=== PATIENT | male | born 1945 | race Caucasian/White ===

== ENCOUNTER 2018-07-03 19:01 | Emergency (ER) | payer MEDICARE, SELFPAY ==
[2018-07-03 19:02] VITALS: BP 163/75; PULSE 87; RESP 17; TEMP 36.6; O2SAT 96; BMI 26.4
--- NOTE | 2018-07-03 19:36 | CT_ITS ---
STUDY: CT ABDOMEN AND PELVIS WITHOUT CONTRAST REASON FOR EXAM: Male, 72 years old. Left flank pain. Patient's says pain has decreased after performance of the CT. RADIATION DOSAGE (If Supplied By Facility): CTDIvol = ( 10.78 ) mGy, DLP = ( 587.11 ) mGycm TECHNIQUE: Transaxial images were obtained from the dome of the diaphragm to the symphysis pubis without oral contrast, and without intravenous contrast. Sagittal and coronal images were reconstructed. Individualized dose optimization techniques were used for this CT. COMPARISON: None. FINDINGS: There are minimal dependent changes posteriorly at the lung bases. Lungs are otherwise clear. The visualized portions of the heart are within normal limits. Normal liver. There is non-visualization of the gallbladder, which may be secondary to either contraction or a prior cholecystectomy. There is mild dilatation of extrahepatic ducts suggesting prior cholecystectomy. Normal spleen. Normal pancreas. Normal bilateral adrenal glands. The right kidney is of normal size and cortical thickness. There is mild stranding of the perinephric fat. There is a high density exophytic cyst mass off the mid to lower pole suggesting hemorrhagic cyst. There is no renal calculi. There is no hydronephrosis. Normal right ureter. Left kidney is normal in size and cortical echogenicity. There is a small hemorrhagic cyst in the mid kidney. There is a 4.1 x 3.5 x 4 cm exophytic cyst off the upper pole. There is stranding of the perinephric fat. There is 2 mm nonobstructing calculus lower pole calyx. There is very mild hydronephrosis is dilatation of the ureter to the urinary bladder. There is a 2 mm calcification in the urinary bladder suggesting calcification within a left ureterocele versus recently passed stone. Normal visualized stomach. Normal small intestine. Normal colon. The appendix is visualized and appears normal. There is diffuse atherosclerotic calcification of the abdominal aorta, without a demonstrated aneurysm. Normal inferior vena cava. Normal retroperitoneum. Normal urinary bladder. The prostate is mildly enlarged. There is no pelvic lymphadenopathy. There are phleboliths right pelvis. No free air or free fluid is seen within the peritoneal cavity. There is a large left inguinal hernia of omental fat. The abdominal wall is otherwise unremarkable. There are diffuse degenerative changes of the visualized lumbar spine. CT/Abdomen/Pelvis without Cont IMPRESSION: 1. Small calcification in the left pelvis near the UVJ. Recently passed stone versus calcification within the left ureterocele. There is mild left hydronephrosis and ureterectasis. 2. Nonobstructing left renal calculus. 3. Status post cholecystectomy. 4. Bilateral renal cysts. 5. Enlarged prostate. 6. Atherosclerotic changes of the aorta. 7. Left inguinal hernia. 8. Degenerative changes of the lumbar spine. Electronically Signed: Arben Aranda DO at 21:03 EDT Tel [phone], Service support ,
[2018-07-03] MEDS: Ketorolac 30 MG/ML Syringe 15 MG IV (20:05)
[2018-07-03] MEDS: 0.9% Normal Saline 1,000 ML 250 ML IV (20:05)
[2018-07-03] MEDS: Ondansetron 4 MG/2 ML Vial IV (20:06)
[2018-07-03] MEDS: Morphine 4 MG/ML Syringe IV (20:06)
[2018-07-03 20:18] LABS: Absolute Lymphocyte Count 0.88 X10^3/ul (0.83-4.51); Absolute Neutrophil Count 7.4 X10^3/uL (2.0-7.7); Basophil# 0.02 X10^3/uL; Basophil% 0.2 % (0-1); Eosinophil# 0.04 X10^3/uL; Eosinophils% 0.5 % (0-5); Hemoglobin 14.6 g/dl (13.0-16.5); Lymphocyte # 0.88 X10^3/ul (4.0); Lymphocyte % 9.9 % (19-41); Mean Corpuscular Hgb 31.4 pg (27.0-32.0); Mean Corpuscular Volume 92.5 fL (80-94); Mean Platelet Vol. 9.6 fl (6.2-12.0); Monocyte# 0.52 X10^3/uL; Monocyte% 5.9 % (0-10); Neutrophil # 7.38 X10^3/uL (2.7-7.7); Platelet Count 238 K/mm3 (150-450); RBC Distribution Width CV 13.7 % (11.6-14.6); RBC Distribution Width SD 46.2 fl (35.1-43.9); Red Blood Count 4.65 M/mm3 (4.6-6.2); White Blood Count 8.9 K/mm3 (4.4-11.0)
[2018-07-03 20:24] LABS: POSITIVE COUNT NO; POSITIVE DIFFERENTIAL NO; POSITIVE MORPHOLOGY NO
[2018-07-03 20:31] LABS: Anion Gap 6 (5-15); BUN 25 mg/dL (7-18); BUN/Creat Ratio 18.1 RATIO (10-20); Chloride 104 mmol/L (98-107); Creatinine, Serum 1.38 mg/dL (0.70-1.30); EST Glomerular Filtration Rate 54 mL/min (>60); Est Glom Filt Rate - Afr Amer 65 mL/min (>60); Estimated Creatinine Clearance 56.29 ml/min; Glucose 104 mg/dL (74-106); Potassium 3.7 mmol/L (3.5-5.1); Sodium Level 140 mmol/L (136-145)
[2018-07-03 21:38] LABS: Bacteria 0 SEEN /hpf (None Seen); Mucous, Urine 0 SEEN /hpf (<or=2+); Red Blood Cells-Urine 0 SEEN /hpf (0-5); Squamous Epithelial Cells - UA 0 SEEN /hpf (0-5)
[2018-07-03 22:15] LABS: Color, Urine Yellow (Yellow); Glucose, Dipstick Normal (Normal); Ketone-Dipstick Negative (Negative); Leukocyte Esterase-Dipstick Negative /ul (Negative); Nitrite-Dipstick Negative (Negative); Occult Blood-Urine 250 /ul (Negative); Protein-Dipstick 15 mg/dl (Negative); Urine Bilirubin Dipstick Negative (Negative); Urine Clarity Sl. Cloudy (Clear); Urine Urobilinogen Normal (Normal)
--- NOTE | 2018-07-03 22:27 | ED.DCSUM_ITS ---
- ER Visit Summary Date of Service: 07/03/18 Chief Complaint: Left flank pain History of Present Illness: The patient is a 72 M with left flank pain since 3 PM this afternoon. Patient states his legs feel like his prior kidney stones. He has noted dark discoloration to his urine. No dysuria. Patient has had prior kidney stones that he has been able to pass. He is never required surgery. Physical Examination: Vital signs significant for blood pressure 163/75, otherwise unremarkable. Patient sitting in bed no acute distress. Heart regular rate and rhythm. Lung sounds are clear. Abdomen is soft nontender. Back examination was no CVA tenderness. Test Results: CBC and chemistry studies reveal creatinine 1.38. Urinalysis shows 250 blood on microscopic exam. CT flank shows small calcification in the left pelvis near the UVJ. This is likely a recently passed stone versus calcification in a left ureterocele. There is evidence of a 2 mm stone in the left kidney. Mild left hydronephrosis is noted. Emergency Department Course and Treatment: Patient was given IV fluids, Toradol, Zofran, and morphine. On repeat evaluation patient is resting comfortably. I advised him that he is already passed the stone into the bladder. He was notified that there is another stone in the left kidney that may cause problems in the future. He is referred to urology for follow-up as needed. Treatment Plan: [] Disposition: Discharge Impression: Recently passed kidney stone This note was generated with [employer] dictation software. It may contain incorrect words, spelling, and punctuation that were not noted in review of the chart prior to signing ED Disposition - Plan for ED Patient: Disposition: Home or Assisted Living Instructions: ED Stone Renal Passed Referrals: Byron Vasquez MD [STAFF PHYSICIAN] - As Needed
[2018-07-03 22:38] LABS: Amorphous Sediment 1+; White Blood Cells 25-50 SEEN /hpf (0-5)
[2018-07-03 22:49] VITALS: BP 152/84; PULSE 95; RESP 16; O2SAT 98
== END 2018-07-03 22:50 | disposition home or self-care (01) ==
PROVIDERS: Emergency Provider Emergency Medicine; Family Provider Internal Medicine; PCP Internal Medicine
DX: N13.2 Hydronephrosis with renal and ureteral calculous obstruction (principal); Z87.442 Personal history of urinary calculi; I10 Essential (primary) hypertension; K21.9 Gastro-esophageal reflux disease without esophagitis
CPT/HCPCS: 74176; 80048; 81001; 85025; 96361; 96374; 96375; 99283; J7030; J2405

== ENCOUNTER 2020-04-07 15:55 | Outpatient (RCR) | payer MEDICARE, SELFPAY | END 2020-04-07 23:59 | LOC: IMMUN 15:55 | PROVIDERS: PCP Internal Medicine; Visit Provider Family Medicine | DX: Z23 Encounter for immunization (principal) | CPT/HCPCS: 0011A; 0012A ==

== ENCOUNTER → 2020-06-29 06:25 | Outpatient (CLI) | payer MEDICARE, SELFPAY ==
[2020-06-07 11:00] VITALS: BMI 25.7
--- NOTE | 2020-06-29 06:27 | ECHOD_ITS ---
Reason For Study: ARRHYTHMIA Procedure This was a 2D Doppler, Color Flow transthoracic echocardiogram. Exam performed in department. Left Ventricle Normal LV size. Left ventricular systolic function is normal. The estimated ejection fraction is 55 %. Stage 1 diastolic dysfunction. No regional wall motion abnormalities noted. Right Ventricle Normal RV size. Normal systolic function. Atria Normal left atrium. Normal right atrium. Mitral Valve Mild focal mitral valve calcification. Tricuspid Valve Normal tricuspid valve. Mild tricuspid valve insufficiency. Aortic Valve Normal aortic valve. Trisinus/trileaflet aortic valve. Pulmonic Valve Normal pulmonic valve. Great Vessels Normal aortic root. The pulmonary artery is normal size. Normal inferior vena cava. Pericardium/Pleural No pericardial effusion. MMode/2D Measurements & Calculations LVIDd: 4.4 cm IVSd: 1.1 cm Ao root diam: 3.3 cm LVIDs: 3.1 cm LVPWd: 1.1 cm RVDd: 3.3 cm FS: 30.1 % LAV(MOD-bp): 43.4 ml LA A4 area: 15.5 cm2 LA dimension(2D): 3.7 cm LAV(MOD-bp) Indexed: 20.6 ml/m2 LAV(MOD-sp2): 41.8 ml LAV(MOD-sp4): 41.5 ml RA A4 area: 14.6 cm2 Time Measurements MV dec time: 0.17 sec Doppler Measurements & Calculations MV E max hasmukh: 57.5 cm/sec Lat Peak E' Hasmukh: 7.8 cm/sec Med Peak E' Hasmukh: 6.4 cm/sec MV A max hasmukh: 93.3 cm/sec E/E' lat: 7.3 E/E' med: 9.0 MV E/A: 0.62 Ao V2 max: 113.9 cm/sec LV V1 max: 99.1 cm/sec PA V2 max: 88.5 cm/sec Ao max P.2 mmHg LV V1 max P.9 mmHg TR max hasmukh: 230.0 cm/sec TR max P.6 mmHg ECHO/Echo Complete Interpretation Summary Normal LV size. Left ventricular systolic function is normal. The estimated ejection fraction is 55 %. Stage 1 diastolic dysfunction. Structurally normal valves. Ordering Physician: Cam Allison Referring Physician: Damaris Almanzar Performed By: Sofi Danielle RDCS, RVT
--- NOTE | 2020-06-29 12:57 | STRESSREP ---
Stress Test Report Exercise myocardial perfusion stress test. 74-year-old male with a history of hypertension and hyperlipidemia. Stress protocol: Resting EKG demonstrates normal sinus rhythm with a rate of 68 bpm normal intervals are noted occasional premature ventricular complexes present. The patient exercised according to regular Torey protocol for a total duration of 6 minutes. The maximum heart rate attained was 166 bpm which was 112% of maximum predicted heart rate the maximum workload was 7 metabolic equivalents. At rest there were no ST or T wave changes noted to suggest ischemia and at peak exercise upsloping ST changes were noted with did not meet the criteria for ischemia. No clinical angina was noted the test was terminated due to the target heart rate being achieved. The peak blood pressure was 202/88 mmHg suggesting a hypertensive response to exercise. Myocardial perfusion protocol. 14.8 mCi of technetium 99m sestamibi was injected at rest. The patient exercised according to regular Torey protocol. At peak exercise 44.3 mCi of technetium 99m sestamibi was injected stress images were obtained stress and rest images were reconstructed and compared in the short axis vertical long and horizontal long axis. Gated images were also obtained Perfusion SPECT analysis: Review of the stress images demonstrate normal uptake of tracer noted in all areas of the myocardium. The resting images similarly demonstrated normal uptake of tracer noted in all areas of the myocardium no areas of reversibility were noted to suggest ischemia no previous infarct is noted. Gated SPECT analysis: The gated ejection fraction is noted to be 74%. Conclusion: Normal exercise myocardial perfusion stress test at a moderate workload. No evidence of ischemia noted.
== END ==
PROVIDERS: PCP Internal Medicine; Referring Provider Internal Medicine Cardiovascular Disease; Visit Provider Internal Medicine Cardiovascular Disease
DX: R94.31 Abnormal electrocardiogram [ECG] [EKG] (principal)
CPT/HCPCS: 78452; 93017; 93306; A9500; A4216

== ENCOUNTER 2021-09-02 19:08 | Emergency (ER) | payer MEDICARE, SELFPAY ==
[2021-09-02 19:09] VITALS: BP 144/76; PULSE 84; RESP 16; TEMP 36.6; O2SAT 100; BMI 26.4
--- NOTE | 2021-09-02 19:15 | CT_ITS ---
STUDY: CT ABDOMEN AND PELVIS WITHOUT CONTRAST REASON FOR EXAM: Male, 76 years old. Kidney Stone right-sided flank pain today RADIATION DOSAGE (If Supplied By Facility): CTDIvol = ( 13.40 ) mGy, DLP = ( 716.28 ) mGycm TECHNIQUE: Transaxial images were obtained from the dome of the diaphragm to the symphysis pubis without oral contrast, and without intravenous contrast. Sagittal and coronal images were reconstructed. Individualized dose optimization techniques were used for this CT. COMPARISON: None. FINDINGS: There are chronic interstitial fibrotic changes of the lung bases. The visualized portions of the heart are within normal limits. Normal liver. Gallbladder is absent. Normal spleen. Normal pancreas. Normal bilateral adrenal glands. Mild right hydronephrosis and hydroureter with 2 mm calculus in the region of the right UVJ on image 111 series 2. Simple cyst of the left kidney. No required imaging follow-up needed given high likelihood of benign nature. There is a small hiatal hernia. Normal small intestine. There are multiple colonic diverticula consistent with diverticulosis. The appendix is visualized and appears normal. There is diffuse atherosclerotic calcification of the abdominal aorta, without a demonstrated aneurysm. Normal inferior vena cava. Normal retroperitoneum. Normal urinary bladder. There is a left-sided inguinal hernia containing adipose tissue. There are diffuse degenerative changes of the visualized lumbar spine. Right hip replacement. CT/Abdomen/Pelvis without Cont IMPRESSION: 1. 2 mm right UVJ calculus with mild hydronephrosis. Electronically Signed: Martinez Tafoya MD ([place]) at 20:33 EDT Reading Location ID and State: [facility] / [place] , Service support ,
--- NOTE | 2021-09-02 19:17 | ED.VIS.GI ---
HPI HPI - GI History of Present Illness Chief Complaint: Abd Pain Narrative Narrative: 76-year-old male presenting with right flank pain and right lower quadrant pain. Patient states it started out of nowhere couple of hours ago. It is sharp. He expresses that he has nausea without vomiting. No dysuria or hematuria. He has history of kidney stones and this feels similar. He has not had diarrhea or constipation. [facility] Medical History (Updated 09/02/21 @ 21:[address] Patrice Aceves DO) Abnormal electrocardiogram Cholelithiasis Essential (primary) hypertension GERD (gastroesophageal reflux disease) History of melanoma Hyperlipidemia Hypertrophy of prostate without urinary obstruction Kidney stone Kidney stones Neuropathy Nocturia Osteoarthritis Home Medications multivitamin-iron 9 mg-folic acid 400 mcg-calcium and minerals tablet 1 tablet PO DAILY 08/29/14 [History Last Taken Unknown] aspirin 81 mg tablet,delayed release (Adult Low Dose Aspirin) 81 mg PO DAILY 06/06/20 [History Last Taken Unknown] quinapril 20 mg-hydrochlorothiazide 12.5 mg tablet 1 tablet PO DAILY 06/06/20 [History Last Taken Unknown] lansoprazole 30 mg capsule,delayed release 30 mg PO DAILY 06/07/20 [History Last Taken Unknown] ondansetron 4 mg disintegrating tablet 4 mg PO Q8H PRN nausea and vomiting #14 tabs 09/02/21 [Rx Last Taken Unknown] oxycodone 5 mg capsule 5 mg PO Q8H PRN pain 3 days #12 caps 09/02/21 [Rx Last Taken Unknown] Allergy/AdvReac Type Severity Reaction Status Date / Time acetaminophen [From Tylenol] Allergy Rash Verified 09/02/21 19:11 doxazosin mesylate AdvReac Other Verified 09/02/21 19:11 [From Cardura] pantoprazole sodium AdvReac Other Verified 09/02/21 19:11 [From Protonix] triamterene AdvReac Other Verified 09/02/21 19:11 Family History Mother Cancer Father Aneurysm Surgical History History of cholecystectomy History of colonoscopy History of herniorrhaphy History of total hip arthroplasty Social History Smoking Status: Never smoker alcohol intake: current alcohol intake frequency: a few times a week Alcohol type: beer details: 1 beer 4 times a week ROS ROS ED Constitutional Constitutional ED: Denies chills or fever(s) ENT ENT ED: Denies rhinorrhea or sore throat Cardiovascular Cardiovascular: Denies chest pain or palpitations Respiratory/Chest Respiratory/Chest: Denies cough or dyspnea Gastrointestinal Gastrointestinal: Reports abdominal pain Genitourinary Genitourinary ED: Denies dysuria or hematuria Musculoskeletal Musculoskeletal: Reports back pain Integumentary Denies abscess or Abrasions Neurologic Neurologic: Denies headache(s) Psychiatric Psychiatric: Denies anxiety or depression EXAM Physical Exam Const Vital Signs: 09/02/21 19:09 09/02/21 21:45 Temperature 97.8 F Temperature Source Oral Pulse Rate 84 100 Respiratory Rate 16 18 Blood Pressure 144/76 H 157/84 H Blood Pressure Mean 98 Pulse Ox 100 96 Oxygen Delivery Method Room Air Positive well nourished General Appearance ED: NAD; Negative for pallor HEENT Reports TM's clear and moist mucous membranes normocephalic Tympanic Membrane ED: Yes TM's clear Eyes PERRL and EOMs intact bilaterally Resp normal respiratory effort and clear to auscultation bilaterally Cardio regular rate and regular rhythm Back/Spine General Back: CVA tenderness right Neuro CN's II-XII intact bilaterally Sensorium / Orientation: alert Motor Exam: strength 5/5 throughout Psych mental status grossly normal Skin no wounds General Skin Exam: Negative for jaundice or pallor MDM MDM MDM Narrative Medical decision making narrative: Patient given morphine, Zofran, Toradol. Blood work is obtained and his CBC is normal. BMP shows his creatinine is worsened to 1.91. He was given a liter of IV fluids. The last comparison creatinine I have for him is from 2019. Then it was 1.38. Urinalysis shows no indication of infection there is some occult blood. CT of the abdomen pelvis without contrast is ordered and patient has a 2 mm right UVJ stone with mild hydronephrosis. Patient counseled on findings. He still comfortable after being treated. He is given oxycodone in the ER. And given a prescription for oxycodone for home. He also given Zofran. He is given follow-up with urology for the kidney stone. He was urged to follow-up with his primary care physician for his abnormal kidney function. I do not think he is to be admitted. He is counseled to stay away from NSAIDs. Return precautions discussed. Impression: 1. 2 mm right UVJ stone 2. Nausea/vomiting sign 3. Hematuria 4. Right-sided hydronephrosis 5. Acute on chronic kidney disease Lab Data Attestation: I reviewed the patient's lab results. Labs: Laboratory Results - last 24 hr 09/02/21 09/02/21 09/02/21 19:24 19:24 20:35 WBC 9.9 RBC 4.57 L Hgb 14.3 Hct 42.6 MCV 93.2 MCH 31.3 MCHC 33.6 RDW Std Deviation 45.5 H RDW Coeff of Lidia 13.3 Plt Count 316 MPV 10.1 Immature Gran % (Auto) 0.600 Neut % (Auto) 71.5 H Lymph % (Auto) 17.1 L [place] % (Auto) 8.9 Eos % (Auto) 1.2 Baso % (Auto) 0.7 Absolute Neuts (auto) 7.1 Absolute Lymphs (auto) 1.69 Nucleated RBC % 0 Sodium 140 Potassium 3.6 Chloride 106 Carbon Dioxide 27.0 Anion Gap 7 BUN 38 H Creatinine 1.91 H Estim Creat Clear Calc 38.35 Est GFR (MDRD) Af Amer 45 L Est GFR (MDRD) Non-Af 37 L BUN/Creatinine Ratio 19.9 Glucose 129 H Calcium 9.8 Urine Color Yellow Urine Clarity Sl. Cloudy Urine pH 6.0 Ur Specific [place] 1.015 Urine Protein 15 H Urine Glucose (UA) Normal Urine Ketones 15 H Urine Occult Blood 250 H Urine Nitrite Negative Urine Bilirubin Negative Urine Urobilinogen Normal Ur Leukocyte Esterase Negative Urine RBC 25-50 SEEN Urine WBC 0 SEEN Ur Squamous Epith Cells 0-5 SEEN Urine Bacteria 0 SEEN Urine Mucus 0 SEEN Radiography Diagnostic Testing: Clinical Impression(s) from Imaging Studies Abdomen/Pelvis CT 09/02/21 19:15 IMPRESSION: 1. 2 mm right UVJ calculus with mild hydronephrosis. Electronically Signed: Martinez Tafoya MD ([place]) at 20:33 EDT , Discharge Plan Triage Chief Complaint: Abd Pain ED Provider: Patrice Aceves Dx/Rx/DC Orders Instructions: ED Kidney Stone w/ Colic Prescriptions: New oxycodone 5 mg capsule 5 mg PO Q8H PRN (Reason: pain) 3 Days Qty: 12 0RF ondansetron 4 mg tablet,disintegrating 4 mg PO Q8H PRN (Reason: nausea and vomiting) Qty: 14 0RF No Action quinapril-hydrochlorothiazide 20-12.5 mg tablet 1 tablet PO DAILY aspirin [Adult Low Dose Aspirin] 81 mg tablet,delayed release (DR/EC) 81 mg PO DAILY [id number] 1 TABLET tablet 1 tablet PO DAILY lansoprazole 30 mg capsule,delayed release(DR/EC) 30 mg PO DAILY Primary Care Provider: Damaris Almanzar Referrals: Byron Vasquez MD [STAFF PHYSICIAN] - 3-5 Days Damaris Almanzar MD [Primary Care Provider] - Disposition Disposition: Home, Self Care
[2021-09-02 19:46] LABS: Anion Gap 7 (5-15); BUN 38 mg/dL (7-18); BUN/Creat Ratio 19.9 RATIO (10-20); Calcium,Total 9.8 mg/dL (8.5-10.1); Chloride 106 mmol/L (98-107); Creatinine, Serum 1.91 mg/dL (0.70-1.30); EST Glomerular Filtration Rate 37 mL/min (>60); Est Glom Filt Rate - Afr Amer 45 mL/min (>60); Estimated Creatinine Clearance 38.35 ml/min; Glucose 129 mg/dL (74-106); Potassium 3.6 mmol/L (3.5-5.1); Sodium Level 140 mmol/L (136-145)
[2021-09-02 20:10] LABS: Absolute Lymphocyte Count 1.69 X10^3/uL (0.83-4.51); Absolute Neutrophil Count 7.1 X10^3/uL (2.0-7.7); Basophil# 0.07 X10^3/uL; Basophil% 0.7 % (0-1); Eosinophil# 0.12 X10^3/uL; Eosinophils% 1.2 % (0-5); Hematocrit 42.6 % (40-54); Hemoglobin 14.3 g/dL (13.0-16.5); Lymphocyte # 1.69 X10^3/ul (0.83-4.51); Lymphocyte % 17.1 % (19-41); Mean Corp Hgb Conc 33.6 g/dL (32-36); Mean Corpuscular Hgb 31.3 pg (27.0-32.0); Mean Corpuscular Volume 93.2 fL (80-94); Mean Platelet Vol. 10.1 fl (6.2-12.0); Monocyte# 0.88 X10^3/uL; Monocyte% 8.9 % (0-10); NRBC Flagged by Analyzer 0 % (0-5); Neutrophil # 7.08 X10^3/uL (2.7-7.7); Neutrophil % 71.5 % (47-70); Platelet Count 316 K/mm3 (150-450); RBC Distribution Width CV 13.3 % (11.6-14.6); RBC Distribution Width SD 45.5 fl (35.1-43.9); Red Blood Count 4.57 M/mm3 (4.6-6.2); White Blood Count 9.9 K/mm3 (4.4-11.0)
[2021-09-02] MEDS: Morphine 4 MG/ML Syringe IV (20:18)
[2021-09-02] MEDS: Ondansetron 4 MG/2 ML Vial IV (20:18)
[2021-09-02] MEDS: 0.9% Normal Saline 1,000 ML 999 ML IV (20:18)
[2021-09-02] MEDS: Ketorolac 15 MG/ML Vial IV (20:19)
[2021-09-02 20:40] LABS: Bacteria 0 SEEN /hpf (None Seen); Mucous, Urine 0 SEEN /hpf (<or=2+); White Blood Cells 0 SEEN /hpf (0-5)
[2021-09-02 20:42] LABS: Color, Urine Yellow (Yellow); Glucose, Dipstick Normal (Normal); Ketone-Dipstick 15 mg/dl (Negative); Leukocyte Esterase-Dipstick Negative /ul (Negative); Nitrite-Dipstick Negative (Negative); Occult Blood-Urine 250 /ul (Negative); Protein-Dipstick 15 mg/dl (Negative); Specific Gravity, Urine 1.015 (1.002-1.030); Urine Bilirubin Dipstick Negative (Negative); Urine Clarity Sl. Cloudy (Clear); Urine Urobilinogen Normal (Normal)
[2021-09-02 20:49] LABS: Red Blood Cells-Urine 25-50 SEEN /hpf (0-5); Squamous Epithelial Cells - UA 0-5 SEEN /hpf (0-5)
[2021-09-02] MEDS: oxyCODONE 5 MG Tablet PO (21:42)
[2021-09-02 21:45] VITALS: BP 157/84; PULSE 100; RESP 18; O2SAT 96
== END 2021-09-02 23:10 ==
PROVIDERS: Emergency Provider Student in an Organized Health Care Education/Training Program; PCP Internal Medicine; Visit Provider Student in an Organized Health Care Education/Training Program
DX: N13.2 Hydronephrosis with renal and ureteral calculous obstruction (principal); N17.9 Acute kidney failure, unspecified; N18.9 Chronic kidney disease, unspecified; R31.9 Hematuria, unspecified
CPT/HCPCS: 74176; 80048; 81001; 85025; 96374; 96375; 99282; J7030; A4216; J2405

== ENCOUNTER 2022-10-25 02:20 | Emergency (ER) | payer MEDICARE, SELFPAY ==
[2022-10-25 02:21] VITALS: BP 187/126; PULSE 87; RESP 17; TEMP 35.9; O2SAT 97; BMI 26.5
--- NOTE | 2022-10-25 02:33 | CT_ITS ---
EXAM: CT ABDOMEN AND PELVIS WITHOUT INTRAVENOUS CONTRAST CLINICAL INDICATION: Kidney Stone L TECHNIQUE: Helically acquired images were obtained of the abdomen and pelvis without intravenous contrast. This CT exam was performed using one or more of the following dose reduction techniques: automated exposure control, adjustment of the mA and/or kV according to patient size, and/or use of iterative reconstruction technique. RADIATION DOSE: CTDIvol = 11.72 mGy, DLP = 640.09 mGy-cm COMPARISON: CT abdomen and pelvis 09/02/2021 FINDINGS: LOWER THORAX: Bibasilar dependent atelectasis. No cardiomegaly. No significant pericardial effusion. ABDOMEN: LIVER: Unremarkable. Homogeneous. GALLBLADDER AND BILE DUCTS: Cholecystectomy. No intra- or extrahepatic biliary ductal dilation. PANCREAS: Unremarkable. No focal cystic mass. SPLEEN: Unremarkable. Normal size without focal cystic or solid mass. ADRENALS: Unremarkable. No nodules. KIDNEYS AND URETERS: There is a 2 mm stone in the left UVJ, causing mild obstructive changes. Benign left renal cyst. No follow-up imaging is recommended per consensus recommendations based on imaging criteria. Normal renal size and position. STOMACH AND BOWEL: Diverticular disease of the sigmoid colon without diverticulitis. No stomach or bowel distention. PELVIS: APPENDIX: The appendix is normal. BLADDER: Unremarkable. REPRODUCTIVE: Unremarkable as visualized. No mass. ABDOMEN and PELVIS: INTRAPERITONEAL SPACE: Unremarkable. No ascites or other fluid collection. No free air. BONES/JOINTS: Degenerative changes of the spine. Right hip arthroplasty. No suspicious lytic or blastic abnormality. SOFT TISSUES: Fat-containing left inguinal hernia. VASCULATURE: Unremarkable. Abdominal aorta is non-dilated. LYMPH NODES: Unremarkable. No enlarged lymph nodes. CT/Abdomen/Pelvis without Cont IMPRESSION: There is a 2 mm stone in the left UVJ, causing mild obstructive changes. Electronically Signed: Star Steward MD at 3:23 EDT ,
--- NOTE | 2022-10-25 02:34 | ED.VIS.GI ---
HPI HPI - GI History of Present Illness Chief Complaint: Flank Pain Informant: patient Narrative Narrative: Patient feels like he has a kidney stone. Has had them in the past, similar pain, left flank started 1 hour prior to arrival. He states the pain is not so bad right now. Denies any nausea or vomiting. Pain does not go into his back, just his side, states he feels like he needs to urinate but he cannot and the pain radiates down into his left scrotum and penis. No hematuria. He has not required surgery to remove stones in the past. PFSH PFS Medical History Abnormal electrocardiogram Cholelithiasis Essential (primary) hypertension GERD (gastroesophageal reflux disease) History of melanoma Hyperlipidemia Hypertrophy of prostate without urinary obstruction Kidney stone Kidney stones Neuropathy Nocturia Osteoarthritis Home Medications multivitamin-iron 9 mg-folic acid 400 mcg-calcium and minerals tablet 1 tablet PO DAILY 08/29/14 [History Last Taken Unknown] lansoprazole 30 mg capsule,delayed release 30 mg PO DAILY 06/07/20 [History Last Taken Unknown] lisinopril 30 mg tablet 30 mg PO DAILY 10/25/22 [History Last Taken Unknown] oxycodone-acetaminophen 5 mg-325 mg tablet 1 tab PO Q6H PRN PRN Pain 3 days #12 TABLETS 10/25/22 [Rx Last Taken Unknown] Allergy/AdvReac Type Severity Reaction Status Date / Time acetaminophen [From Tylenol] Allergy Rash Verified 10/25/22 02:23 doxazosin mesylate AdvReac Other Verified 10/25/22 02:23 [From Cardura] pantoprazole sodium AdvReac Other Verified 10/25/22 02:23 [From Protonix] triamterene AdvReac Other Verified 10/25/22 02:23 Family History Mother Cancer Father Aneurysm Surgical History History of cholecystectomy History of colonoscopy History of herniorrhaphy History of total hip arthroplasty Social History Smoking Status: Never smoker alcohol intake: current alcohol intake frequency: a few times a week Alcohol type: beer details: 1 beer 4 times a week ROS ROS ED Constitutional Constitutional ED: Denies chills or fever(s) Eyes Eyes: Denies change in vision or diplopia ENT ENT ED: Denies rhinorrhea or sore throat Cardiovascular Cardiovascular: Denies chest pain or palpitations Respiratory/Chest Respiratory/Chest: Denies cough or dyspnea Gastrointestinal Gastrointestinal: Reports abdominal pain; Denies diarrhea, nausea or vomiting Genitourinary Genitourinary ED: Reports flank pain and other Details: Feels like I need to go but I cannot ; Denies dysuria or hematuria Musculoskeletal Musculoskeletal: Denies back pain or neck pain Integumentary Denies abscess or rash Neurologic Neurologic: Denies headache(s), paresthesias or weakness Psychiatric Psychiatric: Denies anxiety or suicidal thoughts EXAM Physical Exam Const Vital Signs: 10/25/22 02:21 Temperature 96.6 F L Temperature Source Temporal Pulse Rate 87 Respiratory Rate 17 Blood Pressure 187/126 H Blood Pressure Mean 146 Pulse Ox 97 Oxygen Delivery Method Room Air Positive well nourished and well developed General Appearance ED: well developed and NAD HEENT Reports moist mucous membranes normocephalic and atraumatic Eyes PERRL and EOMs intact bilaterally Neck full ROM and supple Resp normal respiratory effort and clear to auscultation bilaterally Cardio regular rate, regular rhythm and no murmurs GI non-distended GI Narrative: Tender left lower quadrant, no guarding or rebound tenderness no pulsatile mass palpable. No Montes Dsouza sign no [place] sign. Auscultation: normoactive bowel sounds Palpation: soft Back/Spine no CVA tenderness General Back: other FROM Extremity normal to inspection General Extremety ED: Negative for edema, pulses abnormal or tenderness General Extremity: Negative for edema or pulses abnormal Neuro oriented x3, CN's II-XII intact bilaterally and no sensory deficits noted Sensorium / Orientation: awake and alert Motor Exam: strength 5/5 throughout Skin no rashes or lesions noted and no wounds MDM MDM MDM Narrative Medical decision making narrative: Likely having a kidney stone, CT was obtained and verifies a 2 mm stone at the left UVJ which explains his symptoms. I reviewed the images and the report and I agree with it. Urinalysis does not show obvious acute infection although there is pyuria. If he develops symptoms for infection I recommend he return, however at this time he has a very small stone that will likely not take a long time to pass. Blood work not indicated at this time since he has only had the stone for couple hours. His vital signs are stable, he was hypertensive when he was here, he was given Percocet and that really helped his pain and some Zofran as well to prophylax against nausea. He will get a prescription for more pain medication and we discussed reasons to return he is comfortable with that plan. Lab Data Attestation: I reviewed the patient's lab results. Labs: Laboratory Results - last 24 hr 10/25/22 02:55 Urine Color Yellow Urine Clarity Sl. Cloudy Urine pH 6.0 Ur Specific [place] 1.025 Urine Protein 30 H Urine Glucose (UA) Normal Urine Ketones Negative Urine Occult Blood 250 H Urine Nitrite Negative Urine Bilirubin Negative Urine Urobilinogen 1 H Ur Leukocyte Esterase 25 H Urine RBC 0-5 SEEN Urine WBC 25-50 SEEN Ur Squamous Epith Cells 0 SEEN Urine Bacteria RARE Hyaline Casts 0-5 SEEN Urine Mucus 1+ Radiography Diagnostic Testing: Clinical Impression(s) from Imaging Studies Abdomen/Pelvis CT 10/25/22 02:33 IMPRESSION: There is a 2 mm stone in the left UVJ, causing mild obstructive changes. Electronically Signed: Star Steward MD at 3:23 EDT , Discharge Plan Triage Chief Complaint: Flank Pain ED Provider: Nicholas Iyer Dx/Rx/DC Orders Clinical Impression: Ureteral colic, Urolithiasis Instructions: ED Kidney Stone w/ Colic Prescriptions: New oxycodone-acetaminophen [oxycodone-acetaminophen] 5-325 mg tablet 1 tab PO Q6H PRN PRN (Reason: Pain) 3 Days Qty: 12 0RF No Action [id number]-calcium-mins 1 TABLET tablet 1 tablet PO DAILY lansoprazole 30 mg capsule,delayed release(DR/EC) 30 mg PO DAILY lisinopril 30 mg tablet 30 mg PO DAILY Primary Care Provider: Damaris Almanzar Referrals: Byron Vasquez MD [Med Staff - Active Staff] - 10-14 Days if not better Damaris Almanzar MD [Primary Care Provider] - Disposition Disposition: Home, Self Care
[2022-10-25] MEDS: HYDROcodone Bitartrate/Apap 5/325 Tablet PO (02:51)
[2022-10-25] MEDS: Ondansetron 4 MG/2 ML Vial IV (02:54)
[2022-10-25 03:05] LABS: Squamous Epithelial Cells - UA 0 SEEN /hpf (0-5)
[2022-10-25 03:06] LABS: Color, Urine Yellow (Yellow); Glucose, Dipstick Normal (Normal); Ketone-Dipstick Negative (Negative); Leukocyte Esterase-Dipstick 25 /ul (Negative); Nitrite-Dipstick Negative (Negative); Occult Blood-Urine 250 /ul (Negative); Protein-Dipstick 30 mg/dl (Negative); Specific Gravity, Urine 1.025 (1.002-1.030); Urine Bilirubin Dipstick Negative (Negative); Urine Clarity Sl. Cloudy (Clear); Urine Urobilinogen 1 mg/dl (Normal)
[2022-10-25 03:25] LABS: Bacteria RARE /hpf (None Seen); Red Blood Cells-Urine 0-5 SEEN /hpf (0-5); White Blood Cells 25-50 SEEN /hpf (0-5)
[2022-10-25 03:26] LABS: Hyaline Cast 0-5 SEEN /lpf (0-5); Mucous, Urine 1+ /hpf (<or=2+)
[2022-10-25 03:46] VITALS: BP 137/99; PULSE 87; RESP 18; O2SAT 100
== END 2022-10-25 03:53 | disposition home or self-care (01) ==
PROVIDERS: Emergency Provider Emergency Medicine; PCP Internal Medicine; Visit Provider Emergency Medicine
DX: N20.1 Calculus of ureter (principal); I10 Essential (primary) hypertension; Z79.899 Other long term (current) drug therapy
CPT/HCPCS: 74176; 81001; 96374; 99284; A4216; J2405

== ENCOUNTER 2023-08-19 05:42 | Emergency (ER) | payer MEDICARE, SELFPAY ==
--- NOTE | 2023-08-19 09:10 | EDS_ITS ---
HPI HPI - GI History of Present Illness Detail of Chief Complaint: Taken care of on 08/19/23 during computer downtime. Informant: patient and spouse/S.O. Abdominal Pain/Flank Pain Onset: Today Context: Gradual Onset Timing: Continuous Quality: Aching Location: - (Left groin pain.) Current Severity: Gone Maximum Severity: Mild Worsened by: Nothing Relieved by: Nothing Nausea/Vomiting/Emesis GI Symptom: Negative for Nausea or Vomiting Diarrhea/Melena/Hematochezia GI Symptom: Negative for Diarrhea, Melena or Hematochezia Associated Symptoms Associated Symptoms: Negative for Dysuria, Frequency, Hematuria or Urgency Narrative Narrative: 78-year-old male history of prior kidney stones otherwise healthy. Said around 2 AM he was awoke with left groin pain. Denies any abdominal or back pain. Denies any other symptoms. No nausea, vomiting, diarrhea. No fever or chills. No dysuria or hematuria. He said the pain is almost completely gone at this time. He never had any back pain associated with it. He said any prior kidney stones always started in the flank or upper abdomen. He has never needed in the kidney stone surgery for removal. Currently symptom-free. Prior similar symptoms: No Recent Illness/Hospitalization: No PFSH PFSH Medical History Kidney stone Abnormal electrocardiogram Cholelithiasis Neuropathy Hypertrophy of prostate without urinary obstruction Osteoarthritis History of melanoma Nocturia Kidney stones GERD (gastroesophageal reflux disease) Essential (primary) hypertension Hyperlipidemia Home Medications ?Medication ?Instructions ?Recorded ?Last Taken ?Type multivitamin-iron 9 mg-folic acid 1 tablet PO DAILY 08/29/14 Unknown History 400 mcg-calcium and minerals tablet lansoprazole 30 mg capsule,delayed 30 mg PO DAILY 06/07/20 Unknown History release lisinopril 30 mg tablet 30 mg PO DAILY 10/25/22 Unknown History oxycodone-acetaminophen 5 mg-325 1 tab PO Q6H PRN PRN Pain 3 days 10/25/22 Unknown Rx mg tablet #12 TABLETS Allergy/AdvReac Type Severity Reaction Status Date / Time acetaminophen (From Tylenol) Allergy Rash Verified 10/25/22 02:23 doxazosin mesylate (From AdvReac Other Verified 10/25/22 02:23 Cardura) pantoprazole sodium (From AdvReac Other Verified 10/25/22 02:23 Protonix) triamterene AdvReac Other Verified 10/25/22 02:23 Family History Mother Cancer Father Aneurysm Surgical History History of colonoscopy History of herniorrhaphy History of cholecystectomy History of total hip arthroplasty Social History Smoking Status: Never smoker alcohol intake: current alcohol intake frequency: a few times a week Alcohol type: beer details: 1 beer 4 times a week ROS ROS ED ROS Narrative Left groin pain only. No other symptoms. Review of Systems ROS Unobtainable: Denies due to encephalopathy Constitutional Constitutional ED: Denies chills or fever(s) ENT ENT ED: Denies ear pain Cardiovascular Cardiovascular: Denies chest pain Respiratory/Chest Respiratory/Chest: Denies cough Gastrointestinal Gastrointestinal: Reports other Details: Left groin pain only. No abdominal, back or flank pain. ; Denies abdominal pain Genitourinary Genitourinary ED: Denies dysuria or hematuria Musculoskeletal Musculoskeletal: Denies arthralgias or back pain Integumentary Denies abscess or Abrasions Neurologic Neurologic: Denies headache(s) Psychiatric Psychiatric: Denies anxiety or depression Endocrine Endocrinology: Denies polydipsia Hematologic/Lymphatic Hematologic/Lymphatic: Denies easy bleeding Allergic/Immunologic Allergic/Immunologic ED: Denies mouth swelling, tongue swelling or urticaria EXAM Physical Exam Narrative Exam Narrative: Well-appearing 78-year-old male. Vital signs stable afebrile. He does not look septic toxic he is in no distress. His pain is basically resolved. H EENT exam unremarkable. Lungs clear. Heart regular rhythm. Abdomen soft, nontender, nondistended, normal bowel sounds without peritoneal signs. He is absolutely no abdominal tenderness. He points to his left groin but said the pain is resolved. There is no reproducible left groin pain on palpation. His external genitalia exam is unremarkable. No tenderness or swelling. There is no obvious hernia. He has full range of motion of both hips. The hips appear normal on exam. Full range of motion both lower extremities. Neurovascular intact. Const Positive well nourished and well developed; Negative for cachectic, contractures or unkempt General Appearance ED: well developed and NAD; Negative for unkempt, cachectic, contractures or pallor Nutritional Appearance: Negative for cachectic HEENT Reports moist mucous membranes; Denies dry mucous membranes normocephalic and atraumatic; Negative for trauma or tenderness Mouth ED: No dry mucous membranes Mouth: No dry mucous membranes Eyes PERRL and EOMs intact bilaterally General Eye ED: Negative for pale conjunctiva, scleral icterus or other Neck no lymphadenopathy, supple and no JVD General: Negative for tenderness Carotids: Negative for other Lymph Lymphatic: Negative for other Resp normal respiratory effort and clear to auscultation bilaterally Effort and Inspection: Negative for respiratory distress Auscultation: Negative for rales, rhonchi, wheezes or diminished lung sounds Cardio regular rate, regular rhythm, S1 normal heart sound, S2 normal heart sound and no murmurs Rate: Negative for bradycardia or tachycardic Rhythm: Negative for abnormal rhythm GI non-tender, non-distended and no masses Inspection: Negative for abdominal distention Palpation: soft; Negative for tender, guarding, hernia, mass or rebound tenderness present Back/Spine no CVA tenderness General Back: Negative for CVA tenderness Cervical Spine: Negative for cervical spine tenderness Thoracic Spine / Upper Back: Negative for thoracic spinal tenderness Lumbar Spine / Lower Back: Negative for lumbar spinal tenderness Extremity full ROM General Extremety ED: Negative for edema, tenderness or other findings General Extremity: Negative for edema or other findings Neuro CN's II-XII intact bilaterally and moves all extremities Sensorium / Orientation: alert, oriented to person, oriented to place and oriented to time; Negative for orientation impaired, confused, lethargic or stuporous Motor Exam: strength 5/5 throughout; Negative for general weakness or strength abnormal Psych mental status grossly normal and thought process normal Appearance: Negative for unkempt Attitude: No agitated Mood & Affect: Negative for depressed or anxious Skin no wounds General Skin Exam: Negative for jaundice or pallor Lesions: no lesions Rashes: no rashes Trauma: Negative for abrasion Nails: Negative for discolored MDM MDM MDM Narrative Medical decision making narrative: 78-year-old male had left groin pain which is since resolved. Currently symptom-free and pain-free. Had a history of kidney stones. I suspect this was a small kidney stone that passed into his bladder. Patient did not want a test done. He did not need any medications because with any symptoms. I reevaluated about 30 minutes after his initial exam again he was symptom-free pain-free. Abdomen, groin and left hip were unremarkable. He will be discharged home. Clinically this was a small kidney stone that passed into his bladder. Will strain his urine to see if he passes a stone. Discharge Plan Triage ED Provider: Jose M Christianson Dx/Rx/DC Orders Clinical Impression: Left groin pain, History of renal stone Prescriptions: No Action [id number]-calcium-mins 1 TABLET tablet 1 tablet PO DAILY lansoprazole 30 mg capsule,delayed release(DR/EC) 30 mg PO DAILY lisinopril 30 mg tablet 30 mg PO DAILY oxycodone-acetaminophen [oxycodone-acetaminophen] 5-325 mg tablet 1 tab PO Q6H PRN PRN (Reason: Pain) 3 Days Qty: 12 0RF Primary Care Provider: Damaris Almanzar Referrals: Damaris Almanzar MD [Primary Care Provider] - Print Language: Lebanese
== END 2023-08-19 07:12 | disposition home or self-care (01) ==
LOC: ED 10:31
PROVIDERS: Emergency Provider Emergency Medicine; PCP Internal Medicine; Visit Provider Emergency Medicine
DX: R10.2 Pelvic and perineal pain (principal)
CPT/HCPCS: 99282

== ENCOUNTER 2024-10-07 07:12 | Emergency (ER) | payer MEDICARE, SELFPAY ==
[2024-10-07 07:12] VITALS: BP 163/81; PULSE 77; RESP 18; TEMP 36.6; O2SAT 99; BMI 25.0
--- NOTE | 2024-10-07 07:21 | CT_ITS ---
PROCEDURE: ABDOMEN/PELVIS WITHOUT CONT 10/07/2024 REASON FOR EXAM: KIDNEY STONE TECHNIQUE: ABDOMEN/PELVIS WITHOUT CONT Noncontrast technique limits evaluation of the abdominal and pelvic viscera. Coronal and Sagittal reconstruction series were provided. One or more dose reduction techniques were used (e.g., Automated exposure control, adjustment of the mA and/or kV according to patient size, use of iterative reconstruction technique). RADIATION DOSE SUMMARY: CTDlvol: 11.9 mGy DLP: 654 mGycm COMPARISON: October 25, 2022, September 02, 2021 FINDINGS: Lung bases: Clear Liver: Normal Gallbladder: Cholecystectomy Spleen: Normal Pancreas: Normal Adrenals: Normal Kidneys: Renal cysts are shown bilaterally. An exophytic cyst at the superior pole right kidney is 13 mm. Other smaller cysts are hyperdense of the lateral midpole and posterior right lower pole. Similarly, on the left side there are benign cysts. At the posterior left upper pole there is a 14 mm cyst. A dominant exophytic cyst at the left midpole is 4.3 x 4.5 cm. Hyperdense cyst posterior left midpole is 13 mm. Punctate calculus right upper pole. 9 x 11 mm calculus left mid to upper pole. 6 x 2 mm calculus left ureteropelvic junction. A 2nd, smaller 3 mm calculus is seen at the mid ureter at the level of L4. Bladder: Normal Reproductive Organs: Prostate is normal. Bowel: Small sliding hiatus hernia. Small bowel is normal. Colonic diverticulosis is present without diverticulitis. Appendix: Normal Lymph nodes: None appear enlarged. Vasculature: Moderate atherosclerotic plaque. No aneurysm. Peritoneum / Retroperitoneum: No free air, free fluid or mass. Bones: Right hip prosthesis. Abdominal wall: Intact. Fat containing left inguinal hernia. CT/Abdomen/Pelvis without Cont IMPRESSION: 1. Bilateral simple renal cysts and hemorrhagic cysts. Bosniak 1. Bosniak 2. No follow-up required. 2. Bilateral renal calculi. There are 2 calculi in the ureter on the left. 1 of the ureteropelvic junction and another at the level of L4. 3. Diverticulosis without diverticulitis. Sliding hiatus hernia. 4. Fat containing left inguinal hernia. Reading Location: [id number]
--- NOTE | 2024-10-07 07:23 | EX.ED.DYSGE1 ---
HPI History of Present Illness Chief Complaint: Flank Pain Detail of Chief Complaint: Acute left flank pain that awoke patient at 0400 Informant: patient and spouse/S.O. Onset/Context/Timing Onset: Today (Onset 0400. Resolved and then reoccurred at 0600) Context: Sudden Onset Timing: Continuous Quality: Continuous since 0600 Current Severity: Severe Maximum Severity: Severe Worsened by: Nothing Relieved by: Nothing Associated Symptoms Associated Symptoms: Cold sweat and nausea Narrative Narrative: Patient is a 79-year-old male. He has history of recurrent renal and ureteral stone stones. Patient states he was awakened from sleep at 0400 with severe left-sided pain. The pain resolved. He thought he had passed the stone. At 0600 he had onset of pain in the lower left lower quadrant/inguinal area. It has been persistent since 0600. He does endorse cold sweat and nausea. He had no vomiting. He denies fever or chills. He denies any urologic symptoms. He denies scrotal pain or swelling. He has not noted a rash. He states he is on lisinopril and amlodipine for hypertension. He denies history of diabetes, peptic ulcer disease or kidney disease. Patient was seen July of this year by Dr. Christianson. At that time was felt that patient passed the stone. He was diagnosed with a UVJ stone in October [address] Reyes. Prior similar symptoms: Yes Recent Illness/Hospitalization: No PFSH [facility] Medical History Kidney stone Abnormal electrocardiogram Cholelithiasis Neuropathy Hypertrophy of prostate without urinary obstruction Osteoarthritis History of melanoma Nocturia Kidney stones GERD (gastroesophageal reflux disease) Essential (primary) hypertension Hyperlipidemia Home Medications ?Medication ?Instructions ?Recorded ?Last Taken ?Type multivitamin-iron 9 mg-folic acid 1 tablet PO DAILY 08/29/14 Unknown History 400 mcg-calcium and minerals tablet lansoprazole 30 mg capsule,delayed 30 mg PO DAILY 06/07/20 Unknown History release lisinopril 30 mg tablet 30 mg PO DAILY 10/25/22 Unknown History oxycodone-acetaminophen 5 mg-325 1 tab PO Q6H PRN PRN Pain 3 days 10/25/22 Unknown Rx mg tablet #12 TABLETS oxycodone 5 mg capsule 5 mg PO Q6H PRN pain 5 days #20 10/07/24 Unknown Rx caps Allergy/AdvReac Type Severity Reaction Status Date / Time acetaminophen (From Tylenol) Allergy Rash Verified 10/07/24 07:12 doxazosin mesylate (From AdvReac Other Verified 10/07/24 07:12 Cardura) pantoprazole sodium (From AdvReac Other Verified 10/07/24 07:12 Protonix) triamterene AdvReac Other Verified 10/07/24 07:12 Family History Mother Cancer Father Aneurysm Surgical History History of colonoscopy History of herniorrhaphy History of cholecystectomy History of total hip arthroplasty Social History Smoking Status: Never smoker alcohol intake: current alcohol intake frequency: a few times a week Alcohol type: beer details: 1 beer 4 times a week ROS ROS ED Constitutional Constitutional ED: Denies chills, fever(s), subjective or sweats Cardiovascular Cardiovascular: Denies chest pain or palpitations Respiratory/Chest Respiratory/Chest: Denies cough, dyspnea or dyspnea on exertion Gastrointestinal Gastrointestinal: Reports abdominal pain and nausea; Denies constipation, diarrhea, melena or vomiting Genitourinary Genitourinary ED: Reports other Details: Left groin pain. ; Denies dysuria, hematuria or urinary frequency Musculoskeletal Musculoskeletal: Denies arthralgias or myalgias Integumentary Denies rash Neurologic Neurologic: Denies headache(s) or paresthesias Endocrine Endocrinology: Denies cold intolerance or heat intolerance Hematologic/Lymphatic Hematologic/Lymphatic: Reports systems reviewed and no addt'l complaints, except as documented EXAM Physical Exam Const Vital Signs: 10/07/24 07:12 10/07/24 08:12 10/07/24 09:00 Temperature 97.8 F 98.1 F 98.1 F Temperature Source Oral Oral Oral Pulse Rate 77 73 60 Respiratory Rate 18 20 H 18 Blood Pressure 163/81 H 166/88 H 134/73 H Blood Pressure Mean 108 114 93 Pulse Ox 99 98 95 Oxygen Delivery Method Room Air Room Air Room Air Positive well nourished and well developed Constitutional Narrative: Patient is grimacing. He appears uncomfortable. General Appearance ED: well developed; Negative for NAD or pallor HEENT Reports moist mucous membranes HEENT Narrative: Head is atraumatic normocephalic. Ears normal. Eyes PERRL and EOMs intact bilaterally General Eye ED: Negative for scleral icterus Neck no lymphadenopathy and no JVD Resp normal respiratory effort and clear to auscultation bilaterally Cardio regular rate, regular rhythm, S1 normal heart sound, S2 normal heart sound and no murmurs GI non-distended and no masses; Negative for non-tender or hepatosplenomegaly Auscultation: hyperactive bowel sounds Palpation: soft and tender LLQ; Negative for splenomegaly, mass or rebound tenderness present Narrative: There is no inguinal lymphadenopathy or mass. Back/Spine General Back: CVA tenderness left Extremity normal to inspection General Extremety ED: Negative for edema General Extremity: Negative for edema Neuro oriented x3 and CN's II-XII intact bilaterally Sensorium / Orientation: alert Psych mental status grossly normal Skin no rashes or lesions noted, no wounds and skin turgor normal General Skin Exam: Negative for jaundice or pallor MDM MDM MDM Narrative Medical decision making narrative: Patient blood pressure is elevated most likely due to pain. He appears uncomfortable. History is consistent with obstructing ureteral stone. Will obtain UA to rule out infection. Prior records were reviewed. Will obtain CT of the abdomen pelvis without contrast to determine location and size of presumed ureteral stone, and UA to rule out infection since this would necessitate antibiotics and admission if there is an obstruction. Patient was medicated with Zofran for his nausea, ketorolac and morphine for his pain. History & Record Review Additional record(s) reviewed:: Prior ED visit (Documented in the HPI narrative.) and Prior labs Lab Data Attestation: I reviewed the patient's lab results. Lab results narrative: Basic metabolic panel Veals an elevated BUN/creatinine of 21 and 1.23. Creatinine is improved compared to 2021. Glucose is elevated 149. UA reveals hematuria. There is no pyuria or bacteriuria. Labs: Laboratory Results - last 24 hr 10/07/24 10/07/24 07:17 07:30 Sodium 138 Potassium 4.3 Chloride 103 Carbon Dioxide 19.5 L Anion Gap 15 BUN 21 H Creatinine 1.23 H Estim Creat Clear Calc 59.55 Est GFR (MDRD) Non-Af 60 BUN/Creatinine Ratio 17.4 Glucose 149 H Calcium 9.7 Urine Color Yellow Urine Clarity Sl. Cloudy Urine pH 6.5 Ur Specific [place] 1.015 Urine Protein 30 H Urine Glucose (UA) Normal Urine Ketones Negative Urine Occult Blood 250 H Urine Nitrite Negative Urine Bilirubin Negative Urine Urobilinogen Normal Ur Leukocyte Esterase Negative Urine RBC > 100 SEEN Urine WBC 0 SEEN Ur Squamous Epith Cells 0 SEEN Urine Bacteria 0 SEEN Urine Mucus 0 SEEN Radiography Diagnostic Testing: Clinical Impression(s) from Imaging Studies Abdomen/Pelvis CT 10/07/24 07:21 IMPRESSION: 1. Bilateral simple renal cysts and hemorrhagic cysts. Bosniak 1. Bosniak 2. No follow-up required. 2. Bilateral renal calculi. There are 2 calculi in the ureter on the left. 1 of the ureteropelvic junction and another at the level of L4. 3. Diverticulosis without diverticulitis. Sliding hiatus hernia. 4. Fat containing left inguinal hernia. Reading Location: [id number] CT of the abdomen pelvis reveals a stone in the left renal pelvis. There is also a proximal ureteral stone that is causing mild hydro-. Awaiting formal read by radiologist, 0824. The radiology report was reviewed. Patient made aware of results and discharge to home Discharge Plan Triage Chief Complaint: Flank Pain ED Provider: Mñeo Barraza Dx/Rx/DC Orders Clinical Impression: Hydronephrosis with urinary obstruction due to ureteral calculus, Bilateral renal stones, Renal insufficiency, Hematuria, Elevated blood pressure reading with diagnosis of hypertension, Diverticulosis Instructions: ED Renal Insufficiency, ED Kidney Stone with Pain Prescriptions: New oxycodone 5 mg capsule 5 mg PO Q6H PRN (Reason: pain) 5 Days Qty: 20 0RF No Action [id number]-mins 1 TABLET tablet 1 tablet PO DAILY lansoprazole 30 mg capsule,delayed release(DR/EC) 30 mg PO DAILY lisinopril 30 mg tablet 30 mg PO DAILY oxycodone-acetaminophen [oxycodone-acetaminophen] 5-325 mg tablet 1 tab PO Q6H PRN PRN (Reason: Pain) 3 Days Qty: 12 0RF Primary Care Provider: Damaris Almanzar Referrals: Byron Vasquez MD [Med Staff - Active Staff] - 5-7 Days Damaris Almanzar MD [Primary Care Provider] - Activity Restrictions/Additional Instructions: 1. Return if you have a temperature greater than 100, unable to eat or drink anything or pain is not under control with medication prescribed. 2. Contact Dr. Vasquez's office for follow-up. Print Language: Gabonese Disposition Disposition: Home, Self Care
[2024-10-07 07:31] LABS: Mucous, Urine 0 SEEN /hpf (<or=2+); Squamous Epithelial Cells - UA 0 SEEN /hpf (0-5)
[2024-10-07] MEDS: 0.9% Normal Saline (1000mL) 1,000 ML 250 ML IV (07:38)
--- OUTSIDE RECORDS SUMMARY | 2024-10-07 07:45 | XMS RPT_ITS | CCD ---
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 Kelton Serrano Primary Care Provider Dr. Kelton Serrano Referring Provider Dr. Cam Allison Attending Provider Kelton Serrano MD Primary Care Provider Nicholas Dela Cruz MD Unavailable Nicholas Dela Cruz MD Unavailable Marizol PT, Maame Unavailable Kelton Serrano MD Primary Care Provider Nicholas Dela Cruz MD Unavailable Nicholas Dela Cruz MD Unavailable Marizol PT, Maame Unavailable Marizol PT, Maame Unavailable Marizol PT, Maame Unavailable Kelton Serrano Primary Care Unavailable Nicholas Iyer Attending Unavailable Jose M Christianson Attending Unavailable Kelton Serrano Primary Care Unavailable Kelton Serrano MD Primary Care Provider Daily IMAGING CENTER MANAGER.POWER SWITCHBOARD OPERATOR, Kaye Unavailable Raz IMAGING CENTER MANAGER.BOTTLING EQUIPMENT SALES REPRESENTATIVE, Yaritza Unavailable Raz IMAGING CENTER MANAGER.BOTTLING EQUIPMENT SALES REPRESENTATIVE, Yaritza Unavailable Raz IMAGING CENTER MANAGER.BOTTLING EQUIPMENT SALES REPRESENTATIVE, Yaritza Unavailable Daily IMAGING CENTER MANAGER.POWER SWITCHBOARD OPERATOR, Kaye Unavailable KELTON SERRANO Referring Unavailable KELTON SERRANO Primary Care Unavailable KELTON SERRANO Primary Care Unavailable KELTON SERRANO Attending Unavailable KELTON SERRANO Primary Care Unavailable YARITZA TINEO Attending Unavailable KELTON SERRANO Primary Care Unavailable YARITZA TINEO Attending Unavailable Allergies Allergy Classification Reported Allergen(s) Allergy Type Date of Onset Reaction(s) Facility (20 sources) Acetaminophen; Translations: [ACETAMINOPHEN] Drug Allergy 020 Rash [facility] Work Phone: [phone] (20 sources) Doxazosin; Translations: [doxazosin mesylate] Drug Allergy 005 Intolerance [facility] (20 sources) pantoprazole; Translations: [pantoprazole sodium] Drug Allergy 014 Other: See Comments [facility] (1 source) Triamterene Drug Allergy 022 Other [facility] Work Phone: [phone] (20 sources) hydroCHLOROthiazide / Triamterene; Translations: [TRIAMTERENE-HYDROCHLO ROTHIAZID] Drug Allergy 005 Intolerance [facility] (1 source) Acetaminophen Drug Allergy 023 [facility] (1 source) Triamterene Drug Allergy 023 [facility] (6 sources) beta-Blocking agent; Translations: [BETA-BLOCKERS (BETA-ADRENERGIC BLOCKING AGTS)] Drug Intolerance 025 Other: See Comments [facility] Medications Current Medications Medication Drug Class(es) Dates Sig (Normalized) Sig (Original) amLODIPine 5 mg oral tablet (6 sources) Dihydropyridine Calcium Channel Raphael Start: 07-05-2024 take 1 tablet by mouth once daily amLODIPine (NORVASC) 5 mg tablet Indications: Essential hypertension Take 1 tablet by mouth once daily. 90 tablet 3 07/05/2024 Active Start: 05-03-2024 End: 07-02-2024 take 1 tablet by mouth once daily amLODIPine (NORVASC) 5 mg tablet Indications: Essential hypertension Take 1 tablet by mouth once daily. 30 tablet 2 05/03/2024 07/02/2024 Discontinued Start: 06-07-2020 End: 06-07-2021 take 5 mg by mouth once daily Amlodipine Discontinued 5 MG PO DAILY 90 June 07, 2020 12:00am June 07, 2021 9:21am aspirin 81 mg delayed release oral tablet (13 sources) Platelet Aggregation Inhibitor, Nonsteroidal Anti-inflammatory Drug Start: 06-06-2020 Aspirin (Adult Lo w Dose Aspirin) 81 mg tablet,delayed release (DR/EC) Active 81 MG PO DAILY June 06, 2020 12:00am Start: 04-09-2019 End: 03-24-2023 take 1 tablet by mouth twice daily aspirin, enteric coated (ASPIRIN, ENTERIC COATED) 81 mg EC tablet TAKE 1 TABLET BY MOUTH TWICE DAILY. 60 tablet 0 04/09/2019 03/24/2023 Discontinued (Other) Comment on above: [facility] fluorouracil 50 mg/ml topical cream (6 sources) Nucleoside Metabolic Inhibitor Start: 3 Fluorouracil 5 % cream Apply 1 application to affected area as directed. 12/16/2022 Active Comment on above: Apply 1 application to affected area as directed. lansoprazole 30 mg delayed release oral capsule (20 sources) Proton Pump Inhibitor Start: 2 End: 5 take 1 capsule by mouth once daily lansoprazole (PREVACID) 30 mg capsule Take 1 capsule by mouth once daily. 90 capsule 3 03/29/2024 Active Start: 08-29-2014 End: 06-07-2020 take 30 mg by mouth once daily Lansoprazole Active 30 MG PO DAILY June 07, 2020 11:01am Comment on above: Take 1 capsule by mo [facility] once daily. lisinopril 30 mg oral tablet (15 sources) Angiotensin Converting Enzyme Inhibitor Start: 3 End: 6 take 1 tablet by mouth once daily lisinopril (ZESTRIL) 30 mg tablet Take 1 tablet by mouth once daily. 90 tablet 3 03/29/2024 03/29/2025 Active Comment on above: Take 1 tablet by edgard once daily. Rjazfett-Omdf-Cd-Devin cium-Mins (1 source) Start: 5 take 1 tablet by mouth once daily Favnydbf-Owmi-Yx-Ca lcium-Mins Active 1 TABLET PO DAILY August 29, 2014 12:00am Multivitamins-[place] ls-Lutein (CENTRUM SILVER) tab (20 sources) Start: 4 take 1 tablet by mouth once daily Multivitamins-[place] als-Lutein (CENTRUM SILVER) tab Take 1 tablet by mouth once daily. 0 03/23/2013 Active Comment on above: Take 1 tablet by [facility] once daily. bq-ygf-HE-vit G-rayoei-wfdtkol (PRESERVISION AREDS 2 PLUS MV) 200 mcg-15 mcg- 5 mg-1 mg cap (6 sources) Start: 4 take 1 capsule by mouth once daily vc-rwl-KD-vit B-pemaux-ngrersu (PRESERVISION AREDS 2 PLUS MV) 200 mcg-15 mcg- 5 mg-1 mg cap Take 1 capsule by mouth once daily. 03/24/2023 Active Start: 03-24-2023 [facility] xr-jkc-ZU-vit D-iwbujp-ybexfcr (PRESERVISION AREDS 2 PLUS MV) 200 mcg-15 mcg- 5 mg-1 mg cap Take 1 capsule by mouth once daily. 0 03/24/2023 Active Comment on above: [facility]. ondansetron 4 mg disintegrating oral tablet (1 source) Serotonin-3 Receptor Antagonist Start: 2 take 4 mg by mouth every eight hours Ondansetron Active 4 MG PO Q8H September 02, 2021 12:00am oxyCODONE hydrochloride 5 mg oral capsule (1 source) Opioid Agonist Start: 2 take 5 mg by mouth every eight hours Oxycodone Active 5 MG PO Q8H 12 3 September 02, 2021 Completed/Discontinued Medications Medication Drug Class(es) Dates Sig (Normalized) Sig (Original) acetaminophen 325 mg / oxyCODONE hydrochloride 5 mg oral tablet (1 source) Opioid Agonist Start: 08-31-2014 End: 06-06-2020 take 1 tablet by mouth every four hours as needed Oxycodone-Acetaminop hen Discontinued 1 - 2 TABLET PO EVERY 4 HOURS NEEDED August 31, 2014 12:00am June 06, 2020 9:59pm cholecalciferol 0.05 mg oral tablet (8 sources) Vitamin D Start: 08-29-2014 End: 06-07-2021 take 2000 [IU] by mouth once daily Cholecalciferol (Vitamin D3) Discontinued 2000 UNIT PO DAILY August 29, 2014 12:00am June 07, 2021 9:21am Start: 12-01-2008 End: 04-04-2022 CHOLECALCIFEROL (VITAMIN D3) 2,000 UNIT CAP Take one(1) tablet daily. 1 0 12/01/2008 04/04/2022 Discontinued Comment on above: Take one(1) tablet d aily. colchicine 0.6 mg oral tablet (12 sources) Start: End: 024 colchicine 0.6 mg tablet Indications: Toe pain, bilateral Take 2 tabs by mouth, followed by 1 tab one hour later for gout flare. Then take 2 times daily after for 2 days 7 tablet 0 05/02/2022 03/27/2023 Discontinued (Other) Comment on above: Take 2 tabs by mouth , followed by 1 tab one hour later for gout flare. Then take 2 times daily after for 2 days hydroCHLOROthiazide 12.5 mg / quinapril 20 mg oral tablet (4 sources) Thiazide Diuretic, Angiotensin Converting Enzyme Inhibitor Start: End: take 1 tablet by mouth once daily Quinapril-hydroCHLO ROthiazide (ACCURETIC) 20-12.5 mg per tablet Indications: Essential hypertension Take 1 tablet by mouth once daily. 90 tablet 3 12/14/2021 12/21/2021 Discontinued Start: 06-06-2020 take 1 tablet by edgard th once daily Quinapril-Hydrochlorothiazide Active 1 T ABLET PO DAILY June 06, 2020 12:00am Comment on above: Take 1 tablet by edgard th once daily. methylPREDNISolone (2 sources) Corticosteroid Start: 09-04-2022 End: 09-09-2022 methylPREDNISolone (MEDROL, JAZZY,) 4 mg Dose-Pack Take as directed 21 tablet 0 09/04/2022 09/09/2022 Start: 09-04-2022 End: 09-09-2022 methylPREDNISolone (MEDROL, JAZZY,) 4 mg Dose-Pack Take as directed 21 tablet 0 09/04/2022 09/09/2022 Active Comment on above: Take as directed quinapril 10 mg oral tablet (15 sources) Angiotensin Converting Enzyme Inhibitor Start: 3 End: 3 take 1 tablet by mouth once daily at bedtime quinapril (ACCUPRIL) 10 mg tablet Indications: Toe pain, bilateral , Essential hypertension Take 1 tablet by mouth daily at bedtime. Take in addition to 20 mg quinapril tablet for a total of 30 mg daily 30 tablet 11 05/02/2022 06/06/2022 Discontinued Start: 04-04-2022 End: 05-02-2022 take 1 tablet by mouth once daily at bedtime quinapril (ACCUPRIL) 5 mg tablet Indications: Toe pain, bilateral , Essential hypertension Take 1 tablet by mouth daily at bedtime. Take 1 daily as needed for systolic blood pressure greater than 150 (top number) in addition to 20 mg quinapril tablet 30 tablet 11 04/04/2022 05/02/2022 Discontinued Start: 12-21-2021 End: 06-06-2022 take 1 tablet by mouth once daily quinapril (ACCUPRIL) 20 mg tablet Indications: Essential hypertension Take 1 tablet by mouth once daily. 90 tablet 3 05/02/2022 06/06/2022 Discontinued Start: 08-29-2014 End: 06-06-2020 take 12.5 mg by mouth once daily Quinapril Discontinued 12.5 MG PO DAILY August 29, 2014 12:00am June 06, 2020 9:59pm Comment on above: TAKE 1 TABLET BY EDGARD TH ONCE DAILY Take 1 tablet by edgard th once daily. Take 1 tablet by edgard th daily at bedtime. Take 1 daily as needed for systolic blood pressure greater than 150 (top number) in addition to 20 mg quinapril tablet Take 1 tablet by edgard th daily at bedtime. Take in addition to 20 mg quinapril tablet for a total of 30 mg daily triamcinolone acetonide 1 mg/ml topical cream (1 source) Corticosteroid Start: 06-06-2020 End: 06-07-2020 Triamcinolone Acetonide Discontinued APPLIC TOPICAL TWICE A DAY June 06, 2020 12:00am June 07, 2020 11:01am Problems Active Problems Problem Classification Problem Date Documented Date Episodic/Chronic Abdominal pain (2 sources) Pelvic and perineal pain; Translations: [Unspecified abdominal pain] Onset: 10-31-2022 Episodic Acquired foot deformities (2 sources) Toe joint rigid; 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, right foot] 09-04-2022 Chronic Diabetes mellitus without complication (2 sources) Increased glucose level; Translations: [Other abnormal glucose] Episodic Disorders of lipid metabolism (20 sources) Hyperlipidemia; Translations: [Hyperlipidemia, unspecified] Onset: 12-24-2006 Resolved: 09-07-2015 09-07-2015 Chronic Esophageal disorders (20 sources) Gastroesophageal reflux disease; Translations: [Gastro-esophageal reflux disease without esophagitis] Onset: 03-24-2019 03-24-2019 Chronic Essential hypertension (20 sources) Essential hypertension; Translations: [Essential (primary) hypertension] Onset: 08-28-2005 Chronic Hyperplasia of prostate (20 sources) Benign prostatic hypertrophy without outflow obstruction; Translations: [Benign prostatic hyperplasia without lower urinary tract symptoms] Onset: 08-28-2005 08-28-2005 Chronic Immunizations and screening for infectious disease (1 source) Requires varicella vaccination; Translations: [Encounter for immunization] 03-24-2023 Episodic Osteoarthritis (20 sources) Osteoarthritis of right hip joint; Translations: [Unilateral primary osteoarthritis, right hip] Onset: 03-24-2019 03-24-2019 Chronic Other aftercare (6 sources) Patient encounter status; Translations: [Other half-way (current) drug therapy] Episodic Other aftercare (1 source) Long-term current use of drug therapy; Translations: [Other termite helper (current) drug therapy] 03-29-2024 Episodic Other connective tissue disease (20 sources) History of total replacement of right hip joint; Translations: [Presence of right artificial hip joint] Onset: 04-07-2019 04-09-2019 Chronic Other connective tissue disease (3 sources) Pain of toes of bilateral feet; Translations: [Pain in right toe(s)] Episodic Other connective tissue disease (1 source) Pain in left foot; Translations: [Pain in left foot] 09-03-2022 Episodic Other ear and sense organ disorders (1 source) Presbycusis; Translations: [Presbycusis, bilateral] 03-29-2024 Episodic Other infections; including parasitic (1 source) Personal history of other infectious and parasitic diseases; Translations: [Personal history of COVID-19] 03-24-2023 Episodic Other inflammatory condition of skin (20 sources) Psoriasis; Translations: [Psoriasis, unspecified] Onset: 12-27-2010 12-27-2010 Chronic Other screening for suspected conditions (not mental disorders or infectious disease) (3 sources) Electrocardiogram abnormal; Translations: [Abnormal electrocardiogram [ECG] [EKG]] Episodic Past or Other Problems Problem Classification Problem Date Documented Date Episodic/Chronic Biliary tract disease (20 sources) Gallstone; Translations: [Calculus of gallbladder without cholecystitis without obstruction] Onset: 07-13-2014 07-13-2014 Episodic Calculus of urinary tract (20 sources) Kidney stone; Translations: [Calculus of kidney] Onset: 07-13-2014 07-13-2014 Episodic Genitourinary symptoms and ill-defined conditions (20 sources) Nocturia; Translations: [Nocturia] Onset: 12-24-2006 12-24-2006 Episodic Melanomas of skin (20 sources) H/O Malignant melanoma; Translations: [Personal history of malignant melanoma of skin] Onset: 03-24-2019 03-24-2019 Episodic Other aftercare (1 source) Other termite helper (current) drug therapy; Translations: [Encounter for long-term current use of medication] Onset: 03-24-2024 Episodic Other and unspecified benign neoplasm (20 sources) Benign neoplasm of colon; Translations: [Benign neoplasm of colon, unspecified] Onset: 04-18-2005 04-18-2005 Episodic Other connective tissue disease (20 sources) Right rotator cuff syndrome; Translations: [Unspecified rotator cuff tear or rupture of right shoulder, not specified as traumatic] Onset: 04-28-2013 04-28-2013 Episodic Other nervous system disorders (20 sources) Numbness; Translations: [Anesthesia of skin] Onset: 12-10-2016 12-10-2016 Episodic Spondylosis; intervertebral disc disorders; other back problems (20 sources) Lumbago with sciatica; Translations: [Lumbago with sciatica, left side] Onset: 12-10-2016 12-10-2016 Episodic Sprains and strains (20 sources) Sprain of shoulder rotator cuff; Translations: [Sprain of unspecified rotator cuff capsule, initial encounter] Onset: 04-01-2013 04-01-2013 Episodic Results Test Name Value Interpretation Reference Range Facility [facility] 09-14-2024 [facility] Telephone (4CQ) -------- LISANDROGEOFF BULLOCK ([id number]) 1945 M Date Time Provider Department 09/14/24 KELTON SERRANO 4CQ During your visit today, we recorded the following information about you: Glenis Heaton 09/14/2024 12:21 PM Signed Spoke with patient in regards to R/S 12/03/24 appointment due to provider leaving, and patient declined any other provider but PCP. Anjana Boothe MA 09/14/2024 1:47 PM Signed Patient is scheduled 04/06 with pcp Anjana Boothe MA Allergies As of Date: 09/14/2024 Noted Allergy Reaction CARDURA (DOXAZOSIN MESYLATE) 02/08/2005 5 - Intolerance Comments: forgetfulness just did not feel well TRIAMTERENE-HYDROCHLOROT HIAZID 02/08/2005 5 - Intolerance BETA-BLOCKERS (BETA-ADRENERGIC BL*03/29/2024 14 - Other: See Comments Comments: Severe fatigue; could not move anything when was laying in bed PROTONIX (PANTOPRAZOLE SODIUM) 07/13/2013 14 - Other: See Comments Comments: non effective - elevated liver enzymes TYLENOL (ACETAMINOPHEN) 04/15/2019 2 - Rash Date Reviewed: 06/02/2024 Reviewed by: Yaritza Tineo APRN.BOTTLING EQUIPMENT SALES REPRESENTATIVE - Fully Assessed Reason for Visit: Appointment [[id number]] Prescriptions as of 09/14/2024 - amLODIPine (NORVASC) 5 mg tablet Take 1 tablet by mouth once daily. - lansoprazole (PREVACID) 30 mg capsule Take 1 capsule by mouth once daily. - lisinopril (ZESTRIL) 30 mg tablet Take 1 tablet by mouth once daily. - yu-spn-LC-vit U-fhhtxy-gfsqhai (PRESERVISION AREDS 2 PLUS MV) 200 mcg-15 mcg- 5 mg-1 mg cap Take 1 capsule by mouth once daily. - Fluorouracil 5 % cream Apply 1 application to affected area as directed. - Njclqhpsprjfv-Fmvbfkfe-F utein (CENTRUM SILVER) tab Take 1 tablet by mouth once daily. Problem List As Of Date 09/14/2024 Noted Resolved BENIGN NEOPLASM LG BOWEL [D12.6] 04/18/2005 Essential hypertension [I10] 08/28/2005 HYPERTROPHY PROSTATE W/O OBST [N40.0] 08/28/2005 Other and unspecified hyperlipidemia [E78.5] 12/24/2006 09/07/2015 NOCTURIA [R35.1] 12/24/2006 Psoriasis [L40.9] 12/27/2010 Rotator cuff (capsule) sprain [S43.429A] 04/01/2013 Rotator cuff syndrome of right shoulder [M75.10*04/28/2013 BPH (benign prostatic hyperplasia) [N40.0] 07/13/2014 Gallstones [K80.20] 07/13/2014 Kidney stones [N20.0] 07/13/2014 Mixed hyperlipidemia [E78.2] 09/07/2015 Numbness [R20.0] 12/10/2016 Bilateral low back pain with bilateral sciatica*12/10/2016 History of kidney stones [Z87.442] 03/24/2019 GERD (gastroesophageal reflux disease) [K21.9] 03/24/2019 History of melanoma [Z85.820] 03/24/2019 Primary osteoarthritis of right hip [M16.11] 03/24/2019 History of total right hip arthroplasty [Z96.64*04/07/2019 Encounter Status:Closed by ANJANA BOOTHE on 09/14/24 [facility] CNOVon 06-02-2024 CNOV Office Visit (INTMWS ) -------- GEOFF SMITH ([id number]) 1945 M Date Time Provider Department 06/02/24 7:20 AM YARITZA TINEO INTMWS During your visit today, we recorded the following information about you: Pulse Blood pressure Weight 73/minute 138/82 90.1 kg Yaritza Tineo APRN.BOTTLING EQUIPMENT SALES REPRESENTATIVE 06/02/2024 7:29 AM Signed SUBJECTIVE Geoff Smith is a 78 year old male here today for a check up on his medical problems. Chief Complaint Patient presents with: Blood Pressure: follow up HPI Geoff is a 78 year old male who presents for follow-up for hypertension. They are here today for a recheck of blood pressure. He was seen 05/03/2024 and blood pressure was elevated. We initiated amlodipine. Blood pressure appears to be improved. Denies any symptoms referable to elevated blood pressure. No report of headache, chest pain, palpitations, dyspnea and peripheral edema. Tolerating medications well. does check BP's away from this office. he watches his diet for sodium, low fat and low cholesterol. most of the time. No side effects with the medicine. His medications were reviewed today and his list is now up to date. Medications Current Outpatient Medications Medication Sig amLODIPine (NORVASC) 5 mg tablet Take 1 tablet by mouth once daily. lansoprazole (PREVACID) 30 mg capsule Take 1 capsule by mouth once daily. lisinopril (ZESTRIL) 30 mg tablet Take 1 tablet by mouth once daily. nx-qxx-NS-vit I-ephshm-tyjoewm (PRESERVISION AREDS 2 PLUS MV) 200 mcg-15 mcg- 5 mg-1 mg cap Take 1 capsule by mouth once daily. Fluorouracil 5 % cream Apply 1 application to affected area as directed. Whmhoaaqajqjk-Cexpmmuv-H utein (CENTRUM SILVER) tab Take 1 tablet by mouth once daily. No current facility-administered medications for this visit. ALLERGIES Allergen Reactions Cardura [Doxazosin * Intolerance forgetfulness just did not feel well Triamterene-Hydroch* Intolerance Beta-Blockers (Beta* Other: See Comments Severe fatigue; could not move anything when was laying in bed Protonix [Pantopraz* Other: See Comments non effective - elevated liver enzymes Tylenol [Acetaminop* Rash ACTIVE PROBLEM LIST History of Total Right Hip Arthroplasty - 04/07/2019 History of Kidney Stones - 03/24/2019 Gerd (Gastroesophageal Reflux Disease) - 03/24/2019 History of Melanoma - 03/24/2019 Primary Osteoarthritis of Right Hip - 03/24/2019 Numbness - 12/10/2016 Bilateral Low Back Pain With Bilateral Sciatica - 12/10/2016 Mixed Hyperlipidemia - 09/07/2015 Bph (Benign Prostatic Hyperplasia) - 07/13/2014 Gallstones - 07/13/2014 Kidney Stones - 07/13/2014 Rotator Cuff Syndrome of Right Shoulder - 04/28/2013 Rotator Cuff (Capsule) Sprain - 04/01/2013 Psoriasis - 12/27/2010 Nocturia - 12/24/2006 Essential Hypertension - 08/28/2005 Comment: 05/03/2024: Home BP Cuff Validated. Home BP: 174/96 77 Office BP: 184/96 78 Hypertrophy of Prostate Without Urinary Obstruction and Other Lower Urinary Tract Symptoms (Luts) - 08/28/2005 Benign Neoplasm of Colon - 04/18/2005 Social History Tobacco Use Smoking status: Never Smokeless tobacco: Never Vaping Use Vaping status: Never Used Substance Use Topics Alcohol use: Yes Alcohol/week: 1.0 standard drink of alcohol Types: 1 Cans of Beer (12oz) per week Comment: 1 beer 4 times per week Drug use: No Review of Systems Constitutional: Negative. Respiratory: Negative. Cardiovascular: Negative. OBJECTIVE BP 138/82 Pulse 73 Wt 198 lb 10.2 oz (90.1kg) SpO2 96% Physical Exam Vitals and nursing note reviewed. Constitutional: General: He is awake. He is not in acute distress. Appearance: Normal appearance. He is well-developed and well-groomed. He is not ill-appearing, toxic-appearing or diaphoretic. HENT: Head: Normocephalic. Right Ear: External ear normal. Left Ear: External ear normal. Nose: Nose normal. Eyes: General: Vision grossly intact. Conjunctiva/sclera: Conjunctivae normal. Pupils: Pupils are equal, round, and reactive to light. Neck: Vascular: No JVD. Trachea: Trachea normal. Cardiovascular: Rate and Rhythm: Normal rate and regular rhythm. Pulses: Normal pulses. Heart sounds: Normal heart sounds. No murmur heard. Pulmonary: Effort: Pulmonary effort is normal. No accessory muscle usage, prolonged expiration or respiratory distress. Breath sounds: Normal breath sounds. Musculoskeletal: Cervical back: Neck supple. Skin: General: Skin is warm and dry. Capillary Refill: Capillary refill takes less than 2 seconds. Neurological: General: No focal deficit present. Mental Status: He is alert and oriented to person, place, and time. Mental status is at baseline. Psychiatric: Attention and Perception: Attention and perception normal. Mood and Affect: Mood and affect normal. Speech: Speech normal. Behavior: Behavior normal. B (more content not included)... Normal [facility] CNOVon 05-03-2024 CNOV Office Visit (INTMWS ) -------- GEOFF SMITH ([id number]) 1945 M Date Time Provider Department 05/03/24 7:40 AM YARITZA TINEO INTMWS During your visit today, we recorded the following information about you: Pulse Blood pressure Weight 77/minute 174/96 92.3 kg Yaritza Tineo APRN.BOTTLING EQUIPMENT SALES REPRESENTATIVE 05/03/2024 8:11 AM Signed SUBJECTIVE Geoff Smith is a 78 year old male here today for a check up on his medical problems. Chief Complaint Patient presents with: Blood Pressure HPI Geoff is a 78 year old male who presents for follow-up for hypertension. They are here today for a recheck of blood pressure, seen with Kelton Serrano MD on 03/29 and had high readings. Blood pressure appears to be still high. Denies any symptoms referable to elevated blood pressure. Specifically denies headache, chest pain, palpitations, dyspnea and peripheral edema. does check BP's away from this office with home cuff. Prior issues with beta blockers. His medications were reviewed today and his list is now up to date. Medications Current Outpatient Medications Medication Sig lansoprazole (PREVACID) 30 mg capsule Take 1 capsule by mouth once daily. lisinopril (ZESTRIL) 30 mg tablet Take 1 tablet by mouth once daily. ol-erp-WC-vit M-lpsczj-tzmbede (PRESERVISION AREDS 2 PLUS MV) 200 mcg-15 mcg- 5 mg-1 mg cap Take 1 capsule by mouth once daily. Fluorouracil 5 % cream Apply 1 application to affected area as directed. Owscksjysbgpb-Fensosgf-Y utein (CENTRUM SILVER) tab Take 1 tablet by mouth once daily. amLODIPine (NORVASC) 5 mg tablet Take 1 tablet by mouth once daily. No current facility-administered medications for this visit. ALLERGIES Allergen Reactions Cardura [Doxazosin * Intolerance forgetfulness just did not feel well Triamterene-Hydroch* Intolerance Beta-Blockers (Beta* Other: See Comments Severe fatigue; could not move anything when was laying in bed Protonix [Pantopraz* Other: See Comments non effective - elevated liver enzymes Tylenol [Acetaminop* Rash ACTIVE PROBLEM LIST History of Total Right Hip Arthroplasty - 04/07/2019 History of Kidney Stones - 03/24/2019 Gerd (Gastroesophageal Reflux Disease) - 03/24/2019 History of Melanoma - 03/24/2019 Primary Osteoarthritis of Right Hip - 03/24/2019 Numbness - 12/10/2016 Bilateral Low Back Pain With Bilateral Sciatica - 12/10/2016 Mixed Hyperlipidemia - 09/07/2015 Bph (Benign Prostatic Hyperplasia) - 07/13/2014 Gallstones - 07/13/2014 Kidney Stones - 07/13/2014 Rotator Cuff Syndrome of Right Shoulder - 04/28/2013 Rotator Cuff (Capsule) Sprain - 04/01/2013 Psoriasis - 12/27/2010 Nocturia - 12/24/2006 Essential Hypertension - 08/28/2005 Comment: 05/03/2024: Home BP Cuff Validated. 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 Cardiovascular: Negative. OBJECTIVE BP 174/96[Home monitor reading[ Pulse 77 Wt 203 lb 7.8 oz (92.3kg) SpO2 94% Physical Exam Vitals and nursing note reviewed. Constitutional: General: He is awake. He is not in acute distress. Appearance: Normal appearance. He is well-developed and well-groomed. He is not ill-appearing, toxic-appearing or diaphoretic. HENT: Head: Normocephalic. Right Ear: External ear normal. Left Ear: External ear normal. Nose: Nose normal. Eyes: General: Vision grossly intact. Conjunctiva/sclera: Conjunctivae normal. Pupils: Pupils are equal, round, and reactive to light. Neck: Vascular: No JVD. Trachea: Trachea normal. Cardiovascular: Rate and Rhythm: Normal rate and regular rhythm. Pulses: Normal pulses. Heart sounds: Normal heart sounds. No murmur heard. Pulmonary: Effort: Pulmonary effort is normal. No accessory muscle usage, prolonged expiration or respiratory distress. Breath sounds: Normal breath sounds. Musculoskeletal: Cervical back: Neck supple. Skin: General: Skin is warm and dry. Capillary Refill: Capillary refill takes less than 2 seconds. Neurological: General: No focal deficit present. Mental Status: He is alert and oriented to person, place, and time. Mental status is at baseline. Psychiatric: Attention and Perception: Attention and perception normal. Mood and Affect: Mood and affect normal. Speech: Speech normal. Behavior: Behavior normal. Behavior is cooperative. Thought Content: Thought content normal. Cognition and Memory: Cognition and memory normal. J (more content not included)... Normal [facility] CNOVon 03-29-2024 CNOV Office Visit (INTMWS ) -------- GEOFF SMITH ([id number]) 1945 M Date Time Provider Department 03/29/24 8:00 AM KELTON SERRANO INTMWS During your visit today, we recorded the following information about you: Temperature Pulse Respiration Blood pressure 98.2 degrees 72/minute 16/minute 160/88 Weight Height 93.3 kg 1.842 m Kelton Serrano MD 03/29/2024 11:57 PM Addendum This note was created using [employer]oner[employer]. Subjective HISTORY Geoff Smith is a 78 year old gentleman here for Medicare Annual Wellness Visit, yearly exam and follow up appointment. Geoff Smith is a 78-year-old male with a history of HTN, hypercholesterolemia, and GERD, presenting for a Medicare Annual Wellness Visit. Geoff reports his health as very good and has been engaging in regular exercise for the past month, consisting of 1 hour per day, 5 days a week, including 30 minutes on the treadmill and mid-body, arm, and leg exercises. He has lost 5 lbs over the past month and notes increased energy levels. He denies any issues with balance, sexual function, feelings of anxiety, stress, anger, irritability, loneliness, or isolation, and denies thoughts of self-harm. He also denies any issues with bowel movements, constipation, or diarrhea. Geoff consumes 1-2 beers a few times a week and denies drinking 6 or more beers at a time. He does not consume soda and denies smoking, vaping, or chewing tobacco. He reports eating healthy foods, including fruits, vegetables, whole grains, and fiber, every day. He consumes chicken, beef, and light fish for protein and eats a lot of nuts. He tries to avoid sugar and processed foods. He drinks coffee, including a cup at night, and denies drinking water regularly. He denies any issues with vision, even after cataract surgery, and only occasionally needs reading glasses for very small print. He denies any issues with hearing but is considering getting hearing aids due to difficulty hearing in crowded environments. He denies any issues with teeth, false teeth, or dentures and has had multiple dental implants. Geoff reports that his left hip occasionally aches and feels like it is falling apart if he does not exercise for a few days. However, the pain resolves with exercise. He had a right hip replacement and notes that the left hip is starting to feel similar to the right hip before the replacement. He denies any instability or giving out of the left hip. He denies any allergies, but notes that eating eggs causes rhinorrhea and eating tomatoes causes his skin to turn purple. Geoff has a will but does not have a healthcare power of civil litigation attorney. He identifies his spouse as his surrogate decision maker. He has not traveled outside of the country recently but is considering a trip to [place]. He has 3 half-sisters who are , one of whom went blind from an unknown condition, and another who may have had cancer. He denies being close to them and does not have detailed information about their medical histories. PAST MEDICAL HISTORY Diagnosis Date Benign neoplasm of colon 04/18/05 Cholelithiasis Melanoma (HCC) 2016 Other psoriasis Snoring Unspecified essential hypertension Current Outpatient Medications Medication Sig gv-wvy-ZZ-vit F-fhxmfs-mxdmcjv (PRESERVISION AREDS 2 PLUS MV) 200 mcg-15 mcg- 5 mg-1 mg cap Take 1 capsule by mouth once daily. Spbnsvplluhir-Qhxotxfd-O utein (CENTRUM SILVER) tab Take 1 tablet by mouth once daily. Fluorouracil 5 % cream Apply 1 application to affected area as directed. lisinopril (ZESTRIL) 30 mg tablet Take 1 tablet by mouth once daily. lansoprazole (PREVACID) 30 mg capsule Take 1 capsule by mouth once daily. No current facility-administered medications for this visit. ALLERGIES Allergen Reactions Cardura [Doxazosin * Intolerance forgetfulness just did not feel well Triamterene-Hydroch* Intolerance Protonix [Pantopraz* Other: See Comments non effective - elevated liver enzymes Tylenol [Acetaminop* Rash FAMILY HISTORY Problem Relation Age of Onset other (Lung cancer) Mother Aneurysm Father other (no siblings) Other Social History Tobacco Use Smoking status: Never Smokeless tobacco: Never Vaping Use Vaping status: Never Used Substance Use Topics Alcohol use: Yes Alcohol/week: 1.0 standard drink of alcohol Types: 1 Cans of Beer (12oz) per week Comment: 1 beer 4 times per week Drug use: No Review of Systems Objective BP 152/96 Pulse 72 Temp 36.8 ?C (98.2 ?F) (Left Tympanic) Resp 16 Ht 184.2 cm (6' 0.5) Wt 93.3 kg (205 lb 11 oz) SpO2 98% BMI 27.51 kg/m? Last 5 Encounter Wt Readings: Date: Wt: 03/29/2024 93.3 kg (205 lb 11 oz) 03/24/2023 91.6 kg (202 lb) 05/02/2022 93.4 kg (206 lb) 04/04/2022 93.4 kg (206 lb) 04/01/2022 97.1 kg (214 lb) No waist measurement recorded Estimated b (more content not included)... Normal [facility] CBC panel Auto (Bld)on 03-24 Erythrocyte distribution width (RBC) [Ratio] 13.3 % Normal 11.5-15.[address] [facility] Comment on above: Order Comment: Speci men Type: BLOOD SPECIMEN Ordering Facility: [facility] Address: [address] [place] [address] Performed By: #### 5 8410-2 #### [facility] CLIA [id number] [address] [place] [address] [place] Hematocrit (Bld) [Volume fraction] 46.0 % Normal 39.0-51.[address] [facility] Comment on above: Order Comment: Speci men Type: BLOOD SPECIMEN Ordering Facility: [facility] Address: [address] [place] [address] Performed By: #### 5 8410-2 #### [facility] CLIA [id number] [address] [place] [address] [place] Hemoglobin (Bld) [Mass/Vol] 14.7 g/dL Normal 13.0-17.[address] [facility] Comment on above: Order Comment: Speci men Type: BLOOD SPECIMEN Ordering Facility: [facility] Address: [address] [place] [address] Performed By: #### 5 8410-2 #### [facility] CLIA [id number] [address] [place] [address] [place] MCH (RBC) [Entitic mass] 30.7 pg Normal 26.0-34.[address] [facility] Comment on above: Order Comment: Speci men Type: BLOOD SPECIMEN Ordering Facility: [facility] Address: [address] [place] [address] Performed By: #### 5 8410-2 #### [facility] CLIA [id number] [address] [place] [address] [place] MCHC (RBC) [Mass/Vol] 32.0 g/dL Normal 30.5-36.[address] [facility] Comment on above: Order Comment: Speci men Type: BLOOD SPECIMEN Ordering Facility: [facility] Address: [address] [place] [address] Performed By: #### 5 8410-2 #### [facility] CLIA [id number] [address] [place] [address] [place] MCV (RBC) [Entitic vol] 96.0 fL Normal 80.0-100.[address] [facility] Comment on above: Order Comment: Speci men Type: BLOOD SPECIMEN Ordering Facility: [facility] Address: [address] [place] [address] Performed By: #### 5 8410-2 #### [facility] CLIA [id number] [address] [place] [address] [place] Nucleated RBC (Bld) [#/Vol] 10*3/uL Normal <0.[address] [facility] Comment on above: Order Comment: Speci men Type: BLOOD SPECIMEN Ordering Facility: [facility] Address: [address] [place] [address] Performed By: #### 5 8410-2 #### [facility] CLIA [id number] [address] [place] [address] [place] Platelet mean volume (Bld) [Entitic vol] 10.2 fL Normal 9.0-12.[address] [facility] Comment on above: Order Comment: Speci men Type: BLOOD SPECIMEN Ordering Facility: [facility] Address: [address] [place] [address] Performed By: #### 5 8410-2 #### [facility] CLIA [id number] [address] [place] [address] [place] Platelets (Bld) [#/Vol] 280 10*3/uL Normal 150-[address] [facility] Comment on above: Order Comment: Speci men Type: BLOOD SPECIMEN Ordering Facility: [facility] Address: [address] [place] [address] Performed By: #### 5 8410-2 #### [facility] CLIA [id number] [address] [place] [address] [place] RBC (Bld) [#/Vol] 4.79 10*6/uL Normal 4.20-6.00 [facility] Comment on above: Order Comment: Speci men Type: BLOOD SPECIMEN Ordering Facility: [facility] Address: [address] [place] [address] Performed By: #### 5 8410-2 #### [facility] CLIA [id number] [address] [place] [address] [place] WBC (Bld) [#/Vol] 5.60 10*3/uL Normal 3.70-11.00 [facility] Comment on above: Order Comment: Speci men Type: BLOOD SPECIMEN Ordering Facility: [facility] Address: [address] [place] [address] Performed By: #### 5 8410-2 #### [facility] CLIA [id number] [address] [place] [address] [place] Comprehensive metabolic 2000 panelon 03-24-2024 Albumin [Mass/Vol] 4.1 g/dL Normal 3.9-4.9 [facility] Comment on above: Order Comment: Speci men Type: BLOOD SPECIMEN Ordering Facility: [facility] Address: [address] [place] [address] Performed By: #### 1 9123-9, 11404-3, 64725-6 #### [facility] CLIA [id number] [address] [place] [address] [place] ALP [Catalytic activity/Vol] 61 U/L Normal 38-[address] [facility] Comment on above: Order Comment: Speci men Type: BLOOD SPECIMEN Ordering Facility: [facility] Address: [address] [place] [address] Performed By: #### 1 9123-9, 10181-8, 15936-0 #### [facility] CLIA [id number] [address] [place] [address] [place] ALT [Catalytic activity/Vol] 20 U/L Normal 10-[address] [facility] Comment on above: Order Comment: Speci men Type: BLOOD SPECIMEN Ordering Facility: [facility] Address: [address] [place] [address] Performed By: #### 1 9123-9, 95781-7, 92688-1 #### [facility] CLIA [id number] [address] [place] [address] [place] Anion gap [Moles/Vol] 12 mmol/L Normal 8-[address] [facility] Comment on above: Order Comment: Speci men Type: BLOOD SPECIMEN Ordering Facility: [facility] Address: [address] [place] [address] Performed By: #### 1 9123-9, 33980-9, 88890-2 #### [facility] CLIA [id number] [address] [place] [address] [place] AST [Catalytic activity/Vol] 22 U/L Normal 14-[address] [facility] Comment on above: Order Comment: Speci men Type: BLOOD SPECIMEN Ordering Facility: [facility] Address: [address] [place] [address] Performed By: #### 1 9123-9, 97933-7, 06211-6 #### [facility] CLIA [id number] [address] [place] [address] [place] Bilirubin [Mass/Vol] 0.7 mg/dL Normal 0.2-1.3 [facility] Comment on above: Order Comment: Speci men Type: BLOOD SPECIMEN Ordering Facility: [facility] Address: [address] [place] [address] Performed By: #### 1 9123-9, 59750-7, 53517-7 #### [facility] CLIA [id number] [address] [place] [address] [place] Calcium [Mass/Vol] 9.4 mg/dL Normal 8.5-10.2 [facility] Comment on above: Order Comment: Speci men Type: BLOOD SPECIMEN Ordering Facility: [facility] Address: [address] [place] [address] Performed By: #### 1 9123-9, 49806-2, 16501-5 #### [facility] CLIA [id number] [address] [place] [address] [place] Chloride [Moles/Vol] 104 mmol/L Normal 98-107 [facility] Comment on above: Order Comment: Speci men Type: BLOOD SPECIMEN Ordering Facility: [facility] Address: [address] [place] [address] Performed By: #### 1 9123-9, 18324-3, 18034-3 #### [facility] CLIA [id number] [address] [place] [address] [place] CO2 [Moles/Vol] 25 mmol/L Normal 22-[address] [facility] Comment on above: Order Comment: Speci men Type: BLOOD SPECIMEN Ordering Facility: [facility] Address: [address] [place] [address] Performed By: #### 1 9123-9, 45953-7, 15585-6 #### [facility] CLIA [id number] [address] [place] [address] [place] Creatinine [Mass/Vol] 1.24 mg/dL High 0.73-1.[address] [facility] Comment on above: Order Comment: Speci men Type: BLOOD SPECIMEN Ordering Facility: [facility] Address: [address] [place] [address] Performed By: #### 1 9123-9, 11050-1, 85185-7 #### [facility] CLIA [id number] [address] [place] [address] [place] Creatinine and Glomerular filtration rate.predicted panel (S/P/Bld) 60 mL/min/1.73m??? Normal >=[address] [facility] Comment on above: Order Comment: Speci men Type: BLOOD SPECIMEN Ordering Facility: [facility] Address: [address] [place] [address] Result Comment: Solange mated Glomerular Filtration Rate (eGFR) is calculated using the 2020 CKD-EPI creatinine equation. This equation utilizes serum creatinine, sex, and age as parameters. The creatinine assay has traceable calibration to isotope dilution-mass spectrometry. Refer to KDIGO guidelines for clinical interpretation. In patients with unstable renal function, e.g. those with acute kidney injury, the eGFR may not accurately reflect actual GFR. Performed By: #### 1 9123-9, 43684-0, 14658-8 #### [facility] CLIA [id number] [address] [place] [address] [place] Glucose [Mass/Vol] 95 mg/dL Normal 74-99 [facility] Comment on above: Order Comment: Beck johnson Type: BLOOD SPECIMEN Ordering Facility: [facility] Address: [address] [place] [address] Result Comment: The [place] Diabetes Association (ADA) provides guidance for cutoff values for fasting glucose and random glucose. The ADA defines fasting as no caloric intake for at least 8 hours. Fasting plasma glucose results between 100 to 125 mg/dL indicate increased risk for diabetes (prediabetes). Fasting plasma glucose results greater than or equal to 126 mg/dL meet the criteria for diagnosis of diabetes. In the absence of unequivocal hyperglycemia, results should be confirmed by repeat testing. In a patient with classic symptoms of hyperglycemia or hyperglycemic crisis, random plasma glucose results greater than or equal to 200 mg/dL meet the criteria for diagnosis of diabetes. Reference: Standards of Medical Care in Diabetes 2016, [place] [employer] Association. Diabetes Care. 2016.39(Suppl 1). Performed By: #### 1 9123-9, 44839-0, 35008-0 #### [facility] CLIA [id number] [address] [place] [address] [place] Potassium [Moles/Vol] 4.6 mmol/L Normal 3.7-5.[address] [facility] Comment on above: Order Comment: Beck johnson Type: BLOOD SPECIMEN Ordering Facility: [facility] Address: [address] [place] [address] Performed By: #### 1 9123-9, 40103-1, 27101-0 #### [facility] CLIA [id number] [address] [place] [address] [place] Protein [Mass/Vol] 6.7 g/dL Normal 6.3-8.0 [facility] Comment on above: Order Comment: Speci men Type: BLOOD SPECIMEN Ordering Facility: [facility] Address: [address] [place] [address] Performed By: #### 1 9123-9, 64797-5, 85482-4 #### [facility] CLIA [id number] [address] [place] [address] [place] Sodium [Moles/Vol] 141 mmol/L Normal 136-144 [facility] Comment on above: Order Comment: Speci men Type: BLOOD SPECIMEN Ordering Facility: [facility] Address: [address] [place] [address] Performed By: #### 1 9123-9, 86766-6, 34509-7 #### [facility] CLIA [id number] [address] [place] [address] [place] Urea nitrogen [Mass/Vol] 17 mg/dL Normal 9-[address] [facility] Comment on above: Order Comment: Speci men Type: BLOOD SPECIMEN Ordering Facility: [facility] Address: [address] [place] [address] Performed By: #### 1 9123-9, 45611-9, 12117-8 #### [facility] CLIA [id number] [address] [place] [address] [place] Lipid 1996 panelon 5 Cholesterol [Mass/Vol] 175 mg/dL Normal <[address] [facility] Comment on above: Order Comment: Speci men Type: BLOOD SPECIMEN Ordering Facility: [facility] Address: [address] [place] [address] Result Comment: <200 mg/dL, Desirable 200-239 mg/dL, Borderline high >239 mg/dL, High Performed By: #### 1 9123-9, 19763-8, 78621-7 #### [facility] CLIA [id number] [address] [place] [address] [place] Cholesterol in HDL [Mass/Vol] 41 mg/dL Normal >[address] [facility] Comment on above: Order Comment: Beck men Type: BLOOD SPECIMEN Ordering Facility: [facility] Address: [address] [place] [address] Result Comment: 40-5 9 mg/dL, Acceptable >59 mg/dL, High: Negative risk factor for coronary heart disease <40 mg/dL, Low: Positive risk factor for coronary heart disease Performed By: #### 1 9123-9, 15610-0, 02886-2 #### [facility] CLIA [id number] [address] [place] [address] [place] Cholesterol in LDL [Mass/Vol] 118 mg/dL High <[address] [facility] Comment on above: Order Comment: Beck johnson Type: BLOOD SPECIMEN Ordering Facility: [facility] Address: [address] [place] [address] Result Comment: <100 mg/dL, Optimal 100-129 mg/dL, Near optimal/above optimal 130-159 mg/dL, Borderline high 160-189 mg/dL, High >189 mg/dL, Very high Secondary prevention optimal LDL Cholesterol levels are recommended to be < 70 mg/dL Performed By: #### 1 9123-9, 52566-3, 16764-0 #### [facility] CLIA [id number] [address] [place] [address] [place] Cholesterol in LDL/Cholesterol in HDL [Mass ratio] 2.88 {ratio} High <2.[address] [facility] Comment on above: Order Comment: Beck johnson Type: BLOOD SPECIMEN Ordering Facility: [facility] Address: [address] [place] [address] Result Comment: Refe rence: 1. National Cholesterol Education Program ATP III Guideline At-A-Glance Quick Desk Reference: National Heart, Lung, and Blood [place]. National Institutes of Health. 2001: NIH Publication No. 01-3305. 2. An International Atherosclerosis Society position paper: global recommendations for the management of dyslipidemia: executive summary, Atherosclerosis. 2014: 232(2):410-413. Performed By: #### 1 9123-9, 28441-4, 85982-1 #### [facility] CLIA [id number] [address] [place] [address] [place] Cholesterol in VLDL [Mass/Vol] 16 mg/dL Normal <[address] [facility] Comment on above: Order Comment: Speci men Type: BLOOD SPECIMEN Ordering Facility: [facility] Address: [address] [place] [address] Performed By: #### 1 9123-9, 22485-0, 16758-6 #### [facility] CLIA [id number] [address] [place] [address] [place] Cholesterol non HDL [Mass/Vol] 134 mg/dL High <[address] [facility] Comment on above: Order Comment: Speci men Type: BLOOD SPECIMEN Ordering Facility: [facility] Address: [address] [place] [address] Result Comment: <130 mg/dL, Optimal 130-159 mg/dL, Near optimal/above optimal 160-189 mg/dL, Borderline high 190-219 mg/dL, High >219 mg/dL, Very high Secondary prevention optimal non HDL Cholesterol levels are recommended to be <100 mg/dL Performed By: #### 1 9123-9, 78645-5, 17773-3 #### [facility] CLIA [id number] [address] [place] [address] [place] Cholesterol.total/Ch olesterol in HDL [Mass ratio] 4.27 {ratio} Normal <5.[address] [facility] Comment on above: Order Comment: Adáni men Type: BLOOD SPECIMEN Ordering Facility: [facility] Address: [address] [place] [address] Performed By: #### 1 9123-9, 16716-6, 29606-2 #### [facility] CLIA [id number] [address] [place], [place] [address] [place] FASTING TIME 12 hrs Normal [facility] Comment on above: Order Comment: Speci men Type: BLOOD SPECIMEN Ordering Facility: [facility] Address: [address] [place] [address] Performed By: #### 1 9123-9, 50486-1, 24285-1 #### [facility] CLIA [id number] [address] [place] [address] [place] Triglyceride [Mass/Vol] 81 mg/dL Normal <[address] [facility] Comment on above: Order Comment: Speci men Type: BLOOD SPECIMEN Ordering Facility: [facility] Address: [address] [place] [address] Result Comment: <150 mg/dL, Normal 150-199 mg/dL, Borderline high 200-499 mg/dL, High >499 mg/dL, Very high Performed By: #### 1 9123-9, 91377-6, 75441-5 #### [facility] CLIA [id number] [address] [place] [address] [place] Magnesium SerPl-mCncon 03-24 Magnesium [Mass/Vol] 2.0 mg/dL Normal 1.7-2.3 [facility] Comment on above: Order Comment: Speci men Type: BLOOD SPECIMEN Ordering Facility: [facility] Address: [address] [place] [address] Performed By: #### 1 9123-9, 14004-3, 12434-3 #### [facility] CLIA [id number] [address] [place] [address] [place] Emergency Department Summary on 08-19-2023 Emergency Department Summary [facility] Medical Records Department [address] [place] [address] Emergency Department Summary 08/19/23 MR#: [id number] Acct: [id number] Name: GEOFF SMITH Rep #: [id number] : 1945 78 From: Jose M Christianson MD PCP: Dr. Kelton Serrano MD Status:REG ER Location: ED HPI HPI - GI History of Present Illness Detail of Chief Complaint: Taken care of on 08/19/23 during computer downtime. Informant: patient and spouse/S.O. Abdominal Pain/Flank Pain Onset: Today Context: Gradual Onset Timing: Continuous Quality: Aching Location: - (Left groin pain.) Current Severity: Gone Maximum Severity: Mild Worsened by: Nothing Relieved by: Nothing Nausea/Vomiting/Emesis GI Symptom: Negative for Nausea or Vomiting Diarrhea/Melena/Hematoch ezia GI Symptom: Negative for Diarrhea, Melena or Hematochezia Associated Symptoms Associated Symptoms: Negative for Dysuria, Frequency, Hematuria or Urgency Narrative Narrative: 78-year-old male history of prior kidney stones otherwise healthy. Said around 2 AM he was awoke with left groin pain. Denies any abdominal or back pain. Denies any other symptoms. No nausea, vomiting, diarrhea. No fever or chills. No dysuria or hematuria. He said the pain is almost completely gone at this time. He never had any back pain associated with it. He said any prior kidney stones always started in the flank or upper abdomen. He has never needed in the kidney stone surgery for removal. Currently symptom-free. Prior similar symptoms: No Recent Illness/Hospitalization: No PFSH PFSH Medical History Kidney stone Abnormal electrocardiogram Cholelithiasis Neuropathy Hypertrophy of prostate without urinary obstruction Osteoarthritis History of melanoma Nocturia Kidney stones GERD (gastroesophageal reflux disease) Essential (primary) hypertension Hyperlipidemia Home Medications ???Medication ???Instructions ???Recorded ???Last Taken ???Type multivitamin-iron 9 mg-folic acid 1 tablet PO DAILY 08/29/14 Unknown History 400 mcg-calcium and minerals tablet lansoprazole 30 mg capsule,delayed 30 mg PO DAILY 06/07/20 Unknown History release lisinopril 30 mg tablet 30 mg PO DAILY 10/25/22 Unknown History oxycodone-acetaminophen 5 mg-325 1 tab PO Q6H PRN PRN Pain 3 days 10/25/22 Unknown Rx mg tablet #12 TABLETS Allergy/AdvReac Type Severity Reaction Status Date / Time acetaminophen (From Tylenol) Allergy Rash Verified 10/25/22 02:23 doxazosin mesylate (From AdvReac Other Verified 10/25/22 02:23 Cardura) pantoprazole sodium (From AdvReac Other Verified 10/25/22 02:23 Protonix) triamterene AdvReac Other Verified 10/25/22 02:23 Family History Mother Cancer Father Aneurysm Surgical History History of colonoscopy History of herniorrhaphy History of cholecystectomy History of total hip arthroplasty Social History Smoking Status: Never smoker alcohol intake: current alcohol intake frequency: a few times a week Alcohol type: beer details: 1 beer 4 times a week ROS ROS ED ROS Narrative Left groin pain only. No other symptoms. Review of Systems ROS Unobtainable: Denies due to encephalopathy Constitutional Constitutional ED: Denies chills or fever(s) ENT ENT ED: Denies ear pain Cardiovascular Cardiovascular: Denies chest pain Respiratory/Chest Respiratory/Chest: Denies cough Gastrointestinal Gastrointestinal: Reports other Details: Left groin pain only. No abdominal, back or flank pain. ; Denies abdominal pain Genitourinary Genitourinary ED: Denies dysuria or hematuria Musculoskeletal Musculoskeletal: Denies arthralgias or back pain Integumentary Denies abscess or Abrasions Neurologic Neurologic: Denies headache(s) Psychiatric Psychiatric: Denies anxiety or depression Endocrine Endocrinology: Denies polydipsia Hematologic/Lymphatic Hematologic/Lymphatic: Denies easy bleeding Allergic/Immunologic Allergic/Immunologic ED: Denies mouth swelling, tongue swelling or urticaria EXAM Physical Exam Narrative Exam Narrative: Well-appearing 78-year-old male. Vital signs stable afebrile. He does not look septic toxic he is in no distress. His pain is basically resolved. H EENT exam unremarkable. Lungs clear. Heart regular rhythm. Abdomen soft, nontender, nondistended, normal bowel sounds without peritoneal signs. He is absolutely no abdominal tenderness. He points to his left groin but said the pain is resolved. There is no reproducible left groin pain on palpation. His external genitalia exam is unremarkable. No tenderness or swelling. There is no obvious hernia. He has f (more content not included)... Normal [facility] Abdomen/Pelvis without Conto n 10-25-2022 Abdomen/Pelvis without Cont [facility] Imaging Services [address] [place] [address] Abdomen/Pelvis without Cont MR#: [id number] Acct: [id number] Name: GEOFF SMITH Rep #: [id number] : 1945 M 77 From: Star Steward MD PCP: Dr. Kelton Serrano MD Status: REG ER Study: Abdomen/Pelvis without Cont Date of Exam: 03/18 Exam# [id number] Ordering Dr: Nicholas Iyer MD EXAM: CT ABDOMEN AND PELVIS WITHOUT INTRAVENOUS CONTRAST CLINICAL INDICATION: Kidney Stone L TECHNIQUE: Helically acquired images were obtained of the abdomen and pelvis without intravenous contrast. This CT exam was performed using one or more of the following dose reduction techniques: automated exposure control, adjustment of the mA and/or kV according to patient size, and/or use of iterative reconstruction technique. RADIATION DOSE: CTDIvol = 11.72 mGy, DLP = 640.09 mGy-cm COMPARISON: CT abdomen and pelvis 09/02/2021 FINDINGS: LOWER THORAX: Bibasilar dependent atelectasis. No cardiomegaly. No significant pericardial effusion. ABDOMEN: LIVER: Unremarkable. Homogeneous. GALLBLADDER AND BILE DUCTS: Cholecystectomy. No intra- or extrahepatic biliary ductal dilation. PANCREAS: Unremarkable. No focal cystic mass. SPLEEN: Unremarkable. Normal size without focal cystic or solid mass. ADRENALS: Unremarkable. No nodules. KIDNEYS AND URETERS: There is a 2 mm stone in the left UVJ, causing mild obstructive changes. Benign left renal cyst. No follow-up imaging is recommended per consensus recommendations based on imaging criteria. Normal renal size and position. STOMACH AND BOWEL: Diverticular disease of the sigmoid colon without diverticulitis. No stomach or bowel distention. PELVIS: APPENDIX: The appendix is normal. BLADDER: Unremarkable. REPRODUCTIVE: Unremarkable as visualized. No mass. ABDOMEN and PELVIS: INTRAPERITONEAL SPACE: Unremarkable. No ascites or other fluid collection. No free air. BONES/JOINTS: Degenerative changes of the spine. Right hip arthroplasty. No suspicious lytic or blastic abnormality. SOFT TISSUES: Fat-containing left inguinal hernia. VASCULATURE: Unremarkable. Abdominal aorta is non-dilated. LYMPH NODES: Unremarkable. No enlarged lymph nodes. CT/Abdomen/Pelvis without Cont IMPRESSION: There is a 2 mm stone in the left UVJ, causing mild obstructive changes. Electronically Signed: Star Steward MD at 3:23 EDT Reading Location ID and State: [facility] / [place] Tel , Service support , CC: Dr. Nicholas Iyer MD; Dr. Kelton Serrano MD Crap Shooter: Signed Normal [facility] Emergency Department Summary on 10-25-2022 Emergency Department Summary [facility] Medical Records Department [address] [place] [address] Emergency Department Summary 10/25/22 MR#: [id number] Acct: [id number] Name: GEOFF SMITH Rep #: [id number] : 1945 77 From: Nicholas Iyer MD PCP: Dr. Kelton Serrano MD Status:REG ER Location: ED HPI HPI - GI History of Present Illness Chief Complaint: Flank Pain Informant: patient Narrative Narrative: Patient feels like he has a kidney stone. Has had them in the past, similar pain, left flank started 1 hour prior to arrival. He states the pain is not so bad right now. Denies any nausea or vomiting. Pain does not go into his back, just his side, states he feels like he needs to urinate but he cannot and the pain radiates down into his left scrotum and penis. No hematuria. He has not required surgery to remove stones in the past. [facility] Medical History Abnormal electrocardiogram Cholelithiasis Essential (primary) hypertension GERD (gastroesophageal reflux disease) History of melanoma Hyperlipidemia Hypertrophy of prostate without urinary obstruction Kidney stone Kidney stones Neuropathy Nocturia Osteoarthritis Home Medications multivitamin-iron 9 mg-folic acid 400 mcg-calcium and minerals tablet 1 tablet PO DAILY 08/29/14 [History Last Taken Unknown] lansoprazole 30 mg capsule,delayed release 30 mg PO DAILY 06/07/20 [History Last Taken Unknown] lisinopril 30 mg tablet 30 mg PO DAILY 10/25/22 [History Last Taken Unknown] oxycodone-acetaminophen 5 mg-325 mg tablet 1 tab PO Q6H PRN PRN Pain 3 days #12 TABLETS 10/25/22 [Rx Last Taken Unknown] Allergy/AdvReac Type Severity Reaction Status Date / Time acetaminophen [From Tylenol] Allergy Rash Verified 10/25/22 02:23 doxazosin mesylate AdvReac Other Verified 10/25/22 02:23 [From Cardura] pantoprazole sodium AdvReac Other Verified 10/25/22 02:23 [From Protonix] triamterene AdvReac Other Verified 10/25/22 02:23 Family History Mother Cancer Father Aneurysm Surgical History History of cholecystectomy History of colonoscopy History of herniorrhaphy History of total hip arthroplasty Social History Smoking Status: Never smoker alcohol intake: current alcohol intake frequency: a few times a week Alcohol type: beer details: 1 beer 4 times a week ROS ROS ED Constitutional Constitutional ED: Denies chills or fever(s) Eyes Eyes: Denies change in vision or diplopia ENT ENT ED: Denies rhinorrhea or sore throat Cardiovascular Cardiovascular: Denies chest pain or palpitations Respiratory/Chest Respiratory/Chest: Denies cough or dyspnea Gastrointestinal Gastrointestinal: Reports abdominal pain; Denies diarrhea, nausea or vomiting Genitourinary Genitourinary ED: Reports flank pain and other Details: Feels like I need to go but I cannot ; Denies dysuria or hematuria Musculoskeletal Musculoskeletal: Denies back pain or neck pain Integumentary Denies abscess or rash Neurologic Neurologic: Denies headache(s), paresthesias or weakness Psychiatric Psychiatric: Denies anxiety or suicidal thoughts EXAM Physical Exam Const Vital Signs: 10/25/22 02:21 Temperature 96.6 F L Temperature Source Temporal Pulse Rate 87 Respiratory Rate 17 Blood Pressure 187/126 H Blood Pressure Mean 146 Pulse Ox 97 Oxygen Delivery Method Room Air Positive well nourished and well developed General Appearance ED: well developed and NAD HEENT Reports moist mucous membranes normocephalic and atraumatic Eyes PERRL and EOMs intact bilaterally Neck full ROM and supple Resp normal respiratory effort and clear to auscultation bilaterally Cardio regular rate, regular rhythm and no murmurs GI non-distended GI Narrative: Tender left lower quadrant, no guarding or rebound tenderness no pulsatile mass palpable. No Montes Dsouza sign no [place] sign. Auscultation: normoactive bowel sounds Palpation: soft Back/Spine no CVA tenderness General Back: other FROM Extremity normal to inspection General Extremety ED: Negative for edema, pulses abnormal or tenderness General Extremity: Negative for edema or pulses abnormal Neuro oriented x3, CN's II-XII intact bilaterally and no sensory deficits noted Sensorium / Orientation: awake and alert Motor Exam: strength 5/5 throughout Skin no rashes or lesions noted and no wounds MDM MDM MDM Narrative Medical decision making narrative: Likely having a kidney stone, CT was obtained and verifies a 2 mm stone at the left UVJ which explains his symptoms. I reviewed the images and the report and I agree wit (more content not included)... Normal [facility] Urinalysis, Completeon 10-25 CAST,HYALINE 0-5 SEEN Normal 0-5 [facility] Comment on above: Order Comment: CLEAN CATCH Performed By: #### L [id number] #### [facility] Laboratory [address] [place], [place], [id number] Mucus Ql (Urine sed) 1+ /hpf Normal [facility] Comment on above: Order Comment: CLEAN CATCH Performed By: #### L [id number] #### [facility] [address] [place], [address] BACTERIA RARE Normal None Seen [facility] Comment on above: Order Comment: CLEAN CATCH Performed By: #### L [id number] #### [facility] [address] [place], [address] RBC 0-5 SEEN Normal 0-5 [facility] Comment on above: Order Comment: CLEAN CATCH Performed By: #### L [id number] #### [facility] [address] [place], [address] WBC 25-50 SEEN Normal 0-5 [facility] Comment on above: Order Comment: CLEAN CATCH Performed By: #### L [id number] #### [facility] [address] [place], [address] EPI,SQUAMOUS 0 SEEN Normal 0-5 [facility] Comment on above: Order Comment: CLEAN CATCH Performed By: #### L [id number] #### [facility] [address] [place], [address] XR FOOT GENERAL 3V AP/LAT/OB L BILATERALon 09-04-2022 [facility] CBC panel Auto (Bld)on 03-18 Erythrocyte distribution width (RBC) [Ratio] 13.1 % 11.5 - 15.0 % [facility] Hematocrit (Bld) [Volume fraction] 44.6 % 39.0 - 51.0 % [facility] Hemoglobin (Bld) [Mass/Vol] 14.7 g/dL 13.0 - 17.0 g/dL [facility] MCH (RBC) [Entitic mass] 31.1 pg 26.0 - 34.0 pg [facility] MCHC (RBC) [Mass/Vol] 33.0 g/dL 30.5 - 36.0 g/dL [facility] MCV (RBC) [Entitic vol] 94.5 fL 80.0 - 100.0 fL [facility] Nucleated RBC (Bld) [#/Vol] <0.01 k/uL [facility] Platelet mean volume (Bld) [Entitic vol] 10.0 fL 9.0 - 12.7 fL [facility] Platelets (Bld) [#/Vol] 271 10*3/uL 150 - 400 k/uL [facility] RBC (Bld) [#/Vol] 4.72 10*6/uL 4.20 - 6.0 0 m/uL [facility] WBC (Bld) [#/Vol] 6.92 10*3/uL 3.70 - 11. 00 k/uL [facility] Comprehensive metabolic 2000 panelon 03-18-2022 Albumin [Mass/Vol] 4.1 g/dL 3.9 - 4.9 g/dL [facility] ALP [Catalytic activity/Vol] 62 U/L 38 - 113 U/L [facility] ALT [Catalytic activity/Vol] 23 U/L 10 - 54 U/L [facility] Anion gap [Moles/Vol] 10 mmol/L 9 - 18 mmol/L [facility] AST [Catalytic activity/Vol] 21 U/L 14 - 40 U/L [facility] Bilirubin [Mass/Vol] 0.5 mg/dL 0.2 - 1 .3 mg/dL [facility] Calcium [Mass/Vol] 9.6 mg/dL 8.5 - 10. 2 mg/dL [facility] Chloride [Moles/Vol] 105 mmol/L 97 - 10 5 mmol/L [facility] CO2 [Moles/Vol] 26 mmol/L 22 - 30 mmol/L [facility] Creatinine [Mass/Vol] 1.27 mg/dL High 0.73 - 1.22 mg/dL [facility] Estimated Glomerular Filtration Rate 59 mL/min/1.73m Low >=60 mL/min/1.73m [facility] Glucose [Mass/Vol] 89 mg/dL 74 - 99 mg/dL [facility] Potassium [Moles/Vol] 5.0 mmol/L 3.7 - 5.1 mmol/L [facility] Protein [Mass/Vol] 7.3 g/dL 6.3 - 8.0 g/dL [facility] Sodium [Moles/Vol] 141 mmol/L 136 - 144 mmol/L [facility] Urea nitrogen [Mass/Vol] 19 mg/dL 9 - 24 mg/dL [facility] HbA1c (Bld)on 03-18-2022 Average glucose Estimated from glycated hemoglobin (Bld) [Mass/Vol] 126 mg/dL [facility] HbA1c (Bld) [Mass fraction] 6.0 % High 4.3 - 5.6 % [facility] Lipid 1996 panelon Cholesterol [Mass/Vol] 173 mg/dL <200 mg/dL [facility] Cholesterol in HDL [Mass/Vol] 41 mg/dL >39 mg/dL [facility] Cholesterol in LDL [Mass/Vol] 121 mg/dL High <100 mg/dL [facility] Cholesterol in LDL/Cholesterol in HDL [Mass ratio] 2.95 {ratio} High <2.54 [facility] Cholesterol in VLDL [Mass/Vol] 11 mg/dL <30 mg/dL [facility] Cholesterol non HDL [Mass/Vol] 132 mg/dL High <130 mg/dL [facility] Cholesterol.total/Ch olesterol in HDL [Mass ratio] 4.22 {ratio} <5.10 [facility] Fasting Time 11 hrs [facility] Triglyceride [Mass/Vol] 57 mg/dL <150 mg/dL [facility] MAGNESIUM BLDon 03-18-2022 Magnesium [Mass/Vol] 2.2 mg/dL 1.7 - 2 .3 mg/dL [facility] PSA/PROSTSPECAG SCRNon 03-18 Prostate specific Ag [Mass/Vol] 1.51 ng/mL <2.60 ng/mL [facility] Absolute lymphocyte counton 09-02-2021 Lymphocytes Auto (Unsp spec) [#/Vol] 1.69 10*3/uL 0.83-4.51 [facility] Work Phone: Basophil percentageon 2021 Basophil percentage 0 SEEN /hpf 0-5 [facility] Work Phone: Basophils/100 WBC (Bld) 0.7 % 0-1 [facility] Work Phone: Chloride [Moles/Vol] 106 mmol/L 98-107 [facility] Work Phone: Eosinophils/100 WBC (Bld) 1.2 % 0-5 [facility] Work Phone: Glucose [Mass/Vol] 129 mg/dL 74-106 [facility] Work Phone: Comment on above: Fasting Glucose resu lt greater than or equal to 126 mg/dL suggests DIABETES MELLITUS per A.D.A. criteria. Neutrophils (Bld) [#/Vol] 7.1 10*3/uL 2.0-7.7 [facility] Work Phone: Neutrophils/100 WBC (Bld) 71.5 % 47-70 [facility] Work Phone: [phone] Potassium [Moles/Vol] 3.6 mmol/L 3.5-5.1 [facility] Work Phone: [phone] Sodium [Moles/Vol] 140 mmol/L 136-145 [facility] Work Phone: WBC (Bld) [#/Vol] 9.9 10*3/uL 4.4-11.0 [facility] Work Phone: Bilirubin Test strip Ql (U)o n 09-02-2021 Bilirubin Ql (U) Negative Negative [facility] Work Phone: Blood erythrocytes count (nu mber/volume)on 09-02-2021 RBC (Bld) [#/Vol] 4.57 10*6/uL 4.6-6.2 [facility] Work Phone: Blood hemoglobin measurement (mass/volume)on 09-02-2021 Hemoglobin (Bld) [Mass/Vol] 14.3 g/dL 13.0-16.5 [facility] Work Phone: Blood lymphocytes/100 leukoc yteson 09-02-2021 Lymphocytes/100 WBC (Bld) 17.1 % 19-41 [facility] Work Phone: Blood monocytes/100 leukocyt eson 09-02-2021 Monocytes/100 WBC (Bld) 8.9 % 0-10 [facility] Work Phone: Blood platelet mean volumeon 09-02-2021 Platelet mean volume (Bld) [Entitic vol] 10.1 fL 6.2-12.0 [facility] Work Phone: Determination of erythrocyte mean corpuscular volume (MCV)on 09-02-2021 MCV (RBC) [Entitic vol] 93.2 fL 80-94 [facility] Work Phone: Hematocrit Auto (Bld) [Volum e fraction]on 09-02-2021 Hematocrit (Bld) [Volume fraction] 42.6 % 40-54 [facility] Work Phone: Ketones Test strip Ql (U)on 09-02-2021 Ketones Ql (U) 15 mg/dl Negative [facility] Work Phone: Laboratory - Chemistry and C hemistry - challengeon 09-02-2021 CO2 [Moles/Vol] 27.0 mmol/L 21.0-32.0 [facility] Work Phone: Urea nitrogen/Creatinine [Mass ratio] 19.9 mg/mg 10-20 [facility] Work Phone: Laboratory - Hematology and Cell countson 09-02-2021 Erythrocyte distribution width (RBC) [Entitic vol] 45.5 fL 35.1-43.9 [facility] Work Phone: Erythrocyte distribution width (RBC) [Ratio] 13.3 % 11.6-14.6 [facility] Work Phone: Immature granulocytes/100 WBC (Bld) 0.600 % 0.0-0.9 [facility] Work Phone: Comment on above: IG% - Immature Granu locytes (promyelocytes, myelocytes and metamyelocytes) > 1% indicates that a LEFT SHIFT is Present. MCH (RBC) [Entitic mass] 31.3 pg 27.0-32.0 [facility] Work Phone: Nucleated RBC/100 WBC (Bld) [Ratio] 0 % 0-5 [facility] Work Phone: MCHC Auto (RBC) [Mass/Vol]on 09-02-2021 MCHC (RBC) [Mass/Vol] 33.6 g/dL 32-36 [facility] Work Phone: Mucus LM Ql (Urine sed)on Mucus Ql (Urine sed) 0 SEEN /hpf [facility] Work Phone: Nitrite Test strip Ql (U)on 09-02-2021 Nitrite Ql (U) Negative Negative [facility] Work Phone: No Panel Informationon 09-02 Estimated Creatinine Clearance Calc 38.35 ml/min [facility] Work Phone: Estimated GFR (MDRD) Amer 45 mL/min >60 [facility] Work Phone: Comment on above: GFR Calc Estimated GFR (MDRD) Non-Af Amer 37 mL/min >60 [facility] Work Phone: Comment on above: Non- GFR Calc Platelets bldon 09-02-2021 Platelets (Bld) [#/Vol] 316 10*3/uL 150-450 [facility] Work Phone: Protein Test strip Ql (U)on 09-02-2021 Protein Ql (U) 15 mg/dl Negative [facility] Work Phone: Serum or plasma calcium taylor urement (mass/volume)on 09-02-2021 Calcium [Mass/Vol] 9.8 mg/dL 8.5-10.1 [facility] Work Phone: Serum or plasma creatinine m easurement (mass/volume)on 09-02-2021 Creatinine [Mass/Vol] 1.91 mg/dL 0.70-1.30 [facility] Work Phone: Comment on above: The validity of the calculated GFR & GFRAA in patients over 70 years has not been determined. Clinical correlation is essential. Serum or plasma urea nitroge n measurement (mass/volume)on 09-02-2021 Urea nitrogen [Mass/Vol] 38 mg/dL 7-18 [facility] Work Phone: Squamous epithelial cells de tection in urine sediment by light microscopyon 09-02-2021 Epithelial cells.squamous LM Ql (Urine sed) 0-5 SEEN /hpf 0-5 [facility] Work Phone: Thin prep Papanicolaou smear with manual screeningon 09-02-2021 Thin prep Papanicolaou smear with manual screening 7 5-15 [facility] Work Phone: Urine blood detectionon 08-24 RBC Ql (U) 250 /ul Negative [facility] Work Phone: RBC Ql (U) 25-50 SEEN /hpf 0-5 [facility] Work Phone: Urine clarityon 09-02-2021 Clarity (U) Sl. Cloudy Clear [facility] Work Phone: Urine color determinationon 09-02-2021 Color (U) Yellow Yellow [facility] Work Phone: Urine glucose detectionon Glucose Ql (U) Normal mg/dl Normal [facility] Work Phone: Urine leukocyte esterase det ection by dipstickon 09-02-2021 Leukocyte esterase Test strip Ql (U) Negative Negative [facility] Work Phone: Urine pHon 09-02-2021 pH (U) 6.0 [pH] 5.0 - 8.0 [facility] Work Phone: Urine sediment bacteria coun t by microscopy (number/high power field)on 09-02-2021 Bacteria LM.HPF (Urine sed) [#/Area] 0 /[HPF] None Seen [facility] Work Phone: Urine specific gravity measu rementon 09-02-2021 Specific gravity (U) [Rel density] 1.015 1.002-1.030 [facility] Work Phone: Urobilinogen Auto test strip Ql (U)on 09-02-2021 Urobilinogen Ql (U) Normal mg/dl Normal [facility] Work Phone: CASE MANAGEMon 04-09-2019 CASE MANAGEM HNO ID: [id number] Author: Natalia (Rn) JAVIER Wang Service: Case Management Author Type: Registered Nurse Type: Care Mgt Progress Note Filed: 04/09/2019 11:42 AM Note Text: CARE MANAGEMENT DISCHARGE NOTE SERVICE DATE: 04/09/2019 SERVICE TIME: 11:40 AM LOS: 0 days Admission Date: 04/07/2019 DISCHARGE ARRANGEMENT (list agency and phone number) Discharge Arrangement: Home Jail Care: PT Provider Name: [facility] CAREGIVER ASSESSMENT: HANDOFF COMMUNICATION: Handoff to: Primary Care Physician;Other Caregiver Primary Care Physician Name/Phone: Dr. Kelton Serrano- [phone] Other Caregiver Name/Phone: [facility]- [phone] TRANSPORTATION ARRANGEMENTS: Transportation Arrangements: Car ADDITIONAL CONTACT RESOURCES: NA Discharge Information Row Name Admission (Current) from 04/07/[address] [facility] Start of Care ? within 24-48 hours Needs Prior to Discharge: Ready for Discharge Discharge order written for today. Met with the patient and confirmed with him that [facility] will be seeing him for home P.T with a start of care date within 24-48 hours. [facility]'s name and number is listed on the patients discharge instructions. Notified [facility] of the patients discharge home today. SIGNATURE: Natalia Wang PATIENT NAME: Geoff Smith DATE: April 09, 2019 TIME: 11:40 AM PAGER/CONTACT #: [phone] Normal [facility] CNCOon 04-09-2019 CNCO Letter Text Normal [facility] Hemoglobinon 04-09-2019 Hemoglobin (Bld) [Mass/Vol] 11.5 g/dL Low 13.0-17.0 [facility] Comment on above: Performed By: #### H GB ####[facility] [address] [place] [phone] PLAN OF CAREon 04-09-2019 PLAN OF CARE HNO ID: [id number] Author: Yasmin Tavares (Tissue Inserter) Service: Pharmacy Author Type: ? Type: Plan of Care Filed: 04/09/2019 12:43 PM Note Text: STAGE MANAGER BEDSIDE DELIVERY SURVEY 1. Patient to use [facility] Bedside Delivery - YES Insurance Information as follows: 2. Insurance card on file - YES 3. Credit card for payment - YES PHARMACY BEDSIDE DELIVERY SERVICE Patient Name: Geoff Smith The marked outpatient medications were Filled at: [facility] and delivered to the patient's bedside to 289 Medication List START taking these medications acetaminophen 500 mg tablet Commonly known as: TYLENOL Take 2 tablets by mouth every 8 hours as needed. aspirin, enteric coated 81 mg EC tablet Commonly known as: ASPIRIN, ENTERIC COATED Take 1 tablet by mouth twice daily. X docusate sodium 100 mg capsule Commonly known as: COLACE Take 1 capsule by mouth twice daily. X oxyCODONE IR 5 mg immediate release tablet Commonly known as: ROXICODONE Take 1 tablet by mouth every 4 hours as needed for Pain for up to 7 days. X polyethylene glycol 3350 17 gram packet Commonly known as: MIRALAX, GLYCOLAX Take 1 Packet by mouth once daily. X CONTINUE taking these medications Cholecalciferol (Vitamin D3) 50 mcg (2,000 unit) Cap Take one(1) tablet daily. lansoprazole 30 mg capsule Commonly known as: PREVACID Take 1 capsule by mouth once daily. Fflaziynnxclg-Ffolowog-I utein Tab Commonly known as: CENTRUM SILVER Take 1 tablet by mouth once daily. Quinapril-Hydrochlorothi azide 20-12.5 mg per tablet Take 1 tablet by mouth once daily. triamcinolone acetonide 0.1 % cream Commonly known as: KENALOG Apply 1 application to affected area as needed. You might also be taking other medications not listed above. If you have questions about any of your other medications, talk to the person who prescribed them or your Primary Care Provider. Yasmin Tavares (Tissue Inserter) PAGER: [phone] April 09, 2019 12:43 PM [facility] PROGRESSon 04-09-2019 PROGRESS HNO ID: [id number] Author: Antonio Mack Service: General Internal Medicine Author Type: Physician Type: Progress Notes Filed: 04/09/2019 9:15 AM Note Text: INPATIENT CONSULT PROGRESS NOTES Patient Name: Geoff Smith DATE of SERVICE: 04/09/2019 TIME of SERVICE: 8:02 CONSULTING SERVICE: Medicine,post op # 2 INTERVAL HPI: uneventful night, pain is fairly control Patient seen and examined:Blood pressure 138/72, pulse 108, temperature 36.7 ?C (98.1 ?F), temperature source Oral, resp. rate 16, height 185.4 cm (6' 1), weight 90.7 kg (200 lb), SpO2 94 %. Vitals/Meds/Labs/U/O reviewed Alert AND Oriented NO n/v NO light headedness, NO sob CVS ? RRR Lungs ? CTAB Abdomen ? soft, NT, + BS LE ? Ankle No edema MEDICATIONS: Current Facility-Administered Medications Medication Dose Route Frequency - aspirin, enteric coated 81 mg tab(s) 81 mg ORAL BID - morphine 2-6 mg injection 2-6 mg INTRAVENOUS q 2 H PRN - acetaminophen 1,000 mg tab(s) (TYLENOL) 1,000 mg ORAL q 8 H - ondansetron orally disintegrating 4 mg tab(s) (ZOFRAN ODT) 4 mg ORAL q 6 H PRN Or - ondansetron (PF) 4 mg injection (ZOFRAN) 4 mg INTRAVENOUS q 6 H PRN - magnesium hydroxide 400 mg/5 mL 30 mL (MOM) 30 mL ORAL DAILY PRN - aluminum-magnesium hydroxide-simethicone 200-200-20 mg/5 mL 30 mL (MAALOX,MYLANTA,MAG-AL PLUS) 30 mL ORAL q 6 H PRN - ascorbic acid (vitamin C) 500 mg tab(s) (VITAMIN C) 500 mg ORAL BID w MEALS - docusate sodium 100 mg cap(s) (COLACE) 100 mg ORAL BID - polyethylene glycol 3350 17 g packet (MIRALAX, GLYCOLAX) 17 g ORAL DAILY - NaCl 0.9% iv infusion 75 mL/hr INTRAVENOUS CONTINUOUS - hydroCHLOROthiazide 12.5 mg tab(s) (HYDRODIURIL, ESIDRIX) 12.5 mg ORAL DAILY And - lisinopril 10 mg tab(s) (ZESTRIL, PRINIVIL) 10 mg ORAL DAILY - pantoprazole DR 40 mg tab(s) (PROTONIX) 40 mg ORAL DAILY (6 AM) - oxyCODONE IR 5 mg tab(s) (ROXICODONE) 5 mg ORAL q 3 H PRN Body mass index is 26.39 kg/m?. DATA: CBC: Recent Labs 04/09/19 0608 HB 11.5* ASSESSMENT AND PLAN: A. OA S/P - Total Hip Unilateral: right, DVT prophylaxis with ASA Continue PT/OT HTN stable GERD continue PPI Possible discharge today SIGNATURE: Antonio Mack MD [facility] THERAPY NTon 04-09-2019 THERAPY NT HNO ID: [id number] Author: Evy (PtRamon Berger Service: Physical Therapy Author Type: Physical Therapist Type: Therapy (PT/OT/Speech/Resp) Filed: 04/09/2019 10:35 AM Note Text: Physical Therapy Treatment SERVICE DATE: 04/09/2019 SERVICE TIME: 0840 to 0959 ROOM: [place] [address] Recommended Discharge Disposition: Home PT Recommended Discharge Disposition Comments: Pt with imporved functional mobility, continues to have deficits that are able to be addressed by home PT Justification For Post Acute Needs: Anticipated community discharge;Cognition intact;Good family support;Good premorbid functional status;Good sitting tolerance;Living the community premorbidly;Motivated;Wi lling to participate Anticipated Discharge Needs: Physical Assist at Home Physical Assist at Home for: Cleaning;Laundry;Meals;T ransportation;Wheelchair Mobility Supervision at Home due to: (initially for safety) Recommended Discharge Equipment: Crutch(es) PT Recommendations to Nursing: Ambulate with device;To bathroom;In halls;Transfer to/from chair;OOB for Meals;With assist of 1 person Device: Wheeled Walker PT 6 Clicks Score: 19 Precautions/Activity Restrictions: Weight Bearing Restrictions;Total Hip Replacement;Fall Risk;Lines/Tubes/Drains Extremity With Weight Bearing Restricted: Right Lower Extremity Right Lower Extremity Weight Bearing Status: PWB(40-50#) Total Hip Replacement Precautions: Lateral ASSESSMENT : Pt is safe for discharge home Patient progressing toward therapy goals as is able to increase ambulation distance and progress to stair negotiation, improved bed mobility with decreased assist required, tolerates therex and noted improvement in processing of cues. Pt requires intermittent cues for safe pace with activity and follows appropriately. Pt is pleasant and cooperative throughout and participates without adverse effects. Pt demonstrates ability to return home safely with spouse assist and continued home PT. Patient Disposition at Start of Session: Supine in Bed Patient Disposition at End of Session: OOB in Chair Tolerated Full Session Physiologic Response Physical Therapy Problem List: Pain;Safety Deficits;Decreased Activity Tolerance;Decreased Range Of Motion;Decreased Strength;Functional Mobility Impairment;Balance Impaired Patient /Caregiver Goals: Go Home Goals for Plan of Care: Able to perform HEP with: Verbal Cues Only Transfer supine to/from sit with: Stand By Assistance(with leg information security associate if needed) Transfer sit to/from stand with: Stand By Assistance Ambulate with: Supervision Distance: 150-200 Device: Wheeled Walker Ambulate up and down steps with: Contact Guard Assistance Number of steps: 4 x 3 reps Device: Crutch(es);Rail Car transfer with: Supervision Transfer: from all surfaces maintaining <90 degrees on right side with S Goal: report pain in right hip <4/10 Goal: verbalize all precautions Progress Toward Goals: Progressing as expected Due To: BP, alertness, fatigue Rehab Potential: Excellent PLAN: Treatment Frequency (times per week): 7;BID Current admission Treatment Interventions: Education;Self Care / Home Management;Energy Conservation Training;Joint Mobility;Strengthening;F unctional Mobility Training;Balance Training;Neuromuscular Re-education;Modalities; Pain Management Modalities: Ice Plan of Care developed with: Patient;Caregiver TREATMENT INTERVENTIONS: Therapy Diagnosis: Reduced mobility-other;Decreased activities of daily living (ADL);Muscle Weakness (generalized) Interventions Provided: Therapeutic Exercise (79973);Therapeutic Activity (86541);Gait Training (44014) Therapeutic Exercise (02966) Treatment Minutes: 18 1 unit Skilled Intervention(s): Pt completes the following supine therex bilaterally unless otherwise specified x 10-15 reps: Ankle pumps, quad sets with 3-5 sec hold, glute sets, RLE SAQ, RLE hip ABD with Ayesha, RLE heel slides with Ayesha Verbal, visual and tactile cues provided as needed for technique and control. Pt educated on rationale and parameters of performance of anti-embolics Supine HEP reviewed and issued with written instructions and parameters of performance provided Therapeutic Activity (79911) Treatment Minutes: 23 2 units Skilled Intervention(s): Verbal cues and assist with LE management for unilateral bridging of LLE to scoot self sideways in supine Assist provided to upper back and verbal cues provided for effective technique with UEs to progress EOB scooting Instructed patient in supine to sit pushing with upper extremities to sit up with assist for trunk and LE management, cues for effective use of UEs for assist Education: Pt re-educated month precautions with demonstrations provided, importance of continued OOB activity with nursing to reduce risk of functional decline, rationale for discharge recommendation of home PT, use of call light 100% of the time for assist, parameters for safe home going, rationale for equipment recommendation of crutches for safe stair negotiation and how to obtain (hospital issue, [facility], obtain on own), importance of limiting sitting x 1 hour to reduce edema, appropriate sleeping positions, risks of use of recliner due to increased chance of violating hip precautions Car transfer simulation performed with assist for LE management and verbal cues for safe trunk management Discharge sheet issued with the following topics discussed: Indications and contraindications to activity, signs/symptoms of DVT and infections, parameters of cryotherapy,proper technique for elevation, importance of balance between activity and rest. Vitals monitored due to tachycardia last session Gait Training (35607) Treatment Minutes: 32 2 units Skilled Intervention(s): Instruction in sit to stand technique with proper hand placement and body positioning at edge of bed/chair, optimal RLE placement, initial demonstration provided Instruction in stand to sit technique with LE's touching chair/bed and reaching back for surface, cues for safe approach to surface, controlled descent to sit, optimal RLE placement Cues for improved posture, increased use of UEs for assist to maintain standing balance Instruction in sequencing, gait pattern with step to Instruction in correction of gait deviations, safe walker placement, safe pace, safety with directional changes, stabilizing walker before advancing LEs. Instruction in use of equipment, cues for sequence and pattern Instruction in stair negotiation with cues for safe approach to steps, proper AD placement and sequencing, initial demonstration and verbal explanation provided Scale utilized as visual and proprioceptive tool to assess weight bearing Crutches issued and adjusted to pt Spouse educated on positioning for guiding on stairs Crutch training guide provided for stair negotiation Total Timed Code Treatment Minutes: 73 Total Treatment Time (minutes): 79 SUBJECTIVE: Current Hospital Course: Chart reviewed and no significant medical updates relevant to therapy were noted Reason for Physical Therapy Consult : s/p right THR Relevant Past Medical History: HTN, melenoma, Cholelithiasis Patient Report: Pt agreeable to PT, ok per nursing to treat. Pt states, My pain is so much better today. Home Environment Patient Lives With: Spouse(in 2 story home) Assistance Available: 24 Hour Entry To Home: Stairs;Without Rail Number Of Stairs Into Home: 2 Number Of Stairs To Bed/Bath: 13 Stairs to Bed/Bath with: Bilateral Rail(for most of steps) Tub/Shower Type: step in shower with 2 inch lip Laundry: in the basement, does Equipment Owned: Cane;Commode-3 in 1;Grab Bars-Shower;Grab Bars-Toilet;Shower Chair;Wheeled Walker;Long Handled Shoe Horn Prior Functional Level: Within Functional Limits Prior Functional Level Comments: was indep prior to admission OBJECTIVE: CURRENT FUNCTIONAL STATUS: Current Functional Mobility Assist Level Additional Information Rolling Supine to Sit Contact Guard Assistance Increased time to complete, primary assist with RLE management Sit to Supine Scooting Stand By Assistance Sit to Stand Contact Guard Assistance with progression to SBA X 4 trials Stand to Sit Contact Guard Assistance with progression to SBA Cues for controlled descent to sit Bed to Chair Toilet/Commode Gait Stand By Assistance Gait Device: Wheeled Walker Gait Distance (feet): 2 x 100' Step to pattern, occasional cues for safe pace and stabilization of walker prior to advancing LEs Stairs Contact Guard Assistance Stairs Device: Crutch(es);Rail(and B crutches) Number of Stairs: 8 Initial unsteadiness with B crutches with improved balance with continued progression Curb Step Car Transfer Gait Deviations Right Lower Extremity: Weight bearing decreased;Stance time decreased;Heel strike during initial stance decreased;Push-off during terminal stance decreased;Step length decreased Balance: Static Sitting;Dynamic Sitting;Static Standing;Dynamic Standing Static Sitting Balance: Normal Able to maintain balance against maximal resistance Dynamic Sitting Balance: Good-/Fair+ Able to sit unsupported AND weight shift across midline minimally Static Standing Balance: Fair- Requires Min A or UE support in order to stand without LOB Dynamic Standing Balance: Poor+ Able to stand with Min A and reach ipsilaterally, unable to weight shift -M: 7: Walk 25 feet or more Please see discipline specific clinical documentation flowsheet for complete details for this therapy evaluation/treatment. SIGNATURE: Evy Berger PT PATIENT NAME: Geoff Smith DATE: April 09, 2019 TIME: 10:10 AM Normal [facility] Basic Metabolic Panlon 04-08 Anion gap [Moles/Vol] 10 mmol/L Normal 9-18 [facility] Comment on above: Performed By: #### H AUGUSTINE, BMP ####[facility] [address] [place] [phone] Calcium [Mass/Vol] 8.8 mg/dL Normal 8.5-10.2 [facility] Comment on above: Performed By: #### H AUGUSTINE, BMP ####[facility] [phone] Chloride [Moles/Vol] 103 mmol/L Normal 97-105 [facility] Comment on above: Performed By: #### H AUGUSTINE, BMP ####[facility] [phone] CO2 [Moles/Vol] 26 mmol/L Normal 22-30 [facility] Comment on above: Performed By: #### H AUGUSTINE, BMP ####[facility] [address] [place] [phone] Creatinine [Mass/Vol] 1.11 mg/dL Normal 0.73-1.22 [facility] Comment on above: Performed By: #### H AUGUSTINE, RANJITH ####[facility] [phone] eGFR- Amer. >60 Normal [facility] Comment on above: Performed By: #### H AUGUSTINE, BMP ####[facility] [phone] GFR/1.73 sq M predicted among non-blacks MDRD (S/P/Bld) [Vol rate/Area] mL/min/{1.73_m2} Normal [facility] Comment on above: Result Comment: eGFR (Estimated GFR) Units of measure: mL/min/1.73 meters squared eGFR is derived from the reexpressed MDRD Study equation using the following parameters: serum creatinine, age, gender and race. The creatinine assay has been calibrated to be traceable to IDMS. An eGFR <60 mL/min/1.73m2 for >3 months is consistent with chronic kidney disease. Refer to KDOQI guidelines for clinical interpretation. In patients with unstable renal function, e.g. those with acute kidney injury, the eGFR may not accurately reflect actual GFR. Performed By: #### H AUGUSTINE, RANJITH ####[facility] [phone] Glucose [Mass/Vol] 118 mg/dL High 74-99 [facility] Comment on above: Result Comment: The [place] Diabetes Association (ADA) provides guidance for cutoff values for fasting glucose and random glucose. The ADA defines fasting as no caloric intake for at least 8 hours. Fasting plasma glucose results between 100 to 125 mg/dL indicate increased risk for diabetes (prediabetes). Fasting plasma glucose results greater than or equal to 126 mg/dL meet the criteria for diagnosis of diabetes. In the absence of unequivocal hyperglycemia, results should be confirmed by repeat testing. In a patient with classic symptoms of hyperglycemia or hyperglycemic crisis, random plasma glucose results greater than or equal to 200 mg/dL meet the criteria for diagnosis of diabetes. Reference: Standards of Medical Care in Diabetes 2016, [place] [employer] Association. Diabetes Care. 2016.39(Suppl 1). Performed By: #### H AUGUSTINE BMP ####[facility] [address] Potassium [Moles/Vol] 4.1 mmol/L Normal 3.7-5.1 [facility] Comment on above: Performed By: #### H GB, BMP ####[facility] [address] [place] [phone] Sodium [Moles/Vol] 139 mmol/L Normal 136-144 [facility] Comment on above: Performed By: #### H AUGUSTINE, BMP ####[facility] [address] Urea nitrogen [Mass/Vol] 20 mg/dL Normal 9-24 [facility] Comment on above: Performed By: #### H AUGUSTINE, BMP ####[facility] [address] [place], [place] [id number] Hemoglobinon 04-08-2019 Hemoglobin (Bld) [Mass/Vol] 12.0 g/dL Low 13.0-17.0 [facility] Comment on above: Performed By: #### H AUGUSTINE, BMP ####[facility] [address] PROGRESSon 04-08-2019 PROGRESS HNO ID: [id number] Author: Antonio Mack Service: General Internal Medicine Author Type: Physician Type: Progress Notes Filed: 04/08/2019 9:28 AM Note Text: INPATIENT CONSULT PROGRESS NOTES Patient Name: Geoff Smith DATE of SERVICE: 04/08/19 TIME of SERVICE: 7:25 CONSULTING SERVICE: Medicine,post op # 1 Plan of care discussed with: Provider, RN, Patient. INTERVAL HPI: uneventful night, pain is fairly control Patient seen and examined: Vitals/Meds/Labs/U/O reviewed Alert AND Oriented NO nausea, vomiting NO light headedness, NO shortness of breathe Dry oral mucosa CVS ? RRR Lungs ? Clear to auscultation Abdomen ? soft, NT, + BS LLE ? Ankle No edema RLE ? Ankle No edema MEDICATIONS: Current Facility-Administered Medications Medication Dose Route Frequency - aspirin, enteric coated 81 mg tab(s) 81 mg ORAL BID - morphine 2-6 mg injection 2-6 mg INTRAVENOUS q 2 H PRN - oxyCODONE IR 5-10 mg tab(s) (ROXICODONE) 5-10 mg ORAL q 3 H PRN - acetaminophen 1,000 mg tab(s) (TYLENOL) 1,000 mg ORAL q 8 H - ondansetron orally disintegrating 4 mg tab(s) (ZOFRAN ODT) 4 mg ORAL q 6 H PRN Or - ondansetron (PF) 4 mg injection (ZOFRAN) 4 mg INTRAVENOUS q 6 H PRN - magnesium hydroxide 400 mg/5 mL 30 mL (MOM) 30 mL ORAL DAILY PRN - aluminum-magnesium hydroxide-simethicone 200-200-20 mg/5 mL 30 mL (MAALOX,MYLANTA,MAG-AL PLUS) 30 mL ORAL q 6 H PRN - ascorbic acid (vitamin C) 500 mg tab(s) (VITAMIN C) 500 mg ORAL BID w MEALS - docusate sodium 100 mg cap(s) (COLACE) 100 mg ORAL BID - [START ON 04/09/2019] polyethylene glycol 3350 17 g packet (MIRALAX, GLYCOLAX) 17 g ORAL DAILY - NaCl 0.9% iv infusion 75 mL/hr INTRAVENOUS CONTINUOUS - hydroCHLOROthiazide 12.5 mg tab(s) (HYDRODIURIL, ESIDRIX) 12.5 mg ORAL DAILY And - lisinopril 10 mg tab(s) (ZESTRIL, PRINIVIL) 10 mg ORAL DAILY - pantoprazole DR 40 mg tab(s) (PROTONIX) 40 mg ORAL DAILY (6 AM) PHYSICAL EXAM: Patient Vitals for the past 24 hrs: BP Temp Temp src Pulse Resp SpO2 04/08/19 0847 126/63 36.9 ?C (98.4 ?F) Oral 109 18 93 % 04/08/19 0818 131/68 36.7 ?C (98.1 ?F) Oral 100 14 89 % 04/08/19 0254 125/66 36.9 ?C (98.4 ?F) Oral 94 18 97 % 04/07/19 2351 115/58 36.9 ?C (98.4 ?F) Oral 97 16 98 % 04/07/19 1947 131/74 36.9 ?C (98.4 ?F) Oral 93 16 96 % 04/07/19 1716 130/59 ? ? 100 ? ? 04/07/19 1600 123/79 ? 04/07/19 1539 (!) 71/49 ? 04/07/19 1511 120/62 36.3 ?C (97.3 ?F) Oral 81 18 100 % 04/07/19 1303 146/69 36.4 ?C (97.5 ?F) Oral 76 18 97 % 04/07/19 1230 129/71 ? Oral 72 18 99 % 04/07/19 1200 128/70 ? ? 71 18 97 % 04/07/19 1130 113/72 ? 04/07/19 1115 111/71 ? ? 74 21 97 % 04/07/19 1100 101/62 ? ? 77 15 98 % 04/07/19 1045 100/56 ? ? 81 20 98 % 04/07/19 1030 123/74 ? ? 92 13 96 % 04/07/19 1024 115/72 36.4 ?C (97.5 ?F) Temporal Art 102 18 ? 04/07/19 1015 115/72 ? ? 115 ? 96 % Body mass index is 26.39 kg/m?. DATA: CBC: Recent Labs 04/08/19 0550 HB 12.0* Coags: No results for input(s): INR, APTT in the last 24 hours. Invalid input(s): PT CMP: Recent Labs 04/08/19 0550 NA 139 K 4.1 CHLOR 103 CO2 26 BUN 20 CREAT 1.11 GLUC 118* CA 8.8 ANION 10 ASSESSMENT AND PLAN: A. OA S/P - Total Hip Unilateral: right, DVT prophylaxis with ASA Continue PT/OT HTN stable GERD continue PPI Possible discharge today Med reviewed. SIGNATURE: Antonio Mack MD [facility] PROGRESS HNO ID: [id number] Author: Denis Metzger) Leatha Service: Orthopaedic Surgery Author Type: Nurse Practitioner Type: Progress Notes Filed: 04/08/2019 8:33 AM Note Text: -------- Attestation signed by Nicholas Dela Cruz at 04/09/2019 7:22 AM Nicholas Dela Cruz MD -------- POSTOP NOTE ORTHOPEDIC SERVICE DATE: 04/08/2019 SERVICE TIME: 8:32 AM IMPRESSION/PLAN: S/P Procedure(s) (LRB): ARTHROPLASTY REPLACE JOINT TOTAL HIP (Right) on 04/07/2019 Physical Therapy, recommending Home PT PWB 40-50 lbs RLE, posterior hip precautions DVT prophylaxis: with aspirin, additional anticoagulant is contraindicated due to bleeding risk and Intermittent pneumatic compression device (IPCD) Pain control Case Management for discharge planning, await final therapy evals Plan of care discussed with: Provider, RN, Patient. 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 Mild incisional pain. OBJECTIVE: VITAL SIGNS: BP 131/68 Pulse 100 Temp 36.7 ?C (98.1 ?F) (Oral) Resp 14 Ht 185.4 cm (6' 1) Wt 90.7 kg (200 lb) SpO2 89% BMI 26.39 kg/m? INTAKE AND OUTPUT: Intake/Output Summary (Last 24 hours) at 04/08/2019 0832 Last data filed at 04/08/2019 0821 Gross per 24 hour Intake 5004 ml Output 1100 ml Net 3904 ml LABS: Hemoglobin Date Value Ref Range Status 04/08/2019 12.0 (L) 13.0 - 17.0 g/dL Final 03/24/2019 15.4 13.0 - 17.0 g/dL Final Hematocrit Date Value Ref Range Status 03/24/2019 46.3 39.0 - 51.0 % Final 08/30/2015 44.1 39.0 - 51.0 % Final Platelet Count Date Value Ref Range Status 03/24/2019 290 150 - 400 k/uL Final 08/30/2015 256 150 - 400 k/uL Final WBC Date Value Ref Range Status 03/24/2019 5.29 3.70 - 11.00 k/uL Final 08/30/2015 5.83 3.70 - 11.00 k/uL Final Creatinine Date Value Ref Range Status 04/08/2019 1.11 0.73 - 1.22 mg/dL Final 03/24/2019 1.17 0.73 - 1.22 mg/dL Final Potassium Date Value Ref Range Status 04/08/2019 4.1 3.7 - 5.1 mmol/L Final 03/24/2019 4.2 3.7 - 5.1 mmol/L Final VTE Prophylaxis: Active VTE Risk Category Order: 04/07/19 1200 VTE RISK CATEGORY: ORTHOPEDIC HIGH RISK ([place]) Active VTE Medication Orders: Anticoagulant AND Antiplatelet Medications (From admission, onward) Start Dose Route Frequency Ordered Stop 04/07/19 1200 aspirin, enteric coated 81 mg tab(s) (Surgical Risk Categories ) 81 mg ORAL 2 TIMES DAILY 04/07/19 1157 -- Active VTE Prophylaxis Orders: 04/07/19 1200 PNEUMATIC COMPRESSION STOCKINGS ([place]) 04/07/19 1200 ACTIVITY - MOBILIZE PATIENT ([place]) 04/07/19 1200 ACTIVITY - MOBILIZE PAT[place] ([place]) 04/07/19 1200 ACTIVITY - MOBILIZE PATIENT ([place]) PHYSICAL EXAMINATION: Right Lower Extremity: Dorsalis pedis pulses palpable. Posterior tibial pulses palpable. Dorsi flexion 5/5. Plantar flexion 5/5. Extensor hallucis extension: 5/5. Sensory intact to light touch L1-S1. Dressing clean, dry and intact. Surgical site no drainage and Silverlon intact. Thigh is not swollen, calf is not tender, no signs of DVT or infection Problem Review and Assessment: Skin and Abdominal Wall: Patient monitored, no new events overnight Cardiovascular and Vascular: Patient monitored, no new events overnight Respiratory: Patient monitored, no new events overnight Endocrine and Metabolic: Patient monitored, no new events overnight Gastrointestinal: Patient monitored, no new events overnight Genitourinary and Nephrology: Patient monitored, no new events overnight Behavioral, Cerebrovascular and Nervous: Patient monitored, no new events overnight Infectious: Patient monitored, no new events overnight DATA: Diagnostic tests reviewed for today's visit: Most recent labs and imaging results. SIGNATURE: Denis Zhang APRN.CNP PATIENT NAME: Geoff Smith DATE: April 08, 2019 TIME: 8:32 AM PAGER/CONTACT #: [phone] The patient has undergone major orthopedic surgery and participating in therapy. Pain cannot be managed within an average of 30 MED per day. Patient requiring average of higher than 30 MED per day in order to control pain and allow patient to actively and safely participate in therapy and this is the lowest dose consistent with patient's medical condition. Non-narcotic medication options have been discussed. In addition, the patient has been advised of the benefits and risks of the opioid (including the potential for addiction). Patient demonstrated understanding of risks of benefits. [facility] THERAPY NT 04-08-2019 THERAPY NT HNO ID: [id number] Author: Evy AlbrightPtRamon Berger Service: Physical Therapy Author Type: Physical Therapist Type: Therapy (PT/OT/Speech/Resp) Filed: 04/08/2019 5:35 PM Note Text: Physical Therapy Treatment SERVICE DATE: 04/08/2019 SERVICE TIME: 1621 to 1700 ROOM: [id number] Recommended Discharge Disposition: Subacute/SNF Recommended Discharge Disposition Comments: Pt requiring significant assist with all funcitonal activity indicating a need for continued therapy post acute stay. Justification For Post Acute Needs: Anticipated community discharge;Cognition intact;Good family support;Good premorbid functional status;Good sitting tolerance;Living the community premorbidly;Willing to participate;May not tolerate higher intensity programing;Anticipate that patient will require daily (5x/wk) skilled therapy in a post-acute facility setting at the time of acute hospital discharge Anticipated Discharge Needs: (N/A, SNF rec) Physical Assist at Home for: Cleaning;Laundry;Meals;S tairs;Safety;Self Care;Shopping;Transporta tion Supervision at Home due to: (initially for safety) Recommended Discharge Equipment: No equipment needs anticipated PT Recommendations to Nursing: Ambulate with device;To bathroom;In halls;Transfer to/from chair;OOB for Meals;With assist of 1 person Device: Wheeled Walker PT 6 Clicks Score: 14 Precautions/Activity Restrictions: Weight Bearing Restrictions;Total Hip Replacement;Fall Risk;Lines/Tubes/Drains Extremity With Weight Bearing Restricted: Right Lower Extremity Right Lower Extremity Weight Bearing Status: PWB(40-50#) Total Hip Replacement Precautions: Lateral ASSESSMENT : Patient requiring moderate assist with bed mobility and min to modA with transfers, Ayesha with ambulation. Pt unsteady with activity, requires extended time to complete with noted extended time required to process cues. Pt also requiring frequent reminders o avoid twisting during bed mobility, transfer and directional changes during ambulation. Pt with elevated HR throughout session ranging 113-130 bpm. At this point in time pt would benefit from daily skilled therapy via short stay at SNF for safe progression of activity. Patient Disposition at Start of Session: Supine in Bed;Family Present Patient Disposition at End of Session: OOB in Chair;[place] in Reach;Family Present Tolerated Full Session Physiologic Response Physical Therapy Problem List: Pain;Safety Deficits;Decreased Activity Tolerance;Decreased Range Of Motion;Decreased Strength;Functional Mobility Impairment;Balance Impaired Patient /Caregiver Goals: Go Home Goals for Plan of Care: Able to perform HEP with: Verbal Cues Only Transfer supine to/from sit with: Stand By Assistance(with leg information security associate if needed) Transfer sit to/from stand with: Stand By Assistance Ambulate with: Supervision Distance: 150-200 Device: Wheeled Walker Ambulate up and down steps with: Contact Guard Assistance Number of steps: 4 x 3 reps Device: Crutch(es);Rail Car transfer with: Supervision Transfer: from all surfaces maintaining <90 degrees on right side with S Goal: report pain in right hip <4/10 Goal: verbalize all precautions Progress Toward Goals: Progressing slower than expected Due To: BP, alertness, fatigue Rehab Potential: Excellent PLAN: Treatment Frequency (times per week): 7;BID Current admission Treatment Interventions: Education;Self Care / Home Management;Energy Conservation Training;Joint Mobility;Strengthening;F unctional Mobility Training;Balance Training;Neuromuscular Re-education;Modalities; Pain Management Modalities: Ice Plan of Care developed with: Patient;Caregiver TREATMENT INTERVENTIONS: Therapy Diagnosis: Reduced mobility-other;Decreased activities of daily living (ADL);Muscle Weakness (generalized) Interventions Provided: Therapeutic Activity (75832);Gait Training (83962) Therapeutic Activity (93031) Treatment Minutes: 13 1 unit Skilled Intervention(s): Instructed patient in supine to sit pushing with upper extremities to sit up, assist with trunk and LE management, cues to maintain TALAT precautions throughout PT intervention for room set up and monitoring of vitals throughout session to ensure no medically relevant hemodynamic changes and ensure patient safety. Pt and spouse educated on rationale for change in discharge recommendation to SNF for safety and progression of functional mobility Gait Training (05651) Treatment Minutes: 25 2 units Skilled Intervention(s): Instruction in sit to stand technique with proper hand placement and body positioning at edge of bed/chair, optimal RLE placement with assist into positioning Instruction in stand to sit technique with LE's touching chair/bed and reaching back for surface, cues for safe approach to surface, controlled descent to sit, optimal RLE positioning placement Instruction in sequencing, gait pattern with step to pattern with intermittent walker placement by PT Instruction in correction of gait deviations, safe walker placement, safe pace, safety with directional changes, remaining within parameters of walker, increased use of UEs for assist to maintain PWB Instruction in use of equipment, cues for sequence and pattern Initial demonstration and verbal explanation provided for proper sit to stand technique Total Timed Code Treatment Minutes: 38 Total Treatment Time (minutes): 39 SUBJECTIVE: Current Hospital Course: Chart reviewed and no significant medical updates relevant to therapy were noted Reason for Physical Therapy Consult : s/p right THR Relevant Past Medical History: HTN, melenoma, Cholelithiasis Patient Report: Pt agreeable to PT, ok per nursing to treat. Pt reports feeling better this afternoon Home Environment Patient Lives With: Spouse(in 2 story home) Assistance Available: 24 Hour Entry To Home: Stairs;Without Rail Number Of Stairs Into Home: 2 Number Of Stairs To Bed/Bath: 13 Stairs to Bed/Bath with: Bilateral Rail(for most of steps) Tub/Shower Type: step in shower with 2 inch lip Laundry: in the basement, does Equipment Owned: Cane;Commode-3 in 1;Grab Bars-Shower;Grab Bars-Toilet;Shower Chair;Wheeled Walker;Long Handled Shoe Horn Prior Functional Level: Within Functional Limits Prior Functional Level Comments: was indep prior to admission OBJECTIVE: CURRENT FUNCTIONAL STATUS: Current Functional Mobility Assist Level Additional Information Rolling Supine to Sit Moderate Assistance HOB flat, no use of bed rails, extended time to complete, instances of posterior LOB Sit to Supine Minimal Assistance(right LE) Not performed this session Scooting Contact Guard Assistance Sit to Stand Moderate Assistance fluctuating to minimal assist X 4 trials total. moderate assist from bed surface,Ayesha from chair surface. Heavy cues for increased anterior weight shifting. RLE placed into position for preparation to stand. Stand to Sit Minimal Assistance Assist with hand placement to surface, cues for proper alignment to chair surface,poorly controlled descent to sit 2/4 trials Bed to Chair Minimal Assistance Bed To Chair Transfer Type: Stand Pivot Bed To Chair Transfer Equipment: Wheeled Walker Assist with walker navigation with directional change in tight space, cues to avoid excessive twisting Toilet/Commode Gait Minimal Assistance Gait Device: Wheeled Walker Gait Distance (feet): 40 Step to pattern throughout, intermittent assist with walker placement, frequent cues for sequencing and safe distance to walker with LE advancement and stabilizing walker before advancing LEs Stairs Curb Step Car Transfer Gait Deviations Right Lower Extremity: Weight bearing decreased;Stance time decreased;Heel strike during initial stance decreased;Push-off during terminal stance decreased;Step length decreased Balance: Static Sitting;Dynamic Sitting;Static Standing;Dynamic Standing Static Sitting Balance: Normal Able to maintain balance against maximal resistance Dynamic Sitting Balance: Good-/Fair+ Able to sit unsupported AND weight shift across midline minimally Static Standing Balance: Fair- Requires Min A or UE support in order to stand without LOB Dynamic Standing Balance: Poor+ Able to stand with Min A and reach ipsilaterally, unable to weight shift JH-HLM: 7: Walk 25 feet or more Please see discipline specific clinical documentation flowsheet for complete details for this therapy evaluation/treatment. SIGNATURE: Evy Berger PT PATIENT NAME: Geoff Smith DATE: April 08, 2019 TIME: 5:21 PM [facility] THERAPY NT HNO ID: [id number] Author: Juan (Ot) Naye Service: Occupational Therapy Author Type: Occupational Therapist Type: Therapy (PT/OT/Speech/Resp) Filed: 04/11/2019 4:49 PM Note Text: Occupational Therapy Evaluation SERVICE DATE: 04/08/2019 SERVICE TIME: 1130 to 1220 ROOM: [place] [address] Recommended Discharge Disposition: Subacute/SNF(if discharged today) Recommended Discharge Disposition Comments: Patient would benefit from continued therapy to increase ease independence and safety with ADLS and functional mobility tasks. Feel patient will progress to being able to return home with [facility] over the next 24 hours. Justification For Post Acute Needs: Anticipated community discharge;Cognition intact;Good family support;Living the community premorbidly;Motivated;Wi lling to participate;Anticipate that patient will require daily (5x/wk) skilled therapy in a post-acute facility setting at the time of acute hospital discharge Anticipated Discharge Needs: Physical Assist at Home;Supervision at Home Physical Assist at Home for: Cleaning;Laundry;Meals;S tairs;Safety;Self Care;Shopping;Transporta tion Supervision at Home due to: (initially for safety) Recommended Discharge Equipment: ADL Kit;Shower Chair OT Recommendations to Nursing: To Bathroom for ADL?s /and or Toileting;OOB for meals;Transfer to Chair;With assist of 1 person Equipment: Commode-Raised;Wheeled Walker OT 6 Clicks Score: 17 Precautions/Activity Restrictions: Weight Bearing Restrictions;Total Hip Replacement;Fall Risk;Lines/Tubes/Drains Extremity With Weight Bearing Restricted: Right Lower Extremity Right Lower Extremity Weight Bearing Status: PWB(40-50#) Total Hip Replacement Precautions: Lateral ASSESSMENT: Patient presents with decreased ease idnepdence and safety as would be expected s/p R TALAT. Patient presents with decreased activity tolerance, functional mobility and pain impacting ability to complete ADLS and functional mobility tasks without assist from caregivers. Patient and with many questions regarding post op precautions, daily tasks and functional mobility with patient painful which limits perfromance. Patient demonstrates overall minimal assist with functional mobility with walker moving slowly and cautiously except required heavier assist with supine to sit with moderate assist required. Educated patient on adaptive equipment and DME however did not practice with equipment due to pain and not wanting to increase pain. Patient would benefit from continued skilled Occupational Therapy services during acute and post acute stay to address above deficits for increased ease, independence and safety with ADLS and functional mobility tasks. Patient Disposition at Start of Session: Supine in Bed;[place] in Reach;Family Present Patient Disposition at End of Session: OOB in Chair;[place] in Reach;Family Present Tolerance Limited By Pain Occupational Therapy Problem List: Education Deficit;Pain;Safety Deficits;Impaired Self Care;Functional Mobility Impairment Patient /Caregiver Goals: Go Home Goals for Plan of Care: Grooming with: Stand By Assistance(walker level) Lower Body Dressing with: Contact Guard Assistance(with adaptive equipment as indicated) Toilet Transfer with: Contact Guard Assistance Progress Toward Goals: Progressing as expected Rehab Potential: Excellent PLAN: Treatment Frequency (times per week): 5 Current admission Treatment Interventions: Education;Self Care / Home Management;Functional Mobility Training Plan of Care developed with: Patient;Other: See Comment( present) TREATMENT INTERVENTIONS: Therapy Diagnosis: Reduced mobility-other;Decreased activities of daily living (ADL) Interventions Provided: Evaluation;Self Jail Management (34375) $ Evaluation-Low (09110) Billed Units: 1 unit Self Jail Management (07211) Treatment Minutes: 35 2 units Skilled Intervention(s): Instructed in post-op instructions during ADLs with patient and educated on adaptive equipment and DME with patient already purchasing elevated toilet seat with bars Educated pt on OT role, POC, and progression of therapy services. Educated and demonstrated total hip precautions and weight bearing status throughout ADLS and functional mobility tasks during ADLS. Educated pt on techniques to utilize during dressing including getting dressed seated, using historical records administrator and sock aide to help with lower body dressing, benefits of elastic pants, dress operated leg first and undress good leg first. Educated pt on techniques to utilize during bathing such as use of shower chair/bench, use of long handled sponge and proper shower transfer while maintain precautions. Educated pt to never carry items with your walker, and use of bag or tray if necessary. Educated pt on car transfer, reclining seat to maintain precaution and use of plastic bag. Educated pt not to pull up from walker, use of grab bars and elevated toilet seat. Educated pt to always keep walker square in the front and to stabilize hands on counter top. Educated pt on ease of getting out of bed on surgical side however patient plans to get out of bed on non surgical side to be closer to the bathroom with much difficulty completing supine to sit on left side during this session. Educated an instructed patient on hip precautions during functional mobility during ADL tasks with patient instructed on supine to sit, sit to and from stand and functional mobility up at walker during ADL tasks with patient requiring moderate assist with bed mobility and minimal assist once up at walker with patient moving slowly and cautiously with complaints of pain. Provided pt with handout, pt demonstrated understanding. Total Timed Code Treatment Minutes: 35 Total Treatment Time (minutes): 50 SUBJECTIVE: Current Hospital Course: Chart reviewed; R TALAT Reason for Occupational Therapy Consult: assist with ADLS s/p hip surgery Relevant Past Medical History: HTN, melenoma, Cholelithiasis Patient Report: Patient cleared by nursing supine in bed with present agreeable to OT. Patient and with many questions throughout session with appearing a little anxious with all of the information educated on. Home Environment Patient Lives With: Spouse(in 2 story home) Assistance Available: 24 Hour Entry To Home: Stairs;Without Rail Number Of Stairs Into Home: 2 Number Of Stairs To Bed/Bath: 13 Stairs to Bed/Bath with: Bilateral Rail(for most of steps) Tub/Shower Type: step in shower with 2 inch lip Laundry: in the basement, does Equipment Owned: Cane;Commode-3 in 1;Grab Bars-Shower;Grab Bars-Toilet;Shower Chair;Wheeled Walker;Long Handled Shoe Horn Prior Functional Level: Within Functional Limits Prior Functional Level Comments: was indep prior to admission OBJECTIVE: Cognition/Communication Deficits Responsiveness: Alert;Awake Follows Commands: Cueing Needed(patient and with many questions) Cueing to Follow Commands: Minimum CURRENT FUNCTIONAL STATUS: Current Activities of Daily Living Assist Level Feeding Independent Grooming Minimal Assistance(standing at sink per clinical judgment) Bathing Upper Body Contact Guard Assistance(per clinical judgment) Bathing Lower Body Maximal Assistance(per clinical judgment due to hip precautions) Dressing Upper Body Stand By Assistance Dressing Lower Body Maximal Assistance(due to hip precautions, educated on adaptive equipment) Toileting Moderate Assistance(per clinical judgement) Instrumental Activities of Daily Living Assist Level Meal/Beverage Prep Light Cleaning Laundry Medication Management with Strategies Functional Mobility Assist Level Rolling Supine to Sit Moderate Assistance Sit to Supine Scooting Moderate Assistance(to EOB with draw pad assist) Sit to Stand Minimal Assistance(cues for technique and hip precautions) Stand to Sit Minimal Assistance Bed to Chair Minimal Assistance Stand Pivot Wheeled Walker;Gait Belt Toilet/Commode Functional Mobility Minimal Assistance Wheeled Walker Functional Mobility Comments: Patient moves slowly and cautiously with questions regarding weight bearing and hip precautions from and . Patient progressed to CG with functional mobility up at walker with no feelings of dizziness reported. Please see discipline specific clinical documentation flowsheet for complete details for this therapy evaluation/treatment. SIGNATURE: Juan Yancey OTR/L PATIENT NAME: Geoff Smith DATE: April 08, 2019 TIME: 3:12 PM [facility] THERAPY NT HNO ID: [id number] Author: Shivani Salgado Service: Physical Therapy Author Type: Stave Log Cut Off Saw Operator Type: Therapy (PT/OT/Speech/Resp) Filed: 04/08/2019 1:28 PM Note Text: -------- Attestation signed by Evy AlbrightPtRamon Berger at 04/08/2019 5:10 PM I reviewed and agree with the documentation corresponding to this therapy visit. SIGNATURE: Evy Berger, PT DATE: April 08, 2019 TIME: 5:09 PM -------- Physical Therapy Treatment SERVICE DATE: 04/08/2019 SERVICE TIME: 1225 to 1255 ROOM: [place] [address] Recommended Discharge Disposition: Home PT Recommended Discharge Disposition Comments: s/p right hip replacement Anticipated Discharge Needs: Physical Assist at Home Physical Assist at Home for: Ambulation;Cleaning;Laun dry;Meals;Medication Management;Stairs;Safety ;Self Care;Shopping;Transporta tion Recommended Discharge Equipment: No equipment needs anticipated PT Recommendations to Nursing: Ambulate with device;To bathroom;In halls;Transfer to/from chair;OOB for Meals;With assist of 1 person Device: Wheeled Walker PT 6 Clicks Score: 11 Precautions/Activity Restrictions: Weight Bearing Restrictions;Total Hip Replacement;Fall Risk;Lines/Tubes/Drains Extremity With Weight Bearing Restricted: Right Lower Extremity Right Lower Extremity Weight Bearing Status: PWB(40-50#) Total Hip Replacement Precautions: Lateral ASSESSMENT : Patient reports fatigue, intermittent sweating, sitting in chair. BP initial sitting 119/64 mmHG. performed seated exercises, noted decreased right LE mobility. Patient feeling tired sitting, cuing to open eyes. Extra time required to stand from chair, BP 158/143 mmHg standing, patient positioned supine in bed with right LE assistance, nursing called. Patient was alert, no sweating, BP normal supine. Patient unsafe to ambulate. Educated patient and in hip precautions. Requires skilled PT to increase ambulation distance, perform steps. Patient Disposition at Start of Session: OOB in Chair;Family Present Patient Disposition at End of Session: Supine in Bed;Family Present Tolerance Limited By Physiologic Response Physical Therapy Problem List: Pain;Safety Deficits;Decreased Activity Tolerance;Decreased Range Of Motion;Decreased Strength;Functional Mobility Impairment;Balance Impaired Patient /Caregiver Goals: Go Home Goals for Plan of Care: Able to perform HEP with: Verbal Cues Only Transfer supine to/from sit with: Stand By Assistance(with leg information security associate if needed) Transfer sit to/from stand with: Stand By Assistance Ambulate with: Supervision Distance: 100+ Device: Wheeled Walker Ambulate up and down steps with: Contact Guard Assistance Number of steps: 4 x 3 reps Device: Rail;Cane;Hand Held Assist Car transfer with: Supervision Transfer: from all surfaces maintaining <90 degrees on right side with S Goal: report pain in right hip <4/10 Goal: verbalize all precautions Progress Toward Goals: Progressing slower than expected Due To: BP, alertness, fatigue Rehab Potential: Excellent PLAN: Treatment Frequency (times per week): 7;BID Current admission Treatment Interventions: Education;Self Care / Home Management;Energy Conservation Training;Joint Mobility;Strengthening;F unctional Mobility Training;Balance Training;Neuromuscular Re-education;Modalities; Pain Management Modalities: Ice Plan of Care developed with: Patient;Caregiver TREATMENT INTERVENTIONS: Therapy Diagnosis: Reduced mobility-other;Decreased activities of daily living (ADL);Muscle Weakness (generalized) Interventions Provided: Evaluation;Therapeutic Exercise (50589);Gait Training (77430);Self Jail Management (46463) Therapeutic Exercise (02665) Treatment Minutes: 23 2 units Skilled Intervention(s): Patient was educated in proper exercise technique and purpose for exercises.Correct performance of therapeutic exercises was facilitated with verbal, visual and tactile cuing. Gait Training (05312) Treatment Minutes: 3 0 units Skilled Intervention(s): Instruction in sit to stand technique with proper hand placement and body positioning at edge of bed/chair, Instruction in stand to sit technique with LE's touching chair/bed and reaching back for surface, Instruction in correction of gait deviations, Instruction in WB precautions and Instruction in use of equipment, cues for sequence and pattern Total Timed Code Treatment Minutes: 26 Total Treatment Time (minutes): 30 SUBJECTIVE: Current Hospital Course: Chart reviewed and no significant medical updates relevant to therapy were noted Reason for Physical Therapy Consult : s/p right THR Relevant Past Medical History: HTN, melenoma, Cholelithiasis Patient Report: Patient reports intermittent sweating sitting in chair. Patient worked with OT prior to visit. Right hip pain feels better sitting vs laying in bed. okay per nursing to treat Home Environment Patient Lives With: Spouse(in 2 story home) Assistance Available: 24 Hour Entry To Home: Stairs;Without Rail Number Of Stairs Into Home: 2 Number Of Stairs To Bed/Bath: 13 Stairs to Bed/Bath with: Bilateral Rail(for most of steps) Tub/Shower Type: step in shower with 2 inch lip Laundry: in the basement, does Equipment Owned: Cane;Commode-3 in 1;Grab Bars-Shower;Grab Bars-Toilet;Shower Chair;Wheeled Walker;Long Handled Shoe Horn Prior Functional Level: Within Functional Limits Prior Functional Level Comments: was indep prior to admission OBJECTIVE: CURRENT FUNCTIONAL STATUS: Current Functional Mobility Assist Level Additional Information Rolling Supine to Sit (not performed this date) Sit to Supine Minimal Assistance(right LE) Scooting Stand By Assistance Sit to Stand Minimal Assistance Stand to Sit Minimal Assistance Bed to Chair Minimal Assistance Bed To Chair Transfer Type: Stand Pivot Bed To Chair Transfer Equipment: Wheeled Walker;Gait Belt Toilet/Commode Gait Contact Guard Assistance Gait Device: Wheeled Walker Gait Distance (feet): (3 right lateral steps) Stairs Curb Step Car Transfer Gait Deviations Right Lower Extremity: Weight bearing decreased;Stance time decreased;Heel strike during initial stance decreased;Push-off during terminal stance decreased;Step length decreased Balance: Static Sitting;Dynamic Sitting;Static Standing;Dynamic Standing Static Sitting Balance: Normal Able to maintain balance against maximal resistance Dynamic Sitting Balance: Good-/Fair+ Able to sit unsupported AND weight shift across midline minimally Static Standing Balance: Fair- Requires Min A or UE support in order to stand without LOB Dynamic Standing Balance: Poor+ Able to stand with Min A and reach ipsilaterally, unable to weight shift Activity Tolerance: Sitting Activity;Standing Activity Sitting Activity: exercise Sitting Activity Tolerance (in minutes): 23 Standing Activity: chair to bed Standing Activity Tolerance (in minutes): 3(limited by elevated BP) JH-HLM: 4: Move to chair / commode Please see discipline specific clinical documentation flowsheet for complete details for this therapy evaluation/treatment. SIGNATURE: Shivani Salgado PTA PATIENT NAME: Geoff Smith DATE: April 08, 2019 TIME: 1:15 PM [facility] ALLIED HEALTHon 04-07-2019 ALLIED HEALTH HNO ID: [id number] Author: Fátima Nascimento (Rt) Service: Radiology Author Type: Silver Designer Type: Allied Health Filed: 04/07/2019 10:52 AM Note Text: Radiology Service Progress Note PATIENT NAME: Geoff Smith DATE OF SERVICE: April 07, 2019 TIME: 10:52 AM PATIENT IDENTITY VERIFICATION COMPLETED USING TWO (2) IDENTIFIERS: Name and Date of confirmed by patient verbally. PATIENT GENDER DATA: Male PATIENT RELEVANT IMPLANT DATA REVIEWED: Not Applicable RADIOLOGY DEPARTMENT: General X-ray: Exam(s) Completed: Pelvis X-Ray: Pelvis General AP PERIPHERAL IV DATA: Not applicable SIGNED BY: RT Pily April 07, 2019 10:52 AM [facility] ANES Noemi 04-07-2019 ANES POST HNO ID: [id number] Author: Lupe Pope Service: Anesthesiology Author Type: Anesthesiologist Type: Anesthesia PostOp Filed: 04/07/2019 1:38 PM Note Text: POST ANESTHESIA EVALUATION NOTE SERVICE DATE: 04/07/2019 SERVICE TIME: 1:37 PM : 1945 Vitals: 04/07/19 0656 04/07/19 1024 04/07/19 1303 Temp: 36.2 ?C (97.2 ?F) 36.4 ?C (97.5 ?F) 36.4 ?C (97.5 ?F) 04/07/19 1130 04/07/19 1200 04/07/19 1230 04/07/19 1303 BP: 113/72 128/70 129/71 146/69 04/07/19 1115 04/07/19 1200 04/07/19 1230 04/07/19 1303 Pulse: 74 71 72 76 04/07/19 1115 04/07/19 1200 04/07/19 1230 04/07/19 1303 Resp: 21 18 18 18 04/07/19 1115 04/07/19 1200 04/07/19 1230 04/07/19 1303 SpO2: 97% 97% 99% 97% Validated Vital Signs: Yes POST ANES STATUS: No apparent anesthetic complications. The patient is appropriately hydrated with stable respiratory and cardiovascular status. Patient has safe and adequate airway control. The patient has appropriate pain relief and no significant post operative nausea or vomiting. The patient has achieved baseline mental status. Intra-Operative Events: No Significant Anesthesia Events Further assessment by Anesthesia Service: None Other Remarks: SIGNATURE: Lupe Pope MD PATIENT NAME: Geoff Smith DATE: April 07, 2019 TIME: 1:37 PM PAGER/CONTACT #: [phone] [facility] ANES PREOPon 04-07-2019 ANES PREOP HNO ID: [id number] Author: Jameson Appiah Service: Anesthesiology Author Type: Anesthesiologist Type: Anesthesia PreOp Filed: 04/07/2019 7:12 AM Note Text: ANESTHESIOLOGY DAY OF SURGERY NOTE SERVICE DATE: 04/07/2019 SERVICE TIME: 7:12 AM : 1945 Procedure(s) (LRB): ARTHROPLASTY REPLACE JOINT TOTAL HIP (Right) Surgeon(s): Nicholas Dela Cruz Estimated body mass index is 26.39 kg/m? as calculated from the following: Height as of this encounter: 185.4 cm (6' 1). Weight as of this encounter: 90.7 kg (200 lb). Most recent hematocrit and potassium results: Hematocrit 46.3 03/24/2019 Potassium 4.2 03/24/2019 ANES DOS/PREOP NOTE: Vitals: 04/07/19 0656 BP: 159/89 Pulse: 80 Resp: 18 Temp: 36.2 ?C (97.2 ?F) TempSrc: Temporal Artery SpO2: 95% Weight: 90.7 kg (200 lb) Height: 185.4 cm (6' 1) ACTIVE PROBLEM LIST Benign Neoplasm of Colon Essential Hypertension Hypertrophy of Prostate Without Urinary Obstruction and Other Lower Urinary Tract Symptoms (Luts) Nocturia Psoriasis Rotator Cuff (Capsule) Sprain Rotator Cuff Syndrome of Right Shoulder Bph (Benign Prostatic Hyperplasia) Gallstones Kidney Stones Mixed Hyperlipidemia Numbness Bilateral Low Back Pain With Bilateral Sciatica History of Kidney Stones Gerd (Gastroesophageal Reflux Disease) History of Melanoma Primary Osteoarthritis of Right Hip PAST MEDICAL HISTORY Diagnosis Date - Benign neoplasm of colon 04/18/05 - Cholelithiasis - Melanoma (HCC) 2015 - Other psoriasis - Snoring - Unspecified essential hypertension PAST SURGICAL HISTORY Procedure Laterality Date - COLONOSCOP W/ OR W/O BRSH SPEC 02/06/2001 sigmoidoscopy - COLONOSCOP W/ OR W/O BRSH SPEC 06/19/2006 Colonoscopy - COLONOSCOP W/ OR W/O BRSH SPEC 07/12/2011 Colonoscopy - COLONOSCOP W/ OR W/O BRSH SPEC 04/08/2017 repeat in [address] 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, CHARLIE surgery - REPAIR ING HERNIA,5+Y/O,REDUCIBL 2002 Hernia repair, inguinal FAMILY HISTORY Problem Relation Age of Onset - other (Lung cancer) Mother - Aneurysm Father - other (no siblings) Other Social History: Social History Tobacco Use - Smoking status: Never Smoker - Smokeless tobacco: Never Used Substance Use Topics - Alcohol use: Yes Alcohol/week: 2.5 standard drinks Types: 1 Cans of Beer (12oz) per week Frequency: 2-3 times a week Drinks per session: 1 or 2 Binge frequency: Never Comment: 1 beer 4 times per week - Drug use: No No current facility-administered medications on file prior to encounter. Current Outpatient Medications on File Prior to Encounter Medication Sig - Quinapril-Hydrochlorothi azide 20-12.5 mg per tablet Take 1 tablet by mouth once daily. - lansoprazole (PREVACID) 30 mg capsule Take 1 capsule by mouth once daily. - Jgfbeivokdgof-Yygujqru-K utein (CENTRUM SILVER) tab Take 1 tablet by mouth once daily. - CHOLECALCIFEROL (VITAMIN D3) 2,000 UNIT CAP Take one(1) tablet daily. - triamcinolone acetonide (KENALOG) 0.1 % cream Apply 1 application to affected area as needed. Current Facility-Administered Medications Medication Dose Route Frequency Provider Last Rate Last Dose - lidocaine 10 mg/mL (1 %) 1-2 mg injection (XYLOCAINE) 0.1-0.2 mL INTRADERMAL PRN Brynn (Pa) Vetovitz - lactated ringers infusion 5-30 mL/hr INTRAVENOUS CONTINUOUS Brynn (Pa) Vetovitz 30 mL/hr at 04/07/19 07 30 mL/hr at 04/07/19 07 - ceFAZolin iv piggyback 2 g in D5W (iso-osmotic) 100 mL (ANCEF) 2 g INTRAVENOUS Pre-Op Once Brynn (Pa) Vetovitz - scopolamine 1 mg over 3 days 1 Patch (TRANSDERM-SCOP) 1 Patch TRANSDERMAL Pre-Op Once Jameson Bijal 1 Patch at 04/07/19705 And - scopolamine - REMOVE PATCH OTHER ONCE Jameson Appiah And - scopolamine - VERIFY patch OTHER q 8 H Jameson Appiah Allergies: ALLERGIES Allergen Reactions - Cardura [Doxazosin * Intolerance forgetfulness just did not feel well - Triamterene-Hydroch* Intolerance - Asa [Aspirin] GI Upset flare of gerd w swallow diificulty - Protonix [Pantopraz* Other: See Comments non effective - elevated liver enzymes DOS EXAM: Adequate NPO status: Yes Anesthetic risks, benefits, alternatives, personnel and consent discussed: Yes Patient agrees to proceed: Yes Previous Anesthesia: No history of adverse event. Airway Assessment: MP 2; Neck ROM: Full ROM without neurologic symptoms; Airway Evaluation: No significant abnormalities Symptoms of Sleep Apnea: None Dentition: Teeth intact Additional Physical Exam: Lungs: Patient health status unchanged since recent history and physical. See history and physical for exam findings. Cardiac: Patient health status unchanged since recent history and physical. See history and physical for exam findings. Additional Pertinent Findings: N/A Blood Products: Not anticipated for this procedure. Anesthetic Plan: Spinal and MAC with Sedation Pain Management Plan: Parenteral or Oral ASA Class: 2 Other Medical Problems: None I have interviewed and examined the patient. I have reviewed the medical record and/or the pre-anesthesia evaluation, pertinent labs, and test results. Significant changes in the patient's condition since the History and Physical, not otherwise documented in primary service progress notes: No This contains updated information obtained within 48 hours of Surgery/Procedure. SIGNATURE: Jameson Appiah MD PATIENT NAME: Geoff Smith DATE: April 07, 2019 TIME: 7:12 AM CSN: [id number] [facility] CASE MANAGEMon 04-07-2019 CASE MANAGEM HNO ID: [id number] Author: Natalia AlbrightRnRamon Wang RN Service: Case Management Author Type: Registered Nurse Type: Care Mgt Progress Note Filed: 04/07/2019 4:17 PM Note Text: CARE MANAGEMENT PROGRESS NOTE SERVICE DATE: April 07, 2019 SERVICE TIME: 4:16 PM LOS: 0 days Needs Prior to Discharge: OT/PT Evaluation [facility] able to accept. department will continue to follow for DC needs. SIGNATURE: Natalia Wang PATIENT NAME: Geoff Smith DATE: April 07, 2019 TIME: 4:16 PM PAGER/CONTACT #: [phone] [facility] CASE MGT INIT ASSESon 2019 CASE MGT INIT [facility] HNO ID: [id number] Author: Natalia Wang RN Service: Case Management Author Type: Registered Nurse Type: Care Mgt Initial Assessment Filed: 04/07/2019 4:15 PM Note Text: CARE MANAGEMENT: ASSESSMENT AND DISCHARGE PLAN SERVICE DATE: April 07, 2019 SERVICE TIME: 4:13 PM PRIMARY CARE PHYSICIAN: Kelton Serrano MD - Confirmed with the patient ADMISSION STATUS: Extended Recovery Needs Prior to Discharge: OT/PT Evaluation 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 Last discharge within 30 days: No Advance Directive: Current Advance Directive: None Supervisor Tank Cleaning Attempted to Assist with AD Completion: Yes Action: Education Provided Health LiteracyHow often do you need to have someone help you when you read instructions, pamphlets, or other written material from your doctor or pharmacy? : 1 - Never How confident are you filling out medical forms by yourself?: 1 - Extremely Prior to Admission: Baseline Mental Status: Alert AND Oriented Prior to this illness, has anyone described the patient having any of the following behaviors? Not Applicable Relationship of the information to the patient:: Self Functional Status: Independent Does Patient Currently Receive Any Community Services or Home Care?: None Equipment Prior to Admission: Cane;Walker;Elevated toilet seat SOCIAL: Living Arrangements: Home Financial Resources: EmployedPrimary Contact: Extended Emergency Contact Information Primary Emergency Contact: Yin Smith Address: [address] [place] [address] Mobile Relation: Spouse Supportive Patient Contact:: Yes Contact Resources: Family Social Needs Food insecurity Worry: Never true Inability: Never true Resources Needed: No Social Needs Financial resource strain: Not hard at all NA Social Needs Transportation needs Medical: No Non-medical: No Caregiver AssessmentCaregiver is ready, willing and able to meet the patient's needs as recommended by the inter-professional team:: Yes Does the patient have an acute stroke diagnosis, or has the patient had a stroke during this admission?: No Family Name/Phone: Yin Patient's perception of need for this admission: Elective surgery Medication Adherance I am convinced of the importance of my prescription medication: 0 - Agree Completely I worry that my prescription medication will do more harm than good to me : 0 - Diagree Completely I feel financially burdened by my [id number] expenses for my prescription medication:: 0 - Diagree Completely Risk Score: 0 Patient is categorized as: Low risk < 2 Are you interested in bedside delivery of your medications? Yes Is Patient Psychosocially Complex?: No ASSESSMENT AND PLAN: Medical Needs: Medical Needs: Fall risk or frequent falls Psychosocial Needs: Psychosocial Needs: None FREEDOM OF CHOICE EXPLAINED: Alna of Choice Given: Yes Level of Care Discussed: Home Care POTENTIAL TRANSITION PLANS Home OT/PT Review of the chart and met with the patient. The patient lives with his in a 2 story home with his bedroom and bathroom on the 2nd floor. Discussed discharge planning, the patient is agreeable to home P.T if recommended. Discussed freedom of choice, referral to [facility]. department will continue to follow for DC needs. SIGNATURE: Natalia Wang PATIENT NAME: Geoff Smith DATE: April 07, 2019 TIME: 4:13 PM PAGER/CONTACT #: [phone] [facility] CONSULTon 04-07-2019 CONSULT HNO ID: [id number] Author: Antonio Mack Service: General Internal Medicine Author Type: Physician Type: Consults Filed: 04/20/2019 9:34 PM Note Text: [facility]- Consultation GEOFF SMITH : 1945 AGE: 73 SEX: M ACCTNUM: [id number] [facility]: [facility] LOCATION: [facility] ATTENDING PHYSICIAN: Nicholas Dela Cruz M.D. DATE OF SERVICE: 04/07/2019 TIME OF SERVICE: 05:00 PM REASON FOR CONSULTATION: Postop medical management. HISTORY: This is a 73-year-old white gentleman whose significant medical history includes osteoarthritis, hypertension, hyperlipidemia, BPH, gastroesophageal reflux disease, back pain with bilateral radiculopathy. Patient underwent elective right total hip arthroplasty. Patient had an uneventful intraoperative course. Estimated blood loss 150 cc. During first round of physical therapy, patient experienced hypotension, lightheadedness, dizziness, and nausea and subsequently he required IV fluid bolus and his blood pressure improved. PAST MEDICAL HISTORY: As mentioned above. PAST SURGICAL HISTORY: Endoscopy, melanoma removed from the face, and hernia repair. FAMILY HISTORY: Mother had lung cancer and father had aneurysm. SOCIAL HISTORY: He does not smoke. He drinks 2-3 standard drinks per week. MEDICATIONS: His current home medication list reviewed. ALLERGIES: He is allergic to Cardura, intolerance; aspirin, GI upset; Protonix, caused elevated liver enzymes. REVIEW OF SYSTEMS: HEENT/Neck: Patient has no history of glaucoma, TIA, or CVA. No history of seizure disorders. No history of dysphagia or odynophagia. No history of chronic cough, wheezing, or dyspnea with exertion. No history of asthma, COPD. No history of coronary artery disease, congestive heart failure, or cardiac arrhythmia. History of hypertension, hyperlipidemia. History of GERD. No history of hepatitis, colitis. Claims good appetite. Regular bowel movement and history of renal calculi. No history of chronic dysuria, hematuria. History of BPH with once a night micturition. No history of diabetes, hypothyroidism. No history of DVTs. History of radiculopathy due to back pain. History of melanoma, excised from left cheek. PHYSICAL EXAM: General: Elderly white gentleman. The patient is alert and oriented. HEENT: Sclerae anicteric. Neck: Good carotid pulse felt. No carotid bruit. No thyromegaly appreciated. Lungs: Clear to auscultation bilaterally. Cardiovascular: S1, S2. Regular rhythm. No murmur, gallop, or rub appreciated. Abdomen: Soft, nontender, nondistended. No mass felt. Lower Extremities: No ankle edema noted. IMPRESSION: 1. Osteoarthritis, status post right total hip arthroplasty. Deep venous thrombosis prophylaxis as ordered by Dr. Dela Cruz. 2. Hypertension. Continue quinapril, hydrochlorothiazide in the morning if the blood pressures remained more than 120. 3. Gastroesophageal reflux disease. Continue Prevacid. 4. Hold other medications for now. Thank you very much for kind referral. Continue to follow him while he is in the hospital. Antonio Mack M.D. Internal Medicine SKJ:[id number] [facility] NURSING PROGon 04-07-2019 NURSING PROG HNO ID: [id number] Author: Heather (Rn) JAVIER Miner Service: ? Author Type: Registered Nurse Type: Nursing Progress Note Filed: 04/07/2019 4:07 PM Note Text: Nursing Progress Note Patient Name: Geoff Smith Patient [id number] Daily Note: 1115 Admitted to room 289 via bed from pacu. Alert and oriented x3. Educated on use of call light and bed controls. Safety plan reviewed. Call light in reach 1545 Patient dangled on side of bed. Became diaphoretic and lightheaded. bp 71/49. Returned to supine position with head flat. 500cc ns bolus started. 1600 bp 123/79 at this time. Patient alert and oriented. This note was completed by: Heather Miner RN [facility] NURSING PROG HNO ID: [id number] Author: Angelica AlbrightRn) JAVIER Macdonald Service: Nursing Author Type: Registered Nurse Type: Nursing Progress Note Filed: 04/07/2019 10:48 AM Note Text: Nursing Progress Note Patient Name: Geoff Smith Patient [facility]: [facility]5 Pt received in PACU on bed from OR. CR monitor applied and strip obtained. Ice applied to right hip. SCDs applied BLE. 1045 Xray right hip completed. This note was completed by: Angelica Macdonald RN [facility] OPERATIVE NOon 04-07-2019 OPERATIVE NO HNO ID: [id number] Author: Nicholas Dela Cruz Service: Orthopaedic Surgery Author Type: Physician Type: Operative Report Filed: 04/07/2019 10:13 AM Note Text: OPERATIVE/PROCEDURE REPORT LOG ID: [id number] SURGERY/PROCEDURE DATE: 04/07/2019 INCISION/PROCEDURE START TIME: 8:13 AM INCISION CLOSE/PROCEDURE END TIME: SURGEON(S)/PROCEDURALIST (S) AND FACTORY EXPERT(S): Surgeon(s) and Role: * Nicholas Dela Cruz - Primary Physician Diversional Therapist'S Assistant: Brynn Dolan (Pa) (accountant assistant) Registered Nurse: Yin (Rn) JAVIER Patricio SURGERY/PROCEDURE(S): Right total hip arthroplasty. ? ANESTHESIA: Spinal with general. ? SURGERY/PROCEDURE DETAILS: INDICATIONS: ?This is a pleasant 73-year-old male who had significant ?worsening of right hip pain, causing functional problems. ?He exhausted ?conservative management including oral anti-inflammatories, pain medications, and ?physical therapy. ? The risks, benefits, alternatives, and potential complications ?involving total hip arthroplasty were again discussed with pt. and he understood the risks, including but not limited to, infection, perioperative complications, ?instability or dislocation, leg length differences, DVT or PE. ? ? FINDINGS: ?Severe arthritic changes on the femoral head and acetabular side. ? PROCEDURE: ?On 04/07/2019, the patient was clearly identified in the preoperative ?area and marked accordingly on the right hip by myself. ?Pt was taken to the ?operative suite and was given a spinal anesthetic. ?He received 2 grams of Ancef ?and 1 g of tranexamic acid prior to incision. ?The patient was then placed in a ?lateral decubitus position with a beanbag positioner and an axillary roll. ?All ?bony landmarks and neurovascular structures were appropriately padded in standard ?fashion, and the head and neck was taken care of by Anesthesia for the remainder ?of the case. ?The affected lower extremity was then sterilely prepped and draped in ?standard fashion. ?An appropriate time-out was conducted and all were in ?agreement, signed consent form was on the chart, images were available for ?viewing, and implants were in the room with representation. ?Incision was made ?over the tip of the greater trochanter on the posterior edge in a curvilinear ?fashion. ?I came ?right down to the fascia on the lateral portion of the hip. ?The fascia was?incised along the same curvature of the of the skin incision. ?Distally and proximally the fibers of the gluteus mya were bluntly dissected with my with ?my finger. ?Some bursa was excised off the lateral and posterior portion of the ?proximal femur. ?A Charnley retractor was placed for soft tissue retraction after ?the sciatic nerve was palpated, identified and protected during placement of the ?Charnley and throughout the case. ?I used a Bovie to come through the short ?external rotators of the hip at the level of the piriformis and made a T ?capsulotomy at that point, up to the acetabular rim. ?The femoral head was easily ?and atraumatically dislocated at that point. It had no remaining cartilage, had significant osteophytes around the base of the head/neck with inflammatory synovitis. I measured from the ?lesser trochanter to the center of the head and from the center of the head to the ?greater the tip of the trochanter for measurements later on my trialing. He was quite long in the neck. ?I selected an Accolade II 127-degree ?neck angle cutting guide, and scored this angle and longer than 1 fingerbreadth from ?the lesser trochanter due to his valgus. ?Next, ?with an oscillating saw and soft tissues protected with 2 Cobra retractors, the ?femoral neck cut was made. ?A bone hook was used to move the proximal femur away from ?the acetabulum, and I placed a blunt Hohmann safely over the anterior rim of the ?acetabulum and a posterior acetabular retractor inferiorly. ?I also placed a ?pointed wide Hohmann under the abductors for retraction superiorly. ?I then ? the capsule from the labrum and removed the labrum and soft tissues ?around the bony rim of the acetabulum as well as in the condylar fossa. ?He had completely ossified labrum and had impressive, circumferential osteophytes around the acetabulum, and bulky soft tissue in the joint causing displacement. Once the ?fossa was cleared out, I began our reaming. ?I sequentially reamed up to a 54?attempting to medialize and bring in with approximately 20 degrees of ?anteversion and 45 degrees of abduction. ?Once I found my appropriate positioning. ?I reamed with the final 54 for appropriate cup positioning. ?I then selected a ?Tania Trident II, 54 mm acetabular clustered cup and malleted this in with a nice ?scratch fit. ?I did place ?one 25 mm cancellous screw in the posterior superior ?portion nicely securing of the cup. ?A X3 liner, neutral liner was then malleted in place. A sponge was placed for protection. ?We then focused our attention on ?the femur. ?The remnant soft tissues off the proximal femur were taken off with ?the with the Bovie and I used the Technimarkie cutter to enter the superior-lateral portion of ?the proximal femur. ?Then I used a hand entry reamer and then sequentially ?broached to a #7 for an excellent fit and fill. ?I then trialed with 127-degree with a +5 head. It did have excellent stability with this head/neck trial consturct, with ?appropriate and reproducible leg lengths, and my pre-neck cuts measurements were spot on. ?I did take an intraoperative x-ray to confirm both the ?size of the stem and positioning of the previously placed cup, and this was to my ?liking. ?The trial on the femur side was removed, and the final #7 prosthesis was ?selected and malleted in for an excellent fit and fill. ?At this point, the final Biolox 36mm, +5 head was malleted on a cleaned and dried Nino taper. ?The hip was ?atraumatically reduced and it was taken through full range of motion again, and ?the soft tissue tensioning and stability was to my liking. ?The wound and joint ?was pulse lavaged copiously and we began our closure. ?Two drill holes were done ?with a 2 mm drill bit over the greater trochanter and #2 Nurolons were used to ?repair back the piriformis and posterior capsule for a very nice and tension-free ?repair. ?We then irrigated again and closed the fascia with interrupted figure-of- ?eight #2 Nurolon for a watertight closure. ?The soft tissues were closely ?approximated with 2-0 buried interrupted Vicryl and a running PDS subcuticular ?weave with Sure+Close and Steri-Strips on the tails was used. ?A silver- ?impregnated dressing was applied, and the patient was safely awoken in stable ?condition and transferred to the Postanesthetic Care Unit without complication. ?There were no complications during the procedure. ?The patient was safely awoken ?and transferred to the Postanesthetic Care Unit in stable condition. ? ? PRE-OP/PRE-PROCEDURE DIAGNOSIS: Primary osteoarthritis of Right hip ? POST-OP/POST-PROCEDURE DIAGNOSIS: Primary osteoarthritis of Right hip ? ESTIMATED BLOOD LOSS: 150 mls ? SPECIMENS: femoral head ? IMPLANTABLE DEVICES: Synthes Accolade II #7, pressfit stem 127degree; 54mm Trident II cluster cup with 25mm screw. Biolox 35mm +5 head. ? DRAINS: None ? COMPLICATIONS: None ? PARTICIPATION IN SURGERY/PROCEDURE: I/primary surgeon/proceduralist performed the procedure with assistance. No qualified resident/fellow was available. ? accountant assistant was necessary for appropriate patient positioning on the beanbag and axillary roll. Sterile prepping and draping. Soft tissue retraction and leg holding, manipulation and positioning during the procedure. The assistance was necessary for visualization during the procedure, final skin closure with immediate supervision if necessary. Final bandages and safe return to the [facility] and to the post recovery unit. SIGNATURE: Nicholas Dela Cruz MD PATIENT NAME: Geoff Smith DATE: April 07, 2019 TIME: 10:03 AM PAGER/CONTACT #: [facility] 04-07-2019 PT ED HNO ID: [id number] Author: Wade (Rn) JAVIER Govea Service: ? Author Type: Registered Nurse Type: Patient Education Filed: 04/07/2019 6:50 AM Note Text: PRE OP LEARNING ASSESSMENT PROCEDURE/SURGERY: right total hip replacement READINESS TO LEARN COGNITIVE ABILITY: Alert and oriented MOTIVATION TO LEARN: Interested FAMILY SUPPORT: High - Very involved in pt care PATIENT LEARNS BEST BY: Individual Instruction FACTORS AFFECTING LEARNING: None PHYSICAL LIMITATIONS AFFECTING LEARNING: None Electronically Signed By: Wade Govea RN In Department: [facility] SURGERY [facility] SURGICAL PATHOLOGYon 020 SURGICAL PATHOLOGY Specimen originated from [facility] Specimen #: [id number] Submitting Physician: NICHOLAS DELA CRUZ MD __ FINAL DIAGNOSIS Right femoral head, arthroplasty - Degenerative joint disease. /emil 04/12/2019 Carlito Swenson M.D. (Electronic Signature) SPECIMEN SUBMITTED A: RIGHT FEMORAL HEAD CLINICAL DATA PRIMARY OSTEOARTHRITIS OF RIGHT HIP GROSS DESCRIPTION A. Received in formalin, labeled right femoral head is a 6.0 x 5.0 x 5.0 cm femoral head. The articular surface shows areas of cartilage roughening, eburnation and osteophyte formation. The specimen is cut with a band saw to reveal musa, hard trabecular bone beneath the areas of eburnation. There is a scant amount of soft tissue attached to the femoral head and multiple fragments of bone and soft tissue is within the container measuring 3.0 x 4.0 x 0.3 cm in aggregate. Senior Sous Chef sections are submitted as follows: A1 soft tissue, A2 bone (pending decalcification). GERRI/vivien 04/07/2019 Gross examination performed at [facility], [facility] [place] [id number] Date of Report: 04/12/2019 Date of Procedure: 04/07/2019 Date of Receipt: 04/07/2019 Submitted by: NICHOLAS DELA CRUZ MD Location: 2E Diagnostic interpretation performed at [facility], [facility] [place] [address]. CLIA Number: [id number] [facility] THERAPY NTon 04-07-2019 THERAPY NT HNO ID: [id number] Author: Noelle Grace Service: Physical Therapy Author Type: Physical Therapist Type: Therapy (PT/OT/Speech/Resp) Filed: 04/07/2019 4:24 PM Note Text: Physical Therapy Evaluation SERVICE DATE: 04/07/2019 SERVICE TIME: 1518 to 1556 ROOM: [id number] Recommended Discharge Disposition: Home PT Recommended Discharge Disposition Comments: s/p right hip replacement Anticipated Discharge Needs: Physical Assist at Home Physical Assist at Home for: Ambulation;Cleaning;Laun dry;Meals;Medication Management;Stairs;Safety ;Self Care;Shopping;Transporta tion Recommended Discharge Equipment: No equipment needs anticipated PT Recommendations to Nursing: Ambulate with device;To bathroom;In halls;Transfer to/from chair;OOB for Meals;With assist of 1 person Device: Wheeled Walker PT 6 Clicks Score: 11 Precautions/Activity Restrictions: Weight Bearing Restrictions;Total Hip Replacement;Fall Risk;Lines/Tubes/Drains Extremity With Weight Bearing Restricted: Right Lower Extremity Right Lower Extremity Weight Bearing Status: PWB(40-50#) Total Hip Replacement Precautions: Lateral ASSESSMENT : Patient Day # 0 s/p right THR. Pt did not tolerate mobility well today. Pt is unable to demonstrate SLR on right LE secondary to decreased strength, but was able to demo anti-embolics well. Pt verbalizes all of precautions well. Pt needed to use a leg information security associate for bed mobility and requires mod assist to transfer from supine to sitting. While sitting on EOB, BP dropped to 71/49 mmHg and pt became dizzy, pt was quickly returned to supine position for safety and immediately felt better. Pt will most likely be more independent prior to d/c tomorrow with more fluids through IV and he will be able to tolerate OOB mobility. Will continue to assess throughout admission stay. Patient Disposition at Start of Session: Supine in Bed;Family Present Patient Disposition at End of Session: Supine in Bed;Family Present Tolerance Limited By Physiologic Response Physical Therapy Problem List: Pain;Safety Deficits;Decreased Activity Tolerance;Decreased Range Of Motion;Decreased Strength;Functional Mobility Impairment;Balance Impaired Patient /Caregiver Goals: Go Home Goals for Plan of Care: Able to perform HEP with: Verbal Cues Only Transfer supine to/from sit with: Stand By Assistance(with leg information security associate if needed) Transfer sit to/from stand with: Stand By Assistance Ambulate with: Supervision Distance: 100+ Device: Wheeled Walker Ambulate up and down steps with: Contact Guard Assistance Number of steps: 4 x 3 reps Device: Rail;Cane;Hand Held Assist Car transfer with: Supervision Transfer: from all surfaces maintaining <90 degrees on right side with S Goal: report pain in right hip <4/10 Goal: verbalize all precautions Rehab Potential: Excellent PLAN: Treatment Frequency (times per week): 7;BID Current admission Treatment Interventions: Education;Self Care / Home Management;Energy Conservation Training;Joint Mobility;Strengthening;F unctional Mobility Training;Balance Training;Neuromuscular Re-education;Modalities; Pain Management Modalities: Ice Plan of Care developed with: Patient;Caregiver TREATMENT INTERVENTIONS: Therapy Diagnosis: Reduced mobility-other;Decreased activities of daily living (ADL);Muscle Weakness (generalized) Interventions Provided: Evaluation;Therapeutic Exercise (98136);Gait Training (57827);Self Jail Management (93623) $ Evaluation-Low (49929) Billed Units: 1 unit Therapeutic Exercise (68735) Treatment Minutes: 10 1 unit Skilled Intervention(s): Instruction in therapeutic exercise antiembolics x 10 Verbal and tactile cuing provided for performance and tolerance Gait Training (99691) Treatment Minutes: 5 0 units Skilled Intervention(s): Therapist demonstrated and instructed pt in how to transfer to standing from EOB and sitting once in front of the chair while pt was sitting on EOB. Pt also educated pt on how to set up the walker for pt's height, and reviewed stair training since pt had a question about this task. No gait was performed secondary to drop in BP. Self Jail Management (70026) Treatment Minutes: 14 1 unit Skilled Intervention(s): Education in height of chair at home for adherence to precaustions, education about using a leg information security associate for OOB mobility with pt demonstrate of SLR with assistance prior to attempt to EOB sitting, education about precautions and ways to decrease pain. Sitting on EOB to acclimiate to gravity, increased time sitting on EOB secondary to dizziness complaints and asessment of vitals. Total Timed Code Treatment Minutes: 29 Total Treatment Time (minutes): 38 SUBJECTIVE: Current Hospital Course: Chart reviewed; Day # 0 right THR Reason for Physical Therapy Consult : s/p right THR Relevant Past Medical History: HTN, melenoma, Cholelithiasis Patient Report: Pt was supine in bed and agrees to PT. at bedside. Pt reports 6/10 in right hip pain. Home Environment Patient Lives With: Spouse(in 2 story home) Assistance Available: 24 Hour Entry To Home: Stairs;Without Rail Number Of Stairs Into Home: 2 Number Of Stairs To Bed/Bath: 13 Stairs to Bed/Bath with: Bilateral Rail(for most of steps) Tub/Shower Type: step in shower with 2 inch lip Laundry: in the basement, does Equipment Owned: Cane;Commode-3 in 1;Grab Bars-Shower;Grab Bars-Toilet;Shower Chair;Wheeled Walker;Long Handled Shoe Horn Prior Functional Level: Within Functional Limits Prior Functional Level Comments: was indep prior to admission OBJECTIVE: Range of Motion: WFL Except;ROM Limitation Comments ROM Limitation Comments: limited righ thip flexion secondary to precautions, all other joints WFL Strength: WFL Except;Strength Limitation Comments Strength Limitation Comments: left LE WFL, right LE not formally MMT secondary to recent surgery and pain. Pt unable to perform SLR while supine, but able to perform AP, QS, and GS while supine(will continue to assess) Vital Signs Intra Assessment 2: BP Intra 2 Intra BP 2: 71/49 Intra BP Position 2: Sitting Post Assessment: (RN at bedside at end of session) CURRENT FUNCTIONAL STATUS: Current Functional Mobility Assist Level Additional Information Rolling Supine to Sit Moderate Assistance Sit to Supine Maximal Assistance X 2 for safety Scooting Moderate Assistance Sit to Stand not performed today secondary to dizziness complaints and drop in BP Stand to Sit Bed to Chair Toilet/Commode Gait Stairs Curb Step Car Transfer Balance: Static Sitting;Dynamic Sitting Static Sitting Balance: Normal Able to maintain balance against maximal resistance Dynamic Sitting Balance: Good-/Fair+ Able to sit unsupported AND weight shift across midline minimally Activity Tolerance: Sitting Activity Sitting Activity: on EOB Sitting Activity Tolerance (in minutes): 8 JH-HLM: 3: Sit at edge of bed Pt was left supine in bed with RN at bedside with all needs in reach. Ice to right hip. Encouraged pt that this is apart of surgery sometimes and this should not limit his abilities to return home. Rn at bedside and pt was encouraged to try to sit again later tonight on the EOB for dinner. Please see discipline specific clinical documentation flowsheet for complete details for this therapy evaluation/treatment. SIGNATURE: Noelle Grace PT PATIENT NAME: Geoff Smith DATE: April 07, 2019 TIME: 4:09 PM [facility] XR HIP 1V RTon 04-07-2019 XR HIP 1V RT * * *Final Report* * * DATE OF EXAM: Apr 07 2019 9:59AM MDR [id number] - XR HIP 1V RT / PROCEDURE REASON: ARTHROPLASTY RIGHT TOTAL HIP JOINT FOR OSTEOARTHRITIS * * * * Physician Interpretation * * * * EXAMINATION: XR HIP 1V RT CLINICAL HISTORY: RIGHT HIP Technique: XR HIP 1V RT -- RIGHT hip with 1 views on 1 images Comparison: 03/15/2019 RESULT: Single view of the right hip demonstrates a right total hip arthroplasty in progress. The acetabular prosthesis is in place. No acute fracture. Associated soft tissue changes are compatible with intraoperative nature of the radiograph. IMPRESSION: Right total hip arthroplasty in progress. Crap Shooter: PSCB Transcribe Date/Time: Apr 07 2019 10:01A Dictated by : ANJANA JONES MD This examination was interpreted and the report reviewed and electronically signed by: ANJANA JONES MD on Apr 07 2019 10:02AM EST [id number] [facility] XR PELVIS 1V APon 04-07-2019 XR PELVIS 1V AP * * *Final Report* * * DATE OF EXAM: Apr 07 2019 10:40AM MDX [id number] - XR PELVIS 1V AP / PROCEDURE REASON: Post-operative / post-procedure assessment, asymptomatic * * * * Physician Interpretation * * * * EXAMINATION: XR PELVIS 1V AP CLINICAL HISTORY: POST OP RIGHT HIP Technique: XR PELVIS 1V AP -- pelvis with 1 views on 1 images Comparison: 04/07/2019 RESULT: Patient is status post right total hip arthroplasty. The orthopedic hardware is intact. No acute fracture. Associated soft tissue changes are compatible with recent surgical procedure. IMPRESSION: Status post right total hip arthroplasty. Crap Shooter: KELLEY Transcribe Date/Time: Apr 07 2019 11:01A Dictated by : ANJANA JONES MD This examination was interpreted and the report reviewed and electronically signed by: ANJANA JONES MD on Apr 07 2019 11:02AM EST [id number] Normal [facility] Confirm Blood Typeon 020 ABO/RH(D) Positive [facility] Comment on above: Performed By: #### C ONABO #### [facility] Laboratory [address] [phone] NURSING PROGon 03-24-2019 NURSING PROG HNO ID: [id number] Author: Chapo AlbrightRn) JAVIER Thompson Service: ? Author Type: Registered Nurse Type: Nursing Progress Note Filed: 04/06/2019 7:09 AM Note Text: PACC Nurse Progress Note History AND Physical: PACC Visit Date: 03/24/2019 Original HANDP Date: 03/24/2019 ED visit Date: N/A Outside HANDP Scanned Date: N/A Labs Within Last 6 Months: CBC: Date 03/24/2019 WNL BMP/CMP: Date 03/24/2019 within acceptable limit HBA1C: Date 03/24/2019= 5.9 STAAMP: Date 03/24/2019 Negative for Staph aureus and MRSA TYPE AND SCREEN: Date 03/24/2019 see Epic [place]: Date 03/24/2019 Confirmed TIBC 03/24/2019 WNL Ferritin 03/24/2019 WNL Imaging Within Last 12 Months: X-ray Hip Bilat 03/15/2019 Cardiac Testing: EKG in last 12 Months: Yes: Date: 03/24/2019, Comment: Preliminary NORMAL SINUS RHYTHM LEFT AXIS DEVIATION INFERIOR MYOCARDIAL INFARCTION , AGE UNDETERMINED BMI Percentile (PEDS): N/A Risk Assessment: N/A Anesthesia Review: N/A Narrative: N/A Pre-op Considerations: chronic LBP with radiating pain numbness/tingling BPH GERD Chart Check: IN PROGRESS-EKG preliminary Chapo Thompson RN March 25, 2019 1:54 PM Addendum 04/06/2019 07:07 EKG 03/24/2019 finalized NORMAL SINUS RHYTHM LEFT AXIS DEVIATION INFERIOR MYOCARDIAL INFARCTION , AGE UNDETERMINED CHART COMPLETE Chapo Thompson RN April 06, 2019 7:09 AM Normal [facility] Type and SCR (30D)on 020 ABO/RH(D) Positive Normal [facility] Comment on above: Performed By: #### T SCR30 #### [facility] [address] [phone] HOSPon 03-23-2019 HOSP Patient:Baldemar Smith MRN: Height:6' 1(1.854 m) Weight:200 lb 9.6 oz (90.992 kg) Outpatient Medications as of 04/07/19: Quinapril-Hydrochlorothi azide 20-12.5 mg per tablet lansoprazole (PREVACID) 30 mg capsule triamcinolone acetonide (KENALOG) 0.1 % cream Yahbayhwenyxx-Xxbgtwgj-X utein (CENTRUM SILVER) tab CHOLECALCIFEROL (VITAMIN D3) 2,000 UNIT CAP Admission/Clinic Administered Medications as of 04/07/19: lidocaine 10 mg/mL (1 %) 1-2 mg injection (XYLOCAINE) lactated ringers infusion ceFAZolin iv piggyback 2 g in D5W (iso-osmotic) 100 mL (ANCEF) scopolamine 1 mg over 3 days 1 Patch (TRANSDERM-SCOP) scopolamine - REMOVE PATCH scopolamine - VERIFY patch Problem List: Benign neoplasm of colon [D12.6] Essential hypertension [I10] Hypertrophy of prostate without urinary obstruction and other lower urinary tract symptoms (LUTS) [N40.0] Nocturia [R35.1] Psoriasis [L40.9] Rotator cuff (capsule) sprain [S43.429A] Rotator cuff syndrome of right shoulder [M75.101] BPH (benign prostatic hyperplasia) [N40.0] Gallstones [K80.20] Kidney stones [N20.0] Mixed hyperlipidemia [E78.2] Numbness [R20.0] Bilateral low back pain with bilateral sciatica [M54.42, M54.41] History of kidney stones [Z87.442] GERD (gastroesophageal reflux disease) [K21.9] History of melanoma [Z85.820] Primary osteoarthritis of right hip [M16.11] Allergies: Cardura [Doxazosin Mesylate] Triamterene-Hydrochlorot hiazid Asa [Aspirin] Protonix [Pantoprazole Sodium] Date Verified: 04/07/19 Lab Values Lab Value Units Date High Low POTA* 4.2 mmol/L 03/24/2019 5.1 3.7 JAYLA* 46.3 % 03/24/2019 51.0 39.0 Progress Notes ([facility]): Nena Castañeda RN 04/06/2019 2:53 PM Signed Patient's calls in regards to Apofore message. Gave messages from both Brynn and Lizbeth. verbalized understanding and states denies any cardiac symptoms such as SOB, chest pain, heart palpitations, etc. 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 Pt has walker, cane, raised toilet seat. Discussed with patient importance of attending joint education class and provided date and times of class: YES 03/16/2019 Patient received Joint Education Binder: Yes Plans discharge home with [facility] with [facility]. Neighbor is SCALE ADJUSTER with [facility]. SIGNATURE: LINDA Shahid PATIENT NAME: Geoff Smith DATE: March 31, 2019 TIME: 10:18 AM PAGER/CONTACT #: [phone] [facility] CNCNPATEDon 03-17-2019 CNCNPATED Education (ME2E) -------- GEOFF SMITH ([id number]) 1945 M Date Time Provider Department 03/17/19 CRISTINO LINDA (LINDA) ME2E Reason for Visit: Pre-Op Teaching [134] Cmt: total joint class Progress Notes: LINDA Shahid 03/17/2019 8:31 AM Signed TOTAL JOINT COMPLETE CARE PROGRAM ORTHOPAEDIC TOTAL JOINT CLASS Service Date: 03/17/2019 Service Time: 8:31 AM Geoff Smith is scheduled for hip replacement on TBD. He did attend the pre-op joint replacement class. Issues Reviewed: belwo Education Topic/Teaching Points: Day of surgery arrival instructions (including phone number to call for arrival time) Pre-op skin wipes Hospital course: -TCI area, operating room, recovery room -Anesthesia: Spinal vs general -Pain control: Nerve block, epidural, oral medications, AND IV medications -DVT prophylaxis ASA, Lovenox, Coumadin Post-op dressings Showering instructions Aquacell dressing to be removed 7 days post op Incision care: Margaret vs dissolvable sutures with glue Signs AND symptoms of infection Signs AND symptoms of DVT Home physical therapy Home pain medications: Refill protocol and side effects Pain management: Ice, elevation of extremity and pain meds Care Management Discharge plan Discuss with family/friends about assistance after discharge from the hospital SNF (Residential Facility) Rehab nurse will contact prior to admission to discuss post-op needs and home therapy vs SNF manager social responsibility/professor of social work in hospital final arrangements for discharge Physical and occupational therapy while in the hospital Getting your home ready What to bring to the hospital Preparing yourself for surgery: Dentist, stop smoking Diet Exercises: Circulation exercises Adaptive equipment Hip and knee precautions SIGNATURE: LINDA Shahid PATIENT NAME: Geoff Smith DATE: March 17, 2019 TIME: 8:31 AM PAGER/CONTACT #: [phone] During your visit today, we recorded the following information about you: Allergies As of Date: 03/17/2019 Noted Allergy Reaction CARDURA (DOXAZOSIN MESYLATE) 02/08/2005 5 - Intolerance Comments: forgetfulness just did not feel well TRIAMTERENE-HYDROCHLOROT HIAZID 02/08/2005 5 - Intolerance ASA (ASPIRIN) 06/25/2012 8 - GI Upset Comments: flare of gerd w swallow diificulty PROTONIX (PANTOPRAZOLE SODIUM) 07/13/2013 14 - Other: See Comments Comments: non effective - elevated liver enzymes Date Reviewed: 03/15/2019 Reviewed by: Brynn Dolan (Pa) - Fully Assessed Prescriptions as of 03/17/2019 Sig: QUINAPRIL 20 MG-HYDROCHLOROTH* Take 1 tablet by mouth once d* LANSOPRAZOLE 30 MG CAPSULE,DE* Take 1 capsule by mouth once * TRIAMCINOLONE ACETONIDE 0.1 %* Apply 1 application to affect* NQKILTGRRBWP-QFPYILKC-RE TEIN * Take 1 tablet by mouth once d* * CHOLECALCIFEROL (VITAMIN D3) * Take one(1) tablet daily. Encounter Status:Closed by LINDA GREGG on 03/17/19 [facility] PROGRESSon 03-17-2019 PROGRESS HNO ID: [id number] Author: Linda Gregg (Psa) Service: ? 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 He did attend the pre-op joint replacement class. Issues Reviewed: [facility] Education Topic/Teaching Points: Day of surgery arrival instructions (including phone number to call for arrival time) Pre-op skin wipes Hospital course: -TCI area, operating room, recovery room -Anesthesia: Spinal vs general -Pain control: Nerve block, epidural, oral medications, AND IV medications -DVT prophylaxis ASA, Lovenox, Coumadin Post-op dressings Showering instructions Aquacell dressing to be removed 7 days post op Incision care: Margaret vs dissolvable sutures with glue Signs AND symptoms of infection Signs AND symptoms of DVT Home physical therapy Home pain medications: Refill protocol and side effects Pain management: Ice, elevation of extremity and pain meds Care Management Discharge plan Discuss with family/friends about assistance after discharge from the hospital SNF (Residential Facility) Rehab nurse will contact prior to admission to discuss post-op needs and home therapy vs SNF manager social responsibility/professor of social work in hospital final arrangements for discharge Physical and occupational therapy while in the hospital Getting your home ready What to bring to the hospital Preparing yourself for surgery: Dentist, stop smoking Diet Exercises: Circulation exercises Adaptive equipment Hip and knee precautions SIGNATURE: LINDA Shahid PATIENT NAME: Geoff Smith DATE: March 17, 2019 TIME: 8:31 AM PAGER/CONTACT #: [phone] [facility] Vital Signs Date Time Vital Sign Value Performing Clinician Facility 06-02-2024 07:15-0400 Diastolic blood pressure 82 mm[Hg] Yaritza Raz IMAGING CENTER MANAGER.BOTTLING EQUIPMENT SALES REPRESENTATIVE Work Phone: [facility] 06-02-2024 07:15-0400 Systolic blood pressure 138 mm[Hg] Yaritza Raz IMAGING CENTER MANAGER.BOTTLING EQUIPMENT SALES REPRESENTATIVE Work Phone: [facility] 06-02-2024 07:12-0400 Body mass index (BMI) [Ratio] 26.57 kg/m2 Yaritza Raz IMAGING CENTER MANAGER.BOTTLING EQUIPMENT SALES REPRESENTATIVE Work Phone: [facility] 06-02-2024 07:12-0400 Body weight 90.1 kg Yaritza Raz IMAGING CENTER MANAGER.BOTTLING EQUIPMENT SALES REPRESENTATIVE Work Phone: [facility] 06-02-2024 07:12-0400 Heart rate 73 /min Yaritza Raz IMAGING CENTER MANAGER.BOTTLING EQUIPMENT SALES REPRESENTATIVE Work Phone: [facility] 06-02-2024 07:12-0400 SaO2% (BldA) [Mass fraction] 96 % Yaritza Raz IMAGING CENTER MANAGER.BOTTLING EQUIPMENT SALES REPRESENTATIVE Work Phone: [facility] 05-03-2024 07:40-0400 Diastolic blood pressure 96 mm[Hg] Yaritza Raz IMAGING CENTER MANAGER.BOTTLING EQUIPMENT SALES REPRESENTATIVE Work Phone: [facility] Comment on above: Home monitor reading 05-03-2024 07:40-0400 Heart rate 77 /min Yaritza Raz IMAGING CENTER MANAGER.BOTTLING EQUIPMENT SALES REPRESENTATIVE Work Phone: [facility] 05-03-2024 07:40-0400 Systolic blood pressure 174 mm[Hg] Yaritza Raz IMAGING CENTER MANAGER.BOTTLING EQUIPMENT SALES REPRESENTATIVE Work Phone: [facility] Comment on above: Home monitor reading 05-03-2024 07:38-0400 Body mass index (BMI) [Ratio] 27.22 kg/m2 Yaritza Orozcor IMAGING CENTER MANAGER.BOTTLING EQUIPMENT SALES REPRESENTATIVE Work Phone: [facility] 05-03-2024 07:38-0400 Body weight 92.3 kg Yaritza Raz IMAGING CENTER MANAGER.BOTTLING EQUIPMENT SALES REPRESENTATIVE Work Phone: [facility] 05-03-2024 07:38-0400 SaO2% (BldA) [Mass fraction] 94 % Yaritza Raz IMAGING CENTER MANAGER.BOTTLING EQUIPMENT SALES REPRESENTATIVE Work Phone: [facility] 03-29-2024 08:52-0500 Diastolic blood pressure 88 mm[Hg] Kelton Serrano MD Work Phone: [facility] 03-29-2024 08:52-0500 Systolic blood pressure 160 mm[Hg] Kelton Serrano MD Work Phone: [facility] 03-29-2024 08:07-0500 Body height 184.2 cm Kelton Serrano MD Work Phone: [facility] 03-29-2024 08:07-0500 Body mass index (BMI) [Ratio] 27.51 kg/m2 Kelton Serrano MD Work Phone: [facility] 03-29-2024 08:07-0500 Body temperature 98.2 [degF] Kelton Serrano MD Work Phone: [facility] 03-29-2024 08:07-0500 Body weight 93.3 kg Kelton Serrano MD Work Phone: [facility] 03-29-2024 08:07-0500 Heart rate 72 /min Kelton Serrano MD Work Phone: [facility] 03-29-2024 08:07-0500 Respiratory rate 16 /min Kelton Serrano MD Work Phone: [facility] 03-29-2024 08:07-0500 SaO2% (BldA) [Mass fraction] 98 % Kelton Serrano MD Work Phone: [facility] 03-24-2023 08:32-0500 Body height 185.4 cm Kelton Serrano MD Work Phone: [facility] 03-24-2023 08:32-0500 Body weight 91.63 kg Kelton Serrano MD Work Phone: [facility] 03-24-2023 08:32-0500 Diastolic blood pressure 84 mm[Hg] Kelton Serrano MD Work Phone: [facility] 03-24-2023 08:32-0500 Heart rate 80 /min Kelton Serrano MD Work Phone: [facility] 03-24-2023 08:32-0500 Respiratory rate 16 /min Kelton Serrano MD Work Phone: [facility] 03-24-2023 08:32-0500 Systolic blood pressure 130 mm[Hg] Kelton Serrano MD Work Phone: [facility] 05-02-2022 09:24-0500 Diastolic blood pressure 89 mm[Hg] Kaye Daily IMAGING CENTER MANAGER.POWER SWITCHBOARD OPERATOR Work Phone: [facility] 05-02-2022 09:24-0500 Heart rate 77 /min Kaye Daily IMAGING CENTER MANAGER.POWER SWITCHBOARD OPERATOR Work Phone: [facility] 05-02-2022 09:24-0500 Systolic blood pressure 166 mm[Hg] Kaye Daily IMAGING CENTER MANAGER.POWER SWITCHBOARD OPERATOR Work Phone: [facility] 05-02-2022 09:20-0500 Body weight 93.44 kg Kaye Daily IMAGING CENTER MANAGER.POWER SWITCHBOARD OPERATOR Work Phone: [facility] 04-04-2022 09:02-0500 Diastolic blood pressure 89 mm[Hg] Kaye Daily IMAGING CENTER MANAGER.POWER SWITCHBOARD OPERATOR Work Phone: [facility] 04-04-2022 09:02-0500 Heart rate 71 /min Kaye Daily IMAGING CENTER MANAGER.POWER SWITCHBOARD OPERATOR Work Phone: [facility] 04-04-2022 09:02-0500 Systolic blood pressure 162 mm[Hg] Kaye Daily IMAGING CENTER MANAGER.POWER SWITCHBOARD OPERATOR Work Phone: [facility] 04-04-2022 09:01-0500 Body weight 93.44 kg Kayealen Patels IMAGING CENTER MANAGER.POWER SWITCHBOARD OPERATOR Work Phone: [facility] 04-04-2022 09:01-0500 Respiratory rate 16 /min Kaye Patels IMAGING CENTER MANAGER.POWER SWITCHBOARD OPERATOR Work Phone: [facility] 04-01-2022 14:50-0500 Body temperature 97.5 [degF] Jake Jani IMAGING CENTER MANAGER.BOTTLING EQUIPMENT SALES REPRESENTATIVE Work Phone: [facility] 04-01-2022 14:50-0500 Body weight 97.07 kg Jake Jani IMAGING CENTER MANAGER.BOTTLING EQUIPMENT SALES REPRESENTATIVE Work Phone: [facility] 04-01-2022 14:50-0500 Diastolic blood pressure 102 mm[Hg] Jake Jani IMAGING CENTER MANAGER.BOTTLING EQUIPMENT SALES REPRESENTATIVE Work Phone: [facility] 04-01-2022 14:50-0500 Heart rate 104 /min Jake Jani IMAGING CENTER MANAGER.BOTTLING EQUIPMENT SALES REPRESENTATIVE Work Phone: [facility] 04-01-2022 14:50-0500 Respiratory rate 16 /min Jake Jani IMAGING CENTER MANAGER.BOTTLING EQUIPMENT SALES REPRESENTATIVE Work Phone: [facility] 04-01-2022 14:50-0500 SaO2% (BldA) [Mass fraction] 96 % Jake Jani IMAGING CENTER MANAGER.BOTTLING EQUIPMENT SALES REPRESENTATIVE Work Phone: [facility] 04-01-2022 14:50-0500 Systolic blood pressure 178 mm[Hg] Jake Jani IMAGING CENTER MANAGER.BOTTLING EQUIPMENT SALES REPRESENTATIVE Work Phone: [facility] 03-18-2022 08:05-0500 Body height 183.5 cm Kelton Serrano MD Work Phone: [facility] 03-18-2022 08:05-0500 Body temperature 97.7 [degF] Kelton Serrano MD Work Phone: [facility] 03-18-2022 08:05-0500 Body weight 93.4 kg Kelton Serrano MD Work Phone: [facility] 03-18-2022 08:05-0500 Diastolic blood pressure 86 mm[Hg] Kelton Serrano MD Work Phone: [facility] 03-18-2022 08:05-0500 Heart rate 83 /min Kelton Serrano MD Work Phone: [facility] 03-18-2022 08:05-0500 Respiratory rate 18 /min Kelton Serrano MD Work Phone: [facility] 03-18-2022 08:05-0500 SaO2% (BldA) [Mass fraction] 97 % Kelton Serrano MD Work Phone: [facility] 03-18-2022 08:05-0500 Systolic blood pressure 138 mm[Hg] Kelton Serrano MD Work Phone: [facility] 09-02-2021 21:45-0400 Diastolic blood pressure 84 mm[Hg] Dr. Kelton Serrano Work Phone: [facility] Work Phone: 09-02-2021 21:45-0400 Heart rate 100 /min Dr. Kelton Serrano Work Phone: [facility] Work Phone: 09-02-2021 21:45-0400 Respiratory rate 18 /min Dr. Kelton Serrano Work Phone: [facility] Work Phone: 09-02-2021 21:45-0400 SaO2% (BldA) [Mass fraction] 96 % Dr. Kelton Serrano Work Phone: [facility] Work Phone: 09-02-2021 21:45-0400 Systolic blood pressure 157 mm[Hg] Dr. Kelton Serrano Work Phone: [facility] Work Phone: 09-02-2021 19:09-0400 Body height 185.[address] Kelton Serrano Work Phone: [facility] Work Phone: 09-02-2021 19:09-0400 Body mass index (BMI) [Ratio] 26.4 kg/m2 Dr. Kelton Serrano Work Phone: [facility] Work Phone: 09-02-2021 19:09-0400 Body temperature 97.8 [degF] Dr. Kelton Serrano Work Phone: [facility] Work Phone: 09-02-2021 19:09-0400 Body weight 90.[address] Kelton Serrano Work Phone: [facility] Work Phone: 06-07-2021 08:59-0400 Body weight 92.[address] Kelton Serrano Work Phone: [facility] Work Phone: 06-07-2021 08:59-0400 Diastolic blood pressure 89 mm[Hg] Dr. Kelton Serrano Work Phone: [facility] Work Phone: 06-07-2021 08:59-0400 Heart rate 78 /min Dr. Kelton Serrano Work Phone: [facility] Work Phone: 06-07-2021 08:59-0400 Respiratory rate 16 /min Dr. Kelton Serrano Work Phone: [facility] Work Phone: 06-07-2021 08:59-0400 SaO2% (BldA) [Mass fraction] 98 % Dr. Kelton Serrano Work Phone: [facility] Work Phone: 06-07-2021 08:59-0400 Systolic blood pressure 161 mm[Hg] Dr. Kelton Serrano Work Phone: [facility] Work Phone: 06-07-2020 11:00-0400 Body mass index (BMI) [Ratio] 25.7 kg/m2 Dr. Kelton Serrano Work Phone: [facility] Work Phone: Encounters Encounter Date Encounter Type Care Provider Facility Start: 09-14-2024 End: 09-14-2024 Telephone encounter Kelton Serrano MD Work Phone: [address] [place] [address] Comment on above: Appointment Start: 07-02-2024 End: 07-05-2024 Refill Kelton Serrano MD Work Phone: [facility] [place] Comment on above: Refill Request Start: 06-02-2024 End: 06-02-2024 [facility] KELTON SERRANO Facility:[facility] Start: 06-02-2024 End: 06-02-2024 Patient encounter procedure Yaritza Tineo APRN.BOTTLING EQUIPMENT SALES REPRESENTATIVE Work Phone: [facility] [place] Comment on above: Essential hypertensi on (Primary Dx) Start: 05-03-2024 End: 05-03-2024 [facility] Start: 05-03-2024 End: 05-03-2024 Patient encounter procedure Yaritza Tineo APRN.BOTTLING EQUIPMENT SALES REPRESENTATIVE Work Phone: [facility] [place] Comment on above: Essential hypertensi on (Primary Dx) Start: 03-29-2024 End: 03-29-2024 [facility] KELTON SERRANO Facility:[facility] Start: 03-29-2024 End: 03-29-2024 Patient encounter procedure Kelton Serrano MD Work Phone: [facility] [place] Comment on above: Medicare annual well ness visit, subsequent (Primary Dx); Essential hypertension; Gastroesophageal reflux disease, unspecified whether esophagitis present; Elevated LDL cholesterol level; Primary osteoarthritis of left hip; Screening for depression; Encounter for screening examination for other mental health and behavioral disorders; Encounter for immunization; Encounter for long-term current use of medication; Presbycusis of both ears Start: 03-24-2024 End: 03-24-2024 ambulatory KELTON SERRANO Facility:[facility] Start: 08-19-2023 End: 08-19-2023 Emergency department patient visit Jose M Christianson Facility:[facility] Start: 03-24-2023 End: 03-24-2023 Office outpatient visit 25 minutes Kelton Serrano MD Work Phone: [facility] [place] Comment on above: Essential hypertensi on (Primary Dx); Mixed hyperlipidemia; Gastroesophageal reflux disease, unspecified whether esophagitis present; Encounter for immunization; Need for shingles vaccine; Personal history of COVID-19; Encounter for long-term current use of medication Start: 10-25-2022 End: 10-25-2022 Emergency department patient visit Kelton Serrano Facility:[facility] Start: 09-19-2022 ambulatory Kelton morris MD Work Phone: [facility] [place] Comment on above: Lansoprazole and Lis inoopril Refill Request Start: 09-04-2022 End: 09-04-2022 Subsequent hospital visit by physician [facility] Work Phone: Radiology Comment on above: Hallux rigidus of apple th feet [M20.21, M20.22] Start: 09-04-2022 End: 09-04-2022 Patient encounter procedure Brennen Johnson Work Phone: Podiatry Comment on above: Hallux rigidus of apple th feet (Primary Dx) Start: 09-03-2022 Orders Only Brennen roberts Work Phone: Podiatry Comment on above: Pain in left foot (P rimary Dx) Start: 06-06-2022 ambulatory Kaye Daily APRN.POWER SWITCHBOARD OPERATOR Work Phone: [facility] [place] Comment on above: discontinuation of Q uinapril Start: 05-02-2022 End: 05-02-2022 Office outpatient visit 25 minutes Kaye Daily APRN.POWER SWITCHBOARD OPERATOR Work Phone: [facility] [place] Comment on above: Essential hypertensi on (Primary Dx); Toe pain, bilateral Start: 04-04-2022 End: 04-04-2022 Office outpatient visit 25 minutes Kaye Daily APRN.POWER SWITCHBOARD OPERATOR Work Phone: [facility] [place] Comment on above: Toe pain, bilateral (Primary Dx); Essential hypertension Start: 04-02-2022 Telephone encounter Jake hua APRN.BOTTLING EQUIPMENT SALES REPRESENTATIVE Work Phone: [facility] Comment on above: Results Start: 04-01-2022 End: 04-01-2022 Patient encounter procedure Jake Gunter APRN.BOTTLING EQUIPMENT SALES REPRESENTATIVE Work Phone: [facility] Comment on above: Toe pain, bilateral (Primary Dx) Start: 03-18-2022 End: 03-18-2022 Office outpatient visit 25 minutes Kelton Serrano MD Work Phone: [facility] [place] Comment on above: Essential hypertensi on (Primary Dx); Mixed hyperlipidemia; Elevated glucose; Elevated hemoglobin A1c; Gastroesophageal reflux disease, unspecified whether esophagitis present; Encounter for long-term current use of medication; Prostate cancer screening; Urinary frequency; Recurrent kidney stones Start: 03-10-2022 Refill Kaye Daily APRN.POWER SWITCHBOARD OPERATOR Work Phone: Internal [facility] Comment on above: Refill Request Start: 12-20-2021 Refill Kaye Daily APRN.POWER SWITCHBOARD OPERATOR Work Phone: [facility] Comment on above: Med Change Request Start: 12-13-2021 ambulatory Kelton morris MD Work Phone: [facility] Comment on above: [employer] requ est Start: 09-02-2021 End: 09-02-2021 Emergency department patient visit Dr. Kelton Serrano Work Phone: [facility] Department Start: 06-07-2021 End: 06-07-[address] Kelton Serrano Work Phone: [facility] Procedures Date Procedure Procedure Detail Performing Clinician Start: 03-29-2024 Adult depression scr eening assessment Kelton Serrano MD Work Phone: Start: 03-21-2023 Lipid 1996 panel - S karmen or Plasma Kelton Serrano MD Work Phone: Start: 09-04-2022 Radex foot complete minimum 3 views Brennen Johnson Work Phone: Start: 03-18-2022 Lipid 1996 panel - S karmen or Plasma [employer] [employer] Work Phone: Start: 09-02-2021 CT of abdomen and pe lvis without contrast Dr. Kelton Serrano Work Phone: Start: 07-04-2020 Colonoscopy Kelton burgos MD Work Phone: Start: 03-24-2019 Antibody screen Comment on above: Performed By: #### T [id number] #### [facility] [address] [place] [address] Plan of Treatment Date Care Activity Detail Author Start: 03-21-2028 Lipid panel Lipid Screening [facility] Start: 03-24-2027 Diabetes Screening Diabetes Screenin [facility] Start: 03-18-2027 Lipid 1996 panel - Serum or Plasma Lipid Screening [facility] Start: 03-18-2027 LIPID SCREEN LIPID SCREEN [facility] Start: 02-05-2027 Urine microalbumin profile [facility] Start: 03-21-2026 Diabetes Screening Diabetes Screenin [facility] Start: 03-10-2026 LIPID SCREEN LIPID SCREEN [facility] Start: 07-04-2025 Colonoscopy COLONOSCOPY [facility] Start: 07-04-2025 COLORECTAL CANCER SCREENING COLORECTAL CANCER SCREENING [facility] Start: 07-04-2025 Screening for malign ant neoplasm of colon [facility] Start: 06-02-2025 Annual PCP [place] [facility] Disease Visit Annual PCP Team Chronic Disease Visit [facility] Start: 05-03-2025 Annual PCP [place] rebek[place] Disease Visit Annual PCP Team Chronic Disease Visit [facility] Start: 04-06-2025 End: 04-06-2025 Patient encounter procedure 04/06/2025 8:00 AM EST Office Visit [facility] [place] [address] [place] [place] [id number] Kelton Serrano MD [address] [place] [id number] Medicare Wellness [facility] [place] Comment on above: Medicare Wellness Start: 03-29-2025 Annual PCP [place] rebek[place] Disease Visit Annual PCP Team Chronic Disease Visit [facility] Start: 03-29-2025 Anxiety Screening Anxiety Screening [facility] Start: 03-29-2025 Depression Screening Depression Scre ening [facility] Start: 03-18-2025 DIABETES SCREEN [facility] Start: 03-18-2025 Diabetes Screening Diabetes Screenin g [facility] Start: 02-26-2025 End: 05-28-2025 CBC panel - Blood by Automated count COMPLETE BLOOD COUNT Lab Routine Encounter for long-term current use of medication Expected: 02/26/2025 (Approximate), Expires: 05/28/2025 [facility] Comment on above: Expected: 02/26/2025 (Approximate), Expires: 05/28/2025 Start: 02-26-2025 End: 05-28-2025 Comprehensive metabolic 2000 panel - Serum or Plasma COMPREHENSIVE METABOLIC PANEL Lab Routine Encounter for long-term current use of medication Expected: 02/26/2025 (Approximate), Expires: 05/28/2025 [facility] Work Phone: Comment on above: Expected: 02/26/2025 (Approximate), Expires: 05/28/2025 Start: 02-26-2025 End: 05-28-2025 Lipid 1996 panel - Serum or Plasma LIPID PANEL BASIC Lab Routine Encounter for long-term current use of medication Elevated LDL cholesterol level Expected: 02/26/2025 (Approximate), Expires: 05/28/2025 [facility] Comment on above: Expected: 02/26/2025 (Approximate), Expires: 05/28/2025 Start: 02-26-2025 End: 05-28-2025 Magnesium [Mass/volume] in Serum or Plasma MAGNESIUM Lab Routine Encounter for long-term current use of medication Expected: 02/26/2025 (Approximate), Expires: 05/28/2025 [facility] Comment on above: Expected: 02/26/2025 (Approximate), Expires: 05/28/2025 Start: 12-03-2024 End: 12-03-2024 Patient encounter procedure 12/03/2024 7:20 AM EDT Office Visit [facility] [place] [address] [place] [address] Yaritza Tineo APRN.BOTTLING EQUIPMENT SALES REPRESENTATIVE [address] [place], [place] [id number] 6 month follow up [facility] [place] Comment on above: 6 month follow up Start: 10-25-2024 Influenza vaccination Influenza Vacc ine (#1) [facility] Start: 2024 Covid-19 Vaccine () Covid-19 Vaccine () [facility] Start: 06-02-2024 End: 06-02-2024 Patient encounter procedure 06/02/2024 7:20 AM EDT Office Visit [facility] [place] [address] [place], [place] [id number] Yaritza Tineo APRN.BOTTLING EQUIPMENT SALES REPRESENTATIVE [address] [place], [place] [address] 4 week blood pressure check of new medication [facility] [place] Comment on above: 4 week blood pressur e check of new medication Start: 04-28-2024 End: 04-28-2024 Patient encounter procedure 04/28/2024 8:00 AM EST Office Visit [facility] [place] [address] [place], [place] [phone] Yaritza Tineo APRN.BOTTLING EQUIPMENT SALES REPRESENTATIVE [address] [place], [place] [id number] 1 Month F/U-BP (validate at home cuff) [facility] [place] Comment on above: 1 Month F/U-BP (dorota date at home cuff) Start: 03-24-2024 Annual PCP [place] re[place] Disease Visit Annual PCP Team Chronic Disease Visit [facility] Start: 03-24-2024 End: 06-23-2024 CBC panel - Blood by Automated count CBC Lab Routine Essential hypertension Encounter for long-term current use of medication Expected: 03/24/2024 (Approximate), Expires: 06/23/2024 [facility] Work Phone: Comment on above: Expected: 03/24/2024 (Approximate), Expires: 06/23/2024 Start: 03-24-2024 End: 06-23-2024 Comprehensive metabolic 2000 panel - Serum or Plasma COMP METABOLIC PANEL Lab Routine Essential hypertension Encounter for long-term current use of medication Expected: 03/24/2024 (Approximate), Expires: 06/23/2024 [facility] Work Phone: Comment on above: Expected: 03/24/2024 (Approximate), Expires: 06/23/2024 Start: 03-24-2024 End: 06-23-2024 Lipid 1996 panel - Serum or Plasma LIPID PANEL BASIC Lab Routine Essential hypertension Mixed hyperlipidemia Encounter for long-term current use of medication Expected: 03/24/2024 (Approximate), Expires: 06/23/2024 [facility] Work Phone: Comment on above: Expected: 03/24/2024 (Approximate), Expires: 06/23/2024 Start: 03-24-2024 End: 06-23-2024 Magnesium [Mass/volume] in Serum or Plasma MAGNESIUM BLD Lab Routine Encounter for long-term current use of medication Expected: 03/24/2024 (Approximate), Expires: 06/23/2024 [facility] Work Phone: Comment on above: Expected: 03/24/2024 (Approximate), Expires: 06/23/2024 Start: 03-10-2024 DIABETES SCREEN DIABETES SCREEN [facility] Start: 03-18-2023 ANNUAL PCP TEAM SOCIAL SECURITY SPECIALIST REBEKAH DISEASE VISIT ANNUAL PCP TEAM CHRONIC DISEASE VISIT [facility] Start: 03-18-2023 BP CONTROLLED (<130/80) BP CONTROLLE D (<130/80) [facility] Start: 03-18-2023 End: 05-18-2023 CBC panel - Blood by Automated count CBC Lab Routine Essential hypertension Encounter for long-term current use of medication Expected: 03/18/2023 (Approximate), Expires: 05/18/2023 [facility] Work Phone: Comment on above: Expected: 03/18/2023 (Approximate), Expires: 05/18/2023 Start: 03-18-2023 End: 05-18-2023 Comprehensive metabolic 2000 panel - Serum or Plasma COMP METABOLIC PANEL Lab Routine Essential hypertension Elevated glucose Elevated hemoglobin A1c Encounter for long-term current use of medication Expected: 03/18/2023 (Approximate), Expires: 05/18/2023 [facility] Work Phone: Comment on above: Expected: 03/18/2023 (Approximate), Expires: 05/18/2023 Start: 03-18-2023 End: 05-18-2023 Hemoglobin A1c in Blood HGB A1C Lab Routine Elevated glucose Elevated hemoglobin A1c Encounter for long-term current use of medication Expected: 03/18/2023 (Approximate), Expires: 05/18/2023 [facility] Work Phone: Comment on above: Expected: 03/18/2023 (Approximate), Expires: 05/18/2023 Start: 03-18-2023 End: 05-18-2023 Lipid 1996 panel - Serum or Plasma LIPID PANEL BASIC Lab Routine Mixed hyperlipidemia Encounter for long-term current use of medication Expected: 03/18/2023 (Approximate), Expires: 05/18/2023 [facility] Work Phone: Comment on above: Expected: 03/18/2023 (Approximate), Expires: 05/18/2023 Start: 03-18-2023 End: 05-18-2023 Magnesium [Mass/volume] in Serum or Plasma MAGNESIUM BLD Lab Routine Encounter for long-term current use of medication Expected: 03/18/2023 (Approximate), Expires: 05/18/2023 [facility] Work Phone: Comment on above: Expected: 03/18/2023 (Approximate), Expires: 05/18/2023 Start: 03-18-2023 End: 05-18-2023 PSA/PROSTSPECAG SCRN PSA/PROSTSPECAG SCRN Lab Routine Encounter for long-term current use of medication Prostate cancer screening Expected: 03/18/2023 (Approximate), Expires: 05/18/2023 [facility] Work Phone: Comment on above: Expected: 03/18/2023 (Approximate), Expires: 05/18/2023 Start: 03-18-2023 SHINGRIX VACCINE (1 of 2) SHINGRIX VACCINE (1 of 2) [facility] Comment on above: Postponed from 07/08 (Declined at this time) Start: 10-25-2022 Influenza vaccination INFLUENZA (#1) [facility] Start: 07-08-2022 RSV Vaccine (1 - 1-d ose 75+ series) RSV Vaccine (1 - 1-dose 75+ series) [facility] Start: 07-02-2022 End: 09-01-2022 Urate [Mass/volume] in Serum or Plasma URIC ACID BLOOD Lab Routine Toe pain, bilateral Expected: 07/02/2022 (Approximate), Expires: 09/01/2022 [facility] Work Phone: Comment on above: Expected: 07/02/2022 (Approximate), Expires: 09/01/2022 Start: 04-04-2022 End: 06-04-2022 C reactive protein [Mass/volume] in Serum or Plasma C-REACTIVE PROTEIN (CRP) Lab Routine Toe pain, bilateral Expected: 04/04/2022, Expires: 06/04/2022 [facility] Work Phone: Comment on above: Expected: 04/04/2022 , Expires: 06/04/2022 Start: 04-04-2022 End: 06-04-2022 Erythrocyte sedimentation rate SED RATE WESTERGREN Lab Routine Toe pain, bilateral Expected: 04/04/2022, Expires: 06/04/2022 [facility] Work Phone: Comment on above: Expected: 04/04/2022 , Expires: 06/04/2022 Start: 04-01-2022 End: 06-01-2022 Urate [Mass/volume] in Serum or Plasma [facility] Work Phone: Comment on above: Expected: 04/01/2022 , Expires: 06/01/2022 Start: 03-13-2022 ANNUAL PCP TEAM SOCIAL SECURITY SPECIALIST REBEKAH DISEASE VISIT ANNUAL PCP TEAM CHRONIC DISEASE VISIT [facility] Start: 03-04-2022 COVID-19 VACCINE (6 - Moderna series) COVID-19 VACCINE (6 - Moderna series) [facility] Start: 02-24-2022 ADVANCE DIRECTIVE DISCUSSION ADVANCE DIRECTIVE DISCUSSION [facility] Start: 02-24-2022 DEPRESSION ASSESSMENT DEPRESSION ASS ESSMENT [facility] Start: 10-25-2021 Influenza vaccination INFLUENZA (#1) [facility] Start: 02-24-2021 ADVANCE DIRECTIVE DISCUSSION ADVANCE DIRECTIVE DISCUSSION [facility] Start: 02-24-2021 DEPRESSION [facility]ESSMENT [facility] Start: 02-15-2021 COVID-19 VACCINE (4 - Booster for Moderna series) COVID-19 VACCINE (4 - Booster for Moderna series) [facility] Start: 08-30-2015 FECAL OCCULT BLOOD FECAL OCCULT BLOO D [facility] Start: 08-30-2015 Screening for malign ant neoplasm of colon Fecal Occult Blood [facility] Start: 2007 RSV Vaccine (1 - 1-d ose 60+ series) RSV Vaccine (1 - 1-dose 60+ series) [facility] Start: 07-08-1997 SHINGRIX VACCINE (1 of 2) SHINGRIX VACCINE (1 of 2) [facility] Start: 07-08-1992 COLOGUARD (FIT-DNA) COLOGUARD (FIT-D NA) [facility] Start: 07-08-[address] [facility]OGRAP[address] [facility] Start: 07-08-1992 Screening for malign ant neoplasm of colon [facility] Start: 07-08-1992 SIGMOIDOSCOPY SIGMOIDOSCOPY [facility] Start: 07-08-1965 BP CONTROLLED (<130/80) BP CONTROLLE D (<130/80) [facility] Patient Education ED Kidney Stone w/ Coli c [facility] Work Phone: Patient referral [facility] Work Phone: End: 10-04-2023 XR FOOT GENERAL 3V AP/LAT/OBL BILATERAL XR FOOT GENERAL 3V AP/LAT/OBL BILATERAL Radiology Routine Hallux rigidus of both feet 1 Occurrences starting 09/04/2022 until 10/04/2023 [facility] Work Phone: Comment on above: 1 Occurrences starti ng 09/04/2022 until 10/04/2023 XR FOOT GENERAL 3V AP/LAT/OBL BILATERAL XR FOOT GENERAL 3V AP/LAT/OBL BILATERAL Radiology Routine Hallux rigidus of both feet 09/04/2022 3:07 PM EDT [facility] Work Phone: End: 10-03-2023 XR FOOT GENERAL 3V AP/LAT/OBL LEFT XR FOOT GENERAL 3V AP/LAT/OBL LEFT Radiology Routine Pain in left foot 1 Occurrences starting 09/03/2022 until 10/03/2023 [facility] Work Phone: Comment on above: 1 Occurrences starti ng 09/03/2022 until 10/03/2023 [facility] Immunizations Immunization Date Immunization Notes Care Provider Fa [facility] 01-10-2024 influenza, high dose seasonal, preservative-free Kelton Serrano MD Work Phone: [facility] 01-10-2024 influenza virus vacc ine, unspecified formulation Kelton Serrano MD Work Phone: [facility] 12-05-2022 COVID-19 vaccine, ag e 12+ yr, season (MODERNA) Kelton Serrano MD Work Phone: [facility] 12-05-2022 influenza (aIIV4) vaccine, age 65+ yr, quadrivalent, PF (FLUAD QUAD) Kelton Serrano MD Work Phone: [facility] 12-05-2022 influenza, injectabl e, quadrivalent, contains preservative Kelton Serrano MD Work Phone: [facility] 12-09-2021 influenza (aIIV4) vaccine, age 65+ yr, quadrivalent, PF (FLUAD QUADRIVALENT) Kelton Serrano MD Work Phone: [facility] 11-30-2020 influenza (aIIV4) vaccine, age 65+ yr, quadrivalent, PF (FLUAD QUADRIVALENT) Kelton Serrano MD Work Phone: [facility] 05-05-2020 Covid (Moderna) Dr. Kelton rosas Work Phone: [facility] Work Phone: 04-07-2020 Covid (Moderna) Dr. Kelton rosas Work Phone: [facility] Work Phone: 12-06-2019 influenza, seasonal, injectable Kelton Serrano MD Work Phone: [facility] 01-06-2019 influenza, high dose seasonal, preservative-free Kelton Serrano MD Work Phone: [facility] 02-13-2018 influenza, high dose seasonal, preservative-free Kelton Serrano MD Work Phone: [facility] 02-05-2017 tetanus and diphther ia toxoids, adsorbed, preservative free, for adult use (5 Lf of tetanus toxoid and 2 Lf of diphtheria toxoid) Kelton Serrano MD Work Phone: [facility] 11-21-2016 influenza, high dose seasonal, preservative-free Kelton Serrano MD Work Phone: [facility] Work Phone: 02-27-2015 pneumococcal conjuga te vaccine, 13 valent Kelton Serrano MD Work Phone: [facility] Work Phone: 01-30-2015 influenza, high dose seasonal, preservative-free Kelton Serrano MD Work Phone: [facility] 01-13-2014 influenza, seasonal, injectable Kelton Serrano MD Work Phone: [facility] 03-23-2013 influenza virus vacc ine, unspecified formulation Kelton Serrano MD Work Phone: [facility] 03-23-2013 pneumococcal polysaccharide vaccine, 23 valent Kelton Serrano MD Work Phone: [facility] 12-24-2006 tetanus toxoid, redu isaias diphtheria toxoid, and acellular pertussis vaccine, adsorbed Kelton Serrano MD Work Phone: [facility] Work Phone: Payers Date Payer Category Payer Self-pay [id number] 2021 Medicare AETNA MEDICARE A ETNA MEDICARE PPO [id number] 2021-Present [phone] [address] [place] [address] PPO [id number] 2021 Medicare (Managed Care) [id number] 2021 Private Health Insurance 101 [id number] Medicare SELF PAY INSURANCE [id number] Unknown [id number] Unknown [id number] Social History Date Type Detail Facility Start: 09-02-2021 Tobacco smoking status HIIS Unknown if ever smoked [facility] Work Phone: Start: 1945 Sex Assigned At Male [facility] Start: 02-05-2017 End: 04-01-2022 Tobacco smoking status NHIS Never smoked tobacco [facility] Start: 02-05-2017 End: 04-01-2022 Tobacco use and exposure Smokeless tobacco non-user [facility] Start: 03-13-2021 End: 06-02-2024 Alcohol intake Current drinker of alcohol (finding) [facility] Start: 03-13-2021 End: 09-04-2022 Alcohol intake [facility] Start: 03-18-2019 End: 03-13-2022 History SDOH Alcohol Frequency 4 [facility] Start: 03-18-2019 End: 03-13-2022 History SDOH Alcohol Std Drinks 1 [facility] Start: 02-10-2019 End: 03-13-2022 History SDOH Social Connections Phone 5 [facility] Start: 02-10-2019 End: 03-13-2022 History SDOH Social Connections Living 3 [facility] Start: 02-10-2019 History SDOH Physical Activity DPW 0 [facility] Start: 04-07-2019 End: 03-13-2022 History SDOH Transport Med 2 [facility] Start: 02-10-2019 Education 17 [facility] Start: 04-08-2017 Alcohol Comment 1 beer 4 times per week [facility] Start: 03-13-2022 History SDOH Physical Activity MPS 6 [facility] Start: 03-13-2022 End: 09-04-2022 Social connection and isolation panel [facility] Do you belong to any clubs or organizations such as [employer] groups, [employer], [employer] or [employer] groups, or school groups? No [facility] Are you now , , , , never or living with a partner? [facility] How often to you hav e a drink containing alcohol? 2-3 time sa week [facility] How many standard dr inks containing alcohol do you have on a typical day? 1 or 2 [facility] How often do you hav e 6 or more drinks on 1 occasion? Never [facility] How hard is it for y ou to pay for the very basics like food, housing, medical care, and heating Not hard at all [facility] Do you feel stress - tense, restless, nervous, or anxious, or unable to sleep at night because your mind is troubled all the time - these days [OSQ] Not at all [facility] (I/We) worried wheth er (my/our) food would run out before (I/we) got money to buy more. Never true [facility] Start: 02-11-2019 Gender identity Identifies as male gender (finding) [facility] Start: 02-11-2019 Sexual orientation Heterosexual (finding) [facility] Do you belong to any clubs or organizations such as [employer] groups, [employer], [employer] or [employer] groups, or school groups? Yes [facility] Medical Equipment Procedure Code Equipment Code Equipment Origin al Text Equipment Identifier Dates Liner 36mm 0d E X3 5.9mm Acetabular Hip - [id number] Start: 04-07-2019 Shell Trident Ii 54mm E Tritanium Acetabular 5 Screw Hole Cluster Sterile - [id number] Start: 04-07-2019 Screw Trident Ii 6.5mm 25mm Bone Low Profile Hexagonal Sterile - [id number] Start: 04-07-2019 Head V40 36mm +5 mm Offset Taper Biolox Delta Femoral Hip - [id number] Start: 04-07-2019 Stem Accolade Ii 7 127d Femoral - [id number] Start: 04-07-2019 Functional Status Date Assessment Result Facility 04-09-2019 Are you deaf, or do you have serious difficulty hearing No 04/09/2019 11:26 AM Adolfo Turner RN No [facility] 04-09-2019 Are you blind, or do you have serious difficulty seeing, even when wearing glasses No 04/09/2019 11:26 AM Adolfo Turner RN No [facility] 04-09-2019 Do you have serious difficulty walking or climbing stairs No 04/09/2019 11:26 AM Adolfo Turner RN No [facility] 04-09-2019 Do you have difficul ty dressing or bathing No 04/09/2019 11:26 AM Adolfo Turner RN [facility] 04-09-2019 Because of a physica l, mental, or emotional condition, do you have difficulty doing errands alone such as visiting a physician's office or shopping No 04/09/2019 11:26 AM Adolfo Turner RN [facility] Mental Status Date Assessment Result Facility 04-09-2019 Because of a physica l, mental, or emotional condition, do you have serious difficulty concentrating, remembering, or making decisions No 04/09/2019 11:26 AM Adolfo Turner RN No [facility] Clinical Notes 12-24-2006 to 09-29-2024 Telephone Encounter - Anjana Boothe MA - 09/14/2024 1:46 PM EDTTelephone Encounter - Anjana Boothe MA - 09/14/2024 1:46 PM Yaritza Hebert APRN.CNP - 06/02/2024 7:15 AM EDT Note Date & Type Note Facility 09-29-2024 Note HNO ID: [id number] Author: ?, ?, ? Service: ? Author Type: ? Type: Progress Notes Filed: 09/29/2024 08:36 Note Text: POPULATION HEALTH NAVIGATION OUTREACH Action/FYI Pt due 6-mo f/u from 06/02/24 OV. No other care gaps due. LVM AND MC Reason for Outreach Care Gap/HCC or Scheduling Wellness Visits Care Gaps due: Follow-up Appointment Patient Contacted: Unable or unnecessary to reach patient: Left message Apofore message sent Navigation Signature: Jacquelin Cantor September 29, 2024 8:[address] [facility] 09-29-2024 Note Patient Outreach (NE TNAV) GEOFF SMITH ([id number]) 1945 M Date Time Provider Department 09/29/24 KELTON SERRANO During your visit today, we recorded the following information about you: Jacquelin Cantor 09/29/2024 8:36 AM Signed POPULATION HEALTH NAVIGATION OUTREACH Action/FYI Pt due 6-mo f/u from 06/02/24 OV. No other care gaps due. LVM AND MC Reason for Outreach Care Gap/HCC or Scheduling Wellness Visits Care Gaps due: Follow-up Appointment Patient Contacted: Unable or unnecessary to reach patient: Left message Apofore message sent Navigation Signature: Jacquelin Cantor September 29, 2024 8:34 AM Allergies As of Date: 09/29/2024 Noted Allergy Reaction CARDURA (DOXAZOSIN MESYLATE) 02/08/2005 5 - Intolerance Comments: forgetfulness just did not feel well TRIAMTERENE-HYDROCHLOROTHIAZID 02/08/2005 5 - Intolerance BETA-BLOCKERS (BETA-ADRENERGIC BL*03/29/2024 14 - Other: See Comments Comments: Severe fatigue; could not move anything when was laying in bed PROTONIX (PANTOPRAZOLE SODIUM) 07/13/2013 14 - Other: See Comments Comments: non effective - elevated liver enzymes TYLENOL (ACETAMINOPHEN) 04/15/2019 2 - Rash Date Reviewed: 06/02/2024 Reviewed by: Raz, Yaritza, IMAGING CENTER MANAGER.BOTTLING EQUIPMENT SALES REPRESENTATIVE - Fully Assessed Reason for Visit: Population Health Navigation Outreach [3910] Cmt: 0 HCC [employer] List Prescriptions as of 09/29/2024 - amLODIPine (NORVASC) 5 mg tablet Take 1 tablet by mouth once daily. - lansoprazole (PREVACID) 30 mg capsule Take 1 capsule by mouth once daily. - lisinopril (ZESTRIL) 30 mg tablet Take 1 tablet by mouth once daily. - da-ioh-KM-vit Y-awzmtv-uctjbai (PRESERVISION AREDS 2 PLUS MV) 200 mcg-15 mcg- 5 mg-1 mg cap Take 1 capsule by mouth once daily. - Fluorouracil 5 % cream Apply 1 application to affected area as directed. - Nyxofekyxkohi-Yyvvcxfy-Tasycv (CENTRUM SILVER) tab Take 1 tablet by mouth once daily. Problem List As Of Date 09/29/2024 Noted Resolved BENIGN NEOPLASM LG BOWEL [D12.6] 04/18/2005 Essential hypertension [I10] 08/28/2005 HYPERTROPHY PROSTATE W/O OBST [N40.0] 08/28/2005 Other and unspecified hyperlipidemia [E78.5] 12/24/2006 09/07/2015 NOCTURIA [R35.1] 12/24/2006 Psoriasis [L40.9] 12/27/2010 Rotator cuff (capsule) sprain [S43.429A] 04/01/2013 Rotator cuff syndrome of right shoulder [M75.10*04/28/2013 BPH (benign prostatic hyperplasia) [N40.0] 07/13/2014 Gallstones [K80.20] 07/13/2014 Kidney stones [N20.0] 07/13/2014 Mixed hyperlipidemia [E78.2] 09/07/2015 Numbness [R20.0] 12/10/2016 Bilateral low back pain with bilateral sciatica*12/10/2016 History of kidney stones [Z87.442] 03/24/2019 GERD (gastroesophageal reflux disease) [K21.9] 03/24/2019 History of melanoma [Z85.820] 03/24/2019 Primary osteoarthritis of right hip [M16.11] 03/24/2019 History of total right hip arthroplasty [Z96.64*04/07/2019 Encounter Status:Closed by JACQUELIN CANTOR on 09/29/[address] [facility] 09-14-2024 Telephone encounter Note Patient is scheduled 04/06 with pcp Anjana Boothe MA [facility] 09-14-2024 Miscellaneous Notes Patient is scheduled 04/06 with pcp Anjana Boothe MA Spoke with patient in regards to R/S 12/03/24 appointment due to provider leaving, and patient declined any other provider but PCP. documented in this encounter [facility] 09-14-2024 Telephone encounter Note Spoke with patient in regards to R/S 12/03/24 appointment due to provider leaving, and patient declined any other provider but PCP. [facility] 07-02-2024 Telephone encounter Note Prescription Refill Information The patient has been identified by name and date of : Yes Caregiver verified no other encounters exist for this prescription request: Yes Caregiver confirmed with patient/requestor that no other refills are due, in the near future, with this provider at this time: Yes The last office visit in the department: 06/02/24 Does the patient have a future office visit with this provider/department: Yes 12/03/24 Requested Prescriptions Pending Prescriptions Disp Refills amLODIPine (NORVASC) 5 mg tablet 90 tablet 3 Sig: Take 1 tablet by mouth once daily. Andria Aguilera LPN July 02, 2024 3:58 PM [facility] 07-02-2024 Miscellaneous Notes Prescription Refill Information The patient has been identified by name and date of : Yes Caregiver verified no other encounters exist for this prescription request: Yes Caregiver confirmed with patient/requestor that no other refills are due, in the near future, with this provider at this time: Yes The last office visit in the department: 06/02/24 Does the patient have a future office visit with this provider/department: Yes 12/03/24 Requested Prescriptions Pending Prescriptions Disp Refills amLODIPine (NORVASC) 5 mg tablet 90 tablet 3 Sig: Take 1 tablet by mouth once daily. Andria Aguilera LPN July 02, 2024 3:58 PM documented in this encounter [facility] 06-02-2024 History of Presen t illness Narrative SUBJECTIVE Geoff Smith is a 78 year old male here today for a check up on his medical problems. Chief Complaint Patient presents with: Blood Pressure: follow up JUANJO Tellez is a 78 year old male who presents for follow-up for hypertension. They are here today for a recheck of blood pressure. He was seen 05/03/2024 and blood pressure was elevated. We initiated amlodipine. Blood pressure appears to be improved. Denies any symptoms referable to elevated blood pressure. No report of headache, chest pain, palpitations, dyspnea and peripheral edema. Tolerating medications well. does check BP's away from this office. he watches his diet for sodium, low fat and low cholesterol. most of the time. No side effects with the medicine. His medications were reviewed today and his list is now up to date. Medications Current Outpatient Medications Medication Sig amLODIPine (NORVASC) 5 mg tablet Take 1 tablet by mouth once daily. lansoprazole (PREVACID) 30 mg capsule Take 1 capsule by mouth once daily. lisinopril (ZESTRIL) 30 mg tablet Take 1 tablet by mouth once daily. ci-srr-HP-vit C-tlozsw-pfkblrf (PRESERVISION AREDS 2 PLUS MV) 200 mcg-15 mcg- 5 mg-1 mg cap Take 1 capsule by mouth once daily. Fluorouracil 5 % cream Apply 1 application to affected area as directed. Rruvztnogjkmz-Ehlbfjwj-Htsklv (CENTRUM SILVER) tab Take 1 tablet by mouth once daily. No current facility-administered medications for this visit. ALLERGIES Allergen Reactions Cardura [Doxazosin * Intolerance forgetfulness just did not feel well Triamterene-Hydroch* Intolerance Beta-Blockers (Beta* Other: See Comments Severe fatigue; could not move anything when was laying in bed Protonix [Pantopraz* Other: See Comments non effective - elevated liver enzymes Tylenol [Acetaminop* Rash ACTIVE PROBLEM LIST History of Total Right Hip Arthroplasty - 04/07/2019 History of Kidney Stones - 03/24/2019 Gerd (Gastroesophageal Reflux Disease) - 03/24/2019 History of Melanoma - 03/24/2019 Primary Osteoarthritis of Right Hip - 03/24/2019 Numbness - 12/10/2016 Bilateral Low Back Pain With Bilateral Sciatica - 12/10/2016 Mixed Hyperlipidemia - 09/07/2015 Bph (Benign Prostatic Hyperplasia) - 07/13/2014 Gallstones - 07/13/2014 Kidney Stones - 07/13/2014 Rotator Cuff Syndrome of Right Shoulder - 04/28/2013 Rotator Cuff (Capsule) Sprain - 04/01/2013 Psoriasis - 12/27/2010 Nocturia - 12/24/2006 Essential Hypertension - 08/28/2005 Comment: 05/03/2024: Home BP Cuff Validated. Home BP: 174/96 77 Office BP: 184/96 76 Hypertrophy of Prostate Without Urinary Obstruction and Other Lower Urinary Tract Symptoms (Luts) - 08/28/2005 Benign Neoplasm of Colon - 04/18/2005 Social History Tobacco Use Smoking status: Never Smokeless tobacco: Never Vaping Use Vaping status: Never Used Substance Use Topics Alcohol use: Yes Alcohol/week: 1.0 standard drink of alcohol Types: 1 Cans of Beer (12oz) per week Comment: 1 beer 4 times per week Drug use: No Review of Systems Constitutional: Negative. Respiratory: Negative. Cardiovascular: Negative. OBJECTIVE BP 138/82 Pulse 73 Wt 198 lb 10.2 oz (90.1kg) SpO2 96% Physical Exam Vitals and nursing note reviewed. Constitutional: General: He is awake. He is not in acute distress. Appearance: Normal appearance. He is well-developed and well-groomed. He is not ill-appearing, toxic-appearing or diaphoretic. HENT: Head: Normocephalic. Right Ear: External ear normal. Left Ear: External ear normal. Nose: Nose normal. Eyes: General: Vision grossly intact. Conjunctiva/sclera: Conjunctivae normal. Pupils: Pupils are equal, round, and reactive to light. Neck: Vascular: No JVD. Trachea: Trachea normal. Cardiovascular: Rate and Rhythm: Normal rate and regular rhythm. Pulses: Normal pulses. Heart sounds: Normal heart sounds. No murmur heard. Pulmonary: Effort: Pulmonary effort is normal. No accessory muscle usage, prolonged expiration or respiratory distress. Breath sounds: Normal breath sounds. Musculoskeletal: Cervical back: Neck supple. Skin: General: Skin is warm and dry. Capillary Refill: Capillary refill takes less than 2 seconds. Neurological: General: No focal deficit present. Mental Status: He is alert and oriented to person, place, and time. Mental status is at baseline. Psychiatric: Attention and Perception: Attention and perception normal. Mood and Affect: Mood and affect normal. Speech: Speech normal. Behavior: Behavior normal. Behavior is cooperative. Thought Content: Thought content normal. Cognition and Memory: Cognition and memory normal. Judgment: Judgment normal. ASSESSMENT/PLAN: 1. Essential hypertension - ICD9: 401.9, ICD10: I10 - Improving control - Continue current medications - Recommend home blood pressure monitoring, to bring results to next visit - Encouraged sodium restriction, DASH or Mediterranean diet - Recommend regular aerobic exercise Portions of this note have been entered by ancillary staff. I have reviewed and when necessary edited, so that they are an adequate record of my encounter with this patient Please note that parts of this document were created using voice recognition software and therefore may contain grammatical errors. Patient verbalizes understanding of instructions from today's visit and in agreement with treatment plan. Questions answered. Agrees to call the office if questions, concerns of issues with acute symptoms not improving or if they worsen. See diagnoses and orders for additional plan(s). Allergies and medications were reviewed, list was updated, and refills given if needed. Past medical, surgical, social, and family history reviewed and updated as appropriate. Encouraged proper diet & exercise as well as compliance with taking medications. Age-appropriate health preventative measures were discussed. Return in about 6 months (around 12/02/2024) for Follow up on chronic conditions and medications.. Yaritza Tineo APRN-TEODORO documented in this encounter [facility] 06-02-2024 Note HNO ID: [id number] Author: YARITZA TINEO APRN.[employer] SALES REPRESENTATIVE Service: ? Author Type: Nurse Practitioner Type: Progress Notes Filed: 06/02/2024 07:29 Note Text: SUBJECTIVE Geoff Smith is a 78 year old male here today for a check up on his medical problems. Chief Complaint Patient presents with: Blood Pressure: follow up HPI Geoff is a 78 year old male who presents for follow-up for hypertension. They are here today for a recheck of blood pressure. He was seen 05/03/2024 and blood pressure was elevated. We initiated amlodipine. Blood pressure appears to be improved. Denies any symptoms referable to elevated blood pressure. No report of headache, chest pain, palpitations, dyspnea and peripheral edema. Tolerating medications well. does check BP's away from this office. he watches his diet for sodium, low fat and low cholesterol. most of the time. No side effects with the medicine. His medications were reviewed today and his list is now up to date. Medications Current Outpatient Medications Medication Sig amLODIPine (NORVASC) 5 mg tablet Take 1 tablet by mouth once daily. lansoprazole (PREVACID) 30 mg capsule Take 1 capsule by mouth once daily. lisinopril (ZESTRIL) 30 mg tablet Take 1 tablet by mouth once daily. wq-ojc-SZ-vit P-aexdjl-gnwyvke (PRESERVISION AREDS 2 PLUS MV) 200 mcg-15 mcg- 5 mg-1 mg cap Take 1 capsule by mouth once daily. Fluorouracil 5 % cream Apply 1 application to affected area as directed. Reecduwhpvhja-Funtqoes-Mzlfsj (CENTRUM SILVER) tab Take 1 tablet by mouth once daily. No current facility-administered medications for this visit. ALLERGIES Allergen Reactions Cardura [Doxazosin * Intolerance forgetfulness just did not feel well Triamterene-Hydroch* Intolerance Beta-Blockers (Beta* Other: See Comments Severe fatigue; could not move anything when was laying in bed Protonix [Pantopraz* Other: See Comments non effective - elevated liver enzymes Tylenol [Acetaminop* Rash ACTIVE PROBLEM LIST History of Total Right Hip Arthroplasty - 04/07/2019 History of Kidney Stones - 03/24/2019 Gerd (Gastroesophageal Reflux Disease) - 03/24/2019 History of Melanoma - 03/24/2019 Primary Osteoarthritis of Right Hip - 03/24/2019 Numbness - 12/10/2016 Bilateral Low Back Pain With Bilateral Sciatica - 12/10/2016 Mixed Hyperlipidemia - 09/07/2015 Bph (Benign Prostatic Hyperplasia) - 07/13/2014 Gallstones - 07/13/2014 Kidney Stones - 07/13/2014 Rotator Cuff Syndrome of Right Shoulder - 04/28/2013 Rotator Cuff (Capsule) Sprain - 04/01/2013 Psoriasis - 12/27/2010 Nocturia - 12/24/2006 Essential Hypertension - 08/28/2005 Comment: 05/03/2024: Home BP Cuff Validated. Home BP: 174/96 77 Office BP: 184/96 78 Hypertrophy of Prostate Without Urinary Obstruction and Other Lower Urinary Tract Symptoms (Luts) - 08/28/2005 Benign Neoplasm of Colon - 04/18/2005 Social History Tobacco Use Smoking status: Never Smokeless tobacco: Never Vaping Use Vaping status: Never Used Substance Use Topics Alcohol use: Yes Alcohol/week: 1.0 standard drink of alcohol Types: 1 Cans of Beer (12oz) per week Comment: 1 beer 4 times per week Drug use: No Review of Systems Constitutional: Negative. Respiratory: Negative. Cardiovascular: Negative. OBJECTIVE BP 138/82 Pulse 73 Wt 198 lb 10.2 oz (90.1kg) SpO2 96% Physical Exam Vitals and nursing note reviewed. Constitutional: General: He is awake. He is not in acute distress. Appearance: Normal appearance. He is well-developed and well-groomed. He is not ill-appearing, toxic-appearing or diaphoretic. HENT: Head: Normocephalic. Right Ear: External ear normal. Left Ear: External ear normal. Nose: Nose normal. Eyes: General: Vision grossly intact. Conjunctiva/sclera: Conjunctivae normal. Pupils: Pupils are equal, round, and reactive to light. Neck: Vascular: No JVD. Trachea: Trachea normal. Cardiovascular: Rate and Rhythm: Normal rate and regular rhythm. Pulses: Normal pulses. Heart sounds: Normal heart sounds. No murmur heard. Pulmonary: Effort: Pulmonary effort is normal. No accessory muscle usage, prolonged expiration or respiratory distress. Breath sounds: Normal breath sounds. Musculoskeletal: Cervical back: Neck supple. Skin: General: Skin is warm and dry. Capillary Refill: Capillary refill takes less than 2 seconds. Neurological: General: No focal deficit present. Mental Status: He is alert and oriented to person, place, and time. Mental status is at baseline. Psychiatric: Attention and Perception: Attention and perception normal. Mood and Affect: Mood and affect normal. Speech: Speech normal. Behavior: Behavior normal. Behavior is cooperative. Thought Content: Thought content normal. Cognition and Memory: Cognition and memory normal. Judgment: Judgment normal. ASSESSMENT/PLAN: 1. Essential hypertension - ICD9: 401.9, ICD10: I10 - Improving c (more content not included)... [facility] 05-03-2024 Note HNO ID: [id number] Author: YARITZA TINEO APRN.[employer] SAL[employer] REPRESENTATIVE Service: ? Author Type: Nurse Practitioner Type: Progress Notes Filed: 05/03/2024 08:11 Note Text: SUBJECTIVE Geoff Smith is a 78 year old male here today for a check up on his medical problems. Chief Complaint Patient presents with: Blood Pressure JUANJO Tellez is a 78 year old male who presents for follow-up for hypertension. They are here today for a recheck of blood pressure, seen with Kelton Serrano MD on 03/29 and had high readings. Blood pressure appears to be still high. Denies any symptoms referable to elevated blood pressure. Specifically denies headache, chest pain, palpitations, dyspnea and peripheral edema. does check BP's away from this office with home cuff. Prior issues with beta blockers. His medications were reviewed today and his list is now up to date. Medications Current Outpatient Medications Medication Sig lansoprazole (PREVACID) 30 mg capsule Take 1 capsule by mouth once daily. lisinopril (ZESTRIL) 30 mg tablet Take 1 tablet by mouth once daily. hj-pop-WL-vit W-yiyzqb-bgjstiv (PRESERVISION AREDS 2 PLUS MV) 200 mcg-15 mcg- 5 mg-1 mg cap Take 1 capsule by mouth once daily. Fluorouracil 5 % cream Apply 1 application to affected area as directed. Exnqrxgngqlxx-Mclsomdw-Faeqri (CENTRUM SILVER) tab Take 1 tablet by mouth once daily. amLODIPine (NORVASC) 5 mg tablet Take 1 tablet by mouth once daily. No current facility-administered medications for this visit. ALLERGIES Allergen Reactions Cardura [Doxazosin * Intolerance forgetfulness just did not feel well Triamterene-Hydroch* Intolerance Beta-Blockers (Beta* Other: See Comments Severe fatigue; could not move anything when was laying in bed Protonix [Pantopraz* Other: See Comments non effective - elevated liver enzymes Tylenol [Acetaminop* Rash ACTIVE PROBLEM LIST History of Total Right Hip Arthroplasty - 04/07/2019 History of Kidney Stones - 03/24/2019 Gerd (Gastroesophageal Reflux Disease) - 03/24/2019 History of Melanoma - 03/24/2019 Primary Osteoarthritis of Right Hip - 03/24/2019 Numbness - 12/10/2016 Bilateral Low Back Pain With Bilateral Sciatica - 12/10/2016 Mixed Hyperlipidemia - 09/07/2015 Bph (Benign Prostatic Hyperplasia) - 07/13/2014 Gallstones - 07/13/2014 Kidney Stones - 07/13/2014 Rotator Cuff Syndrome of Right Shoulder - 04/28/2013 Rotator Cuff (Capsule) Sprain - 04/01/2013 Psoriasis - 12/27/2010 Nocturia - 12/24/2006 Essential Hypertension - 08/28/2005 Comment: 05/03/2024: Home BP Cuff Validated. 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 Cardiovascular: Negative. OBJECTIVE BP 174/96[Home monitor reading[ Pulse 77 Wt 203 lb 7.8 oz (92.3kg) SpO2 94% Physical Exam Vitals and nursing note reviewed. Constitutional: General: He is awake. He is not in acute distress. Appearance: Normal appearance. He is well-developed and well-groomed. He is not ill-appearing, toxic-appearing or diaphoretic. HENT: Head: Normocephalic. Right Ear: External ear normal. Left Ear: External ear normal. Nose: Nose normal. Eyes: General: Vision grossly intact. Conjunctiva/sclera: Conjunctivae normal. Pupils: Pupils are equal, round, and reactive to light. Neck: Vascular: No JVD. Trachea: Trachea normal. Cardiovascular: Rate and Rhythm: Normal rate and regular rhythm. Pulses: Normal pulses. Heart sounds: Normal heart sounds. No murmur heard. Pulmonary: Effort: Pulmonary effort is normal. No accessory muscle usage, prolonged expiration or respiratory distress. Breath sounds: Normal breath sounds. Musculoskeletal: Cervical back: Neck supple. Skin: General: Skin is warm and dry. Capillary Refill: Capillary refill takes less than 2 seconds. Neurological: General: No focal deficit present. Mental Status: He is alert and oriented to person, place, and time. Mental status is at baseline. Psychiatric: Attention and Perception: Attention and perception normal. Mood and Affect: Mood and affect normal. Speech: Speech normal. Behavior: Behavior normal. Behavior is cooperative. Thought Content: Thought content normal. Cognition and Memory: Cognition and memory normal. Judgment: Judgment normal. ASSESSMENT/PLAN: 1. Essential hypertension - ICD9: 401.9, ICD10: I10 - Uncontrolled - Continue current medications - Start amlodipine - Recommend home blood pressure monitoring, to bring results to nex (more content not included)... [facility] 05-03-2024 History of Presen t illness Narrative SUBJECTIVE Geoff Smith is a 78 year old male here today for a check up on his medical problems. Chief Complaint Patient presents with: Blood Pressure JUANJO Tellez is a 78 year old male who presents for follow-up for hypertension. They are here today for a recheck of blood pressure, seen with Kelton Serrano MD on 03/29 and had high readings. Blood pressure appears to be still high. Denies any symptoms referable to elevated blood pressure. Specifically denies headache, chest pain, palpitations, dyspnea and peripheral edema. does check BP's away from this office with home cuff. Prior issues with beta blockers. His medications were reviewed today and his list is now up to date. Medications Current Outpatient Medications Medication Sig lansoprazole (PREVACID) 30 mg capsule Take 1 capsule by mouth once daily. lisinopril (ZESTRIL) 30 mg tablet Take 1 tablet by mouth once daily. je-kwm-JC-vit F-hmbjmt-ktbfxir (PRESERVISION AREDS 2 PLUS MV) 200 mcg-15 mcg- 5 mg-1 mg cap Take 1 capsule by mouth once daily. Fluorouracil 5 % cream Apply 1 application to affected area as directed. Wfrnqxnipdvat-Klwitnuu-Uyblcz (CENTRUM SILVER) tab Take 1 tablet by mouth once daily. amLODIPine (NORVASC) 5 mg tablet Take 1 tablet by mouth once daily. No current facility-administered medications for this visit. ALLERGIES Allergen Reactions Cardura [Doxazosin * Intolerance forgetfulness just did not feel well Triamterene-Hydroch* Intolerance Beta-Blockers (Beta* Other: See Comments Severe fatigue; could not move anything when was laying in bed Protonix [Pantopraz* Other: See Comments non effective - elevated liver enzymes Tylenol [Acetaminop* Rash ACTIVE PROBLEM LIST History of Total Right Hip Arthroplasty - 04/07/2019 History of Kidney Stones - 03/24/2019 Gerd (Gastroesophageal Reflux Disease) - 03/24/2019 History of Melanoma - 03/24/2019 Primary Osteoarthritis of Right Hip - 03/24/2019 Numbness - 12/10/2016 Bilateral Low Back Pain With Bilateral Sciatica - 12/10/2016 Mixed Hyperlipidemia - 09/07/2015 Bph (Benign Prostatic Hyperplasia) - 07/13/2014 Gallstones - 07/13/2014 Kidney Stones - 07/13/2014 Rotator Cuff Syndrome of Right Shoulder - 04/28/2013 Rotator Cuff (Capsule) Sprain - 04/01/2013 Psoriasis - 12/27/2010 Nocturia - 12/24/2006 Essential Hypertension - 08/28/2005 Comment: 05/03/2024: Home BP Cuff Validated. 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 Cardiovascular: Negative. OBJECTIVE BP 174/96[Home monitor reading[ Pulse 77 Wt 203 lb 7.8 oz (92.3kg) SpO2 94% Physical Exam Vitals and nursing note reviewed. Constitutional: General: He is awake. He is not in acute distress. Appearance: Normal appearance. He is well-developed and well-groomed. He is not ill-appearing, toxic-appearing or diaphoretic. HENT: Head: Normocephalic. Right Ear: External ear normal. Left Ear: External ear normal. Nose: Nose normal. Eyes: General: Vision grossly intact. Conjunctiva/sclera: Conjunctivae normal. Pupils: Pupils are equal, round, and reactive to light. Neck: Vascular: No JVD. Trachea: Trachea normal. Cardiovascular: Rate and Rhythm: Normal rate and regular rhythm. Pulses: Normal pulses. Heart sounds: Normal heart sounds. No murmur heard. Pulmonary: Effort: Pulmonary effort is normal. No accessory muscle usage, prolonged expiration or respiratory distress. Breath sounds: Normal breath sounds. Musculoskeletal: Cervical back: Neck supple. Skin: General: Skin is warm and dry. Capillary Refill: Capillary refill takes less than 2 seconds. Neurological: General: No focal deficit present. Mental Status: He is alert and oriented to person, place, and time. Mental status is at baseline. Psychiatric: Attention and Perception: Attention and perception normal. Mood and Affect: Mood and affect normal. Speech: Speech normal. Behavior: Behavior normal. Behavior is cooperative. Thought Content: Thought content normal. Cognition and Memory: Cognition and memory normal. Judgment: Judgment normal. ASSESSMENT/PLAN: 1. Essential hypertension - ICD9: 401.9, ICD10: I10 - Uncontrolled - Continue current medications - Start amlodipine - Recommend home blood pressure monitoring, to bring results to next visit - Encouraged sodium restriction, DASH or Mediterranean diet - Recommend regular aerobic exercise - Follow up in 4 weeks for hypertension visit - AMLODIPINE 5 MG TABLET Discussed new medication including but not limited to reason for use, possible side effects, administration, signs and symptoms to monitor for and when to seek medical attention. Portions of this note have been entered by ancillary staff. I have reviewed and when necessary edited, so that they are an adequate record of my encounter with this patient Please note that parts of this document were created using voice recognition software and therefore may contain grammatical errors. Patient verbalizes understanding of instructions from today's visit and in agreement with treatment plan. Questions answered. Agrees to call the office if questions, concerns of issues with acute symptoms not improving or if they worsen. See diagnoses and orders for additional plan(s). Allergies and medications were reviewed, list was updated, and refills given if needed. Past medical, surgical, social, and family history reviewed and updated as appropriate. Encouraged proper diet & exercise as well as compliance with taking medications. Age-appropriate health preventative measures were discussed. Return in about 4 weeks (around 05/31/2024) for recheck on new medication.. KARINA Ramirez documented in this encounter [facility] 03-29-2024 History of Presen t illness Narrative Images from the original note were not included. This note was created using [employer]. Subjective Geoff Smith is a 78 year old male. HISTORY Geoff Smith is a 78 year old gentleman here for Medicare Annual Wellness Visit, yearly exam and follow up appointment. Geoff Smith is a 78-year-old male with a history of HTN, hypercholesterolemia, and GERD, presenting for a Medicare Annual Wellness Visit. Geoff reports his health as very good and has been engaging in regular exercise for the past month, consisting of 1 hour per day, 5 days a week, including 30 minutes on the treadmill and mid-body, arm, and leg exercises. He has lost 5 lbs over the past month and notes increased energy levels. He denies any issues with balance, sexual function, feelings of anxiety, stress, anger, irritability, loneliness, or isolation, and denies thoughts of self-harm. He also denies any issues with bowel movements, constipation, or diarrhea. Geoff consumes 1-2 beers a few times a week and denies drinking 6 or more beers at a time. He does not consume soda and denies smoking, vaping, or chewing tobacco. He reports eating healthy foods, including fruits, vegetables, whole grains, and fiber, every day. He consumes chicken, beef, and light fish for protein and eats a lot of nuts. He tries to avoid sugar and processed foods. He drinks coffee, including a cup at night, and denies drinking water regularly. He denies any issues with vision, even after cataract surgery, and only occasionally needs reading glasses for very small print. He denies any issues with hearing but is considering getting hearing aids due to difficulty hearing in crowded environments. He denies any issues with teeth, false teeth, or dentures and has had multiple dental implants. Geoff reports that his left hip occasionally aches and feels like it is falling apart if he does not exercise for a few days. However, the pain resolves with exercise. He had a right hip replacement and notes that the left hip is starting to feel similar to the right hip before the replacement. He denies any instability or giving out of the left hip. He denies any allergies, but notes that eating eggs causes rhinorrhea and eating tomatoes causes his skin to turn purple. Geoff has a will but does not have a healthcare power of civil litigation attorney. He identifies his spouse as his surrogate decision maker. He has not traveled outside of the country recently but is considering a trip to [place]. He has 3 half-sisters who are , one of whom went blind from an unknown condition, and another who may have had cancer. He denies being close to them and does not have detailed information about their medical histories. PAST MEDICAL HISTORY Diagnosis Date Benign neoplasm of colon 04/18/05 Cholelithiasis Melanoma (HCC) 2016 Other psoriasis Snoring Unspecified essential hypertension Current Outpatient Medications Medication Sig ai-ewc-GF-vit I-yezoin-zgsmnpl (PRESERVISION AREDS 2 PLUS MV) 200 mcg-15 mcg- 5 mg-1 mg cap Take 1 capsule by mouth once daily. Pbrdizeokeccy-Hmkktacx-Ihfrod (CENTRUM SILVER) tab Take 1 tablet by mouth once daily. Fluorouracil 5 % cream Apply 1 application to affected area as directed. lisinopril (ZESTRIL) 30 mg tablet Take 1 tablet by mouth once daily. lansoprazole (PREVACID) 30 mg capsule Take 1 capsule by mouth once daily. No current facility-administered medications for this visit. ALLERGIES Allergen Reactions Cardura [Doxazosin * Intolerance forgetfulness just did not feel well Triamterene-Hydroch* Intolerance Protonix [Pantopraz* Other: See Comments non effective - elevated liver enzymes Tylenol [Acetaminop* Rash FAMILY HISTORY Problem Relation Age of Onset other (Lung cancer) Mother Aneurysm Father other (no siblings) Other Social History Tobacco Use Smoking status: Never Smokeless tobacco: Never Vaping Use Vaping status: Never Used Substance Use Topics Alcohol use: Yes Alcohol/week: 1.0 standard drink of alcohol Types: 1 Cans of Beer (12oz) per week Comment: 1 beer 4 times per week Drug use: No Review of Systems Objective BP 152/96 Pulse 72 Temp 36.8 C (98.2 F) (Left Tympanic) Resp 16 Ht 184.2 cm (6' 0.5) Wt 93.3 kg (205 lb 11 oz) SpO2 98% BMI 27.51 kg/m Last 5 Encounter Wt Readings: Date: Wt: 03/29/2024 93.3 kg (205 lb 11 oz) 03/24/2023 91.6 kg (202 lb) 05/02/2022 93.4 kg (206 lb) 04/04/2022 93.4 kg (206 lb) 04/01/2022 97.1 kg (214 lb) No waist measurement recorded Estimated body mass index is 27.51 kg/m as calculated from the following: Height as of this encounter: 184.2 cm (6' 0.5). Weight as of this encounter: 93.3 kg (205 lb 11 oz). Last 5 Encounter BP Readings: Date: BP: 03/29/2024 160/88 03/24/2023 130/84[Rechecked 142/78[ 05/02/2022 166/89[bp average[ 04/04/2022 162/89[bp average[ 04/01/2022 178/102 Physical Exam Vitals reviewed. Constitutional: Appearance: Normal appearance. HENT: Head: Normocephalic. Right Ear: Tympanic membrane, ear canal and external ear normal. Left Ear: Tympanic membrane, ear canal and external ear normal. Mouth/Throat: Mouth: Mucous membranes are moist. Pharynx: Oropharynx is clear. Eyes: Extraocular Movements: Extraocular movements intact. Conjunctiva/sclera: Conjunctivae normal. Neck: Thyroid: No thyromegaly. Vascular: No carotid bruit. Cardiovascular: Rate and Rhythm: Normal rate and regular rhythm. Pulses: Normal pulses. Heart sounds: Normal heart sounds. Pulmonary: Effort: Pulmonary effort is normal. Breath sounds: Normal breath sounds. Abdominal: General: Abdomen is flat. There is no distension. Palpations: Abdomen is soft. There is no mass. Musculoskeletal: Cervical back: Normal range of motion. Right lower leg: No edema. Left lower leg: No edema. Skin: General: Skin is warm and dry. Neurological: General: No focal deficit present. Mental Status: He is alert and oriented to person, place, and time. Psychiatric: Attention and Perception: Attention and perception normal. Mood and Affect: Mood and affect normal. Speech: Speech normal. Behavior: Behavior normal. Thought Content: Thought content normal. Cognition and Memory: Cognition and memory normal. Judgment: Judgment normal. Latest Ref Rng 03/18/2022 04/01/2022 03/21/2023 03/24/2024 Protein, Total 6.3 - 8.0 g/dL 7.3 6.7 6.7 Albumin 3.9 - 4.9 g/dL 4.1 4.0 4.1 Calcium 8.5 - 10.2 mg/dL 9.6 9.8 9.4 Bilirubin, Total 0.2 - 1.3 mg/dL 0.5 0.5 0.7 Alkaline Phosphatase 38 - 113 U/L 62 71 61 AST 14 - 40 U/L 21 18 22 ALT 10 - 54 U/L 23 24 20 Glucose 74 - 99 mg/dL 89 97 95 BUN 9 - 24 mg/dL 19 25 (H) 17 Creatinine 0.73 - 1.22 mg/dL 1.27 (H) 1.25 (H) 1.24 (H) Sodium 136 - 144 mmol/L 141 146 (H) 141 Potassium 3.7 - 5.1 mmol/L 5.0 5.3 (H) 4.6 Chloride 98 - 107 mmol/L 105 108 (H) 104 CO2 22 - 30 mmol/L 26 29 25 Anion Gap 8 - 15 mmol/L 10 9 12 eGFR >=60 mL/min/1.73m 59 (L) 60 60 WBC 3.70 - 11.00 k/uL 6.92 7.27 5.60 RBC 4.20 - 6.00 m/uL 4.72 4.69 4.79 Hemoglobin 13.0 - 17.0 g/dL 14.7 14.6 14.7 Hematocrit 39.0 - 51.0 % 44.6 44.7 46.0 MCV 80.0 - 100.0 fL 94.5 95.3 96.0 MCH 26.0 - 34.0 pg 31.1 31.1 30.7 MCHC 30.5 - 36.0 g/dL 33.0 32.7 32.0 RDW-CV 11.5 - 15.0 % 13.1 12.9 13.3 Platelet Count 150 - 400 k/uL 271 323 280 MPV 9.0 - 12.7 fL 10.0 9.8 10.2 Absolute nRBC <0.01 k/uL <0.01 <0.01 <0.01 Cholesterol, Total <200 mg/dL 173 161 175 Triglyceride <150 mg/dL 57 57 81 HDL Cholesterol >39 mg/dL 41 38 (L) 41 Non HDL Cholesterol <130 mg/dL 132 (H) 123 134 (H) Fasting Time hrs 11 11.5 12 VLDL Cholesterol <30 mg/dL 11 11 16 TC:HDL Ratio <5.10 4.22 4.24 4.27 LDL Cholesterol <100 mg/dL 121 (H) 112 (H) 118 (H) LDL:HDL Ratio <2.54 2.95 (H) 2.95 (H) 2.88 (H) Hemoglobin A1C 4.3 - 5.6 % 6.0 (H) 5.8 (H) Estimated Average Glucose mg/dL 126 120 Magnesium 1.7 - 2.3 mg/dL 2.2 2.2 2.0 PSA Screening <2.60 ng/mL 1.51 2.37 Uric Acid 4.0 - 8.1 mg/dL 4.8 Legend: (H) High (L) Low The 10-year ASCVD risk score (Luis RODARTE, et al., 2019) is: 42.1% Values used to calculate the score: Age: 78 years Sex: Male Is Non- : No Diabetic: No Tobacco smoker: No Systolic Blood Pressure: 160 mmHg Is BP treated: Yes HDL Cholesterol: 41 mg/dL Total Cholesterol: 175 mg/dL Assessment and Plan--see below Geoff Smith is a 78 year old male here for a Medicare wellness visit. Medicare Health Risk Assessment General Health Very good Exercise: Minutes/Day 60 min Exercise: Days/Week 5 days Alcohol: Daily Use 2-3 times a week Alcohol: Drinks/Day 1 or 2 Alcohol: 6 or more drinks Never Feel off balance No Concerns: Teeth/Dentures No Concerns: Sexual function No Troubled by feelings None of the above Frequency: Eating healthy diet Nearly every day (Every day) ADLs requiring help None of the above Safety precautions in home/vehicle Yes Smoke, vape, chews tobacco No Difficulty hearing Yes (Considering hearing aids) Difficulty seeing No Current Providers Specialists: I have reviewed specialist-related care of the patient in the medical record. Outside specialists seen: Dr. Armenta ([facility]), Dentist --Dr. Romero Medical/Family history review Reviewed and updated problem list, medical/surgical/family/social history, medications, and allergies. Opioid use review Opioid Medications (last 90 days) No data to display Anxiety/Depression screening (Lower risk for depression) Recommendation: no further intervention at this time Cognitive screening Mini Cog Score: 5 Cognitive screening reviewed and No further action needed (score 3-5). Functional Observation Was the patient's Timed Up & Go test unsteady or >= 12 seconds? No Advance Care Planning Surrogate decision maker and/or advance care plan documented Does not have HCDPOA. Spouse is his surrogate decision maker Measurements BP 152/96 Pulse 72 Temp 36.8 C (98.2 F) (Left Tympanic) Resp 16 Ht 184.2 cm (6' 0.5) Wt 93.3 kg (205 lb 11 oz) SpO2 98% BMI 27.51 kg/m Vision Screening: Hearing/vision screening results: No results found. Assessment/Plan Medicare annual wellness visit, subsequent (Z00.) - Counseled on healthy diet and regular exercise - Fall avoidance information provided - Personalized prevention plan provided # Medicare annual wellness visit, subsequent (Z00.00) - Completed health risk assessment. - Patient reports excellent health, exercises 5 days a week for an hour, and follows a healthy diet. - Discussed the importance of maintaining regular exercise and a balanced diet to support overall health. - Recommended RSV vaccine; patient is a candidate due to age. - Discussed optional shingles vaccine; patient has a history of shingles. - Patient has received influenza and pneumonia vaccines. - Follow-up in one year for next annual wellness visit. # Essential hypertension (I10) - Blood pressure readings today were 160/88 mmHg. - Current medication: Lisinopril 30 mg daily. - Discussed potential addition of a calcium channel raphael like amlodipine if blood pressure remains elevated. - Advised patient to monitor blood pressure at home and bring cuff to next appointment for calibration. - Follow-up in one month for blood pressure check. # Gastroesophageal reflux disease, unspecified whether esophagitis present (K21.9) - Controlled with daily Prevacid; no breakthrough symptoms reported. - Continue current medication regimen. # Elevated LDL cholesterol level (E78.00) - LDL cholesterol at 118 mg/dL. - HDL cholesterol improved to over 40 mg/dL. - Triglycerides and total cholesterol levels are within normal limits. - Encouraged continued exercise and dietary intake of omega-3 fatty acids to further improve lipid profile. # Primary osteoarthritis of left hip (M16.12) - Mild ache reported in the left hip, improves with exercise. - Continue regular exercise to maintain muscle tone and joint stability. - Monitor for any worsening symptoms or instability. # Screening for depression (Z13.31) - No symptoms of depression, anxiety, or stress reported. # Encounter for screening examination for other mental health and behavioral disorders (Z13.39) - No issues with mental health or behavioral disorders identified. # Encounter for immunization (Z23) - Discussed RSV and shingles vaccines; patient is a candidate for RSV vaccine. # Encounter for long-term current use of medication (Z79.899) - Current medications include Lisinopril 30 mg daily and Prevacid. - Refill prescriptions sent to [facility] for a 90-day supply. 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 - Considering hearing aids; discussed options and insurance coverage. Kelton Serrano MD documented in this encounter [facility] 03-29-2024 Instructions Kelton Serrano MD - 03/29/2024 8:15 AM EST - Continue taking Lisinopril 30 mg daily for blood pressure management. - Monitor your blood pressure at home once a week. Bring your home blood pressure cuff to your next appointment to ensure readings match those taken in the clinic. - Drink 6-8 cups of water daily to stay hydrated, especially before lab tests. - Maintain your current exercise routine of 5 days a week, including treadmill and strength training exercises. - Continue eating a healthy diet with fruits, vegetables, whole grains, and fiber. Incorporate omega-3 rich foods like salmon and walnuts to help increase your good cholesterol (HDL). - Take Prevacid daily to manage reflux symptoms. Avoid foods that trigger reflux, such as tomato sauce. - Consider getting a shingles vaccine, RSV vaccine, and the newest pneumonia vaccine (Prevnar 20) at your pharmacy, covered by Medicare Part D. - Next appointment in one month for a blood pressure check. Get olive oil in diet to get LDL down. Screening schedule The following prevention plan is recommended: Shingrix Vaccine(1 of 2) Never done RSV Vaccine(1 - 1-dose 75+ series) Never done BP Controlled (<130/80) due on 03/18/2023 Advance Directive Discussion due on 02/25/2024 WHAT YOU CAN DO TO PREVENT FALLS Many falls can be prevented. By making some changes, you can lower your chances of falling. Four things YOU can do to prevent falls for you* and your caregiver 1. Begin a regular exercise program Exercise is one of the most important ways to lower your chances of falling. It makes you stronger and helps you feel better. Exercises that improve balance and coordination (like Saul Chi) are the most helpful. Lack of exercise leads to weakness and increases your chances of falling. Ask your doctor or health care provider about the best type of exercise program for you. 2. Have your health care provider review your medicines Have your doctor or pharmacist review all the medicines you take, even hxac-ufa-dzceyhm medicines. As you get older, the way medicines work in your body can change. Some medicines, or combinations of medicines, can make you sleepy or dizzy and can cause you to fall. 3. Have your vision checked Have your eyes checked by an eye doctor at least once a year. You may be wearing the wrong glasses or have a condition like glaucoma or cataracts that limits your vision. Poor vision can increase your chances of falling. 4. Make your home safer About half of all falls happen at home. To make your home safer: Remove things you can trip over (like papers, books, clothes, and shoes) from stairs and places where you walk. Remove small throw rugs or use double-sided tape to keep the rugs from slipping. Keep items you use often in cabinets you can reach easily without using a step stool. Have grab bars put in next to your toilet and in the tub or shower. Use non-slip mats in the bathtub and on shower floors. Improve the lighting in your home. As you get older, you need brighter lights to see well. Hang light-weight curtains or shades to reduce glare. Have handrails and lights put in on all staircases. Wear shoes both inside and outside the house. Avoid going barefoot or wearing slippers. For more information, contact: Centers for Disease Control and Prevention www.cdc.gov/injury * This information may not apply if you have certain medical conditions. documented in this encounter [facility] 03-29-2024 Note HNO ID: [id number] Author: KELTON SERRANO MD Service: ? Author Type: Physician Type: Progress Notes Filed: 03/29/2024 23:57 Note Text: This note was created using [employer]. Subjective HISTORY Geoff Smith is a 78 year old gentleman here for Medicare Annual Wellness Visit, yearly exam and follow up appointment. Geoff Smith is a 78-year-old male with a history of HTN, hypercholesterolemia, and GERD, presenting for a Medicare Annual Wellness Visit. Geoff reports his health as very good and has been engaging in regular exercise for the past month, consisting of 1 hour per day, 5 days a week, including 30 minutes on the treadmill and mid-body, arm, and leg exercises. He has lost 5 lbs over the past month and notes increased energy levels. He denies any issues with balance, sexual function, feelings of anxiety, stress, anger, irritability, loneliness, or isolation, and denies thoughts of self-harm. He also denies any issues with bowel movements, constipation, or diarrhea. Geoff consumes 1-2 beers a few times a week and denies drinking 6 or more beers at a time. He does not consume soda and denies smoking, vaping, or chewing tobacco. He reports eating healthy foods, including fruits, vegetables, whole grains, and fiber, every day. He consumes chicken, beef, and light fish for protein and eats a lot of nuts. He tries to avoid sugar and processed foods. He drinks coffee, including a cup at night, and denies drinking water regularly. He denies any issues with vision, even after cataract surgery, and only occasionally needs reading glasses for very small print. He denies any issues with hearing but is considering getting hearing aids due to difficulty hearing in crowded environments. He denies any issues with teeth, false teeth, or dentures and has had multiple dental implants. Geoff reports that his left hip occasionally aches and feels like it is falling apart if he does not exercise for a few days. However, the pain resolves with exercise. He had a right hip replacement and notes that the left hip is starting to feel similar to the right hip before the replacement. He denies any instability or giving out of the left hip. He denies any allergies, but notes that eating eggs causes rhinorrhea and eating tomatoes causes his skin to turn purple. Geoff has a will but does not have a healthcare power of civil litigation attorney. He identifies his spouse as his surrogate decision maker. He has not traveled outside of the country recently but is considering a trip to [place]. He has 3 half-sisters who are , one of whom went blind from an unknown condition, and another who may have had cancer. He denies being close to them and does not have detailed information about their medical histories. PAST MEDICAL HISTORY Diagnosis Date Benign neoplasm of colon 04/18/05 Cholelithiasis Melanoma (HCC) 2016 Other psoriasis Snoring Unspecified essential hypertension Current Outpatient Medications Medication Sig ed-flp-AB-vit D-rrgsjc-xovajxz (PRESERVISION AREDS 2 PLUS MV) 200 mcg-15 mcg- 5 mg-1 mg cap Take 1 capsule by mouth once daily. Xdfhxsbdujose-Wcknajak-Ojucyz (CENTRUM SILVER) tab Take 1 tablet by mouth once daily. Fluorouracil 5 % cream Apply 1 application to affected area as directed. lisinopril (ZESTRIL) 30 mg tablet Take 1 tablet by mouth once daily. lansoprazole (PREVACID) 30 mg capsule Take 1 capsule by mouth once daily. No current facility-administered medications for this visit. ALLERGIES Allergen Reactions Cardura [Doxazosin * Intolerance forgetfulness just did not feel well Triamterene-Hydroch* Intolerance Protonix [Pantopraz* Other: See Comments non effective - elevated liver enzymes Tylenol [Acetaminop* Rash FAMILY HISTORY Problem Relation Age of Onset other (Lung cancer) Mother Aneurysm Father other (no siblings) Other Social History Tobacco Use Smoking status: Never Smokeless tobacco: Never Vaping Use Vaping status: Never Used Substance Use Topics Alcohol use: Yes Alcohol/week: 1.0 standard drink of alcohol Types: 1 Cans of Beer (12oz) per week Comment: 1 beer 4 times per week Drug use: No Review of Systems Objective BP 152/96 Pulse 72 Temp 36.8 ?C (98.2 ?F) (Left Tympanic) Resp 16 Ht 184.2 cm (6' 0.5) Wt 93.3 kg (205 lb 11 oz) SpO2 98% BMI 27.51 kg/m? Last 5 Encounter Wt Readings: Date: Wt: 03/29/2024 93.3 kg (205 lb 11 oz) 03/24/2023 91.6 kg (202 lb) 05/02/2022 93.4 kg (206 lb) 04/04/2022 93.4 kg (206 lb) 04/01/2022 97.1 kg (214 lb) No waist measurement recorded Estimated body mass index is 27.51 kg/m? as calculated from the following: Height as of this encounter: 184.2 cm (6' 0.5). Weight as of this encounter: 93.3 kg (205 lb 11 oz). Last 5 Encounter BP Readings: Date: BP: 03/29/2024 160/88 03/24/2023 130/84[Rechecked 142/78[ 05/02/2022 166/89[bp average[ 04/04/2022 162/8 (more content not included)... [facility] 03-24-2023 History of Presen t illness Narrative This note was created using [employer]oner[employer]. Subjective Geoff Smith is a 77 year old male. HISTORY Geoff Smith is a 77 year old gentleman here for yearly exam and follow up appointment. Feeling great. Did get over COVID 2 weeks ago. No severe symptoms.Just in head. Last kidney stone was within the last year. Small. Gout in toe episode too. BP went up then and Kaye increased med to 30 mg on lisinopril. Prevacid almost every day. Doing great since cataract surgery. Not needing glasses for reading. Plans to get back to regular exercise. Did not have water prior to labs. Still drinks lot of coffee. Noted prior cardiology evaluation prior to colonoscopy in 2020. Saw Dr[address] Allison. Had mild case of shingles in his 30s. Declines vaccine at this time but discussed may get at pharmacy. PAST MEDICAL HISTORY Diagnosis Date Benign neoplasm of colon 04/18/05 Cholelithiasis Melanoma (HCC) 2016 Other psoriasis Snoring Unspecified essential hypertension Current Outpatient Medications Medication Sig jf-wsx-SK-vit T-zyhlzs-jvwhvod (PRESERVISION AREDS 2 PLUS MV) 200 mcg-15 mcg- 5 mg-1 mg cap Take 1 capsule by mouth once daily. lisinopril (ZESTRIL) 30 mg tablet Take 1 tablet by mouth once daily. lansoprazole (PREVACID) 30 mg capsule Take 1 capsule by mouth once daily. colchicine 0.6 mg tablet Take 2 tabs by mouth, followed by 1 tab one hour later for gout flare. Then take 2 times daily after for 2 days Ljzxgrwtfjvor-Jjuqfolf-Tadibi (CENTRUM SILVER) tab Take 1 tablet by mouth once daily. Fluorouracil 5 % cream Apply 1 application to affected area as directed. No current facility-administered medications for this visit. ALLERGIES Allergen Reactions Cardura [Doxazosin * Intolerance forgetfulness just did not feel well Triamterene-Hydroch* Intolerance Protonix [Pantopraz* Other: See Comments non effective - elevated liver enzymes Tylenol [Acetaminop* Rash FAMILY HISTORY Problem Relation Age of Onset other (Lung cancer) Mother Aneurysm Father other (no siblings) Other Social History Tobacco Use Smoking status: Never Smokeless tobacco: Never Vaping Use Vaping Use: Never used Substance Use Topics Alcohol use: Yes Alcohol/week: 1.0 standard drink of alcohol Types: 1 Cans of Beer (12oz) per week Comment: 1 beer 4 times per week Drug use: No Review of Systems Objective BP 130/84 Pulse 80 Resp 16 Ht 185.4 cm (6' 1) Wt 91.6 kg (202 lb) BMI 26.65 kg/m Last 5 Encounter Wt Readings: Date: Wt: 03/24/2023 91.6 kg (202 lb) 05/02/2022 93.4 kg (206 lb) 04/04/2022 93.4 kg (206 lb) 04/01/2022 97.1 kg (214 lb) 03/18/2022 93.4 kg (205 lb 14.4 oz) No waist measurement recorded Estimated body mass index is 26.65 kg/m as calculated from the following: Height as of this encounter: 185.4 cm (6' 1). Weight as of this encounter: 91.6 kg (202 lb). Last 5 Encounter BP Readings: Date: BP: 03/24/2023 130/84 05/02/2022 166/89[bp average[ 04/04/2022 162/89[bp average[ 04/01/2022 178/102 03/18/2022 138/86 Physical Exam Vitals reviewed. Constitutional: Appearance: Normal appearance. HENT: Head: Normocephalic. Right Ear: Tympanic membrane, ear canal and external ear normal. Left Ear: Tympanic membrane, ear canal and external ear normal. Mouth/Throat: Mouth: Mucous membranes are moist. Pharynx: Oropharynx is clear. Eyes: Extraocular Movements: Extraocular movements intact. Conjunctiva/sclera: Conjunctivae normal. Neck: Thyroid: No thyromegaly. Vascular: No carotid bruit. Cardiovascular: Rate and Rhythm: Normal rate and regular rhythm. Pulses: Normal pulses. Heart sounds: Normal heart sounds. Pulmonary: Effort: Pulmonary effort is normal. Breath sounds: Normal breath sounds. Abdominal: General: Abdomen is flat. There is no distension. Palpations: Abdomen is soft. There is no mass. Musculoskeletal: Cervical back: Normal range of motion. Right lower leg: No edema. Left lower leg: No edema. Lymphadenopathy: Cervical: No cervical adenopathy. Skin: General: Skin is warm and dry. Neurological: General: No focal deficit present. Mental Status: He is alert and oriented to person, place, and time. Psychiatric: Attention and Perception: Attention normal. Mood and Affect: Mood normal. Speech: Speech normal. Behavior: Behavior normal. Thought Content: Thought content normal. Cognition and Memory: Cognition normal. Judgment: Judgment normal. Component Latest Ref Rng & Units 03/10/2021 03/18/2022 04/01/2022 03/21/2023 Protein, Total 6.3 - 8.0 g/dL 7.3 6.7 Albumin 3.9 - 4.9 g/dL 4.1 4.0 Calcium 8.5 - 10.2 mg/dL 9.7 9.6 9.8 Bilirubin, Total 0.2 - 1.3 mg/dL 0.5 0.5 Alkaline Phosphatase 38 - 113 U/L 62 71 AST 14 - 40 U/L 21 18 ALT 10 - 54 U/L 23 24 Glucose 74 - 99 mg/dL 80 89 97 BUN 9 - 24 mg/dL 21 19 25 (H) Creatinine 0.73 - 1.22 mg/dL 1.25 (H) 1.27 (H) 1.25 (H) Sodium 136 - 144 mmol/L 141 141 146 (H) Potassium 3.7 - 5.1 mmol/L 4.2 5.0 5.3 (H) Chloride 97 - 105 mmol/L 104 105 108 (H) CO2 22 - 30 mmol/L 26 26 29 Anion Gap 9 - 18 mmol/L 11 10 9 eGFR >=60 mL/min/1.73m 59 (L) 60 eGFR- >60 eGFR-All Other Races . 57 WBC 3.70 - 11.00 k/uL 6.92 7.27 RBC 4.20 - 6.00 m/uL 4.72 4.69 Hemoglobin 13.0 - 17.0 g/dL 14.7 14.6 Hematocrit 39.0 - 51.0 % 44.6 44.7 MCV 80.0 - 100.0 fL 94.5 95.3 MCH 26.0 - 34.0 pg 31.1 31.1 MCHC 30.5 - 36.0 g/dL 33.0 32.7 RDW-CV 11.5 - 15.0 % 13.1 12.9 Platelet Count 150 - 400 k/uL 271 323 MPV 9.0 - 12.7 fL 10.0 9.8 Absolute nRBC <0.01 k/uL <0.01 <0.01 Cholesterol, Total <200 mg/dL 186 173 161 Triglyceride <150 mg/dL 78 57 57 HDL Cholesterol >39 mg/dL 44 41 38 (L) LDL Cholesterol <100 mg/dL 126 (H) 121 (H) 112 (H) Non HDL Cholesterol <130 mg/dL 142 (H) 132 (H) 123 Fasting Time hrs 12 11 11.5 VLDL Cholesterol <30 mg/dL 16 11 11 TC:HDL Ratio <5.10 4.23 4.22 4.24 LDL:HDL Ratio <2.54 2.86 (H) 2.95 (H) 2.95 (H) Hemoglobin A1C 4.3 - 5.6 % 6.0 (H) 6.0 (H) 5.8 (H) Estimated Average Glucose mg/dL 126 126 120 Magnesium 1.7 - 2.3 mg/dL 2.2 2.2 PSA Screening <2.60 ng/mL 1.51 2.37 Uric Acid 4.0 - 8.1 mg/dL 4.8 The 10-year ASCVD risk score (Luis RODARTE, et al., 2019) is: 29.6% Values used to calculate the score: Age: 77 years Sex: Male Is Non- : No Diabetic: No Tobacco smoker: No Systolic Blood Pressure: 130 mmHg Is BP treated: Yes HDL Cholesterol: 38 mg/dL Total Cholesterol: 161 mg/dL Assessment and Plan Encounter Diagnosis ICD-10-CM 1. Essential hypertension I10 Much better controlled 2. Mixed hyperlipidemia E78.2 Declines statin. Will work on healtnhy diet and regular exercise.to get ASCVD risk down 3. Gastroesophageal reflux disease, unspecified whether esophagitis present K21.9 Controlled with PPI. Continue management 4. Encounter for immunization Z23 RSV PRINTED PHARMACY INSTRUCTIONS 5. Need for shingles vaccine Z23 SHINGRIX PRINTED PHARMACY INSTRUCTIONS 6. Personal history of COVID-19 Z86.16 2 weeks ago; still with some sinus congestion and rhinorrhea Above issues addressed with patient. Patient involved in shared decision making for management of medical issues. History and medications reviewed. Epic updated as needed Refills and/or prescriptions taken care of and meds adjusted as indicated after reviewed history, exam and labs. Health Maintenance reviewed. Updated record and/or ordered tests as recorded. Encouraged on efforts at healthy diet and regular exercise and adequate sleep. Had rebound pain after stopped prednisone given for gout. Kelton Serrano MD documented in this encounter [facility] 09-19-2022 Miscellaneous Notes Mychart message: Both of my medications have been sent to [facility] instead of [facility]. Neither of the pharmacies can correct the problem. The change and renewal of the prescriptions has to come from the doctor. Thank you for your time. Patient has been identified by name and date of : Yes, Provider Jenelle Date 09/19/22 Time 4:34pm Patient phones for refill(s): Requested Prescriptions Pending Prescriptions Disp Refills lisinopril (ZESTRIL) 30 mg tablet 90 tablet 3 Sig: Take 1 tablet by mouth once daily. lansoprazole (PREVACID) 30 mg capsule 90 capsule 3 Sig: Take 1 capsule by mouth once daily. Date of last office visit in primary care: 05/02/22 Last 2 Encounter Wt Readings: Date: Wt: 05/02/2022 93.4 kg (206 lb) 04/04/2022 93.4 kg (206 lb) Please advise. Thank you. Martine Cantu LPN documented in this encounter [facility] 09-04-2022 History of Presen t illness Narrative Radiology Service Progress Note PATIENT NAME: Geoff Smith DATE OF SERVICE: September 04, 2022 TIME: 2:57 PM PATIENT IDENTITY VERIFICATION COMPLETED USING TWO (2) IDENTIFIERS: Name and Date of confirmed by patient verbally. FALL SCREENING: Has the patient had 2 falls in the last year or 1 fall with injury or currently using an Ambulatory Assistive Device (Walker, Cane, Wheelchair, Crutches, etc.)? No PATIENT GENDER DATA: Male PATIENT RELEVANT IMPLANT DATA REVIEWED: Not Applicable RADIOLOGY DEPARTMENT: General X-ray: Exam(s) Completed: Lower Extremity X-Ray(s): Foot, Bilateral and Wt. Bearing PERIPHERAL IV DATA: Not applicable SIGNED BY: RT Jensen(R) September 04, 2022 2:57 PM documented in this encounter [facility] 09-04-2022 History of Presen t illness Narrative Images from the original note were not included. Initial Podiatric Office Visit: Chief Complaint: This 77 year old male who presents with chief complaint:b/l foot and ankle pain HPI Patient presents to clinic for evaluation of b/l foot and ankle. Patient states that a few months ago, he had pain in his left and right foot and ankle pain. Patient went to urgent care who stated he had gout. He was given colchicine and the pain improved. He states he recently returned from vacation ([facility]) and he has noticed the pain in both feet returning. He states since making the appointment , his pain in left foot has improved but he still has pain in right foot. Patient states the more active he is, the more pain he has. PAIN EVALUATION 09/04/2022 1433 Pain Level: 8 Pain Location: Other: See Comment bilateral feet Description: Aching Duration Amount of Time: 3 Duration Units: Weeks Frequency: Intermittent Intervention/Comfort measure: Reposition;Relaxation Hemoglobin A1C (%) Date Value 03/18/2022 6.0 03/10/2021 6.0 03/24/2019 5.9 PCP: Kelton Serrano MD PAST MEDICAL HISTORY Diagnosis Date Benign neoplasm of colon 04/18/05 Cholelithiasis Melanoma (HCC) 2016 Other psoriasis Snoring Unspecified essential hypertension Current Outpatient Medications Medication Sig lisinopril (ZESTRIL) 30 mg tablet Take 1 tablet by mouth once daily. Gujrogrkyjmlk-Zutkixci-Hkwmka (CENTRUM SILVER) tab Take 1 tablet by mouth once daily. colchicine 0.6 mg tablet Take 2 tabs by mouth, followed by 1 tab one hour later for gout flare. Then take 2 times daily after for 2 days (Patient not taking: Reported on 09/04/2022) lansoprazole (PREVACID) 30 mg capsule Take 1 capsule by mouth once daily. (Patient not taking: Reported on 09/04/2022) aspirin, enteric coated (ASPIRIN, ENTERIC COATED) 81 mg EC tablet TAKE 1 TABLET BY MOUTH TWICE DAILY. (Patient not taking: Reported on 04/01/2022) No current facility-administered medications for this visit. ALLERGIES Allergen Reactions Cardura [Doxazosin * Intolerance forgetfulness just did not feel well Triamterene-Hydroch* Intolerance Protonix [Pantopraz* Other: See Comments non effective - elevated liver enzymes Tylenol [Acetaminop* Rash PAST SURGICAL HISTORY Procedure Laterality Date COLONOSCOPY FLX DX W/COLLJ SPEC WHEN PFRMD 02/06/2001 sigmoidoscopy COLONOSCOPY FLX DX W/COLLJ SPEC WHEN PFRMD 06/19/2006 Colonoscopy COLONOSCOPY FLX DX W/COLLJ SPEC WHEN PFRMD 07/12/2011 Colonoscopy COLONOSCOPY FLX DX W/COLLJ SPEC WHEN PFRMD 04/08/2017 repeat in [address] Thomson COLONOSCOPY FLX DX W/COLLJ SPEC WHEN PFRMD 07/04/2020 COLONOSCOPY W/BIOPSY SINGLE/MULTIPLE 04/18/2005 ESOPHAGOGASTRODUODENOSCOPY TRANSORAL DIAGNOSTIC 02/15/2013 EGD HERNIA REPAIR HX JOINT REPLACEMENT HX LAPAROSCOPY SURG CHOLECYSTECTOMY 08/31/[address] [facility] [address] [place] PAST SURGICAL HISTORY OF Left 2016 melanoma of face, CHARLIE surgery RPR 1ST INGUN HRNA AGE 7 YRS/> REDUCIBLE 2002 Hernia repair, inguinal SKIN BIOPSY HX FAMILY HISTORY Problem Relation Age of Onset other (Lung cancer) Mother Aneurysm Father other (no siblings) Other Social History Tobacco Use Smoking status: Never Smokeless tobacco: Never Vaping Use Vaping Use: Never used Substance Use Topics Alcohol use: Yes Alcohol/week: 2.5 standard drinks of alcohol Types: 1 Cans of Beer (12oz) per week Comment: 1 beer 4 times per week Drug use: No REVIEW OF SYSTEMS GENERAL: Negative for Malaise, significant weight loss, fever RESPIRATORY: Negative for cough, wheezing and shortness of breath CARDIOVASCULAR: Negative for chest pain, leg swelling and palpitations GI: Negative for abdominal discomfort, blood in stools or black stools and change in bowel habits : Negative for dysuria, frequency and incontinence MUSCULOSKELETAL: Negative for joint pain or swelling, back pain, and muscle pain. SKIN: Negative for lesions, rash, and itching. HEMATOLOGY/LYMPHOLOGY Negative for prolonged bleeding, bruising easily, and swollen nodes. ENDOCRINE: Negative for cold or heat intolerance, polyuria, polydipsia and goiter. NEURO: negative Physical Exam: Constitutional: Pt is a well developed 77 year old male who is alert, oriented and cooperative Eyes: Following during examination. No redness or drainage. Respiratory: RR normal and nonlabored. Even breathing. No evidence of distress or shortness of breath. Psychology: Patient is engaged during conversation. Normal affect and mood. Does not appear depressed or anxious during encounter. Vascular: Dorsalis pedis and posterior tibial pulses palpable as b/l Capillary Fill time < 5 seconds to digits 1-5 b/l Skin temperature warm to warm proximal to distal b/l Hair growth present to digits Neurological: intact light touch/epicritic sensation b/l intact protective sensation no significant neurological deficits Dermatological: Nails 1-5 b/l appear normal. Webspaces clean and dry 1-4 b/l. Skin appears well hydrated and supple. good color, texture, turgor. No open lesions present. No callosities present. Musculoskeletal/Orthopaedic: Patient has no pain to palpation of b/l feet Foot type is neutral structurally AJ ROM is full with knee extended and flexed 1st MPJ is decreased when loaded and no pain or crepitus are noted with ROM. MTJ, STJ are full and free of pain and crepitus. +5/5 muscle strength dorsiflexion, plantarflexion, inversion, eversion b/l Radiographs: ordered ASSESSMENT: (M20.21, M20.22) Hallux rigidus of both feet (primary encounter diagnosis) PLAN: 1. History and physical examination performed. 2. Discussed pain in b/l first mtpj. Could be on grounds of gout vs chronic hallux rigidus. He has no excessive warmth or redness, only swelling which can be present with arthritis. Nevertheless, I am going to place him on oral steroid. If pain persists, could consider steroid injection 3. Will order baseline xray 4. Recommend firm sole shoes that resist bending of great toe 5. Will call with results. Brennen Johnson DPM Podiatry [address] [facility] [address] Dept: [phone] Dept AMB ROOMING INTAKE FLOWSHEET DATA Pain Pain Level: 8 Pain Location: Other: See Comment (bilateral feet) Description: Aching Duration Amount of Time: 3 Duration Units: Weeks Frequency: Intermittent Intervention/Comfort measure: Reposition, Relaxation Patient presents with: Left Foot - New, Pain, Swelling Right Foot - New, Swelling, Pain Megha Calix LPN documented in this encounter [facility] 05-02-2022 History of Presen t illness Narrative SUBJECTIVE: There are no preventive care reminders to display for this patient. HPI Geoff Smith is a 76 year old male. 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 HPI excerpted from previous visit: Presents for UC follow up for toe pain, seen 04/01/2021. Treated with colchicine, uric acid level checked, was within normal limitsBP not controlled at visit so prednisone not ordered. Taking colchicine: yes, some loose stools, not bothersome. Is helping his toe pain and redness a lot. Toes improved: yes Home blood pressure readings 141/87 to 170/88. No symptomatic complaints. Presents today noting that colchicine helped gout but now seems to have recurred. He notes taking quinapril 5 mg in addition to 20 mg about 3 times since last seen. Does seem to bring his blood pressure down. Home blood pressure readings have been consistent with his readings in office today. No adverse effects of medication are noted. HTN: Without report ofheadache, chest pain, palpitations, dyspnea, peripheral edema, orthopnea, fatigue, and PND. Last 14 Encounter BP Readings: Last 14 Encounter BP Readings: Date: BP: 05/02/2022 166/89[bp average[ 04/04/2022 162/89[bp average[ 04/01/2022 178/102 03/18/2022 138/86 03/13/2021 136/70 02/22/2020 133/81 02/21/2020 140/82 04/30/2019 125/80 04/26/2019 138/74 04/20/2019 138/78 04/15/2019 150/84 04/12/2019 174/82 04/10/2019 122/70 03/24/2019 130/80 Creatinine Date Value Ref Range Status 03/18/2022 1.27 (H) 0.73 - 1.22 mg/dL Final 03/10/2021 1.25 (H) 0.73 - 1.22 mg/dL Final 04/08/2019 1.11 0.73 - 1.22 mg/dL Final 03/24/2019 1.17 0.73 - 1.22 mg/dL Final Review of Systems Constitutional: Negative. Respiratory: Negative. Cardiovascular: Negative. Musculoskeletal: Positive for arthralgias. Objective BP 166/89 Pulse 77 Wt 93.4 kg (206 lb) BMI 27.75 kg/m Physical Exam Vitals and nursing note reviewed. Constitutional: Appearance: Normal appearance. HENT: Head: Normocephalic and atraumatic. Eyes: Conjunctiva/sclera: Conjunctivae normal. Cardiovascular: Rate and Rhythm: Normal rate. Pulmonary: Effort: Pulmonary effort is normal. Feet: Comments: bilateral great toe redness and warmth, R>L c/w gout; decreased from previous exam Skin: General: Skin is warm and dry. Neurological: Mental Status: He is alert. Mental status is at baseline. ALLERGIES Allergen Reactions Cardura [Doxazosin * Intolerance forgetfulness just did not feel well Triamterene-Hydroch* Intolerance Protonix [Pantopraz* Other: See Comments non effective - elevated liver enzymes Tylenol [Acetaminop* Rash Medications quinapril (ACCUPRIL) 5 mg tablet Take 1 tablet by mouth daily at bedtime. Take 1 daily as needed for systolic blood pressure greater than 150 (top number) in addition to 20 mg quinapril tablet colchicine 0.6 mg tablet Take 2 tabs by mouth, followed by 1 tab one hour later for gout flare. Then take 2 times daily after for 2 days quinapril (ACCUPRIL) 20 mg tablet Take 1 tablet by mouth once daily. lansoprazole (PREVACID) 30 mg capsule Take 1 capsule by mouth once daily. (Patient taking differently: Take 30 mg by mouth as needed.) Fahlobkldtbpt-Sbasnddu-Hhwstr (CENTRUM SILVER) tab Take 1 tablet by mouth once daily. aspirin, enteric coated (ASPIRIN, ENTERIC COATED) 81 mg EC tablet TAKE 1 TABLET BY MOUTH TWICE DAILY. (Patient not taking: Reported on 04/01/2022) PAST MEDICAL HISTORY Diagnosis Date Benign neoplasm of colon 04/18/05 Cholelithiasis Melanoma (HCC) 2016 Other psoriasis Snoring Unspecified essential hypertension Social History Tobacco Use Smoking status: Never Smokeless tobacco: Never Vaping Use Vaping Use: Never used Substance Use Topics Alcohol use: Yes Alcohol/week: 2.5 standard drinks Types: 1 Cans of Beer (12oz) per week Comment: 1 beer 4 times per week Drug use: No Component Latest Ref Rng & Units 03/18/2022 04/01/2022 Protein, Total 6.3 - 8.0 g/dL 7.3 Albumin 3.9 - 4.9 g/dL 4.1 Calcium 8.5 - 10.2 mg/dL 9.6 Bilirubin, Total 0.2 - 1.3 mg/dL 0.5 Alkaline Phosphatase 38 - 113 U/L 62 AST 14 - 40 U/L 21 ALT 10 - 54 U/L 23 Glucose 74 - 99 mg/dL 89 BUN 9 - 24 mg/dL 19 Creatinine 0.73 - 1.22 mg/dL 1.27 (H) Sodium 136 - 144 mmol/L 141 Potassium 3.7 - 5.1 mmol/L 5.0 Chloride 97 - 105 mmol/L 105 CO2 22 - 30 mmol/L 26 Anion Gap 9 - 18 mmol/L 10 eGFR >=60 mL/min/1.73m 59 (L) WBC 3.70 - 11.00 k/uL 6.92 RBC 4.20 - 6.00 m/uL 4.72 Hemoglobin 13.0 - 17.0 g/dL 14.7 Hematocrit 39.0 - 51.0 % 44.6 MCV 80.0 - 100.0 fL 94.5 MCH 26.0 - 34.0 pg 31.1 MCHC 30.5 - 36.0 g/dL 33.0 RDW-CV 11.5 - 15.0 % 13.1 Platelet Count 150 - 400 k/uL 271 MPV 9.0 - 12.7 fL 10.0 Absolute nRBC <0.01 k/uL <0.01 Cholesterol, Total <200 mg/dL 173 Triglyceride <150 mg/dL 57 HDL Cholesterol >39 mg/dL 41 Non HDL Cholesterol <130 mg/dL 132 (H) Fasting Time hrs 11 VLDL Cholesterol <30 mg/dL 11 TC:HDL Ratio <5.10 4.22 LDL Cholesterol <100 mg/dL 121 (H) LDL:HDL Ratio <2.54 2.95 (H) Hemoglobin A1C 4.3 - 5.6 % 6.0 (H) Estimated Average Glucose mg/dL 126 Magnesium 1.7 - 2.3 mg/dL 2.2 PSA Screening <2.60 ng/mL 1.51 Uric Acid 4.0 - 8.1 mg/dL 4.8 ASSESSMENT/PLAN: 1. Essential hypertension - ICD9: 401.9, ICD10: I10 (primary diagnosis) - suboptimal control - Increase quinapril from 20 mg daily to 30 mg daily - Encouraged dietary sodium restriction/DASH diet - Recommended regular aerobic exercise. - Recommend home blood pressure monitoring, to bring results in on next visit - QUINAPRIL 10 MG TABLET - QUINAPRIL 20 MG TABLET 2. Toe pain, bilateral - ICD9: 729.5, ICD10: M79.674, M79.675 - COLCHICINE 0.6 MG TABLET - repeat dosing - QUINAPRIL 10 MG TABLET Avoid any painful activities. Return to clinic in 1 month for recheck of blood pressure Recheck uric acid and inflammatory markers in 3 months. Kaye Daily APRN.CNS Medical Decision Making: Problems: Moderate: 1+ chronic illnesses with change Risk: Moderate: Drug management Medical Decision Making Level: 4 - Moderate documented in this encounter [facility] 04-04-2022 Instructions Kaye Daily APRN.CNS - 04/04/2022 9:24 AM EST Continue with colchicine, take until gone. Check your blood pressure once daily. If systolic blood pressure is greater than 150 (top number) take quinapril 20 mg as usual and take an additional 5 mg quinapril tablet as well. If systolic blood pressure is less than 150 then take your usual 20 mg quinapril dose only Avoid any painful activities. Return to clinic in 1 month for recheck of blood pressure We will recheck uric acid and inflammatory markers in 3 months. documented in this encounter [facility] 04-04-2022 History of Presen t illness Narrative SUBJECTIVE: There are no preventive care reminders to display for this patient. HPI Geoff Smith is a 76 year old male. 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 Presents for UC follow up for toe pain, seen 04/01/2021. Treated with colchicine, uric acid level checked, was within normal limitsBP not controlled at visit so prednisone not ordered. Taking colchicine: yes, some loose stools, not bothersome. Is helping his toe pain and redness a lot. Toes improved: yes Home blood pressure readings 141/87 to 170/88. No symptomatic complaints. HTN: Without report ofheadache, chest pain, palpitations, dyspnea, peripheral edema, orthopnea, fatigue, and PND. Last 14 Encounter BP Readings: Date: BP: 04/01/2022 178/102 03/18/2022 138/86 03/13/2021 136/70 02/22/2020 133/81 02/21/2020 140/82 04/30/2019 125/80 04/26/2019 138/74 04/20/2019 138/78 04/15/2019 150/84 04/12/2019 174/82 04/10/2019 122/70 03/24/2019 130/80 03/23/2019 138/72 03/15/2019 149/93 Creatinine Date Value Ref Range Status 03/18/2022 1.27 (H) 0.73 - 1.22 mg/dL Final 03/10/2021 1.25 (H) 0.73 - 1.22 mg/dL Final 04/08/2019 1.11 0.73 - 1.22 mg/dL Final 03/24/2019 1.17 0.73 - 1.22 mg/dL Final Reports treating AK with 5FU per [employer] activities clerk Dr Parks recently. Not took amoxicillin recently for toot implants. Review of Systems Constitutional: Negative. Respiratory: Negative. Cardiovascular: Negative. Musculoskeletal: Positive for arthralgias. Objective BP 169/90 Pulse 72 Resp 16 Wt 93.4 kg (206 lb) BMI 27.75 kg/m Physical Exam Vitals and nursing note reviewed. Constitutional: Appearance: Normal appearance. HENT: Head: Normocephalic and atraumatic. Eyes: Conjunctiva/sclera: Conjunctivae normal. Cardiovascular: Rate and Rhythm: Normal rate. Pulmonary: Effort: Pulmonary effort is normal. Feet: Comments: bilateral great toe redness and warmth, R>L c/w gout Skin: General: Skin is warm and dry. Neurological: Mental Status: He is alert. Mental status is at baseline. ALLERGIES Allergen Reactions Cardura [Doxazosin * Intolerance forgetfulness just did not feel well Triamterene-Hydroch* Intolerance Protonix [Pantopraz* Other: See Comments non effective - elevated liver enzymes Tylenol [Acetaminop* Rash colchicine 0.6 mg tablet Take 2 tabs by mouth, followed by 1 tab one hour later for gout flare. Then take 2 times daily after for 2 days quinapril (ACCUPRIL) 20 mg tablet Take 1 tablet by mouth once daily. lansoprazole (PREVACID) 30 mg capsule Take 1 capsule by mouth once daily. (Patient taking differently: Take 30 mg by mouth as needed.) Cdfbamfvnhbyf-Tpffcciw-Bjhisj (CENTRUM SILVER) tab Take 1 tablet by mouth once daily. aspirin, enteric coated (ASPIRIN, ENTERIC COATED) 81 mg EC tablet TAKE 1 TABLET BY MOUTH TWICE DAILY. (Patient not taking: Reported on 04/01/2022) PAST MEDICAL HISTORY Diagnosis Date Benign neoplasm of colon 04/18/05 Cholelithiasis Melanoma (HCC) 2016 Other psoriasis Snoring Unspecified essential hypertension Social History Tobacco Use Smoking status: Never Smokeless tobacco: Never Vaping Use Vaping Use: Never used Substance Use Topics Alcohol use: Yes Alcohol/week: 2.5 standard drinks Types: 1 Cans of Beer (12oz) per week Comment: 1 beer 4 times per week Drug use: No Component Latest Ref Rng & Units 03/18/2022 04/01/2022 Protein, Total 6.3 - 8.0 g/dL 7.3 Albumin 3.9 - 4.9 g/dL 4.1 Calcium 8.5 - 10.2 mg/dL 9.6 Bilirubin, Total 0.2 - 1.3 mg/dL 0.5 Alkaline Phosphatase 38 - 113 U/L 62 AST 14 - 40 U/L 21 ALT 10 - 54 U/L 23 Glucose 74 - 99 mg/dL 89 BUN 9 - 24 mg/dL 19 Creatinine 0.73 - 1.22 mg/dL 1.27 (H) Sodium 136 - 144 mmol/L 141 Potassium 3.7 - 5.1 mmol/L 5.0 Chloride 97 - 105 mmol/L 105 CO2 22 - 30 mmol/L 26 Anion Gap 9 - 18 mmol/L 10 eGFR >=60 mL/min/1.73m 59 (L) WBC 3.70 - 11.00 k/uL 6.92 RBC 4.20 - 6.00 m/uL 4.72 Hemoglobin 13.0 - 17.0 g/dL 14.7 Hematocrit 39.0 - 51.0 % 44.6 MCV 80.0 - 100.0 fL 94.5 MCH 26.0 - 34.0 pg 31.1 MCHC 30.5 - 36.0 g/dL 33.0 RDW-CV 11.5 - 15.0 % 13.1 Platelet Count 150 - 400 k/uL 271 MPV 9.0 - 12.7 fL 10.0 Absolute nRBC <0.01 k/uL <0.01 Cholesterol, Total <200 mg/dL 173 Triglyceride <150 mg/dL 57 HDL Cholesterol >39 mg/dL 41 Non HDL Cholesterol <130 mg/dL 132 (H) Fasting Time hrs 11 VLDL Cholesterol <30 mg/dL 11 TC:HDL Ratio <5.10 4.22 LDL Cholesterol <100 mg/dL 121 (H) LDL:HDL Ratio <2.54 2.95 (H) Hemoglobin A1C 4.3 - 5.6 % 6.0 (H) Estimated Average Glucose mg/dL 126 Magnesium 1.7 - 2.3 mg/dL 2.2 PSA Screening <2.60 ng/mL 1.51 Uric Acid 4.0 - 8.1 mg/dL 4.8 ASSESSMENT/PLAN: 1. Toe pain, bilateral - ICD9: 729.5, ICD10: M79.674, M79.675 (primary diagnosis) - QUINAPRIL 5 MG TABLET - URIC ACID BLOOD - SED RATE WESTERGREN - C-REACTIVE PROTEIN (CRP) 2. Essential hypertension - ICD9: 401.9, ICD10: I10 - QUINAPRIL 5 MG TABLET He was previously on hydrochlorothiazide, no recent refills. Advised: Continue with colchicine, take until gone. Check your blood pressure once daily. If systolic blood pressure is greater than 150 (top number) take quinapril 20 mg as usual and take an additional 5 mg quinapril tablet as well. If systolic blood pressure is less than 150 then take your usual 20 mg quinapril dose only Avoid any painful activities. Return to clinic in 1 month for recheck of blood pressure We will recheck uric acid and inflammatory markers in 3 months. Kaye Daily APRN.POWER SWITCHBOARD OPERATOR Medical Decision Making: Problems: Moderate: New problem with uncertain prognosis and 1+ chronic illnesses with change Data: Unique test(s) ordered: 2 Risk: Moderate: Drug management Medical Decision Making Level: 4 - Moderate documented in this encounter [facility] 04-02-2022 Miscellaneous Notes Patient given results and verbalized understanding of instructions given. Hetal Quiroz Please notify uric acid level was normal. Continue with plan and follow up as discussed at visit. documented in this encounter [facility] 04-01-2022 History of Presen t illness Narrative Images from the original note were not included. Subjective HPI HPI Geoff Smith is a 76 year old male who presents today for CC of bilat toe pain, left starting few weeks ago, right starting 2 days ago. Has tried otc medication with minimal relief. Symptoms are worsened by walking. Risk factors, reported hx of gout like occurrences/not treated or dx in past. Denies known injury. Reports was told that drinking coffee would help, has been drinking large vladimir of coffee since hearing this. .Patient presents with: Pain (foot): bilateral left x 3 weeks, right x 2 days PAST MEDICAL HISTORY Diagnosis Date Benign neoplasm of colon 04/18/05 Cholelithiasis Melanoma (HCC) 2016 Other psoriasis Snoring Unspecified essential hypertension PAST SURGICAL HISTORY Procedure Laterality Date COLONOSCOPY FLX DX W/COLLJ SPEC WHEN PFRMD 02/06/2001 sigmoidoscopy COLONOSCOPY FLX DX W/COLLJ SPEC WHEN PFRMD 06/19/2006 Colonoscopy COLONOSCOPY FLX DX W/COLLJ SPEC WHEN PFRMD 07/12/2011 Colonoscopy COLONOSCOPY FLX DX W/COLLJ SPEC WHEN PFRMD 04/08/2017 repeat in [address] Thomson COLONOSCOPY FLX DX W/COLLJ SPEC WHEN PFRMD 07/04/2020 COLONOSCOPY W/BIOPSY SINGLE/MULTIPLE 04/18/2005 ESOPHAGOGASTRODUODENOSCOPY TRANSORAL DIAGNOSTIC 02/15/2013 EGD HERNIA REPAIR HX JOINT REPLACEMENT HX LAPAROSCOPY SURG CHOLECYSTECTOMY 08/31/[address] [facility] [address] [place] PAST SURGICAL HISTORY OF Left 2016 melanoma of face, CHARLIE surgery RPR 1ST INGUN HRNA AGE 7 YRS/> REDUCIBLE 2002 Hernia repair, inguinal SKIN BIOPSY HX ALLERGIES Cardura [Doxazosin Mesylate], Triamterene-Hydrochlorothiazid, Protonix [Pantoprazole Sodium], and Tylenol [Acetaminophen] MEDICATIONS quinapril (ACCUPRIL) 20 mg tablet Take 1 tablet by mouth once daily. lansoprazole (PREVACID) 30 mg capsule Take 1 capsule by mouth once daily. (Patient taking differently: Take 30 mg by mouth as needed.) Pjdrdvqjonqnj-Mojpnohy-Cvxfdq (CENTRUM SILVER) tab Take 1 tablet by mouth once daily. colchicine 0.6 mg tablet Take 2 tabs by mouth, followed by 1 tab one hour later for gout flare. Then take 2 times daily after for 2 days aspirin, enteric coated (ASPIRIN, ENTERIC COATED) 81 mg EC tablet TAKE 1 TABLET BY MOUTH TWICE DAILY. (Patient not taking: Reported on 04/01/2022) CHOLECALCIFEROL (VITAMIN D3) 2,000 UNIT CAP Take one(1) tablet daily. (Patient not taking: Reported on 03/18/2022) FAMILY HISTORY Problem Relation Age of Onset other (Lung cancer) Mother Aneurysm Father other (no siblings) Other Social History Tobacco Use Smoking status: Never Smokeless tobacco: Never Vaping Use Vaping Use: Never used Substance Use Topics Alcohol use: Yes Alcohol/week: 2.5 standard drinks Types: 1 Cans of Beer (12oz) per week Comment: 1 beer 4 times per week Drug use: No Review of Systems Constitutional: Negative for fever. Skin: Negative for itching and rash. Objective Blood pressure 178/102, pulse 104, temperature 36.4 C (97.5 F), resp. rate 16, weight 97.1 kg (214 lb), SpO2 96 %. Bp rechecked manual by provider. 180/100. Physical Exam Constitutional: General: He is not in acute distress. Appearance: He is not toxic-appearing or diaphoretic. HENT: Head: Normocephalic and atraumatic. Cardiovascular: Pulses: Dorsalis pedis pulses are 1+ on the right side and 1+ on the left side. Posterior tibial pulses are 1+ on the right side and 1+ on the left side. Pulmonary: Effort: Pulmonary effort is normal. No accessory muscle usage or respiratory distress. Musculoskeletal: Feet: Neurological: Mental Status: He is alert and oriented to person, place, and time. ASSESSMENT/PLAN: 1. Toe pain, bilateral - ICD9: 729.5, ICD10: M79.674, M79.675 Will not order steroids d/t bp Colchicine ordered Will schedule f/u with pcp to recheck s/s and bp. Healthy consumption of coffee discussed. - COLCHICINE 0.6 MG TABLET - URIC ACID BLOOD Jake Gunter APRN.BOTTLING EQUIPMENT SALES REPRESENTATIVE documented in this encounter [facility] 03-18-2022 History of Presen t illness Narrative This note was created using [employer]. Subjective Geoff Smith is a 76 year old male. HISTORY Geoff Smith is a 76 year old gentleman here for yearly exam and follow up appointment. Noted having dental implants placed. Cataract surgery done 5 months ago. Doing great. Asking about prostate cancer screening. Noted friend with metastatic prostate cancer. 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 Urologist referred to another provider but did not follow through. Last one was August 2021. Just every so many years now. Some issues with urinary frequency. Nocturia maybe once or twice a night depending on fluid intake. Drinks a lot of coffee. Probably 6 to 7 cups. Does get headaches if does not drink coffee. Doing okay with finding Accupril. Noted that has not had COVID. Did get all boosters. Does not have HCDPOA or LW yet, but is his surrogate decision maker PAST MEDICAL HISTORY Diagnosis Date Benign neoplasm of colon 04/18/05 Cholelithiasis Melanoma (HCC) 2016 Other psoriasis Snoring Unspecified essential hypertension Current Outpatient Medications Medication Sig quinapril (ACCUPRIL) 20 mg tablet Take 1 tablet by mouth once daily. lansoprazole (PREVACID) 30 mg capsule Take 1 capsule by mouth once daily. (Patient taking differently: Take 30 mg by mouth as needed.) Zyzrapazmyaqd-Xzxgcvio-Kqgsal (CENTRUM SILVER) tab Take 1 tablet by mouth once daily. aspirin, enteric coated (ASPIRIN, ENTERIC COATED) 81 mg EC tablet TAKE 1 TABLET BY MOUTH TWICE DAILY. CHOLECALCIFEROL (VITAMIN D3) 2,000 UNIT CAP Take one(1) tablet daily. (Patient not taking: Reported on 03/18/2022) No current facility-administered medications for this visit. ALLERGIES Allergen Reactions Cardura [Doxazosin * Intolerance forgetfulness just did not feel well Triamterene-Hydroch* Intolerance Protonix [Pantopraz* Other: See Comments non effective - elevated liver enzymes Tylenol [Acetaminop* Rash FAMILY HISTORY Problem Relation Age of Onset other (Lung cancer) Mother Aneurysm Father other (no siblings) Other Social History Tobacco Use Smoking status: Never Smokeless tobacco: Never Vaping Use Vaping Use: Never used Substance Use Topics Alcohol use: Yes Alcohol/week: 2.5 standard drinks Types: 1 Cans of Beer (12oz) per week Comment: 1 beer 4 times per week Drug use: No Review of Systems Objective BP 138/86 Pulse 83 Temp 36.5 C (97.7 F) Resp 18 Ht 183.5 cm (6' 0.24) Wt 93.4 kg (205 lb 14.4 oz) SpO2 97% BMI 27.74 kg/m Last 5 Encounter Wt Readings: Date: Wt: 03/18/2022 93.4 kg (205 lb 14.4 oz) 03/13/2021 93 kg (205 lb) 02/22/2020 87.1 kg (192 lb 0.3 oz) 02/21/2020 87.1 kg (192 lb) 03/24/2019 91 kg (200 lb 9.6 oz) No waist measurement recorded Estimated body mass index is 27.74 kg/m as calculated from the following: Height as of this encounter: 183.5 cm (6' 0.24). Weight as of this encounter: 93.4 kg (205 lb 14.4 oz). Last 5 Encounter BP Readings: Date: BP: 03/18/2022 138/86 03/13/2021 136/70 02/22/2020 133/81 02/21/2020 140/82 04/30/2019 125/80 Physical Exam Vitals reviewed. Constitutional: Appearance: Normal appearance. HENT: Head: Normocephalic. Right Ear: Tympanic membrane, ear canal and external ear normal. Left Ear: Tympanic membrane, ear canal and external ear normal. Mouth/Throat: Mouth: Mucous membranes are moist. Pharynx: Oropharynx is clear. Eyes: Extraocular Movements: Extraocular movements intact. Conjunctiva/sclera: Conjunctivae normal. Cardiovascular: Rate and Rhythm: Normal rate and regular rhythm. Pulses: Normal pulses. Heart sounds: Normal heart sounds. Pulmonary: Effort: Pulmonary effort is normal. Breath sounds: Normal breath sounds. Abdominal: General: Abdomen is flat. There is no distension. Palpations: Abdomen is soft. There is no mass. Musculoskeletal: Cervical back: Normal range of motion. Skin: General: Skin is warm and dry. Neurological: General: No focal deficit present. Mental Status: He is alert and oriented to person, place, and time. Psychiatric: Attention and Perception: Attention and perception normal. Mood and Affect: Mood and affect normal. Speech: Speech normal. Behavior: Behavior normal. Thought Content: Thought content normal. Cognition and Memory: Cognition and memory normal. Judgment: Judgment normal. Reviewed prior labs. Assessment and Plan ASSESSMENT/PLAN: 1. Essential hypertension - ICD9: 401.9, ICD10: I10 (primary diagnosis) - good control - Continue current medication(s) - Recommended regular aerobic exercise. - Recommend home blood pressure monitoring, to bring results in on next visit - Goal of BP <130/80 - COMP METABOLIC PANEL - CBC 2. Mixed hyperlipidemia - ICD9: 272.2, ICD10: E78.2 - to be determined upon return of lab results - Encouraged following a low carbohydrate, healthy oil intake diet. - LIPID PANEL BASIC 3. Elevated glucose - ICD9: 790.29, ICD10: R73.09 Further evaluation and treatment as indicated. Needs to keep working on diet and exercise with lifestyle changes for effective weight loss as well as prevention of DM, and control of BP and lipids. Does not eat much carbs. No processesd sugars like pop and candy. - COMP METABOLIC PANEL - HGB A1C 4. Elevated hemoglobin A1c - ICD9: 790.29, ICD10: R73.09 As noted above - COMP METABOLIC PANEL - HGB A1C 5. Gastroesophageal reflux disease, unspecified whether esophagitis present - ICD9: 530.81, ICD10: K21.9 - Discussed lifestyle modifications including losing weight, limiting caffeine, no meals three hours before sleep, and head of bed elevation - PPI as needed for now. 6. Encounter for long-term current use of medication - ICD9: V58.69, ICD10: Z79.899 - COMP METABOLIC PANEL - CBC - LIPID PANEL BASIC - HGB A1C - MAGNESIUM BLD 7. Prostate cancer screening - ICD9: V76.44, ICD10: Z12.5 Discussed screening options. Follow up with urologist as needed - PSA/PROSTSPECAG SCRN 8. Urinary frequency - ICD9: 788.41, ICD10: R35.0 Probably from caffeine - Patient education for prevention given 9. Recurrent kidney stones - ICD9: 592.0, ICD10: N20.0 Follow up with urologist as needed. Doing well now since last August. Kelton Serrano MD documented in this encounter [facility] 03-11-2022 Miscellaneous Notes Last office visit: 03/13/21 Next appointment scheduled: 03/18/22 Last labs: 03/10/21 Patient phones requesting refills as follows: Requested Prescriptions Pending Prescriptions Disp Refills quinapril (ACCUPRIL) 20 mg tablet 90 tablet 3 Sig: Take 1 tablet by mouth once daily. Please review and advise. Andria Aguilera LPN documented in this encounter [facility] 12-14-2021 Miscellaneous Notes Last office visit: 03/13/21 Next appointment scheduled: 03/18/22 Patient phones requesting refills as follows: Requested Prescriptions Pending Prescriptions Disp Refills Quinapril-hydroCHLOROthiazide (ACCURETIC) 20-12.5 mg per tablet 90 tablet 3 Sig: Take 1 tablet by mouth once daily. lansoprazole (PREVACID) 30 mg capsule 90 capsule 3 Sig: Take 1 capsule by mouth once daily. Please review and advise. Andria Aguilera LPN documented in this encounter [facility] 12-24-2006 History of Past i llness Narrative Problem Noted Date Resolved Date Other and unspecified hyperlipidemia 12/24/2006 09/07/2015 documented as of this encounter (statuses as of 12/14/2021) [facility] History of Past illness Narrative* Problem Noted Date Resolved Date Other and unspecified hyperlipidemia 12/24/2006 09/07/2015 documented as of this encounter (statuses as of 12/21/2021) [address] History of Past illness Narrative* Problem Noted Date Resolved Date Other and unspecified hyperlipidemia 12/24/2006 09/07/2015 documented as of this encounter (statuses as of 03/11/2022) [address] History of Past illness Narrative* Problem Noted Date Resolved Date Other and unspecified hyperlipidemia 12/24/2006 09/07/2015 documented as of this encounter (statuses as of 03/19/2022) [address] History of Past illness Narrative* Problem Noted Date Resolved Date Other and unspecified hyperlipidemia 12/24/2006 09/07/2015 documented as of this encounter (statuses as of 04/02/2022) [address] History of Past illness Narrative* Problem Noted Date Resolved Date Other and unspecified hyperlipidemia 12/24/2006 09/07/2015 documented as of this encounter (statuses as of 04/03/2022) [address] History of Past illness Narrative* Problem Noted Date Resolved Date Other and unspecified hyperlipidemia 12/24/2006 09/07/2015 documented as of this encounter (statuses as of 04/04/2022) [address] History of Past illness Narrative* Problem Noted Date Resolved Date Other and unspecified hyperlipidemia 12/24/2006 09/07/2015 documented as of this encounter (statuses as of 05/02/2022) [address] History of Past illness Narrative* Problem Noted Date Resolved Date Other and unspecified hyperlipidemia 12/24/2006 09/07/2015 documented as of this encounter (statuses as of 06/07/2022) [address] History of Past illness Narrative* Problem Noted Date Diagnosed Date Resolved Date Other and unspecified hyperlipidemia 12/24/2006 09/07/2015 documented as of this encounter (statuses as of 09/04/2022) [address] History of Past illness Narrative* Problem Noted Date Diagnosed Date Resolved Date Other and unspecified hyperlipidemia 12/24/2006 09/07/2015 documented as of this encounter (statuses as of 09/05/2022) [address] History of Past illness Narrative* Problem Noted Date Diagnosed Date Resolved Date Other and unspecified hyperlipidemia 12/24/2006 09/07/2015 documented as of this encounter (statuses as of 09/20/2022) [facility] History of Past illness Narrative* Problem Noted Date Diagnosed Date Resolved Date Other and unspecified hyperlipidemia 12/24/2006 09/07/2015 documented as of this encounter (statuses as of 09/20/2022) [facility] History of Past illness Narrative* Problem Noted Date Diagnosed Date Resolved Date Other and unspecified hyperlipidemia 12/24/2006 09/07/2015 documented as of this encounter (statuses as of 12/29/2022) [facility] History of Past illness Narrative* Problem Noted Date Diagnosed Date Resolved Date Other and unspecified hyperlipidemia 12/24/2006 09/07/2015 documented as of this encounter (statuses as of 03/28/2023) [facility] [place] [facility] Diagnosis Onset Date Resolution Status Abnormal electrocardiogram c [facility] Work Phone: Evaluation note* Diagnosis Essential hypertension Unspecified essential [facility] Essential hypertension Unspecified essential hypertension [facility] Essential hypertension Unspecified essential hypertension [facility] Diagnosis Essential hypertension- Primary Unspecified essential hypertension Mixed hyperlipidemia Elevated glucose Other abnormal glucose Elevated hemoglobin A1c Other abnormal blood chemistry Gastroesophageal reflux disease, unspecified whether esophagitis present Encounter for long-term current use of medication Prostate cancer screening Special screening for malignant neoplasm of prostate Urinary frequency Recurrent kidney stones Calculus of kidney [facility] Toe pain, bilateral- Primary [facility] Diagnosis Toe pain, bilateral- Primary Essential hypertension Unspecified essential hypertension [facility] Diagnosis Essential hypertension- Primary Unspecified essential hypertension Toe pain, bilateral [facility] Diagnosis Pain in left foot- Primary Pain in limb [facility] Diagnosis Hallux rigidus of both feet- Primary [facility] Diagnosis Hallux rigidus of both feet [facility] Essential hypertension- Primary Unspecified essential hypertension Mixed hyperlipidemia Gastroesophageal reflux disease, unspecified whether esophagitis present Encounter for immunization Need for other specified prophylactic vaccination against single bacterial disease Need for shingles vaccine Need for prophylactic vaccination and inoculation against other viral diseases Personal history of COVID-19 Encounter for long-term current use of medication [facility] [place] [facility] Diagnosis Pre-operative examination- Primary Preoperative examination, unspecified Primary osteoarthritis of right hip Primary localized osteoarthrosis, pelvic region and thigh Essential hypertension Unspecified essential hypertension Mixed hyperlipidemia Gastroesophageal reflux disease, esophagitis presence not specified Bilateral low back pain with bilateral sciatica, unspecified chronicity Benign prostatic hyperplasia without lower urinary tract symptoms Psoriasis Other psoriasis History of melanoma Personal history of malignant melanoma of skin History of kidney stones Personal history of urinary calculi Medicare annual wellness visit, subsequent- Primary Routine general medical examination at a health care facility Essential hypertension Unspecified essential hypertension Gastroesophageal reflux disease, unspecified whether esophagitis present Elevated LDL cholesterol level Pure hypercholesterolemia Primary osteoarthritis of left hip Primary localized osteoarthrosis, pelvic region and thigh Screening for depression Encounter for screening examination for other mental health and behavioral disorders Encounter for immunization Need for other specified prophylactic vaccination against single bacterial disease Encounter for long-term current use of medication Presbycusis of both ears Presbyacusis [facility] [place] [facility] Diagnosis Pre-operative examination- Primary Preoperative examination, unspecified Primary osteoarthritis of right hip Primary localized osteoarthrosis, pelvic region and thigh Essential hypertension Unspecified essential hypertension Mixed hyperlipidemia Gastroesophageal reflux disease, esophagitis presence not specified Bilateral low back pain with bilateral sciatica, unspecified chronicity Benign prostatic hyperplasia without lower urinary tract symptoms Psoriasis Other psoriasis History of melanoma Personal history of malignant melanoma of skin History of kidney stones Personal history of urinary calculi Essential hypertension- Primary Unspecified essential hypertension [facility] [place] [facility] Diagnosis Pre-operative examination- Primary Preoperative examination, unspecified Primary osteoarthritis of right hip Primary localized osteoarthrosis, pelvic region and thigh Essential hypertension Unspecified essential hypertension Mixed hyperlipidemia Gastroesophageal reflux disease, esophagitis presence not specified Bilateral low back pain with bilateral sciatica, unspecified chronicity Benign prostatic hyperplasia without lower urinary tract symptoms Psoriasis Other psoriasis History of melanoma Personal history of malignant melanoma of skin History of kidney stones Personal history of urinary calculi Essential hypertension- Primary Unspecified essential hypertension [facility] Pre-operative examination- Primary Preoperative examination, unspecified Primary osteoarthritis of right hip Primary localized osteoarthrosis, pelvic region and thigh Essential hypertension Unspecified essential hypertension Mixed hyperlipidemia Gastroesophageal reflux disease, esophagitis presence not specified Bilateral low back pain with bilateral sciatica, unspecified chronicity Benign prostatic hyperplasia without lower urinary tract symptoms Psoriasis Other psoriasis History of melanoma Personal history of malignant melanoma of skin History of kidney stones Personal history of urinary calculi Essential hypertension Unspecified essential hypertension documented in this encounter [facility] for referral (narrative)* Diagnostic Procedure Only (Routine) - Pending Review Specialty Diagnoses / Procedures Referred By Contac t Referred To Contact XR IMAGING Diagnoses Pain in left foot Procedures XR FOOT GENERAL 3V AP/LAT/OBL LEFT RADEX FOOT COMPLETE MINIMUM 3 VIEWS Brennen Johnson[address] [place] [address] Xr Imaging Referral ID Status Reason Start Date Expiration Date Visits Requested Visits Authorized [id number] Pending Review Auto-Generat ed Referral 09/03/2022 10/03/2023 1 1 [facility] for referral (narrative)* Diagnostic Procedure Only (Routine) - Closed Specialty Diagnoses / Procedures Referred By Contac t Referred To Contact XR IMAGING Diagnoses Hallux rigidus of both feet Procedures XR FOOT GENERAL 3V AP/LAT/OBL BILATERAL RADEX FOOT COMPLETE MINIMUM 3 VIEWS Brennen Johnson[address] [place] [address] Xr Imaging Referral ID Status Reason Start Date Expiration Date V isits Requested Visits Authorized [id number] Closed Auto-Generate d Referral 09/04/2022 10/04/2023 1 1 [facility] for referral (narrative)* Diagnostic Procedure Only (Routine) - Closed Specialty Diagnoses / Procedures Referred By Contac t Referred To Contact XR IMAGING Diagnoses Hallux rigidus of both feet Procedures XR FOOT GENERAL 3V AP/LAT/OBL BILATERAL RADEX FOOT COMPLETE MINIMUM 3 VIEWS Brennen [address] [place] [address] [place] [address] Referral ID Status Reason Start Date Expiration Date V isits Requested Visits Authorized [id number] Closed Auto-Generate d Referral 09/04/2022 10/04/2023 1 1 [facility] Diagnostic Procedure Only (Routine) - Closed Specialty Diagnoses / Procedures Referred By Contac t Referred To Contact XR IMAGING Diagnoses Hallux rigidus of both feet Procedures XR FOOT GENERAL 3V AP/LAT/OBL BILATERAL RADEX FOOT COMPLETE MINIMUM 3 VIEWS Brennen Johnson [address] [place] [address] [place] [address] Referral ID Status Reason Start Date Expiration Date V isits Requested Visits Authorized [id number] Closed Auto-Generate d Referral 09/04/2022 10/04/2023 1 1 [facility] Summary Purpose Family History No Family History Records Found Relationship Condition Age at Onset Recorded Date/T faith mother Malignant neoplasm Unknown father Aneurysm Unknown Advance Directives No Advanced Directives Records Found Advance Directive Response Recorded Date/ Time Advance Directives No August 29 5 2:12pm Living Will No September 02, 2021 8:19pm Power of Folder Stitcher Operator No September 02 8:19pm Latest Code Status on File Code Status Date Activated Date Inactivated Comments Full Code 04/10/2019 7:31 PM 07/04/2020 6:10 AM Latest Code Status on File Code Status Date Activated Date Inactivated Comments Full Code 04/10/2019 7:31 PM 07/04/2020 6:10 AM Latest Code Status on File Code Status Date Activated Date Inactivated Comments Full Code 04/10/2019 7:31 PM 07/04/2020 6:10 AM Date Activated Date Inactivated Comments 04/10/2019 7:31 PM 07/04/2020 6:10 AM Chief Complaint and Reason for Visit Chief Complaint 1 Y FU (RS FROM 06/12 ) abdominal pain Reason for Visit Abnormal electrocard iogram Additional Source Comments (unrecognized sect ion and content) No Status Records FoundNo Status Records FoundNo Status Records Found INFORMATION SOURCE (unrecogn ized section and content) DATE CREATED AUTHOR 04/21/2019 [facility] DATE CREATED AUTHOR AUTHOR'S ORGANIZ ATION 09/01/2023 [facility] DATE CREATED AUTHOR AUTHOR'S ORGANIZ ATION 10/01/[address] [facility] Goals (unrecognized section and content) Goals may be documented in a n alternate section Source Comments (unrecognize d section and content) In the event this informatio n is protected by the Federal Confidentiality of Alcohol and Drug Abuse Patient Records regulations: The Federal rules restrict any use of the information to criminally investigate or prosecute any alcohol or drug abuse patient.[facility] the event this information is protected by the Federal Confidentiality of Alcohol and Drug Abuse Patient Records regulations: The Federal rules restrict any use of the information to criminally investigate or prosecute any alcohol or drug abuse patient.[facility] Hospital[facility] the event this information is protected by the Federal Confidentiality of Alcohol and Drug Abuse Patient Records regulations: The Federal rules restrict any use of the information to criminally investigate or prosecute any alcohol or drug abuse patient.[facility] Hospital[facility] the event this information is protected by the Federal Confidentiality of Alcohol and Drug Abuse Patient Records regulations: The Federal rules restrict any use of the information to criminally investigate or prosecute any alcohol or drug abuse patient.[facility] the event this information is protected by the Federal Confidentiality of Alcohol and Drug Abuse Patient Records regulations: The Federal rules restrict any use of the information to criminally investigate or prosecute any alcohol or drug abuse patient.[facility] Hospital[facility] the event this information is protected by the Federal Confidentiality of Alcohol and Drug Abuse Patient Records regulations: The Federal rules restrict any use of the information to criminally investigate or prosecute any alcohol or drug abuse patient.[facility] Hospital[facility] the event this information is protected by the Federal Confidentiality of Alcohol and Drug Abuse Patient Records regulations: The Federal rules restrict any use of the information to criminally investigate or prosecute any alcohol or drug abuse patient.[facility] the event this information is protected by the Federal Confidentiality of Alcohol and Drug Abuse Patient Records regulations: The Federal rules restrict any use of the information to criminally investigate or prosecute any alcohol or drug abuse patient.[facility] Hospital[facility] the event this information is protected by the Federal Confidentiality of Alcohol and Drug Abuse Patient Records regulations: The Federal rules restrict any use of the information to criminally investigate or prosecute any alcohol or drug abuse patient.[facility] the event this information is protected by the Federal Confidentiality of Alcohol and Drug Abuse Patient Records regulations: The Federal rules restrict any use of the information to criminally investigate or prosecute any alcohol or drug abuse patient.[facility] the event this information is protected by the Federal Confidentiality of Alcohol and Drug Abuse Patient Records regulations: The Federal rules restrict any use of the information to criminally investigate or prosecute any alcohol or drug abuse patient.[facility] Hospital[facility] the event this information is protected by the Federal Confidentiality of Alcohol and Drug Abuse Patient Records regulations: The Federal rules restrict any use of the information to criminally investigate or prosecute any alcohol or drug abuse patient.[facility] HospitalIn the event this information is protected by the Federal Confidentiality of Alcohol and Drug Abuse Patient Records regulations: The Federal rules restrict any use of the information to criminally investigate or prosecute any alcohol or drug abuse patient.[facility] HospitalIn the event this information is protected by the Federal Confidentiality of Alcohol and Drug Abuse Patient Records regulations: The Federal rules restrict any use of the information to criminally investigate or prosecute any alcohol or drug abuse patient.[facility] HospitalIn the event this information is protected by the Federal Confidentiality of Alcohol and Drug Abuse Patient Records regulations: The Federal rules restrict any use of the information to criminally investigate or prosecute any alcohol or drug abuse patient.[facility] HospitalIn the event this information is protected by the Federal Confidentiality of Alcohol and Drug Abuse Patient Records regulations: The Federal rules restrict any use of the information to criminally investigate or prosecute any alcohol or drug abuse patient.[facility] HospitalIn the event this information is protected by the Federal Confidentiality of Alcohol and Drug Abuse Patient Records regulations: The Federal rules restrict any use of the information to criminally investigate or prosecute any alcohol or drug abuse patient.[facility] HospitalIn the event this information is protected by the Federal Confidentiality of Alcohol and Drug Abuse Patient Records regulations: The Federal rules restrict any use of the information to criminally investigate or prosecute any alcohol or drug abuse patient.[facility] HospitalIn the event this information is protected by the Federal Confidentiality of Alcohol and Drug Abuse Patient Records regulations: The Federal rules restrict any use of the information to criminally investigate or prosecute any alcohol or drug abuse patient.[facility] HospitalIn the event this information is protected by the Federal Confidentiality of Alcohol and Drug Abuse Patient Records regulations: The Federal rules restrict any use of the information to criminally investigate or prosecute any alcohol or drug abuse patient.[facility] Care Teams (unrecognized sec tion and content) Aircraft Structural Fitter Relationship Specialty Start Date End Date Kelton Serrano MD [address] [place], [place] [address] PCP - General Internal Medicine 10/18/16 Nicholas Dela Cruz MD [address] [place] [address] Referring Orthopedics 04/07/19 Nicholas Dela Cruz MD [address] [facility] [place] [address] Home Care Provider Orthopedics 04/07/19 Maame Fontana, PT [address] [place] [address] Recruiting Operations Consultant Acute Care 04/09/19 Aircraft Structural Fitter Relationship Specialty Start Date End Date Kelton Serrano MD [address] [place] [address] PCP - General Internal Medicine 10/18/16 Nicholas Dela Cruz MD [address] [facility] [place] [address] Referring Orthopedics 04/07/19 Nicholas Dela Cruz MD [address] [facility] [place] [address] Home Care Provider Orthopedics 04/07/19 Maame Fontana, PT [address] [place] [address] Recruiting Operations Consultant Acute Care 04/09/19 Aircraft Structural Fitter Relationship Specialty Start Date End Date Kelton Serrano MD [address] [facility] [place] [address] PCP - General Internal Medicine 10/18/16 Nicholas Dela Cruz MD [address] [facility] [address] Referring Orthopedics 04/07/19 Nicholas Dela Cruz MD [address] [facility] [address] Home Care Provider Orthopedics 04/07/19 Maame Fontana, PT [address] [place] [address] Recruiting Operations Consultant Acute Care 04/09/19 Aircraft Structural Fitter Relationship Specialty Start Date End Date Kelton Serrano MD [address] [facility] [place] [address] PCP - General Internal Medicine 10/18/16 Nicholas Dela Cruz MD [address] [facility] [address] Referring Orthopedics 04/07/19 Nicholas Dela Cruz MD [address] [facility] [address] Home Care Provider Orthopedics 04/07/19 Maame Fontana, PT [address] [place] [address] Recruiting Operations Consultant Acute Care 04/09/19 Aircraft Structural Fitter Relationship Specialty Start Date End Date Kelton Serrano MD [address] [facility] [place] [address] PCP - General Internal Medicine 10/18/16 Nicholas Dela Cruz MD [address] [place] [address] Referring Orthopedics 04/07/19 Nicholas Dela Cruz MD [address] [place] [address] Home Care Provider Orthopedics 04/07/19 Maame Fontana, PT [address] [place] [address] Recruiting Operations Consultant Acute Care 04/09/19 Aircraft Structural Fitter Relationship Specialty Start Date End Date Kelton Serrano MD [address] [place] [address] PCP - General Internal Medicine 10/18/16 Nicholas Dela Cruz MD [address] [place] [address] Referring Orthopedics 04/07/19 Nicholas Dela Cruz MD [address] [place] [address] Home Care Provider Orthopedics 04/07/19 Maame Fontana, PT [address] [place] [address] Recruiting Operations Consultant Acute Care 04/09/19 Aircraft Structural Fitter Relationship Specialty Start Date End Date Kelton Serrano MD [address] [facility] [address] PCP - General Internal Medicine 10/18/16 Nicholas Dela Cruz MD [address] [place] [address] Referring Orthopedics 04/07/19 Nicholas Dela Cruz MD [address] [place] [address] Home Care Provider Orthopedics 04/07/19 Maame Fontana, PT [address] [place] [address] Recruiting Operations Consultant Acute Care 04/09/19 Aircraft Structural Fitter Relationship Specialty Start Date End Date Kelton Serrano MD [address] [facility] [place] [address] PCP - General Internal Medicine 10/18/16 Nicholas Dela Cruz MD [address] [facility] [place] [address] Referring Orthopedics 04/07/19 Nicholas Dela Cruz MD [address] [place] [address] Home Care Provider Orthopedics 04/07/19 Maame Fontana, PT [address] [place] [address] Recruiting Operations Consultant Acute Care 04/09/19 Aircraft Structural Fitter Relationship Specialty Start Date End Date Kelton Serrano MD [address] [facility] [place] [address] PCP - General Internal Medicine 10/18/16 Nicholas Dela Cruz MD [address] [place] [address] Referring Orthopedics 04/07/19 Nicholas Dela Cruz MD [address] [place] [address] Home Care Provider Orthopedics 04/07/19 Maame Fontana, PT [address] [place] [address] Recruiting Operations Consultant Acute Care 04/09/19 Aircraft Structural Fitter Relationship Specialty Start Date End Date Kelton Serrano MD [address] [place] [address] PCP - General Internal Medicine 10/18/16 Nicholas Dela Cruz MD [address] [place] [address] Referring Orthopedics 04/07/19 Nicholas Dela Cruz MD [address] [place] [address] Home Care Provider Orthopedics 04/07/19 Maame Fontana, PT [address] [place] [address] Recruiting Operations Consultant Acute Care 04/09/19 Aircraft Structural Fitter Relationship Specialty Start Date End Date Kelton Serrano MD [address] [facility] [place] [address] PCP - General Internal Medicine 10/18/16 Nicholas Dela Cruz MD [address] [place] [address] Referring Orthopedics 04/07/19 Nicholas Dela Cruz MD [address] [place] [address] Home Care Provider Orthopedics 04/07/19 Maame Fontana, PT [address] [place] [address] Recruiting Operations Consultant Acute Care 04/09/19 Aircraft Structural Fitter Relationship Specialty Start Date End Date Kelton Serrano MD [address] [facility] [address] PCP - General Internal Medicine 10/18/16 Nicholas Dela Cruz MD [address] [place] [address] Referring Orthopedics 04/07/19 Nicholas Dela Cruz MD [address] [place] [address] Home Care Provider Orthopedics 04/07/19 Maame Fontana, PT [address] [facility] [place] [address] Recruiting Operations Consultant Acute Care 04/09/19 Aircraft Structural Fitter Relationship Specialty Start Date End Date Kelton Serrano MD [address] [facility] [address] PCP - General Internal Medicine 10/18/16 Nicholas Dela Cruz MD [address] [place] [address] Referring Orthopedics 04/07/19 Nicholas Dela Cruz MD [address] [place] [address] Home Care Provider Orthopedics 04/07/19 Maame Fontana, PT [address] [place] [address] Recruiting Operations Consultant Acute Care 04/09/19 10/31/22 Maame Fontana, PT [address] [facility] [place] [address] Recruiting Operations Consultant Acute Care 04/09/19 Aircraft Structural Fitter Relationship Specialty Start Date End Date Kelton Serrano MD [address] [facility] [address] PCP - General Internal Medicine 10/18/16 Nicholas Dela Cruz MD [address] [place] [address] Referring Orthopedics 04/07/19 Nicholas Dela Cruz MD [address] [place] [address] Home Care Provider Orthopedics 04/07/19 Aircraft Structural Fitter Relationship Specialty Start Date End Date Kelton Serrano MD [address] [place] [address] PCP - General Internal Medicine 10/18/16 Nicholas Dela Cruz MD [address] [place] [address] Referring Orthopedics 04/07/19 Nicholas Dela Cruz MD [address] [place] [address] Home Care Provider Orthopedics 04/07/19 Kaye Daily APRN.POWER SWITCHBOARD OPERATOR [address] [place] [address] Steam Turbine Assembler Internal Medicine 02/02/24 Yaritza Tineo APRN.BOTTLING EQUIPMENT SALES REPRESENTATIVE [address] [place] [address] Steam Turbine Assembler Internal Medicine 02/02/24 Aircraft Structural Fitter Relationship Specialty Start Date End Date Kelton Serrano MD [address] [place] [address] PCP - General Internal Medicine 10/18/16 Nicholas Dela Cruz MD [address] [place] [address] Referring Orthopedics 04/07/19 Nicholsa Dela Cruz MD [address] [place] [address] Home Care Provider Orthopedics 04/07/19 Kaye Daily APRN.POWER SWITCHBOARD OPERATOR [address] [place] [address] Steam Turbine Assembler Internal Medicine 02/02/24 Yaritza Tineo APRN.BOTTLING EQUIPMENT SALES REPRESENTATIVE [address] [place] [address] Steam Turbine Assembler Internal Medicine 02/02/24 Aircraft Structural Fitter Relationship Specialty Start Date End Date Kelton Serrano MD [address] [place] [address] PCP - General Internal Medicine 10/18/16 Nicholas Dela Cruz MD [address] [place] [address] Referring Orthopedics 04/07/19 Nicholas Dela Cruz MD [address] [place] [address] Home Care Provider Orthopedics 04/07/19 Kaye Daily APRN.POWER SWITCHBOARD OPERATOR [address] [place] [address] Steam Turbine Assembler Internal Medicine 02/02/24 Yaritza Tineo APRN.BOTTLING EQUIPMENT SALES REPRESENTATIVE [address] [place] [address] Steam Turbine Assembler Internal Medicine 05/18/24 Aircraft Structural Fitter Relationship Specialty Start Date End Date Kelton Serrano MD [address] [place] [address] PCP - General Internal Medicine 10/18/16 Nicholas Dela Cruz MD [address] [place] [address] Referring Orthopedics 04/07/19 Nicholas Dela Cruz MD [address] [place] [address] Home Care Provider Orthopedics 04/07/19 Kaye Daily APRN.POWER SWITCHBOARD OPERATOR [address] [place] [address] Steam Turbine Assembler Internal Medicine 02/02/24 Yaritza Tineo APRN.BOTTLING EQUIPMENT SALES REPRESENTATIVE [address] [place] [address] Steam Turbine Assembler Internal Medicine 05/18/24 Aircraft Structural Fitter Relationship Specialty Start Date End Date Kelton Serrano MD [address] [place] [address] PCP - General Internal Medicine 10/18/16 Nicholas Dela Cruz MD [address] [place] [address] Referring Orthopedics 04/07/19 Nicholas Dela Cruz MD [address] [place] [address] Home Care Provider Orthopedics 04/07/19 Yaritza Tineo APRN.BOTTLING EQUIPMENT SALES REPRESENTATIVE [address] [place] [address] [facility] Internal Medicine 05/18/24 Killian Kaye, EMILY.POWER SWITCHBOARD OPERATOR [address] [place] [address] [facility] Internal Medicine 07/14/24 Reason for Visit (unrecogniz ed section and content) Reason Comments Med Change Request Reason Onset Date Comments Refill Request 03/10/2022 Reason Comments Yearly Exam Reason Comments Pain (foot) bilateral left x 3 w eeks, right x 2 days Reason Comments Results Reason Comments Blood Pressure Reason Comments New Pain Swelling Reason Onset Date Comments Refill Request 09/19/2022 Reason Comments Medicare Wellness Exam Reason Comments Blood Pressure follow up Reason Onset Date Comments Refill Request 07/02/2024 Reason Comments Appointment FOR RECORDS PERTAINING TO PATIENTS WHO ARE OR HAVE BEEN ENROLLED IN A CHEMICAL DEPENDENCY/SUBSTANCEABUSE PROGRAM, SOME INFORMATION MAY BE OMITTED. This clinical summary was aggregated from multiple sources. Caution should be exercised in using it in the provision of clinical care. This summary normalizes information from multiple sources, and as a consequence, information in this document may materially change the coding, format and clinical context of patient data. In addition, data may be omitted in some cases. CLINICAL DECISIONS SHOULD BE BASED ON THE PRIMARY CLINICAL RECORDS. [facility] [employer] [facility]. provides no warranty or guarantee of the accuracy or completeness of information in this document.
[2024-10-07 07:49] LABS: Color, Urine Yellow (Yellow); Glucose, Dipstick Normal (Normal); Ketone-Dipstick Negative (Negative); Leukocyte Esterase-Dipstick Negative /ul (Negative); Nitrite-Dipstick Negative (Negative); Occult Blood-Urine 250 /ul (Negative); Protein-Dipstick 30 mg/dl (Negative); Specific Gravity, Urine 1.015 (1.002-1.030); Urine Bilirubin Dipstick Negative (Negative)
[2024-10-07 08:01] LABS: Anion Gap 15 (5-15); BUN 21 mg/dL (4-19); BUN/Creat Ratio 17.4 RATIO (10-20); Calcium,Total 9.7 mg/dL (7.6-11.0); Carbon Dioxide 19.5 mmol/L (21.0-32.0); Chloride 103 mmol/L (98-108); Estimated Creatinine Clearance 59.55 ml/min (50-250); Glucose 149 mg/dL (70-99); Potassium 4.3 mmol/L (3.3-5.1)
[2024-10-07 08:12] VITALS: BP 166/88; PULSE 73; RESP 20; TEMP 36.7; O2SAT 98
[2024-10-07 08:13] LABS: Red Blood Cells-Urine > 100 SEEN /hpf (0-5)
[2024-10-07 09:00] VITALS: BP 134/73; PULSE 60; RESP 18; TEMP 36.7; O2SAT 95
[2024-10-07 09:53] VITALS: BP 134/73; PULSE 65; RESP 18; TEMP 36.7; O2SAT 93
== END 2024-10-07 09:54 | disposition home or self-care (01) ==
PROVIDERS: Emergency Provider Emergency Medicine; PCP Internal Medicine; Visit Provider Emergency Medicine
DX: N13.2 Hydronephrosis with renal and ureteral calculous obstruction (principal); K57.90 Diverticulosis of intestine, part unspecified, without perforation or abscess without bleeding; I10 Essential (primary) hypertension; Z79.899 Other long term (current) drug therapy
CPT/HCPCS: 74176; 80048; 81001; 96361; 96374; 96375; 99284; Q9967; A4216; J2405

== ENCOUNTER 2024-10-09 02:09 | Observation (INO) | payer MEDICARE, SELFPAY ==
[2024-10-09] VITALS (14 sets, daily range): BP systolic 116–183; BP diastolic 67–104; PULSE 77–98; RESP 1–20; TEMP 36.4–36.9; O2SAT 92–99; BMI 27.1; BMI 26.0
[2024-10-09 02:50] LABS: Mucous, Urine 0 SEEN /hpf (<or=2+); Squamous Epithelial Cells - UA 0 SEEN /hpf (0-5)
[2024-10-09 02:52] LABS: Hematocrit 41.8 % (40-54); Hemoglobin 14.0 g/dL (13.0-16.5); Immature Granulocytes Count 0.040 X10^3/uL (0.0-0.0); Mean Corp Hgb Conc 33.5 g/dL (32-36); Mean Corpuscular Volume 93.5 fL (80-94); Mean Platelet Vol. 9.4 fl (6.2-12.0); NRBC Flagged by Analyzer 0 % (0-5); Platelet Count 247 K/mm3 (150-450); RBC Distribution Width CV 13.4 % (11.6-14.6); RBC Distribution Width SD 45.8 fl (35.1-43.9); Red Blood Count 4.47 M/mm3 (4.6-6.2); White Blood Count 7.3 K/mm3 (4.4-11.0)
[2024-10-09 02:53] LABS: Color, Urine Straw (Yellow); Glucose, Dipstick Normal (Normal); Ketone-Dipstick Negative (Negative); Leukocyte Esterase-Dipstick Negative /ul (Negative); Nitrite-Dipstick Negative (Negative); Occult Blood-Urine 250 /ul (Negative); Protein-Dipstick 30 mg/dl (Negative); Specific Gravity, Urine 1.010 (1.002-1.030); Urine Bilirubin Dipstick Negative (Negative)
[2024-10-09 03:04] LABS: Red Blood Cells-Urine 0-5 SEEN /hpf (0-5)
[2024-10-09 03:09] LABS: Anion Gap 12 (5-15); BUN 24 mg/dL (4-19); BUN/Creat Ratio 16.7 RATIO (10-20); Calcium,Total 9.2 mg/dL (7.6-11.0); Carbon Dioxide 24.2 mmol/L (21.0-32.0); Chloride 102 mmol/L (98-108); Estimated Creatinine Clearance 51.94 ml/min (50-250); Glucose 112 mg/dL (70-99); Potassium 3.8 mmol/L (3.3-5.1)
--- NOTE | 2024-10-09 03:21 | ED.VIS.GI ---
HPI HPI - GI History of Present Illness Chief Complaint: Abd Pain Informant: patient and spouse/S.O. Narrative Narrative: 79-year-old male diagnosed today before yesterday with left-sided kidney stones, pain is just started, he returns for pain that he is having difficulty controlling despite taking the prescribed oxycodone. He denies any new symptoms. He denies gross hematuria, urinary retention, movement of the pain which is in his mid left flank, or vomiting/fever/chills. He has had some nausea. PFSH PFSH Medical History Kidney stone Abnormal electrocardiogram Cholelithiasis Neuropathy Hypertrophy of prostate without urinary obstruction Osteoarthritis History of melanoma Nocturia Kidney stones GERD (gastroesophageal reflux disease) Essential (primary) hypertension Hyperlipidemia Home Medications ?Medication ?Instructions ?Recorded ?Last Taken ?Type multivitamin-iron 9 mg-folic acid 1 tablet PO DAILY supplement 08/29/14 Unknown History 400 mcg-calcium and minerals tablet lansoprazole 30 mg capsule,delayed 30 mg PO DAILY gerd 06/07/20 Unknown History release lisinopril 30 mg tablet 30 mg PO DAILY bp 10/25/22 Unknown History oxycodone 5 mg capsule 5 mg PO Q6H PRN pain 5 days #20 10/07/24 Unknown Rx caps amlodipine 5 mg tablet 5 mg PO DAILY bp 10/09/24 Unknown History Allergy/AdvReac Type Severity Reaction Status Date / Time acetaminophen (From Tylenol) Allergy Rash Verified 10/07/24 07:12 doxazosin mesylate (From AdvReac Other Verified 10/07/24 07:12 Cardura) pantoprazole sodium (From AdvReac Other Verified 10/07/24 07:12 Protonix) triamterene AdvReac Other Verified 10/07/24 07:12 Family History Mother Cancer Father Aneurysm Surgical History History of colonoscopy History of herniorrhaphy History of cholecystectomy History of total hip arthroplasty Social History Smoking Status: Never smoker alcohol intake: current alcohol intake frequency: a few times a week Alcohol type: beer details: 1 beer 4 times a week ROS ROS ED Constitutional Constitutional ED: Denies chills or fever(s) Eyes Eyes: Denies change in vision or diplopia ENT ENT ED: Denies rhinorrhea or sore throat Cardiovascular Cardiovascular: Denies chest pain or palpitations Respiratory/Chest Respiratory/Chest: Denies cough or dyspnea Gastrointestinal Gastrointestinal: Reports abdominal pain and nausea; Denies diarrhea or vomiting Genitourinary Genitourinary ED: Reports flank pain; Denies dysuria or hematuria Musculoskeletal Musculoskeletal: Denies back pain or neck pain Integumentary Denies abscess or rash Neurologic Neurologic: Denies headache(s), paresthesias or weakness Psychiatric Psychiatric: Denies anxiety or suicidal thoughts EXAM Physical Exam Const Vital Signs: 10/09/24 02:09 10/09/24 04:00 Temperature 97.6 F L 97.9 F Temperature Source Oral Pulse Rate 90 79 Respiratory Rate 20 H 18 Blood Pressure 183/104 H 136/77 H Blood Pressure Mean 130 96 Pulse Ox 96 99 Oxygen Delivery Method Room Air Positive well nourished and well developed General Appearance ED: well developed and NAD HEENT Reports moist mucous membranes normocephalic and atraumatic Eyes PERRL and EOMs intact bilaterally Neck full ROM and supple Resp normal respiratory effort and clear to auscultation bilaterally Cardio regular rate, regular rhythm and no murmurs GI non-tender and non-distended Auscultation: normoactive bowel sounds Palpation: soft Back/Spine General Back: CVA tenderness left (Mild) and other FROM Extremity normal to inspection General Extremety ED: Negative for edema, pulses abnormal or tenderness General Extremity: Negative for edema or pulses abnormal Neuro oriented x3, CN's II-XII intact bilaterally and no sensory deficits noted Sensorium / Orientation: awake and alert Motor Exam: strength 5/5 throughout Skin no rashes or lesions noted and no wounds MDM MDM MDM Narrative Medical decision making narrative: I repeated the patient's labs and renal function and urinalysis. On my interpretation still no evidence of infection, his creatinine is elevated a little, not necessarily enough to qualify for BRUNA at this time. He has had higher creatinines in the past. Does not have a significant leukocytosis to suggest that he is septic nor is there leftward shift or bandemia. Gave him some morphine and Zofran, the morphine did not seem to help much so then he was given a small dose of Dilaudid and observed, which helped his pain some, but he is still uncomfortable. I reviewed his prior records from his prior ED visit, his CT showed a left renal nonobstructing calculus on the left that 9 x 11 mm, and then smaller obstructing stones in the ureter measuring 6 x 2 mm and 3 mm for the other. Patient states yesterday he had some gross hematuria and thought maybe he passed a stone because his pain went away and then came back and is taking oxycodone which did not help at all. He wants to stay in the hospital for pain control. He has an appointment with Dr. Vasquez urology for a first appointment in 1 week; discussed with him as well he will consult. History & Record Review Additional record(s) reviewed:: Prior ED visit and Prior labs Lab Data Attestation: I reviewed the patient's lab results. Labs: Laboratory Results - last 24 hr 10/09/24 02:45 WBC 7.3 RBC 4.47 L Hgb 14.0 Hct 41.8 MCV 93.5 MCH 31.3 MCHC 33.5 RDW Std Deviation 45.8 H RDW Coeff of Lidia 13.4 Plt Count 247 MPV 9.4 Immature Gran % (Auto) 0.500 Neut % (Auto) 68.7 Lymph % (Auto) 21.1 Meagher % (Auto) 7.5 Eos % (Auto) 1.5 Baso % (Auto) 0.7 Absolute Neuts (auto) 5.0 Absolute Lymphs (auto) 1.55 Nucleated RBC % 0 Sodium 138 Potassium 3.8 Chloride 102 Carbon Dioxide 24.2 Anion Gap 12 BUN 24 H Creatinine 1.41 H Estim Creat Clear Calc 51.94 Est GFR (MDRD) Non-Af 51 L BUN/Creatinine Ratio 16.7 Glucose 112 H Calcium 9.2 Magnesium 2.0 TSH 3.600 Urine Color Straw Urine Clarity Sl. Cloudy Urine pH 6.5 Ur Specific [place] 1.010 Urine Protein 30 H Urine Glucose (UA) Normal Urine Ketones Negative Urine Occult Blood 250 H Urine Nitrite Negative Urine Bilirubin Negative Urine Urobilinogen Normal Ur Leukocyte Esterase Negative Urine RBC 0-5 SEEN Urine WBC 0 SEEN Ur Squamous Epith Cells 0 SEEN Urine Bacteria 0 SEEN Urine Mucus 0 SEEN Management Discussion w/another healthcare provider: Hospitalist and Gang Plank Workman (Urology) Discharge Plan Dx/Rx/DC Orders Clinical Impression: Intractable abdominal pain, Ureteral colic, Ureterolithiasis, Bilateral nephrolithiasis Disposition Disposition: Acute Care Hospital [facility] Discharge Date/Time: 10/09/24 05:19
[2024-10-09] MEDS: HYDROmorphone 0.5 MG/0.5 ML SYRINGE IV ×2 (03:23→05:40)
--- OUTSIDE RECORDS SUMMARY | 2024-10-09 03:32 | XMS RPT_ITS | CCD ---
Author Organization [facility] Clini[facility]vt Care Team Providers Care Manager Of Pharmacy Name Role Phone Dr. Kelton Serrano Primary [...] Unavailable Marizol PT, Maame Unavailable Marizol PT, Mamae Unavailable Kelton Serrano MD Primary Care Provider Daily MORNING NEWS PRODUCER.ENGINE DESIGNER, Kaye Unavailable Raz MORNING NEWS PRODUCER.KST OPERATOR, Yaritza Unavailable Raz MORNING NEWS PRODUCER.KST OPERATOR, Yaritza Unavailable Raz MORNING NEWS PRODUCER.KST OPERATOR, Yaritza Unavailable Daily MORNING NEWS PRODUCER.ENGINE DESIGNER, Kaye Unavailable KELTON SERRANO Referring Unavailable KELTON SERRANO Primary Care Unavailable KELTON SERRANO Primary Care Unavailable KELTON SERRANO Attending Unavailable KELTON SERRANO Primary Care Unavailable YARITZA TINEO Attending Unavailable KELTON SERRANO Primary Care Unavailable YARITZA TINEO Attending Unavailable Jenelle VALDES, Dr. Kelton Perez Primary Care Provider Dr. Meño Barraza MD Emergency Provider Meño Barraza Attending Unavailable Kelton Serrano Primary Care Unavailable Allergies Allergy Classification Reported Allergen(s) Allergy Type Date of Onset Reaction(s) Facility (20 sources) Acetaminophen; Translations: [ACETAMINOPHEN] Drug Allergy 020 Rash [facility] Work Phone: (20 sources) Doxazosin; Translations: [DOXAZOSIN MESYLATE] Drug Allergy 005 Intolerance [facility] (20 sources) pantoprazole; Translations: [PANTOPRAZOLE SODIUM] Drug Allergy 014 Other: See Comments [facility] (2 sources) Triamterene Drug Allergy 022 Other [facility] (20 sources) hydroCHLOROthiazide / Triamterene; Translations: [TRIAMTERENE-HYDROCHLO ROTHIAZID] Drug Allergy 005 Intolerance [facility] (6 sources) beta-Blocking agent; Translations: [BETA-BLOCKERS (BETA-ADRENERGIC BLOCKING AGTS)] Drug Intolerance Other: See Comments [facility] (1 source) Acetaminophen Drug Allergy [facility] (1 source) Triamterene Drug Allergy 025 [facility] Medications Current Medications Medication Drug Class(es) Dates Sig (Normalized) Sig (Original) acetaminophen 325 mg / oxyCODONE hydrochloride 5 mg oral tablet (3 sources) Opioid Agonist Start: 10-25-2022 take 1 tablet by mouth every six hours as needed for pain Oxycodone-Acetamin ophen 5-325 mg tablet Active 1 {tbl} PO EVERY 6 HOURS NEEDED as needed for Pain 12 3 0 October 25, 2022 Ureteric colic Unspecified renal colic Start: 08-31-2014 End: 06-06-2020 Oxycodone-Acetaminophen 1 TA BLET tablet Discontinued 1 - 2 {tbl} PO EVERY 4 HOURS NEEDED as needed for Pain 30 0 August 31, 2014 12:00am June 06, 2020 9:59pm Start: 08-31-2014 End: 06-06-2020 take 1 tablet by mouth every four hours as needed Oxycodone-Acetaminophen Discontinued 1 - 2 TABLET PO EVERY 4 HOURS NEEDED August 31, 2014 12:00am June 06, 2020 9:59pm amLODIPine 5 mg oral tablet (7 sources) Dihydropyridine Calcium Channel Raphael Start: 07-05-2024 [...] 07/02/2024 Discontinued Start: 06-07-2020 End: 06-07-2021 take 1 tablet by mouth once daily Amlodipine 5 mg tablet Discontinued 5 mg PO DAILY 90 3 June 07, 2020 12:00am June 07, 2021 9:21am fluorouracil 50 mg/ml topical cream (6 sources) Nucleoside Metabolic Inhibitor Start: 12-16-2022 Fluorouracil 5 % cream Apply 1 application to affected area as directed. 12/16/2022 Active Comment on above: Apply 1 application to affected area as directed. lansoprazole 30 mg delayed release oral capsule (20 sources) Proton Pump Inhibitor Start: 08-29-2014 End: 03-29-2024 take 1 capsule by mouth once daily lansoprazole (PREVACID) 30 mg capsule Take 1 capsule by mouth once daily. 90 capsule 3 03/29/2024 Active Comment on above: Take 1 capsule by mo [facility] once daily. lisinopril 30 mg oral tablet (16 sources) Angiotensin Converting Enzyme Inhibitor Start: 06-06-2022 End: 03-29-2025 take 1 tablet by mouth once daily Lisinopril 30 mg tablet Active 30 mg PO DAILY October 25, 2022 12:00am Comment on above: [facility] [address] [facility] [address] [facility] Umsuihvc-Joxx-Wk-Ca lcium-Mins (1 source) Start: 08-29-2014 take 1 tablet by mouth once daily Nnhlmnpt-Snbm-Ud-C alcium-Mins Active 1 TABLET PO DAILY August 29, 2014 12:00am Cvjhagim-Ecnd-Km-Ca lcium-Mins 1 TABLET tablet (1 source) Start: 08-29-2014 take 1 tablet by mouth once daily Lkncbcye-Rjov-Fo-C alcium-Mins 1 TABLET tablet Active 1 {tbl} PO DAILY August 29, 2014 12:00am Multivitamins-Glascock als-Lutein (CENTRUM SILVER) tab (20 sources) Start: 03-23-2013 take 1 tablet by mouth once daily Multivitamins-Mine rals-Lutein (CENTRUM SILVER) tab Take 1 tablet by mouth once daily. 0 03/23/2013 Active Comment on above: Take 1 tablet by edgard once daily. yd-zfc-SL-vit R-meepvb-amqahqk (PRESERVISION AREDS 2 PLUS MV) 200 mcg-15 mcg- 5 mg-1 mg cap (6 sources) Start: 03-24-2023 take 1 capsule by mouth once daily gg-ncj-XI-vit F-uyewgd-vqleick (PRESERVISION AREDS 2 PLUS MV) 200 mcg-15 mcg- 5 mg-1 mg cap Take 1 capsule by mouth once daily. 03/24/2023 Active Start: 03-24-2023 take 1 capsule by mo [facility] once daily es-fcs-WO-vit Z-fdczcy-gsredqt (PRESERVISION AREDS 2 PLUS MV) 200 mcg-15 mcg- 5 mg-1 mg cap Take 1 capsule by mouth once daily. 0 03/24/2023 Active Comment on above: Take 1 capsule by mo ut once daily. oxyCODONE hydrochloride 5 mg oral capsule (3 sources) Opioid Agonist Start: take 1 capsule by mouth every six hours as needed for pain Oxycodone 5 mg capsule Active 5 mg PO EVERY 6 HOURS as needed for pain 20 5 0 October 07, 2024 Hydronephrosis with urinary obstruction due to ureteral calculus Renal insufficiency Hydronephrosis with renal and ureteral calculous obstruction Disorder of kidney and ureter, unspecified Start: 09-02-2021 End: 10-25-2022 take 1 capsule by mouth every eight hours as needed for pain Oxycodone 5 mg capsule Discontinued 5 mg PO Q8H as needed for pain 12 3 0 September 02, 2021 October 25, 2022 2:25am Calculus of kidney Calculus of kidney Completed/Discontinued Medications Medication Drug Class(es) Dates Sig (Normalized) Sig (Original) aspirin 81 mg delayed release oral tablet (14 sources) Platelet Aggregation Inhibitor, Nonsteroidal Anti-inflammatory Drug Start: 06-06-2020 End: 10-25-2022 Aspirin (Adult Low Dose Aspirin) 81 mg tablet,delayed release (DR/EC) Discontinued 81 mg PO DAILY June 06, 2020 12:00am October 25, 2022 2:24am Start: 04-09-2019 End: 03-24-2023 take 1 tablet by mouth twice daily aspirin, enteric coated (ASPIRIN, ENTERIC COATED) 81 mg EC tablet TAKE 1 TABLET BY MOUTH TWICE DAILY. 60 tablet 0 04/09/2019 03/24/2023 Discontinued (Other) Comment on above: TAKE 1 TABLET BY EDGARD TWICE DAILY. cholecalciferol 0.05 mg oral tablet (9 sources) Vitamin D Start: 08-30-19 End: 06-08-19 take 2 tablets by mouth once daily Cholecalciferol (Vitamin D3) 1,000 UNIT tablet Discontinued 2000 U PO DAILY August 29, 2014 12:00am June 07, 2021 9:21am Start: 08-29-2014 End: 06-07-2021 take 2000 [IU] by mouth once daily Cholecalciferol (Vitamin D3) Discontinued 2000 UNIT PO DAILY August 29, 2014 12:00am June 07, 2021 9:21am Start: 12-01-2008 End: 04-04-2022 CHOLECALCIFEROL (VITAMIN D3) 2,000 UNIT CAP Take one(1) tablet daily. 1 0 12/01/2008 04/04/2022 Discontinued Comment on above: Take one(1) tablet d aily. colchicine 0.6 mg oral tablet (12 sources) Start: 023 End: 024 colchicine 0.6 mg tablet Indications: [...] mg / quinapril 20 mg oral tablet (5 sources) Thiazide Diuretic, Angiotensin Converting Enzyme Inhibitor Start: 021 End: 023 take 1 tablet by mouth once daily [...] Active Comment on above: Take as directed ondansetron 4 mg disintegrating oral tablet (2 sources) Serotonin-3 Receptor Antagonist Start: 09-03-19 End: 10-26-19 23 take 1 tablet by mouth every eight hours as needed for nausea and vomiting Ondansetron 4 mg tablet,disintegratin g Discontinued 4 mg PO Q8H as needed for nausea and vomiting 14 0 September 02, 2021 12:00am October 25, 2022 2:25am quinapril 10 mg oral tablet (16 sources) Angiotensin Converting Enzyme Inhibitor Start: 05-03-19 23 End: 06-07-19 23 take 1 tablet by mouth once daily [...] 05/02/2022 06/06/2022 Discontinued Start: 08-29-2014 End: 06-06-2020 Quinapril 10 MG tablet Disco ntinued 12.5 mg PO DAILY August 29, 2014 12:00am June 06, 2020 9:59pm Start: 08-29-2014 End: 06-06-2020 take 12.5 mg [...] daily triamcinolone acetonide 1 mg/ml topical cream (2 sources) Corticosteroid Start: 06-06-2020 End: 06-07-2020 Triamcinolone Acetonide 0.1 % cream Discontinued NMA TOPICAL TWICE A DAY as needed June 06, 2020 12:00am June 07, 2020 11:01am Problems Active Problems Problem Classification Problem Date Documented Date Episodic/Chronic Abdominal pain (1 source) Left inguinal pain; Translations: [Left lower quadrant pain] 08-27-2023 Episodic Acquired foot deformities (2 sources) Toe joint rigid; 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, right foot] 09-04-2022 Chronic Calculus of urinary tract (20 sources) Kidney stone; Translations: [Calculus of kidney] Onset: 07-13-2014 07-13-2014 Episodic Diabetes mellitus without complication (2 sources) Increased glucose level; Translations: [Other abnormal glucose] Episodic Disorders of lipid metabolism (20 sources) Hyperlipidemia; Translations: [Hyperlipidemia, unspecified] Onset: 12-24-2006 Resolved: 09-07-2015 09-07-2015 Chronic Diverticulosis and diverticulitis (1 source) Diverticular disease; Translations: [Diverticulosis of intestine, part unspecified, without perforation or abscess without bleeding] 10-07-2024 Chronic Esophageal disorders (20 sources) Gastroesophageal reflux disease; Translations: [Gastro-esophageal reflux disease without esophagitis] Onset: 03-24-2019 03-24-2019 Chronic Essential hypertension (20 sources) Essential hypertension; Translations: [Essential (primary) hypertension] Onset: 08-28-2005 Chronic Genitourinary symptoms and ill-defined conditions (20 sources) Nocturia; Translations: [Nocturia] Onset: 12-24-2006 12-24-2006 Episodic Hyperplasia of prostate (20 sources) Benign prostatic [...] (6 sources) Patient encounter status; Translations: [Other computer terminal operator (current) drug therapy] Episodic Other aftercare (1 source) Long-term current use of drug therapy; Translations: [Other jail (current) drug therapy] 03-29-2024 Episodic Other connective [...] [Pain in left foot] 09-03-2022 Episodic Other diseases of kidney and ureters (2 sources) Hydronephrosis with renal and ureteral calculous obstruction; Translations: [Hydronephrosis with urinary obstruction due to ureteral calculus] Onset: 10-07-2024 10-07-2024 Episodic Other diseases of kidney and ureters (1 source) Renal impairment; Translations: [Disorder of kidney and ureter, unspecified] 10-07-2024 Episodic Other diseases of kidney and ureters (1 source) Disorder of kidney and ureter, unspecified; Translations: [Disorder of kidney and ureter, unspecified] Onset: 10-07-2024 Episodic Other ear and sense organ disorders (1 source) Presbycusis; Translations: [Presbycusis, bilateral] 03-29-2024 Episodic Other infections; including parasitic (1 source) Personal history of other infectious and parasitic diseases; Translations: [Personal history of COVID-19] 03-24-2023 Episodic Other inflammatory condition of skin (20 sources) Psoriasis; Translations: [Psoriasis, unspecified] Onset: 12-27-2010 12-27-2010 Chronic Other screening for suspected conditions (not mental disorders or infectious disease) (4 sources) Electrocardiogram abnormal; Translations: [Abnormal electrocardiogram [ECG] [EKG]] Episodic Past or Other Problems Problem Classification Problem Date Documented Date Episodic/Chronic Biliary tract disease (20 sources) Gallstone; Translations: [Calculus of gallbladder without cholecystitis without obstruction] Onset: 07-13-2014 07-13-2014 Episodic Melanomas of skin (20 sources) H/O Malignant melanoma; Translations: [Personal history of malignant melanoma of skin] Onset: 03-24-2019 03-24-2019 Episodic Other aftercare (1 source) Other jail (current) drug therapy; Translations: [Encounter for long-term [...] Test Name Value Interpretation Reference Range Facility Abdomen/Pelvis without Conto n 10-07-2024 Abdomen/Pelvis without Cont [facility] Imaging Services [address] [place] [address] Abdomen/Pelvis without Cont MR#: [id number] Acct: [id number] Name: GEOFF SMITH Rep #: [id number] : 1945 M 79 From: Ochoa Shannon MD PCP: Dr. Kelton Serrano MD Status: REG ER Study: Abdomen/Pelvis without Cont Date of Exam: 09/24 06/18 Exam# [id number] Ordering Dr: Meño Barraza MD PROCEDURE: ABDOMEN/PELVIS WITHOUT CONT 10/07/2024 REASON FOR EXAM: KIDNEY STONE TECHNIQUE: ABDOMEN/PELVIS WITHOUT CONT Noncontrast technique limits evaluation of the abdominal and pelvic viscera. Coronal and Sagittal reconstruction series were provided. One or more dose reduction techniques were used (e.g., Automated exposure control, adjustment of the mA and/or kV according to patient size, use of iterative reconstruction technique). RADIATION DOSE SUMMARY: CTDlvol: 11.9 mGy DLP: 654 mGycm COMPARISON: October 25, 2022, September 02, 2021 FINDINGS: Lung bases: Clear Liver: Normal Gallbladder: Cholecystectomy Spleen: Normal Pancreas: Normal Adrenals: Normal Kidneys: Renal cysts are shown bilaterally. An exophytic cyst at the superior pole right kidney is 13 mm. Other smaller cysts are hyperdense of the lateral midpole and posterior right lower pole. Similarly, on the left side there are benign cysts. At the posterior left upper pole there is a 14 mm cyst. A dominant exophytic cyst at the left midpole is 4.3 x 4.5 cm. Hyperdense cyst posterior left midpole is 13 mm. Punctate calculus right upper pole. 9 x 11 mm calculus left mid to upper pole. 6 x 2 mm calculus left ureteropelvic junction. A 2nd, smaller 3 mm calculus is seen at the mid ureter at the level of L4. Bladder: Normal Reproductive Organs: Prostate is normal. Bowel: Small sliding hiatus hernia. Small bowel is normal. Colonic diverticulosis is present without diverticulitis. Appendix: Normal Lymph nodes: None appear enlarged. Vasculature: Moderate atherosclerotic plaque. No aneurysm. Peritoneum / Retroperitoneum: No free air, free fluid or mass. Bones: Right hip prosthesis. Abdominal wall: Intact. Fat containing left inguinal hernia. CT/Abdomen/Pelvis without Cont IMPRESSION: 1. Bilateral simple renal cysts and hemorrhagic cysts. Bosniak 1. Bosniak 2. No follow-up required. 2. Bilateral renal calculi. There are 2 calculi in the ureter on the left. 1 of the ureteropelvic junction and another at the level of L4. 3. Diverticulosis without diverticulitis. Sliding hiatus hernia. 4. Fat containing left inguinal hernia. Reading Location: [id number] CC: Dr. Kelton Serrano MD; Dr. Meño Barraza MD Reception Manager: Signed Normal [facility] Anion gap in Serum or Plasma Ordered By: Meño Barraza on 10-07-2024 Anion gap [Moles/Vol] 15 mmol/L - [facility] BUN/creatinine ratioOrdered By: Meño Barraza on 10-07-2024 Urea nitrogen/Creatinine [Mass ratio] 17.4 mg/mg - [facility] Basic Metabolic Profile (BMP )on 10-07-2024 BUN/CRE 17.4 RATIO Normal - [facility] Comment on above: Performed By: #### L 500.2500 #### [facility] [address] [place], [address] Calcium [Mass/Vol] 9.7 mg/dL Normal 7.6-11.0 [facility] Comment on above: Performed By: #### L [id number] #### [facility] [address] [place], [address] Chloride [Moles/Vol] 103 mmol/L Normal 98-108 [facility] Comment on above: Performed By: #### L [id number] #### [facility] [address] [place], [address] CO2 [Moles/Vol] 19.5 mmol/L Low 21.0-32.0 [facility] Comment on above: Performed By: #### L [id number] #### [facility] [address] [place], [address] Creatinine [Mass/Vol] 1.23 mg/dL High 0.70-1.20 [facility] Comment on above: Performed By: #### L [id number] #### [facility] [address] [place], [address] ECRCL 59.55 ml/min Normal 50-250 [facility] Comment on above: Performed By: #### L [id number] #### [facility] [address] [place], [address] GAP 15 Normal 5-15 [facility] Comment on above: Performed By: #### L 500.2500 #### [facility] [address] [place], [address] GFR/1.73 sq M.predicted among non-blacks MDRD (S/P/Bld) [Vol rate/Area] 60 mL/min/{1.73_m2} Normal >60 [facility] Comment on above: Result Comment: mL/m in/1.73m2 CKD-EPI Creatinine Equation (2020) Performed By: #### L 500.2500 #### [facility] [address] [place], [address] Glucose [Mass/Vol] 149 mg/dL High 70-99 [facility] Comment on above: Performed By: #### L 500.2500 #### [facility] [address] [place], [address] Potassium [Moles/Vol] 4.3 mmol/L Normal 3.3-5.1 [facility] Comment on above: Performed By: #### L [id number] #### [facility] [address] [place], [address] Sodium [Moles/Vol] 138 mmol/L Normal 133-145 [facility] Comment on above: Performed By: #### L 500.2500 #### [facility] [address] [place], [address] Urea nitrogen [Mass/Vol] 21 mg/dL High 4-19 [facility] Comment on above: Performed By: #### L 500.2500 #### [facility] [address] [place], [place], [id number] Bilirubin Test strip Ql (U)O rdered By: Meño Barraza on 10-07-2024 Bilirubin Ql (U) Negative Negative [facility] Carbon dioxide, total [Moles /volume] in Central venous bloodOrdered By: Meño Barraza on 10-07-2024 CO2 [Moles/Vol] 19.5 mmol/L Low 21.0-32.0 [facility] Chloride assayOrdered By: Ug o Madi on 10-07-2024 Chloride [Moles/Vol] 103 mmol/L 98-108 [facility] Emergency Department Summary on 10-07-2024 Emergency Department Summary [facility] Medical Records Department [address] [place] [address] Emergency Department Summary 10/07/24 MR#: [id number] Acct: [id number] Name: GEOFF SMITH Rep #: [id number] : 1945 79 From: Meño Barraza MD PCP: Dr. Kelton Serrano MD Status:REG ER Location: ED HPI History of Present Illness Chief Complaint: Flank Pain Detail of Chief Complaint: Acute left flank pain that awoke patient at 0400 Informant: patient and spouse/S.O. Onset/Context/Timing Onset: Today (Onset 0400. Resolved and then reoccurred at 0600) Context: Sudden Onset Timing: Continuous Quality: Continuous since 0600 Current Severity: Severe Maximum Severity: Severe Worsened by: Nothing Relieved by: Nothing Associated Symptoms Associated Symptoms: Cold sweat and nausea Narrative Narrative: Patient is a 79-year-old male. He has history of recurrent renal and ureteral stone stones. Patient states he was awakened from sleep at 0400 with severe left-sided pain. The pain resolved. He thought he had passed the stone. At 0600 he had onset of pain in the lower left lower quadrant/inguinal area. It has been persistent since 0600. He does endorse cold sweat and nausea. He had no vomiting. He denies fever or chills. He denies any urologic symptoms. He denies scrotal pain or swelling. He has not noted a rash. He states he is on lisinopril and amlodipine for hypertension. He denies history of diabetes, peptic ulcer disease or kidney disease. Patient was seen July of this year by Dr. Christianson. At that time was felt that patient passed the stone. He was diagnosed with a UVJ stone in October [address] Reyes. Prior similar symptoms: Yes Recent Illness/Hospitalizatio n: No [facility] Medical History Kidney stone Abnormal electrocardiogram Cholelithiasis Neuropathy Hypertrophy of prostate without urinary obstruction Osteoarthritis History of melanoma Nocturia Kidney stones GERD (gastroesophageal reflux disease) Essential (primary) hypertension Hyperlipidemia Home Medications ???Medication ???Instructions ???Recorded ???Last Taken ???Type multivitamin-iron 9 mg-folic acid 1 tablet PO DAILY 08/29/14 Unknow n History 400 mcg-calcium and minerals tablet lansoprazole 30 mg capsule,delayed 30 mg PO DAILY 06/07/20 Unknown History release lisinopril 30 mg tablet 30 mg PO DAILY 10/25/22 Unknown Hi story oxycodone-acetaminophe n 5 mg-325 1 tab PO Q6H PRN PRN Pain 3 days 0 10/25/22 Unknown Rx mg tablet #12 TABLETS oxycodone 5 mg capsule 5 mg PO Q6H PRN pain 5 days #20 Unknown Rx caps Allergy/AdvReac Type Severity Reaction Status Date / Time acetaminophen (From Tylenol) Allergy Rash Verified 10/07/24 07:12 doxazosin mesylate (From AdvReac Other Verified 10/07/24 07:12 Cardura) pantoprazole sodium (From AdvReac Other Verified 10/07/24 07:12 Protonix) triamterene AdvReac Other Verified 10/07/24 07:12 Family History Mother Cancer Father Aneurysm Surgical History History of colonoscopy History of herniorrhaphy History of cholecystectomy History of total hip arthroplasty Social History Smoking Status: Never smoker alcohol intake: current alcohol intake frequency: a few times a week Alcohol type: beer details: 1 beer 4 times a week ROS ROS ED Constitutional Constitutional ED: Denies chills, fever(s), subjective or sweats Cardiovascular Cardiovascular: Denies chest pain or palpitations Respiratory/Chest Respiratory/Chest: Denies cough, dyspnea or dyspnea on exertion Gastrointestinal Gastrointestinal: Reports abdominal pain and nausea; Denies constipation, diarrhea, melena or vomiting Genitourinary Genitourinary ED: Reports other Details: Left groin pain. ; Denies dysuria, hematuria or urinary frequency Musculoskeletal Musculoskeletal: Denies arthralgias or myalgias Integumentary Denies rash Neurologic Neurologic: Denies headache(s) or paresthesias Endocrine Endocrinology: Denies cold intolerance or heat intolerance Hematologic/Lymphatic Hematologic/Lymphatic: Reports systems reviewed and no addt'l complaints, except as documented EXAM Physical Exam Const Vital Signs: 10/07/24 07:12 10/07/24 08:12 10/07/24 09:00 Temperature 97.8 F 98.1 F 98.1 F Temperature Source Oral Oral Oral Pulse Rate 77 73 60 Respiratory Rate 18 20 H 18 Blood Pressure 163/81 H 166/88 H 134/73 H Blood Pressure Mean 108 114 93 Pulse Ox 99 98 95 Oxygen Delivery Method Room Air Room Air Room Air Positive well nourished and well developed Constitutional Narrative: Patient is grimacin (more content not included)... Normal [facility] Glomerular filtration rate ( GFR) estimation/1.73 sq m using serum, plasma, or whole bOrdered By: Meño Barraza on 10-07-2024 GFR/1.73 sq M.predicted among non-blacks MDRD (S/P/Bld) [Vol rate/Area] 60 mL/min/{1.73_m2} >60 [facility] Comment on above: mL/min/1.73m2 CKD-EP I Creatinine Equation (2020) Ketones Test strip Ql (U)Ord ered By: Meño Barraza on 10-07-2024 Ketones Ql (U) Negative Negative [facility] Microscopic analysis of urin e for red blood cells (RBC)Ordered By: Meño Barraza on 10-07-2024 Microscopic analysis of urine for red blood cells (RBC) > 100 SEEN /hpf 0-5 [facility] Mucus LM Ql (Urine sed)Order ed By: Meño Barraza on 10-07-2024 Mucus Ql (Urine sed) 0 SEEN /hpf [facility] Nitrite Test strip Ql (U)Ord ered By: Meño Barraza on 10-07-2024 Nitrite Ql (U) Negative Negative [facility] Potassium measurement (mass/ volume)Ordered By: Meño Barraza on 10-07-2024 Potassium (Unsp spec) [Mass/Vol] 4.3 mmol/L 3.3-5.1 [facility] Protein Test strip Ql (U)Ord ered By: Meño Barraza on 10-07-2024 Protein Ql (U) 30 mg/dl High Negative [facility] Serum creatinine measurement (mass/volume)Ordered By: Meño Barraza on 10-07-2024 Creatinine [Mass/Vol] 1.23 mg/dL High 0.70-1.20 [facility] Serum glucose measurement (m ass/volume)Ordered By: Meño Barraza on 10-07-2024 Glucose [Mass/Vol] 149 mg/dL High 70-99 [facility] Serum or plasma calcium taylor urement (mass/volume)Ordered By: Meño Barraza on 10-07-2024 Calcium [Mass/Vol] 9.7 mg/dL 7.6-11.0 [facility] Serum or plasma urea nitroge n measurement (mass/volume)Ordered By: Meño Barraza on 10-07-2024 Urea nitrogen [Mass/Vol] 21 mg/dL High 4-19 [facility] Sodium levelOrdered By: Meño Barraza on 10-07-2024 Sodium [Moles/Vol] 138 mmol/L 133-145 [facility] Squamous epithelial cells de tection in urine sediment by light microscopyOrdered By: Meño Barraza on 10-07-2024 Epithelial cells.squamous LM Ql (Urine sed) 0 SEEN /hpf 0-5 [facility] Urinalysis, Completeon 10-07 RBC > 100 SEEN Normal 0-5 [facility] Comment on above: Order Comment: CLEAN CATCH Performed By: #### L 400.0001 #### [facility] [address] [place], [address] BACTERIA 0 SEEN Normal None Seen [facility] Comment on above: Order Comment: CLEAN CATCH Performed By: #### L 400.0001 #### [facility] [address] [place], [address] EPI,SQUAMOUS 0 SEEN Normal 0-5 [facility] Comment on above: Order Comment: CLEAN CATCH Performed By: #### L 400.0001 #### [facility] [address] [place], [address] Mucus Ql (Urine sed) 0 SEEN Normal [facility] Comment on above: Order Comment: CLEAN CATCH Performed By: #### L 400.0001 #### [facility] [address] [place], [address] WBC 0 SEEN Normal 0-5 [facility] Comment on above: Order Comment: CLEAN CATCH Performed By: #### L 400.0001 #### [facility] [address] [place], [address] Urine clarityOrdered By: Meño Barraza on 10-07-2024 Clarity (U) Sl. Cloudy Clear [facility] Urine color determinationOrd ered By: Meño Barraza on 10-07-2024 Color (U) Yellow Yellow [facility] Urine glucose detectionOrder ed By: Meño Barraza on 10-07-2024 Glucose Ql (U) Normal mg/dl Normal [facility] Urine leukocyte esterase det ection by dipstickOrdered By: Meño Barraza on 10-07-2024 Leukocyte esterase Test strip Ql (U) Negative Negative [facility] Urine pHOrdered By: Meño hatfield on 10-07-2024 pH (U) 6.5 [pH] 5.0 - 8.0 [facility] Urine sediment bacteria coun t by microscopy (number/high power field)Ordered By: Meño Barraza on 10-07-2024 Bacteria LM.HPF (Urine sed) [#/Area] 0 /[HPF] None Seen [facility] Urine specific gravity measu rementOrdered By: Meñoalysia Barraza on 10-07-2024 Specific gravity (U) [Rel density] 1.015 1.002-1.030 [facility] Urine urobilinogen measureme ntOrdered By: Meñoalysia Barraza on 10-07-2024 Urobilinogen Ql (U) Normal mg/dl Normal [facility] White blood cell countOrdere d By: Meño Barraza on 10-07-2024 White blood cell count 0 SEEN /hpf 0-5 [facility] CNPNon 09-14-2024 CNPN Telephone (4CQ) GEOFF SMITH ([id number]) 1945 M Date Time Provider Department 09/14/24 [...] Comments: forgetfulness just did not feel well TRIAMTERENE-HYDROCHLOR OTHIAZID 02/08/2005 5 - Intolerance BETA-BLOCKERS (BETA-ADRENERGIC BL*03/29/2024 14 - Other: See Comments Comments: Severe fatigue; could not move anything when was laying in bed PROTONIX (PANTOPRAZOLE SODIUM) 07/13/2013 14 - Other: See Comments Comments: non effective - elevated liver enzymes TYLENOL (ACETAMINOPHEN) 04/15/2019 2 - Rash Date Reviewed: 06/02/2024 Reviewed by: Yaritza Tineo APRN.KST OPERATOR - Fully Assessed Reason for Visit: Appointment [186] Prescriptions as of 09/14/2024 - amLODIPine (NORVASC) 5 mg tablet Take 1 tablet by mouth once daily. - lansoprazole (PREVACID) 30 mg capsule Take 1 capsule by mouth once daily. - lisinopril (ZESTRIL) 30 mg tablet Take 1 tablet by mouth once daily. - hz-spe-VY-vit Q-myrois-dynzice (PRESERVISION AREDS 2 PLUS MV) 200 mcg-15 mcg- 5 mg-1 mg cap Take 1 capsule by mouth once daily. - Fluorouracil 5 % cream Apply 1 application to affected area as directed. - Multivitamins-Minerals -Lutein (CENTRUM SILVER) tab Take 1 tablet by [...] Encounter Status:Closed by ANJANA BOOTHE on 09/14/24 [facility] CNOVon 06-02-2024 CNOV Office Visit (INTMWS ) GEOFF SMITH ([id number]) 1945 M Date Time Provider Department 06/02/24 7:20 AM YARITZA TINEO INTMWS During your visit today, we recorded the following information about you: Pulse Blood pressure Weight 73/minute 138/82 90.1 kg Yaritza Tineo APRN.KST OPERATOR 06/02/2024 7:29 AM Signed SUBJECTIVE Geoff Smith [...] Take 1 tablet by mouth once daily. ji-gaq-SL-vit I-rpsliu-urdbvui (PRESERVISION AREDS 2 PLUS MV) 200 mcg-15 mcg- 5 mg-1 mg cap Take 1 capsule by mouth once daily. Fluorouracil 5 % cream Apply 1 application to affected area as directed. Multivitamins-Minerals -Lutein (CENTRUM SILVER) tab Take 1 tablet by [...] normal. B (more content not included)... Normal [facility] CNOVon 05-03-2024 CNOV Office Visit (INTMWS ) GEOFF SMITH ([id number]) 1945 M Date Time Provider Department 05/03/24 7:40 AM YARITZA TINEO INTMWS During your visit today, we recorded the following information about you: Pulse Blood pressure Weight 77/minute 174/96 92.3 kg Yaritza Tineo APRN.KST OPERATOR 05/03/2024 8:11 AM Signed SUBJECTIVE Geoff Smith [...] Take 1 tablet by mouth once daily. up-dcv-WW-vit P-keawxm-ykcluyo (PRESERVISION AREDS 2 PLUS MV) 200 mcg-15 mcg- 5 mg-1 mg cap Take 1 capsule by mouth once daily. Fluorouracil 5 % cream Apply 1 application to affected area as directed. Multivitamins-Minerals -Lutein (CENTRUM SILVER) tab Take 1 tablet by [...] normal. J (more content not included)... Normal [facility] CNOVon 03-29-2024 CNOV Office Visit (INTMWS ) GEOFF SMITH ([id number]) 1945 M Date Time Provider Department 03/29/24 8:00 AM KELTON SERRANO INTMWS During your visit today, we recorded the following information about you: Temperature Pulse Respiration Blood pressure 98.2 degrees 72/minute 16/minute 160/88 Weight Height 93.3 kg 1.842 m Kelton Serrano MD 03/29/2024 11:57 PM Addendum This note was created using [employer]. 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 He identifies his spouse as his surrogate decision maker. He has not traveled outside of the country recently but is considering a trip to [place]. He has 3 half-sisters who are , [...] essential hypertension Current Outpatient Medications Medication Sig or-fle-DA-vit B-tegbfv-dwtluab (PRESERVISION AREDS 2 PLUS MV) 200 mcg-15 mcg- 5 mg-1 mg cap Take 1 capsule by mouth once daily. Multivitamins-Minerals -Lutein (CENTRUM SILVER) tab Take 1 tablet by [...] Estimated b (more content not included)... Normal [facility] CBC panel Auto (Bld)on 03-24 Erythrocyte distribution width (RBC) [Ratio] 13.3 % Normal 11.5-15.0 [facility] Comment on above: Order Comment: Speci men Type: BLOOD SPECIMEN Ordering Facility: [facility] Address: [address] [place] [address] Performed By: #### 5 8410-2 #### [facility] CLIA [id number] [address] [place] [address] [place] Hematocrit (Bld) [Volume fraction] 46.0 % Normal 39.0-51.0 [facility] Comment on above: Order Comment: Speci men Type: BLOOD SPECIMEN Ordering Facility: [facility] Address: [address] [place] [address] Performed By: #### 5 8410-2 #### [facility] CLIA [id number] [address] [place] [address] [place] Hemoglobin (Bld) [Mass/Vol] 14.7 g/dL Normal 13.0-17.0 [facility] Comment on above: Order Comment: Speci men Type: BLOOD SPECIMEN Ordering Facility: [facility] Address: [address] [place] [address] Performed By: #### 5 8410-2 #### [facility] CLIA [id number] [address] [place] [address] [place] MCH (RBC) [Entitic mass] 30.7 pg Normal 26.0-34.0 [facility] Comment on above: Order Comment: Speci men Type: BLOOD SPECIMEN Ordering Facility: [facility] Address: [address] [place] [address] Performed By: #### 5 8410-2 #### [facility] CLIA [id number] [address] [place] [address] [place] MCHC (RBC) [Mass/Vol] 32.0 g/dL Normal 30.5-36.0 [facility] Comment on above: Order Comment: Speci men Type: BLOOD SPECIMEN Ordering Facility: [facility] Address: [address] [place] [address] Performed By: #### 5 8410-2 #### [facility] CLIA [id number] [address] [place] [address] [place] MCV (RBC) [Entitic vol] 96.0 fL Normal 80.0-100.0 [facility] Comment on above: Order Comment: Speci men Type: BLOOD SPECIMEN Ordering Facility: [facility] Address: [address] [place] [address] Performed By: #### 5 8410-2 #### [facility] CLIA [id number] [address] [place] [address] [place] Nucleated RBC (Bld) [#/Vol] 10*3/uL Normal <0.01 [facility] Comment on above: Order Comment: Speci men Type: BLOOD SPECIMEN Ordering Facility: [facility] Address: [address] [place] [address] Performed By: #### 5 8410-2 #### [facility] CLIA [id number] [address] [place], [place] [id number] [place] Platelet mean volume (Bld) [Entitic vol] 10.2 fL Normal 9.0-12.7 [facility] Comment on above: Order Comment: Speci men Type: BLOOD SPECIMEN Ordering Facility: [facility] Address: [address] [place] [address] Performed By: #### 5 8410-2 #### [facility] CLIA [id number] [address] [place] [address] [place] Platelets (Bld) [#/Vol] 280 10*3/uL Normal 150-400 [facility] Comment on above: Order Comment: Speci men Type: BLOOD SPECIMEN Ordering Facility: [facility] Address: [address] [place] [address] Performed By: #### 5 8410-2 #### [facility] CLIA [id number] [address] [place] [address] [place] RBC (Bld) [#/Vol] 4.79 10*6/uL Normal 4.20-6.00 [facility] Comment on above: Order Comment: Speci men Type: BLOOD SPECIMEN Ordering Facility: [facility] Address: [address] [place] [address] Performed By: #### 5 8410-2 #### [facility] CLIA [id number] [address] [place] [address] [place] WBC (Bld) [#/Vol] 5.60 10*3/uL Normal 3.70-11.00 [facility] Comment on above: Order Comment: Speci men Type: BLOOD SPECIMEN Ordering Facility: [facility] Address: [address] [place] [address] Performed By: #### 5 8410-2 #### [facility] CLIA [id number] [address] [place] [address] [place] Comprehensive metabolic 2000 panelon 01-29-2025 Albumin [Mass/Vol] 4.1 g/dL Normal 3.9-4.9 [facility] Comment on above: Order Comment: Speci men Type: BLOOD SPECIMEN Ordering Facility: [facility] Address: [address] [place] [address] Performed By: #### 1 9123-9, 14332-0, 70351-2 #### [facility] CLIA [id number] [address] [place] [address] [place] ALP [Catalytic activity/Vol] 61 U/L Normal 38-113 [facility] Comment on above: Order Comment: Speci men Type: BLOOD SPECIMEN Ordering Facility: [facility] Address: [address] [place] [address] Performed By: #### 1 9123-9, 84773-1, 44579-3 #### [facility] CLIA [id number] [address] [place] [address] [place] ALT [Catalytic activity/Vol] 20 U/L Normal 10-54 [facility] Comment on above: Order Comment: Speci men Type: BLOOD SPECIMEN Ordering Facility: [facility] Address: [address] [place] [address] Performed By: #### 1 9123-9, 16997-9, 38373-7 #### [facility] CLIA [id number] [address] [place] [address] [place] Anion gap [Moles/Vol] 12 mmol/L Normal 8-15 [facility] Comment on above: Order Comment: Speci men Type: BLOOD SPECIMEN Ordering Facility: [facility] Address: [address] [place] [address] Performed By: #### 1 9123-9, 14673-1, 79661-6 #### [facility] CLIA [id number] [address] [place] [address] [place] AST [Catalytic activity/Vol] 22 U/L Normal 14-40 [facility] Comment on above: Order Comment: Speci men Type: BLOOD SPECIMEN Ordering Facility: [facility] Address: [address] [place], [place] [address] Performed By: #### 1 9123-9, 27911-4, 43628-9 #### [facility] CLIA [id number] [address] [address] [place] Bilirubin [Mass/Vol] 0.7 mg/dL Normal 0.2-1.3 [facility] Comment on above: Order Comment: Speci men Type: BLOOD SPECIMEN Ordering Facility: [facility] Address: [address] [place] [address] Performed By: #### 1 9123-9, 17051-2, 73858-6 #### [facility] CLIA [id number] [address] [place] [address] [place] Calcium [Mass/Vol] 9.4 mg/dL Normal 8.5-10.2 [facility] Comment on above: Order Comment: Speci men Type: BLOOD SPECIMEN Ordering Facility: [facility] Address: [address] [place], [place] [address] Performed By: #### 1 9123-9, 04900-7, 23309-9 #### [facility] CLIA [id number] [address] [place] [address] [place] Chloride [Moles/Vol] 104 mmol/L Normal 98-107 [facility] Comment on above: Order Comment: Speci men Type: BLOOD SPECIMEN Ordering Facility: [facility] Address: [address] [place] [address] Performed By: #### 1 9123-9, 50087-3, 30269-3 #### [facility] CLIA [id number] [address] [place], [place] [address] [place] CO2 [Moles/Vol] 25 mmol/L Normal 22-30 [facility] Comment on above: Order Comment: Speci men Type: BLOOD SPECIMEN Ordering Facility: [facility] Address: [address] [place] [address] Performed By: #### 1 9123-9, 05398-6, 75095-8 #### [facility] CLIA [id number] [address] [place] [address] [place] Creatinine [Mass/Vol] 1.24 mg/dL High 0.73-1.22 [facility] Comment on above: Order Comment: Beck men Type: BLOOD SPECIMEN Ordering Facility: [facility] Address: [address] [place] [address] Performed By: #### 1 9123-9, 67619-7, 65755-1 #### [facility] CLIA [id number] [address] [place] [address] [place] Creatinine and Glomerular filtration rate.predicted panel (S/P/Bld) 60 mL/min/1.73m??? Normal >=60 [facility] Comment on above: Order Comment: Beck johnson Type: BLOOD SPECIMEN Ordering Facility: [facility] Address: [address] [place] [address] Result Comment: Solange mated Glomerular Filtration Rate [...] actual GFR. Performed By: #### 1 9123-9, 94143-8, 86805-6 #### [facility] CLIA [id number] [address] [place] [address] [place] Glucose [Mass/Vol] 95 mg/dL Normal 74-99 [facility] Comment on above: Order Comment: Beck johnson Type: BLOOD SPECIMEN Ordering Facility: [facility] Address: [address] [place] [address] Result Comment: The [place] Diabetes Association (ADA) provides guidance for cutoff [...] Standards of Medical Care in Diabetes 2016, [place] [employer]. Diabetes Care. 2016.39(Suppl 1). Performed By: #### 1 9123-9, 09342-0, 52388-6 #### [facility] CLIA [id number] [address] [place] [address] [place] Potassium [Moles/Vol] 4.6 mmol/L Normal 3.7-5.1 [facility] Comment on above: Order Comment: Speci men Type: BLOOD SPECIMEN Ordering Facility: [facility] Address: [address] [place] [address] Performed By: #### 1 9123-9, 87622-0, 62341-4 #### [facility] CLIA [id number] [address] [place] [address] [place] Protein [Mass/Vol] 6.7 g/dL Normal 6.3-8.0 [facility] Comment on above: Order Comment: Speci men Type: BLOOD SPECIMEN Ordering Facility: [facility] Address: [address] [place] [address] Performed By: #### 1 9123-9, 80011-9, 19645-9 #### [facility] CLIA [id number] [address] [place] [address] [place] Sodium [Moles/Vol] 141 mmol/L Normal 136-144 [facility] Comment on above: Order Comment: Speci men Type: BLOOD SPECIMEN Ordering Facility: [facility] Address: [address] [place] [address] Performed By: #### 1 9123-9, 34350-8, 23001-9 #### [facility] CLIA [id number] [address] [place] [address] [place] Urea nitrogen [Mass/Vol] 17 mg/dL Normal 9-24 [facility] Comment on above: Order Comment: Speci men Type: BLOOD SPECIMEN Ordering Facility: [facility] Address: [address] [place] [address] Performed By: #### 1 9123-9, 29084-9, 17565-4 #### [facility] CLIA [id number] [address] [place] [address] [place] Lipid 1996 panelon 5 Cholesterol [Mass/Vol] 175 mg/dL Normal <200 [facility] Comment on above: Order Comment: Speci men Type: BLOOD SPECIMEN Ordering Facility: [facility] Address: [address] [place] [address] Result Comment: <200 mg/dL, Desirable 200-239 mg/dL, Borderline high >239 mg/dL, High Performed By: #### 1 9123-9, 66057-6, 64992-5 #### [facility] CLIA [id number] [address] [place] [address] [place] Cholesterol in HDL [Mass/Vol] 41 mg/dL Normal >39 [facility] Comment on above: Order Comment: Speci men Type: BLOOD SPECIMEN Ordering Facility: [facility] Address: [address] [place] [address] Result Comment: 40-5 9 mg/dL, Acceptable >59 mg/dL, High: Negative risk factor for coronary heart disease <40 mg/dL, Low: Positive risk factor for coronary heart disease Performed By: #### 1 9123-9, 88569-8, 09983-8 #### [facility] CLIA [id number] [address] [place] [address] [place] Cholesterol in LDL [Mass/Vol] 118 mg/dL High <100 [facility] Comment on above: Order Comment: Beck johnson Type: BLOOD SPECIMEN Ordering Facility: [facility] Address: [address] [place] [address] Result Comment: <100 mg/dL, Optimal 100-129 mg/dL, Near optimal/above optimal 130-159 mg/dL, Borderline high 160-189 mg/dL, High >189 mg/dL, Very high Secondary prevention optimal LDL Cholesterol levels are recommended to be < 70 mg/dL Performed By: #### 1 9123-9, 05910-8, 59432-6 #### [facility] CLIA [id number] [address] [place] [address] [place] Cholesterol in LDL/Cholesterol in HDL [Mass ratio] 2.88 {ratio} High <2.54 [facility] Comment on above: Order Comment: Beck johnson Type: BLOOD SPECIMEN Ordering Facility: [facility] Address: [address] [place] [address] Result Comment: Monty edgar: 1. National Cholesterol Education Program ATP III Guideline At-A-Glance Quick Desk Reference: National Heart, Lung, and Blood [place]. National Institutes of Health. 2001: NIH Publication No. 01-3305. 2. An International Atherosclerosis Society position paper: global recommendations for the management of dyslipidemia: executive summary, Atherosclerosis. 2014: 232(2):410-413. Performed By: #### 1 9123-9, 07573-1, 69907-3 #### [facility] CLIA [id number] [address] [place], [place] [address] [place] [address] [place] Cholesterol in VLDL [Mass/Vol] 16 mg/dL Normal <30 [facility] Comment on above: Order Comment: Beck johnson Type: BLOOD SPECIMEN Ordering Facility: [facility] Address: [address] [place] [address] Performed By: #### 1 9123-9, 53159-3, 24022-6 #### [facility] CLIA [id number] [address] [place] [address] [place] Cholesterol non HDL [Mass/Vol] 134 mg/dL High <130 [facility] Comment on above: Order Comment: Speci men Type: BLOOD SPECIMEN Ordering Facility: [facility] Address: [address] [place] [address] Result Comment: <130 mg/dL, Optimal 130-159 mg/dL, Near optimal/above optimal 160-189 mg/dL, Borderline high 190-219 mg/dL, High >219 mg/dL, Very high Secondary prevention optimal non HDL Cholesterol levels are recommended to be <100 mg/dL Performed By: #### 1 9123-9, 60160-6, 25736-1 #### [facility] CLIA [id number] [address] [place] [address] [place] Cholesterol.total/Choles terol in HDL [Mass ratio] 4.27 {ratio} Normal <5.10 [facility] Comment on above: Order Comment: Adáni men Type: BLOOD SPECIMEN Ordering Facility: [facility] Address: [address] [place] [address] Performed By: #### 1 9123-9, 54189-9, 19125-0 #### [facility] CLIA [id number] [address] [place] [address] [place] FASTING TIME 12 hrs Normal [facility] Comment on above: Order Comment: Speci men Type: BLOOD SPECIMEN Ordering Facility: [facility] Address: [address] [place] [address] Performed By: #### 1 9123-9, 44804-8, 23152-3 #### [facility] CLIA [id number] [address] [place] [address] [place] Triglyceride [Mass/Vol] 81 mg/dL Normal <150 [facility] Comment on above: Order Comment: Speci men Type: BLOOD SPECIMEN Ordering Facility: [facility] Address: [address] [place] [address] Result Comment: <150 mg/dL, Normal 150-199 mg/dL, Borderline high 200-499 mg/dL, High >499 mg/dL, Very high Performed By: #### 1 9123-9, 80873-8, 78986-3 #### [facility] CLIA [id number] [address] [place] [address] [place] Magnesium SerPl-mCncon 03-24 Magnesium [Mass/Vol] 2.0 mg/dL Normal 1.7-2.3 [facility] Comment on above: Order Comment: Speci men Type: BLOOD SPECIMEN Ordering Facility: [facility] Address: [address] [place] [address] Performed By: #### 1 9123-9, 06290-3, 32928-0 #### [facility] CLIA [id number] [address] [place] [address] [place] XR FOOT GENERAL 3V AP/LAT/OB L BILATERALon 09-04-2022 [facility] [place] CBC panel Auto (Bld)on 03-18 Erythrocyte distribution width (RBC) [Ratio] 13.1 % 11.5 - 15.0 % [facility] [place] Hematocrit (Bld) [Volume fraction] 44.6 % 39.0 - 51.0 % [facility] [place] Hemoglobin (Bld) [Mass/Vol] 14.7 g/dL 13.0 - 17.0 g/dL [facility] [place] MCH (RBC) [Entitic mass] 31.1 pg 26. 0 - 34.0 pg [facility] [place] MCHC (RBC) [Mass/Vol] 33.0 g/dL 30.5 - 36.0 g/dL [facility] [place] MCV (RBC) [Entitic vol] 94.5 fL 80.0 - 100.0 fL [facility] [place] Nucleated RBC (Bld) [#/Vol] <0.01 k/uL [facility] [place] Platelet mean volume (Bld) [Entitic vol] 10.0 fL 9.0 - 12.7 fL [facility] [place] Platelets (Bld) [#/Vol] 271 10*3/uL 150 - 400 k/uL [facility] [place] RBC (Bld) [#/Vol] 4.72 10*6/uL 4.20 - 6.0 0 m/uL [facility] [place] WBC (Bld) [#/Vol] 6.92 10*3/uL 3.70 - 11. 00 k/uL [facility] [place] Comprehensive metabolic 2000 panelon 03-18-2022 Albumin [Mass/Vol] 4.1 g/dL 3.9 - 4.9 g/dL [facility] [place] ALP [Catalytic activity/Vol] 62 U/L 38 - 113 U/L [facility] [place] ALT [Catalytic activity/Vol] 23 U/L 10 - 54 U/L [facility] [place] Anion gap [Moles/Vol] 10 mmol/L 9 - 18 mmol/L [facility] [place] AST [Catalytic activity/Vol] 21 U/L 14 - 40 U/L [facility] [place] Bilirubin [Mass/Vol] 0.5 mg/dL 0.2 - 1 .3 mg/dL [facility] [place] Calcium [Mass/Vol] 9.6 mg/dL 8.5 - 10. 2 mg/dL [facility] [place] Chloride [Moles/Vol] 105 mmol/L 97 - 10 5 mmol/L [facility] [place] CO2 [Moles/Vol] 26 mmol/L 22 - 30 mmol/L [facility] [place] Creatinine [Mass/Vol] 1.27 mg/dL High 0.73 - 1.22 mg/dL [facility] [place] Estimated Glomerular Filtration Rate 59 mL/min/1.73m Low >=60 mL/min/1.73m [facility] [place] Glucose [Mass/Vol] 89 mg/dL 74 - 99 mg/dL [facility] [place] Potassium [Moles/Vol] 5.0 mmol/L 3.7 - 5.1 mmol/L [facility] [place] Protein [Mass/Vol] 7.3 g/dL 6.3 - 8.0 g/dL [facility] [place] Sodium [Moles/Vol] 141 mmol/L 136 - 144 mmol/L [facility] [place] Urea nitrogen [Mass/Vol] 19 mg/dL 9 - 24 mg/d L [facility] [place] HbA1c (Bld)on 03-18-2022 Average glucose Estimated from glycated hemoglobin (Bld) [Mass/Vol] 126 mg/dL [facility] [place] HbA1c (Bld) [Mass fraction] 6.0 % High 4.3 - 5.6 % [facility] [place] Lipid 1996 panelon Cholesterol [Mass/Vol] 173 mg/dL <200 mg/dL [facility] Cholesterol in HDL [Mass/Vol] 41 mg/dL >39 mg/dL [facility] [place] Cholesterol in LDL [Mass/Vol] 121 mg/dL High <100 mg/dL [facility] [place] Cholesterol in LDL/Cholesterol in HDL [Mass ratio] 2.95 {ratio} High <2.54 [facility] [place] Cholesterol in VLDL [Mass/Vol] 11 mg/dL <30 mg/dL [facility] [place] Cholesterol non HDL [Mass/Vol] 132 mg/dL High <130 mg/dL [facility] [place] Cholesterol.total/Choles terol in HDL [Mass ratio] 4.22 {ratio} <5.10 [facility] [place] Fasting Time 11 hrs [facility] [place] Triglyceride [Mass/Vol] 57 mg/dL <150 mg/dL [facility] MAGNESIUM BLDon 03-18-2022 Magnesium [Mass/Vol] 2.2 mg/dL 1.7 - 2 .3 mg/dL [facility] [place] PSA/PROSTSPECAG SCRNon 03-18 Prostate specific Ag [Mass/Vol] 1.51 ng/mL <2.60 ng/mL [facility] [place] Absolute lymphocyte counton 09-02-2021 Lymphocytes Auto (Unsp spec) [#/Vol] 1.69 10*3/uL 0.83-4.51 [facility] Work Phone: Basophil percentageon 2021 Basophil percentage 0 SEEN /hpf 0-5 [facility] Work Phone: Basophils/100 WBC (Bld) 0.7 % 0-1 [facility] Work Phone: Chloride [Moles/Vol] 106 mmol/L 98-107 [facility] Work Phone: Eosinophils/100 WBC (Bld) 1.2 % 0-5 [facility] Work Phone: Glucose [Mass/Vol] 129 mg/dL 74-106 [facility] Work Phone: Comment on above: Fasting Glucose resu lt greater than or equal to 126 mg/dL suggests DIABETES MELLITUS per A.D.A. criteria. Neutrophils (Bld) [#/Vol] 7.1 10*3/uL 2.0-7.7 [facility] Work Phone: Neutrophils/100 WBC (Bld) 71.5 % 47-70 [facility] Work Phone: Potassium [Moles/Vol] 3.6 mmol/L 3.5-5.1 [facility] Work Phone: Sodium [Moles/Vol] 140 mmol/L 136-145 [facility]: WBC (Bld) [#/Vol] 9.9 10*3/uL 4.4-11.0 [facility] Work Phone: Bilirubin Test strip Ql (U)o n 09-02-2021 Bilirubin Ql (U) Negative Negative [facility] Work Phone: Blood erythrocytes count (nu mber/volume)on 09-02-2021 RBC (Bld) [#/Vol] 4.57 10*6/uL 4.6-6.2 [facility] Work Phone: Blood hemoglobin measurement (mass/volume)on 09-02-2021 Hemoglobin (Bld) [Mass/Vol] 14.3 g/dL 13.0-16.5 [facility] Work Phone: Blood lymphocytes/100 leukoc yteson 09-02-2021 Lymphocytes/100 WBC (Bld) 17.1 % 19-41 [facility] Work Phone: Blood monocytes/100 leukocyt eson 09-02-2021 Monocytes/100 WBC (Bld) 8.9 % 0-10 [facility] Work Phone: Blood platelet mean volumeon 09-02-2021 Platelet mean volume (Bld) [Entitic vol] 10.1 fL 6.2-12.0 [facility] Work Phone: Determination of erythrocyte mean corpuscular volume (MCV)on 09-02-2021 MCV (RBC) [Entitic vol] 93.2 fL 80-94 [facility] Work Phone: Hematocrit Auto (Bld) [Volum e fraction]on 09-02-2021 Hematocrit (Bld) [Volume fraction] 42.6 % 40-54 [facility] Work Phone: Ketones Test strip Ql (U)on 09-02-2021 Ketones Ql (U) 15 mg/dl Negative [facility] Work Phone: [phone] Laboratory - Chemistry and C hemistry - challengeon 09-02-2021 CO2 [Moles/Vol] 27.0 mmol/L 21.0-32.0 [facility] Work Phone: [phone] Urea nitrogen/Creatinine [Mass ratio] 19.9 mg/mg 10-20 [facility] Work Phone: [phone] Laboratory - Hematology and Cell countson 09-02-2021 Erythrocyte distribution width (RBC) [Entitic vol] 45.5 fL 35.1-43.9 [facility] Work Phone: [phone] Erythrocyte distribution width (RBC) [Ratio] 13.3 % 11.6-14.6 [facility] Work Phone: [phone] Immature granulocytes/100 WBC (Bld) 0.600 % 0.0-0.9 [facility] Work Phone: [phone] Comment on above: IG% - Immature Granu locytes (promyelocytes, myelocytes and metamyelocytes) > 1% indicates that a LEFT SHIFT is Present. MCH (RBC) [Entitic mass] 31.3 pg 27.0-32.0 [facility] Work Phone: Nucleated RBC/100 WBC (Bld) [Ratio] 0 % 0-5 [facility] Work Phone: [phone] MCHC Auto (RBC) [Mass/Vol]on 09-02-2021 MCHC (RBC) [Mass/Vol] 33.6 g/dL 32-36 [facility] Work Phone: Mucus LM Ql (Urine sed)on Mucus Ql (Urine sed) 0 SEEN /hpf [facility] Work Phone: [phone] Nitrite Test strip Ql (U)on 09-02-2021 Nitrite Ql (U) Negative Negative [facility] Work Phone: [phone] Panel Informationon 09-02 Estimated Creatinine Clearance Calc 38.35 ml/min [facility] Work Phone: Estimated GFR (MDRD) Amer 45 mL/min >60 [facility] Work Phone: Comment on above: GFR Calc Estimated GFR (MDRD) Non-Af Amer 37 mL/min >60 [facility] Work Phone: Comment on above: Non- GFR Calc Platelets bldon 09-02-2021 Platelets (Bld) [#/Vol] 316 10*3/uL 150-450 [facility] Work Phone: Protein Test strip Ql (U)on 09-02-2021 Protein Ql (U) 15 mg/dl Negative [facility] Work Phone: Serum or plasma calcium taylor urement (mass/volume)on 09-02-2021 Calcium [Mass/Vol] 9.8 mg/dL 8.5-10.1 [facility] Work Phone: Serum or plasma creatinine m easurement (mass/volume)on 09-02-2021 Creatinine [Mass/Vol] 1.91 mg/dL 0.70-1.30 [facility] Work Phone: Comment on above: The validity of the calculated GFR & GFRAA in patients over 70 years has not been determined. Clinical correlation is essential. Serum or plasma urea nitroge n measurement (mass/volume)on 09-02-2021 Urea nitrogen [Mass/Vol] 38 mg/dL 7-18 [facility] Work Phone: Squamous epithelial cells de tection in urine sediment by light microscopyon 09-02-2021 Epithelial cells.squamous LM Ql (Urine sed) 0-5 SEEN /hpf 0-5 [facility] Work Phone: Thin prep Papanicolaou smear with manual screeningon 09-02-2021 Thin prep Papanicolaou smear with manual screening 7 5-15 [facility] Work Phone: [phone] Urine blood detectionon 08-24 0 RBC Ql (U) 250 /ul Negative [facility] Work Phone: RBC Ql (U) 25-50 SEEN /hpf 0-5 [facility] Work Phone: Urine clarityon 09-02-2021 Clarity (U) Sl. Cloudy Clear [facility] Work Phone: Urine color determinationon 09-02-2021 Color (U) Yellow Yellow [facility] Work Phone: Urine glucose detectionon Glucose Ql (U) Normal mg/dl Normal [facility] Work Phone: Urine leukocyte esterase det ection by dipstickon 09-02-2021 Leukocyte esterase Test strip Ql (U) Negative Negative [facility] Work Phone: Urine pHon 09-02-2021 pH (U) 6.0 [pH] 5.0 - 8.0 [facility] Work Phone: Urine sediment bacteria coun t by microscopy (number/high power field)on 09-02-2021 Bacteria LM.HPF (Urine sed) [#/Area] 0 /[HPF] None Seen [facility] Work Phone: Urine specific gravity measu rementon 09-02-2021 Specific gravity (U) [Rel density] 1.015 1.002-1.030 [facility] Work Phone: Urobilinogen Auto test strip Ql (U)on 09-02-2021 Urobilinogen Ql (U) Normal mg/dl Normal [facility] Work Phone: CASE MANAGEMon 04-09-2019 CASE MANAGEM HNO ID: [id number] Author: Natalia (Rn) JAVIER Wang Service: Case Management Author Type: Registered Nurse Type: Care Mgt Progress Note Filed: 04/09/2019 11:42 AM Note Text: CARE MANAGEMENT DISCHARGE NOTE SERVICE DATE: 04/09/2019 SERVICE TIME: 11:40 AM LOS: 0 days Admission Date: 04/07/2019 DISCHARGE ARRANGEMENT (list agency and phone number) Discharge Arrangement: Home Half-Way Care: PT Provider Name: [facility] CAREGIVER ASSESSMENT: HANDOFF COMMUNICATION: Handoff to: Primary Care Physician;Other Caregiver Primary Care Physician Name/Phone: Dr. Kelton Serrano- [phone] Other Caregiver Name/Phone: [facility]- [phone] TRANSPORTATION ARRANGEMENTS: Transportation Arrangements: Car ADDITIONAL CONTACT RESOURCES: NA Discharge Information Row Name Admission (Current) from 04/07/[address] [facility] Start of Care ? within 24-48 hours Needs Prior to Discharge: Ready for Discharge Discharge order written for today. Met with the patient and confirmed with him that [facility] will be seeing him for home P.T with a start of care date within 24-48 hours. [facility]'s name and number is listed on the patients discharge instructions. Notified [facility] of the patients discharge home today. SIGNATURE: Natalia Wang PATIENT NAME: Geoff Smith DATE: April 09, 2019 TIME: 11:40 AM PAGER/CONTACT #: [phone] Normal [facility] CNCOon 04-09-2019 CNCO Letter Text Normal [facility] Hemoglobinon 04-09-2019 Hemoglobin (Bld) [Mass/Vol] 11.5 g/dL Low 13.0-17.0 [facility] Comment on above: Performed By: #### H GB ####[facility] [address] [place] [id number] PLAN OF CAREon 04-09-2019 PLAN OF CARE HNO ID: [id number] Author: Yasmin Tavares (Control Systems Eng) Service: Pharmacy Author Type: ? 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 Patient to use [facility] Bedside Delivery - YES Insurance Information as follows: 2. Insurance card on file - YES 3. Credit card for payment - YES PHARMACY BEDSIDE DELIVERY SERVICE Patient Name: Geoff Smith The marked outpatient medications were Filled at: [place] and delivered to the patient's bedside to [...] Take 1 capsule by mouth once daily. Multivitamins-Minerals -Lutein Tab Commonly known as: CENTRUM SILVER Take 1 tablet by mouth once daily. Quinapril-Hydrochlorot hiazide 20-12.5 mg per tablet Take 1 tablet by mouth once daily. triamcinolone acetonide 0.1 % cream Commonly known as: KENALOG Apply 1 application to affected area as needed. You might also be taking other medications not listed above. If you have questions about any of your other medications, talk to the person who prescribed them or your Primary Care Provider. Yasmin Tavares (Control Systems Eng) PAGER: [phone] April 09, 2019 12:43 PM Normal [facility] PROGRESSon 04-09-2019 PROGRESS HNO ID: [id number] Author: Antonio Mack Service: General Internal Medicine [...] Possible discharge today SIGNATURE: Antonio Mack MD [facility] THERAPY NTon 04-09-2019 THERAPY NT HNO ID: [id number] Author: Evy AlbrightPtRamon Berger Service: Physical Therapy Author Type: Physical Therapist Type: Therapy (PT/OT/Speech/Resp) Filed: 04/09/2019 10:35 AM Note Text: Physical Therapy Treatment SERVICE DATE: 04/09/2019 SERVICE TIME: 0840 to 958 ROOM: [place] [address]-1 Recommended Discharge Disposition: Home PT Recommended Discharge Disposition Comments: Pt with imporved functional mobility, continues to have deficits that are able to be addressed by home PT Justification For Post Acute Needs: Anticipated community discharge;Cognition intact;Good family support;Good premorbid functional status;Good sitting tolerance;Living the community premorbidly;Motivated; Willing to participate Anticipated Discharge Needs: Physical Assist at Home Physical Assist at Home for: Cleaning;Laundry;Meals ;Transportation;Wheelc hair Mobility Supervision at Home due to: (initially for safety) Recommended Discharge Equipment: Crutch(es) PT Recommendations to Nursing: Ambulate with device;To bathroom;In halls;Transfer to/from chair;OOB for Meals;With assist of 1 person Device: Wheeled Walker PT 6 Clicks Score: 19 Precautions/Activity Restrictions: Weight Bearing Restrictions;Total Hip Replacement;Fall Risk;Lines/Tubes/Drain s Extremity With Weight Bearing Restricted: Right Lower [...] to/from sit with: Stand By Assistance(with leg senior director if needed) Transfer sit to/from stand with: [...] Education;Self Care / Home Management;Energy Conservation Training;Joint Mobility;Strengthening ;Functional Mobility Training;Balance Training;Neuromuscular Re-education;Modalitie s;Pain Management Modalities: Ice Plan of Care developed with: Patient;Caregiver TREATMENT INTERVENTIONS: Therapy Diagnosis: Reduced mobility-other;Decreas ed activities of daily living (ADL);Muscle Weakness (generalized) Interventions Provided: Therapeutic Exercise (47803);Therapeutic Activity (94244);Gait Training (74595) Therapeutic Exercise (00946) Treatment Minutes: 18 1 unit Skilled Intervention(s): [...] and parameters of performance provided Therapeutic Activity (89148) Treatment Minutes: 23 2 units Skilled Intervention(s): [...] negotiation and how to obtain (hospital issue, [facility], obtain on own), importance of limiting sitting [...] due to tachycardia last session Gait Training (88731) Treatment Minutes: 32 2 units Skilled Intervention(s): [...] April 09, 2019 TIME: 10:10 AM Normal [facility] Basic Metabolic Panlon 04-08 Anion gap [Moles/Vol] 10 mmol/L Normal 9-18 [facility] Comment on above: Performed By: #### H AUGUSTINE BMP ####[facility] [phone] Calcium [Mass/Vol] 8.8 mg/dL Normal 8.5-10.2 [facility] Comment on above: Performed By: #### H AUGUSTINE BMP ####[facility] [address] [place] [phone] Chloride [Moles/Vol] 103 mmol/L Normal 97-105 [facility] Comment on above: Performed By: #### H AUGUSTINE BMP ####[facility] Un[address]zy[address]201 [phone] CO2 [Moles/Vol] 26 mmol/L Normal 22-30 [facility] Comment on above: Performed By: #### H AUGUSTINE, BMP ####[facility] R[address]w4470 [address] Creatinine [Mass/Vol] 1.11 mg/dL Normal 0.73-1.22 [facility] Comment on above: Performed By: #### H AUGUSTINE, BMP ####[facility] [address] [place] [phone] eGFR- Amer. >60 Normal [facility] Comment on above: Performed By: #### H AUGUSTINE, BMP ####[facility] [address]8908 [address]5[address] GFR/1.73 sq M predicted among non-blacks MDRD (S/P/Bld) [Vol rate/Area] mL/min/{1.73_m2} Normal [facility] Comment on above: Result Comment: eGFR [...] actual GFR. Performed By: #### H AUGUSTINE, BMP ####[facility] [address] [place] [phone] Glucose [Mass/Vol] 118 mg/dL High 74-99 [facility] Comment on above: Result Comment: The [place] Diabetes Association (ADA) provides guidance for cutoff [...] Standards of Medical Care in Diabetes 2016, [place] [employer]. Diabetes Care. 2016.39(Suppl 1). Performed By: #### H GB, BMP ####[facility] [address] [place] [phone] Potassium [Moles/Vol] 4.1 mmol/L Normal 3.7-5.1 [facility] Comment on above: Performed By: #### H GB, BMP ####[facility] [address] [place] [address] Sodium [Moles/Vol] 139 mmol/L Normal 136-144 [facility] Comment on above: Performed By: #### H GB, BMP ####[facility] [address] [place] [phone] Urea nitrogen [Mass/Vol] 20 mg/dL Normal 9-24 [facility] Comment on above: Performed By: #### H GB, BMP ####[facility] [address] [place], [place] [phone] Hemoglobinon 04-08-2019 Hemoglobin (Bld) [Mass/Vol] 12.0 g/dL Low 13.0-17.0 [facility] Comment on above: Performed By: #### H GB, BMP ####[facility] [address] [place] [address] PROGRESSon 04-08-2019 PROGRESS HNO ID: [id number] Author: Antonio Mack Service: General Internal Medicine [...] today Med reviewed. SIGNATURE: Antonio Mack MD [facility] PROGRESS HNO ID: [id number] Author: Denis Metzger) Grater Service: Orthopaedic Surgery Author Type: Nurse Practitioner Type: Progress Notes Filed: 04/08/2019 8:33 AM Note Text: Attestation signed by Nicholas Dela Cruz at 04/09/2019 7:22 AM Nicholas Dela Cruz MD POSTOP NOTE ORTHOPEDIC SERVICE DATE: 04/08/2019 SERVICE [...] 1200 VTE RISK CATEGORY: ORTHOPEDIC HIGH RISK ([place]) Active VTE Medication Orders: Anticoagulant AND Antiplatelet Medications (From admission, onward) Start Dose Route Frequency Ordered Stop 04/07/19 1200 aspirin, enteric coated 81 mg tab(s) (Surgical Risk Categories ) 81 mg ORAL 2 TIMES DAILY 04/07/19 1157 -- Active VTE Prophylaxis Orders: 04/07/19 1200 PNEUMATIC COMPRESSION STOCKINGS ([place]) 04/07/19 1200 ACTIVITY - MOBILIZE PATIENT ([place]) 04/07/19 1200 ACTIVITY - MOBILIZE PATIENT ([place]) 04/07/19 1200 ACTIVITY - MOBILIZE PATIENT ([place]) PHYSICAL EXAMINATION: Right Lower Extremity: Dorsalis [...] 08, 2019 TIME: 8:32 AM PAGER/CONTACT #: [phone] The patient has undergone major orthopedic surgery [...] Patient demonstrated understanding of risks of benefits. [facility] THERAPY NTon 04-08-2019 THERAPY NT HNO ID: [id number] Author: Evy (Pt) bA Service: Physical Therapy Author Type: Physical Therapist Type: Therapy (PT/OT/Speech/Resp) Filed: 04/08/2019 5:35 PM Note Text: Physical Therapy Treatment SERVICE DATE: 04/08/2019 SERVICE TIME: 1621 to 1700 ROOM: [place] [address] Recommended Discharge Disposition: Subacute/SNF Recommended Discharge Disposition [...] SNF rec) Physical Assist at Home for: Cleaning;Laundry;Meals ;Stairs;Safety;Self Care;Shopping;Transpor tation Supervision at Home due to: (initially for safety) Recommended Discharge Equipment: No equipment needs anticipated PT Recommendations to Nursing: Ambulate with device;To bathroom;In halls;Transfer to/from chair;OOB for Meals;With assist of 1 person Device: Wheeled Walker PT 6 Clicks Score: 14 Precautions/Activity Restrictions: Weight Bearing Restrictions;Total Hip Replacement;Fall Risk;Lines/Tubes/Drain s Extremity With Weight Bearing Restricted: Right Lower [...] to/from sit with: Stand By Assistance(with leg senior director if needed) Transfer sit to/from stand with: [...] Education;Self Care / Home Management;Energy Conservation Training;Joint Mobility;Strengthening ;Functional Mobility Training;Balance Training;Neuromuscular Re-education;Modalitie s;Pain Management Modalities: Ice Plan of Care developed with: Patient;Caregiver TREATMENT INTERVENTIONS: Therapy Diagnosis: Reduced mobility-other;Decreas ed activities of daily living (ADL);Muscle Weakness (generalized) Interventions Provided: Therapeutic Activity (57247);Gait Training (97091) Therapeutic Activity (51223) Treatment Minutes: 13 1 unit Skilled Intervention(s): [...] and progression of functional mobility Gait Training (79105) Treatment Minutes: 25 2 units Skilled Intervention(s): [...] and reach ipsilaterally, unable to weight shift [facility]: 7: Walk 25 feet or more Please see discipline specific clinical documentation flowsheet for complete details for this therapy evaluation/treatment. SIGNATURE: Evy Berger PT PATIENT NAME: Geoff Smith DATE: April 08, 2019 TIME: 5:21 PM [facility] THERAPY NT HNO ID: [id number] Author: Juan (Ot) Naye Service: Occupational Therapy Author Type: Occupational Therapist Type: Therapy (PT/OT/Speech/Resp) Filed: 04/11/2019 4:49 PM Note Text: Occupational Therapy Evaluation SERVICE DATE: 04/08/2019 SERVICE TIME: 1130 to 1220 ROOM: [place] [address] Recommended Discharge Disposition: Subacute/SNF(if discharged today) Recommended Discharge Disposition Comments: Patient would benefit from continued therapy to increase ease independence and safety with ADLS and functional mobility tasks. Feel patient will progress to being able to return home with [facility] over the next 24 hours. Justification For Post Acute Needs: Anticipated community discharge;Cognition intact;Good family support;Living the community premorbidly;Motivated; Willing to participate;Anticipate that patient will require daily (5x/wk) skilled therapy in a post-acute facility setting at the time of acute hospital discharge Anticipated Discharge Needs: Physical Assist at Home;Supervision at Home Physical Assist at Home for: Cleaning;Laundry;Meals ;Stairs;Safety;Self Care;Shopping;Transpor tation Supervision at Home due to: (initially for safety) Recommended Discharge Equipment: ADL Kit;Shower Chair OT Recommendations to Nursing: To Bathroom for ADL?s /and or Toileting;OOB for meals;Transfer to Chair;With assist of 1 person Equipment: Commode-Raised;Wheeled Walker OT 6 Clicks Score: 17 Precautions/Activity Restrictions: Weight Bearing Restrictions;Total Hip Replacement;Fall Risk;Lines/Tubes/Drain s Extremity With Weight Bearing Restricted: Right Lower [...] Comment( present) TREATMENT INTERVENTIONS: Therapy Diagnosis: Reduced mobility-other;Decreas ed activities of daily living (ADL) Interventions Provided: Evaluation;Self Half-Way Management (66989) $ Evaluation-Low (37437) Billed Units: 1 unit Self Half-Way Management (70446) Treatment Minutes: 35 2 units Skilled Intervention(s): [...] during dressing including getting dressed seated, using superintendent meter tests and sock aide to help with lower [...] Comments: was indep prior to admission OBJECTIVE: Cognition/Communicatio n Deficits Responsiveness: Alert;Awake Follows Commands: Cueing Needed(patient [...] complete details for this therapy evaluation/treatment. SIGNATURE: UMAIR Hargrove/Suri PATIENT NAME: Geoff Smith DATE: April 08, 2019 TIME: 3:12 PM [facility] THERAPY NT HNO ID: [id number] Author: Shivani Salgado Service: Physical Therapy Author Type: Walking Dragline Operator Type: Therapy (PT/OT/Speech/Resp) Filed: 04/08/2019 1:28 PM Note Text: Attestation signed by Evy AlbrightPtRamon Berger at 04/08/2019 5:10 PM I reviewed and agree with the documentation corresponding to this therapy visit. SIGNATURE: Evy Berger, PT DATE: April 08, 2019 TIME: 5:09 PM Physical Therapy Treatment SERVICE DATE: 04/08/2019 SERVICE TIME: 1225 to 1255 ROOM: [id number]-0424-1 Recommended Discharge Disposition: Home PT Recommended Discharge Disposition Comments: s/p right hip replacement Anticipated Discharge Needs: Physical Assist at Home Physical Assist at Home for: Ambulation;Cleaning;La undry;Meals;Medication Management;Stairs;Safe ty;Self Care;Shopping;Transpor tation Recommended Discharge Equipment: No equipment needs anticipated PT Recommendations to Nursing: Ambulate with device;To bathroom;In halls;Transfer to/from chair;OOB for Meals;With assist of 1 person Device: Wheeled Walker PT 6 Clicks Score: 11 Precautions/Activity Restrictions: Weight Bearing Restrictions;Total Hip Replacement;Fall Risk;Lines/Tubes/Drain s Extremity With Weight Bearing Restricted: Right Lower [...] to/from sit with: Stand By Assistance(with leg senior director if needed) Transfer sit to/from stand with: [...] Education;Self Care / Home Management;Energy Conservation Training;Joint Mobility;Strengthening ;Functional Mobility Training;Balance Training;Neuromuscular Re-education;Modalitie s;Pain Management Modalities: Ice Plan of Care developed with: Patient;Caregiver TREATMENT INTERVENTIONS: Therapy Diagnosis: Reduced mobility-other;Decreas ed activities of daily living (ADL);Muscle Weakness (generalized) Interventions Provided: Evaluation;Therapeutic Exercise (38582);Gait Training (28787);Self Half-Way Management (78185) Therapeutic Exercise (18071) Treatment Minutes: 23 2 units Skilled Intervention(s): Patient was educated in proper exercise technique and purpose for exercises.Correct performance of therapeutic exercises was facilitated with verbal, visual and tactile cuing. Gait Training (44280) Treatment Minutes: 3 0 units Skilled Intervention(s): [...] DATE: April 08, 2019 TIME: 1:15 PM [facility] HEALTHon 04-07-2019 ALLIED HEALTH HNO ID: [id number] Author: Fátima Nascimento (Rt) Service: Radiology Author Type: Accountant Type: Allied Health Filed: 04/07/2019 10:52 AM [...] RT Pily April 07, 2019 10:52 AM [facility] ANES Noemi 04-07-2019 ANES POST HNO ID: [id number] Author: Lupe Pope Service: Anesthesiology Author Type: [...] 07, 2019 TIME: 1:37 PM PAGER/CONTACT #: [phone] [facility] ANES PREOPon 04-07-2019 ANES PREOP HNO ID: [id number] Author: Jameson Appiah Service: Anesthesiology Author Type: [...] colon 04/18/05 - Cholelithiasis - Melanoma (HCC) 2016 - Other psoriasis - Snoring - Unspecified essential hypertension PAST SURGICAL HISTORY Procedure Laterality Date - COLONOSCOP W/ OR W/O BRS SPEC 02/06/2001 sigmoidoscopy - COLONOSCOP W/ OR W/O BRSH SPEC 06/19/2006 Colonoscopy - COLONOSCOP W/ OR W/O BRS SPEC 07/12/2011 Colonoscopy - COLONOSCOP W/ OR W/O [facility] SPEC 04/08/2017 repeat in [address] Thomson - COLONOSCOPY W/BX 04/18/05 - EGD W/O OR W/BRUSH/WASH 02/15/2013 EGD - LAPAROSCOPIC CHOLEYCYSTECTOMY 08/31/2014 [facility] Dr Quick - PAST SURGICAL HISTORY OF [...] File Prior to Encounter Medication Sig - Quinapril-Hydrochlorot hiazide 20-12.5 mg per tablet Take 1 tablet by mouth once daily. - lansoprazole (PREVACID) 30 mg capsule Take 1 capsule by mouth once daily. - Multivitamins-Minerals -Lutein (CENTRUM SILVER) tab Take 1 tablet by [...] (TRANSDERM-SCOP) 1 Patch TRANSDERMAL Pre-Op Once Jameson Appiah 1 Patch at 04/07/19705 And - scopolamine [...] April 07, 2019 TIME: 7:12 AM CSN: [id number] [facility] CASE MANAGEMon 04-07-2019 CASE MANAGEM HNO ID: [id number] Author: Natalia AlbrightRn) JAVIER Wang Service: Case Management Author Type: Registered Nurse Type: Care Mgt Progress Note Filed: 04/07/2019 4:17 PM Note Text: CARE MANAGEMENT PROGRESS NOTE SERVICE DATE: April 07, 2019 SERVICE TIME: 4:16 PM LOS: 0 days Needs Prior to Discharge: OT/PT Evaluation [facility] able to accept. department will continue to follow for DC needs. SIGNATURE: Natalia Wang PATIENT NAME: Geoff Smith DATE: April 07, 2019 TIME: 4:16 PM PAGER/CONTACT #: [phone] [facility] CASE MGT INIT ASSESon 2019 CASE MGT INIT CARLOS HNO ID: [id number] Author: Natalia Kelsey) JAVIER Wang Service: Case Management Author Type: Registered Nurse Type: Care Mgt Initial Assessment Filed: 04/07/2019 4:15 PM Note Text: CARE MANAGEMENT: ASSESSMENT AND DISCHARGE PLAN SERVICE DATE: April 07, 2019 SERVICE TIME: 4:13 PM PRIMARY CARE PHYSICIAN: Kelton Serrano MD - Confirmed with the patient ADMISSION STATUS: Extended Recovery Needs Prior to Discharge: OT/PT Evaluation 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 Last discharge within 30 days: No Advance Directive: Current Advance Directive: None Foreign Correspondent Attempted to Assist with AD Completion: Yes [...] Information Primary Emergency Contact: Yin Smith Address: [address] [place] [address] Mobile Relation: Spouse Supportive Patient Contact:: Yes [...] Completely I feel financially burdened by my [id number] expenses for my prescription medication:: 0 - Diagree Completely Risk Score: 0 Patient is categorized as: Low risk < 2 Are you interested in bedside delivery of your medications? Yes Is Patient Psychosocially Complex?: No ASSESSMENT AND PLAN: Medical Needs: Medical Needs: Fall risk or frequent falls Psychosocial Needs: Psychosocial Needs: None FREEDOM OF CHOICE EXPLAINED: [place] of Choice Given: Yes Level of Care Discussed: Home Care POTENTIAL TRANSITION PLANS Home OT/PT Review of the chart and met with the patient. The patient lives with his in a 2 story home with his bedroom and bathroom on the 2nd floor. Discussed discharge planning, the patient is agreeable to home P.T if recommended. Discussed freedom of choice, referral to [facility]. department will continue to follow for DC needs. SIGNATURE: Natalia Wang PATIENT NAME: Geoff Smith DATE: April 07, 2019 TIME: 4:13 PM PAGER/CONTACT #: [phone] Normal [facility] CONSULTon 04-07-2019 CONSULT HNO ID: [id number] Author: Antonio Mack Service: General Internal Medicine Author Type: Physician Type: Consults Filed: 04/20/2019 9:34 PM Note Text: [facility]- Consultation GEOFF SMITH : 1945 AGE: 73 SEX: M ACCTNUM: [id number] [place] [facility] [place] [facility] LOCATION: [address] ATTENDING PHYSICIAN: Nicholas Dela Cruz M.D. DATE [...] the hospital. Antonio Mack M.D. Internal Medicine [id number] [facility] NURSING PROGon 04-07-2019 NURSING PROG HNO ID: [id number] Author: Heather (Rn) JAVIER Miner Service: ? Author Type: Registered Nurse Type: Nursing Progress Note Filed: 04/07/2019 4:07 PM Note Text: Nursing Progress Note Patient Name: Geoff Smith [place] [facility] [id number] [place] 1 __ Daily Note: 1115 Admitted to room 289 [...] note was completed by: Heather Miner RN [facility] NURSING PROG HNO ID: [id number] Author: Angelica Kelsey) JAVIER Macdonald Service: Nursing Author Type: Registered Nurse Type: Nursing Progress Note Filed: 04/07/2019 10:48 AM Note Text: Nursing Progress Note Patient Name: Geoff Smith Patient Location: [place] Surgery/ME Surgery __ 1015 Pt received in PACU on bed from OR. CR monitor applied and strip obtained. Ice applied to right hip. SCDs applied BLE. 1045 Xray right hip completed. This note was completed by: Angelica Macdonald RN [facility] OPERATIVE NOon 04-07-2019 OPERATIVE NO HNO ID: [id number] Author: Nicholas Dela Cruz Service: Orthopaedic Surgery Author Type: Physician Type: Operative Report Filed: 04/07/2019 10:13 AM Note Text: OPERATIVE/PROCEDURE REPORT LOG ID: [id number] SURGERY/PROCEDURE DATE: 04/07/2019 INCISION/PROCEDURE START TIME: 8:13 AM INCISION CLOSE/PROCEDURE END TIME: SURGEON(S)/PROCEDURALI ST(S) AND SEMI AUTOMATIC SEWING MACHINE OPERATOR(S): Surgeon(s) and Role: * Nicholas Dela Cruz - Primary Physician Braid Cutter: Brynn Dolan (Pa) (assistant activities director) Registered Nurse: Yin (Rn) JAVIER Patricio SURGERY/PROCEDURE(S): [...] with the Bovie and I used the [employer] cutter to enter the superior-lateral portion of [...] assistance. No qualified resident/fellow was available. ? assistant activities director was necessary for appropriate patient positioning on the beanbag and axillary roll. Sterile prepping and draping. Soft tissue retraction and leg holding, manipulation and positioning during the procedure. The assistance was necessary for visualization during the procedure, final skin closure with immediate supervision if necessary. Final bandages and safe return to the [facility] and to the post recovery unit. SIGNATURE: Nicholas Dela Cruz MD PATIENT NAME: Geoff Smith DATE: April 07, 2019 TIME: 10:03 AM PAGER/CONTACT #: [facility] PT EDon 04-07-2019 PT ED HNO ID: [id number] Author: Wade (Rn) JAVIER Govea Service: ? [...] Signed By: Wade Govea RN In Department: [facility] SURGERY [facility] SURGICAL PATHOLOGYon 020 SURGICAL PATHOLOGY Specimen originated from [facility] Specimen #: [id number] Submitting Physician: NICHOLAS DELA CRUZ MD FINAL DIAGNOSIS Right femoral head, arthroplasty - Degenerative joint disease. /emil 04/12/2019 Carlito Swenson M.D. (Electronic Signature) _ SPECIMEN SUBMITTED A: RIGHT FEMORAL HEAD CLINICAL [...] x 4.0 x 0.3 cm in aggregate. Computer Applications Engineer sections are submitted as follows: A1 soft tissue, A2 bone (pending decalcification). KSZ/slb 04/07/2019 [place] [address] Date of Report: 04/12/2019 Date of Procedure: 04/07/2019 Date of Receipt: 04/07/2019 Submitted by: NICHOLAS DELA CRUZ MD Location: 2E Diagnostic interpretation performed at [place] [address]. IA Number: [id number] [facility] THERAPY NTon 04-07-2019 THERAPY NT HNO ID: [id number] Author: Noelle Grace Service: Physical Therapy Author Type: Physical Therapist Type: Therapy (PT/OT/Speech/Resp) Filed: 04/07/2019 4:24 PM Note Text: Physical Therapy Evaluation SERVICE DATE: 04/07/2019 SERVICE TIME: 1518 to 1556 ROOM: [place] [address] Recommended Discharge Disposition: Home PT Recommended Discharge Disposition Comments: s/p right hip replacement Anticipated Discharge Needs: Physical Assist at Home Physical Assist at Home for: Ambulation;Cleaning;La undry;Meals;Medication Management;Stairs;Safe ty;Self Care;Shopping;Transpor tation Recommended Discharge Equipment: No equipment needs anticipated PT Recommendations to Nursing: Ambulate with device;To bathroom;In halls;Transfer to/from chair;OOB for Meals;With assist of 1 person Device: Wheeled Walker PT 6 Clicks Score: 11 Precautions/Activity Restrictions: Weight Bearing Restrictions;Total Hip Replacement;Fall Risk;Lines/Tubes/Drain s Extremity With Weight Bearing Restricted: Right Lower [...] well. Pt needed to use a leg senior director for bed mobility and requires mod assist [...] to/from sit with: Stand By Assistance(with leg senior director if needed) Transfer sit to/from stand with: [...] Education;Self Care / Home Management;Energy Conservation Training;Joint Mobility;Strengthening ;Functional Mobility Training;Balance Training;Neuromuscular Re-education;Modalitie s;Pain Management Modalities: Ice Plan of Care developed with: Patient;Caregiver TREATMENT INTERVENTIONS: Therapy Diagnosis: Reduced mobility-other;Decreas ed activities of daily living (ADL);Muscle Weakness (generalized) Interventions Provided: Evaluation;Therapeutic Exercise (33522);Gait Training (26424);Self Half-Way Management (29594) $ Evaluation-Low (83040) Billed Units: 1 unit Therapeutic Exercise (86550) Treatment Minutes: 10 1 unit Skilled Intervention(s): Instruction in therapeutic exercise antiembolics x 10 Verbal and tactile cuing provided for performance and tolerance Gait Training (72167) Treatment Minutes: 5 0 units Skilled Intervention(s): [...] performed secondary to drop in BP. Self Half-Way Management (33005) Treatment Minutes: 14 1 unit Skilled Intervention(s): Education in height of chair at home for adherence to precaustions, education about using a leg senior director for OOB mobility with pt demonstrate of [...] DATE: April 07, 2019 TIME: 4:09 PM [facility] XR HIP 1V RTon 04-07-2019 XR HIP [...] IMPRESSION: Right total hip arthroplasty in progress. Reception Manager: PSCB Transcribe Date/Time: Apr 07 2019 10:01A Dictated by : ANJANA JONES MD This examination was interpreted and the report reviewed and electronically signed by: ANJANA JONES MD on Apr 07 2019 10:02AM EST [id number] [facility] XR PELVIS 1V APon 04-07-2019 XR PELVIS [...] IMPRESSION: Status post right total hip arthroplasty. Reception Manager: PSCB Transcribe Date/Time: Apr 07 2019 11:01A Dictated by : ANJANA JONES MD This examination was interpreted and the report reviewed and electronically signed by: ANJANA JONES MD on Apr 07 2019 11:02AM EST [id number] Normal [facility] Confirm Blood Typeon 020 ABO/RH(D) Positive [facility] Comment on above: Performed By: #### C ONABO #### [facility] [address] [place] [phone] NURSING PROGon 03-24-2019 NURSING PROG HNO ID: [id number] Author: Chapo Mccord (Rn) JAVIER Thompson Service: ? Author Type: Registered [...] Thompson RN April 06, 2019 7:09 AM [facility] Type and SCR (30D)on 020 ABO/RH(D) Positive Normal [facility] Comment on above: Performed By: #### T SCR30 #### [facility] [address] [facility] [phone] HOSPon 03-23-2019 HOSP Patient:Baldemar Smith MRN: Height:6' 1(1.854 m) Weight:200 lb 9.6 oz (90.992 kg) Outpatient Medications as of 04/07/19: Quinapril-Hydrochlorot hiazide 20-12.5 mg per tablet lansoprazole (PREVACID) 30 mg capsule triamcinolone acetonide (KENALOG) 0.1 % cream Multivitamins-Minerals -Lutein (CENTRUM SILVER) tab CHOLECALCIFEROL (VITAMIN D3) 2,000 [...] right hip [M16.11] Allergies: Cardura [Doxazosin Mesylate] Triamterene-Hydrochlor othiazid Asa [Aspirin] Protonix [Pantoprazole Sodium] Date Verified: 04/07/19 Lab Values Lab Value Units Date High Low POTA* 4.2 mmol/L 03/24/2019 5.1 3.7 JAYLA* 46.3 % 03/24/2019 51.0 39.0 Progress Notes ([facility]): Nena Castañeda RN 04/06/2019 2:53 PM Signed Patient's calls in regards to [email or web address] message. Gave messages from both [employer] and [employer]. verbalized understanding and states denies any cardiac symptoms such as SOB, chest pain, heart palpitations, etc. Progress Notes ([address]): LINDA Shahid 03/31/2019 10:22 AM Signed TOTAL JOINT COMPLETE CARE PROGRAM PRE-OPERATIVE TEACHING Service Date: 03/31/2019 Service Time: 10:18 AM Date of : 1945 Gender: male Date of Surgery: 04/07/2019 Procedure: Right Total Hip Replacement Complete Care Program was discussed with the patient: Logging Truck Driver Identification: Patient identified a care team assistant to help when discharged to home: time buyer Home Environment: Home Layout: 2 story, Entry Steps: 2, no rail, Bedroom Location: 2nd floor, Bathroom Location: 2nd floor and walk in shower. Pt has walker, cane, raised toilet seat. Discussed with patient importance of attending joint education class and provided date and times of class: YES 03/16/2019 Patient received Joint Education Binder: Yes Plans discharge home with C with [facility]. Neighbor is CORRECTIONAL OFFICER CHIEF with [facility]. SIGNATURE: LINDA Shahid PATIENT NAME: Geoff Smith DATE: March 31, 2019 TIME: 10:18 AM PAGER/CONTACT #: [phone] [facility] CNCNPATEDon 03-17-2019 CNCNPATED Education (MI2E) GEOFF SMITH ([id number]) 1945 M Date Time Provider Department 03/17/19 LINDA GREGG) ME2E Reason for Visit: Pre-Op Teaching [134] [...] removed 7 days post op Incision care: Mineral vs dissolvable sutures with glue Signs AND symptoms of infection Signs AND symptoms of DVT Home physical therapy Home pain medications: Refill protocol and side effects Pain management: Ice, elevation of extremity and pain meds Care Management Discharge plan Discuss with family/friends about assistance after discharge from the hospital SNF ([facility]) Rehab nurse will contact prior to admission to discuss post-op needs and home therapy vs SNF digital content manager/marriage and family social worker in hospital final arrangements for discharge Physical and occupational therapy while in the hospital Getting your home ready What to bring to the hospital Preparing yourself for surgery: Dentist, stop smoking Diet Exercises: Circulation exercises Adaptive equipment Hip and knee precautions SIGNATURE: LINDA Shahid PATIENT NAME: Geoff Smith DATE: March 17, 2019 TIME: 8:31 AM PAGER/CONTACT #: [phone] During your visit today, we recorded the following information about you: Allergies As of Date: 03/17/2019 Noted Allergy Reaction CARDURA (DOXAZOSIN MESYLATE) 02/08/2005 5 - Intolerance Comments: forgetfulness just did not feel well TRIAMTERENE-HYDROCHLOR OTHIAZID 02/08/2005 5 - Intolerance ASA (ASPIRIN) 06/25/2012 [...] 0.1 %* Apply 1 application to affect* MULTIVITAMIN-MINERALS- LUTEIN * Take 1 tablet by mouth once d* * CHOLECALCIFEROL (VITAMIN D3) * Take one(1) tablet daily. Encounter Status:Closed by LINDA GREGG on 03/17/19 [facility] PROGRESSon 03-17-2019 PROGRESS HNO ID: [id number] Author: Linda Gregg (Psa) Service: ? Author Type: Patient Allergist Type: Progress Notes Filed: 03/17/2019 8:31 AM Note Text: TOTAL JOINT COMPLETE CARE PROGRAM ORTHOPAEDIC TOTAL JOINT CLASS Service Date: 03/17/2019 Service Time: 8:31 AM Geoff Smith is scheduled for hip replacement on TBD. He did attend the pre-op joint replacement class. Issues Reviewed: [facility] Education Topic/Teaching Points: Day of surgery arrival instructions (including phone number to call for arrival time) Pre-op skin wipes Hospital course: -TCI area, operating room, recovery room -Anesthesia: Spinal vs general -Pain control: Nerve block, epidural, oral medications, AND IV medications -DVT prophylaxis ASA, Lovenox, Coumadin Post-op dressings Showering instructions Aquacell dressing to be removed 7 days post op Incision care: Mineral vs dissolvable sutures with glue Signs AND symptoms of infection Signs AND symptoms of DVT Home physical therapy Home pain medications: Refill protocol and side effects Pain management: Ice, elevation of extremity and pain meds Care Management Discharge plan Discuss with family/friends about assistance after discharge from the hospital SNF ([facility]) Rehab nurse will contact prior to admission to discuss post-op needs and home therapy vs SNF digital content manager/marriage and family social worker in hospital final arrangements for discharge Physical and occupational therapy while in the hospital Getting your home ready What to bring to the hospital Preparing yourself for surgery: Dentist, stop smoking Diet Exercises: Circulation exercises Adaptive equipment Hip and knee precautions SIGNATURE: LINDA Shahid PATIENT NAME: Geoff Smith DATE: March 17, 2019 TIME: 8:31 AM PAGER/CONTACT #: [phone] [facility] Vital Signs Date Time Vital Sign Value Performing Clinician Facility 10-07-2024 09:53-0400 Body temperature 98.1 [degF] Dr. Kelton Serrano MD Work Phone: 3([phone] [place] [address] 10-07-2024 09:53-0400 Diastolic blood pressure 73 mm[Hg] Dr. Kelton Serrano MD Work Phone: [phone])056-837789 [place] [address] 10-07-2024 09:53-0400 Heart rate 65 /min Dr. Kelton Serrano MD Work Phone: 2([phone] [place] [address] 10-07-2024 09:53-0400 Respiratory rate 18 /min Dr. Kelton Serrano MD Work Phone: [phone] [place] [address] 10-07-2024 09:53-0400 SaO2% (BldA) [Mass fraction] 93 % Dr. Kelton Serrano MD Work Phone: 8([phone])297-524989 [place] [address] 10-07-2024 09:53-0400 Systolic blood pressure 134 mm[Hg] Dr. Kelton Serrano MD Work Phone: 2([phone] [place] [address] 10-07-2024 07:12-0400 Body height 185.[address] Kelton Serrano MD Work Phone: [phone] [place] [address] 10-07-2024 07:12-0400 Body mass index (BMI) [Ratio] 25 kg/m2 Dr. Kelton Serrano MD Work Phone: [phone] [place] [address] 10-07-2024 07:12-0400 Body weight 86.[address] Kelton Serrano MD Work Phone: [facility] 06-02-2024 07:15-0400 Diastolic blood pressure 82 mm[Hg] Yaritza Raz MORNING NEWS PRODUCER.KST OPERATOR Work Phone: [facility] 06-02-2024 07:15-0400 Systolic blood pressure 138 mm[Hg] Yaritza Raz MORNING NEWS PRODUCER.KST OPERATOR Work Phone: [facility] 06-02-2024 07:12-0400 Body mass index (BMI) [Ratio] 26.57 kg/m2 Yaritza Raz MORNING NEWS PRODUCER.KST OPERATOR Work Phone: [facility] 06-02-2024 07:12-0400 Body weight 90.1 kg Yaritza Raz MORNING NEWS PRODUCER.KST OPERATOR Work Phone: [facility] 06-02-2024 07:12-0400 Heart rate 73 /min Yaritza Raz MORNING NEWS PRODUCER.KST OPERATOR Work Phone: [facility] 06-02-2024 07:12-0400 SaO2% (BldA) [Mass fraction] 96 % Yaritza Raz MORNING NEWS PRODUCER.KST OPERATOR Work Phone: [facility] 05-03-2024 07:40-0400 Diastolic blood pressure 96 mm[Hg] Yaritza Raz MORNING NEWS PRODUCER.KST OPERATOR Work Phone: [facility] Comment on above: Home monitor reading 05-03-2024 07:40-0400 Heart rate 77 /min Yaritza Raz MORNING NEWS PRODUCER.KST OPERATOR Work Phone: [facility] 05-03-2024 07:40-0400 Systolic blood pressure 174 mm[Hg] Yaritza Raz MORNING NEWS PRODUCER.KST OPERATOR Work Phone: [facility] Comment on above: Home monitor reading 05-03-2024 07:38-0400 Body mass index (BMI) [Ratio] 27.22 kg/m2 Yaritza Raz MORNING NEWS PRODUCER.KST OPERATOR Work Phone: [facility] 05-03-2024 07:38-0400 Body weight 92.3 kg Yaritza Raz MORNING NEWS PRODUCER.KST OPERATOR Work Phone: [facility] 05-03-2024 07:38-0400 SaO2% (BldA) [Mass fraction] 94 % Yaritza Tineo APRN.CNP Work Phone: [facility] 03-29-2024 08:52-0500 Diastolic blood pressure 88 mm[Hg] Kelton Serrano MD Work Phone: [facility] 03-29-2024 08:52-0500 Systolic blood pressure 160 mm[Hg] Kelton Serrano MD Work Phone: [facility] 03-29-2024 08:07-0500 Body height 184.2 cm Kelton Serrano MD Work Phone: [facility] 03-29-2024 08:07-0500 Body mass index (BMI) [Ratio] 27.51 kg/m2 Kelton Serrano MD Work Phone: [facility] 03-29-2024 08:07-0500 Body temperature 98.2 [degF] Kelton Serrano MD Work Phone: [facility] 03-29-2024 08:07-0500 Body weight 93.3 kg Kelton Serrano MD Work Phone: [facility] 03-29-2024 08:07-0500 Heart rate 72 /min Kelton Serrano MD Work Phone: [facility] 03-29-2024 08:07-0500 Respiratory rate 16 /min Kelton Serrano MD Work Phone: [facility] 03-29-2024 08:07-0500 SaO2% (BldA) [Mass fraction] 98 % Kelton Serrano MD Work Phone: [facility] 03-24-2023 08:32-0500 Body height 185.4 cm Kelton Serrano MD Work Phone: [facility] 03-24-2023 08:32-0500 Body weight 91.63 kg Kelton Serrano MD Work Phone: [facility] 03-24-2023 08:32-0500 Diastolic blood pressure 84 mm[Hg] Kelton Serrano MD Work Phone: [facility] 03-24-2023 08:32-0500 Heart rate 80 /min Kelton Serrano MD Work Phone: [facility] 03-24-2023 08:32-0500 Respiratory rate 16 /min Kelton Serrano MD Work Phone: [facility] 03-24-2023 08:32-0500 Systolic blood pressure 130 mm[Hg] Kelton Serrano MD Work Phone: [facility] 05-02-2022 09:24-0500 Diastolic blood pressure 89 mm[Hg] Kaye Daily MORNING NEWS PRODUCER.ENGINE DESIGNER Work Phone: [facility] 05-02-2022 09:24-0500 Heart rate 77 /min Kaye Daily MORNING NEWS PRODUCER.ENGINE DESIGNER Work Phone: [facility] 05-02-2022 09:24-0500 Systolic blood pressure 166 mm[Hg] Kaye Daily MORNING NEWS PRODUCER.ENGINE DESIGNER Work Phone: [facility] 05-02-2022 09:20-0500 Body weight 93.44 kg Kaye Daily MORNING NEWS PRODUCER.ENGINE DESIGNER Work Phone: [facility] 04-04-2022 09:02-0500 Diastolic blood pressure 89 mm[Hg] Kaye Daily MORNING NEWS PRODUCER.ENGINE DESIGNER Work Phone: [facility] 04-04-2022 09:02-0500 Heart rate 71 /min Kaye Daily MORNING NEWS PRODUCER.ENGINE DESIGNER Work Phone: [facility] 04-04-2022 09:02-0500 Systolic blood pressure 162 mm[Hg] Kaye Daily MORNING NEWS PRODUCER.ENGINE DESIGNER Work Phone: [facility] 04-04-2022 09:01-0500 Body weight 93.44 kg Kaye Daily MORNING NEWS PRODUCER.ENGINE DESIGNER Work Phone: [facility] 04-04-2022 09:01-0500 Respiratory rate 16 /min Kaye Daily MORNING NEWS PRODUCER.ENGINE DESIGNER Work Phone: [facility] 04-01-2022 14:50-0500 Body temperature 97.5 [degF] Jake Jani MORNING NEWS PRODUCER.KST OPERATOR Work Phone: [facility] 04-01-2022 14:50-0500 Body weight 97.07 kg Jake Gunter MORNING NEWS PRODUCER.KST OPERATOR Work Phone: [facility] 04-01-2022 14:50-0500 Diastolic blood pressure 102 mm[Hg] Jake Jani MORNING NEWS PRODUCER.KST OPERATOR Work Phone: [facility] 04-01-2022 14:50-0500 Heart rate 104 /min Jake King MORNING NEWS PRODUCER.KST OPERATOR Work Phone: [facility] 04-01-2022 14:50-0500 Respiratory rate 16 /min Jake Jani MORNING NEWS PRODUCER.KST OPERATOR Work Phone: [facility] 04-01-2022 14:50-0500 SaO2% (BldA) [Mass fraction] 96 % Jake King MORNING NEWS PRODUCER.KST OPERATOR Work Phone: [facility] 04-01-2022 14:50-0500 Systolic blood pressure 178 mm[Hg] Jake King MORNING NEWS PRODUCER.KST OPERATOR Work Phone: [facility] 03-18-2022 08:05-0500 Body height 183.5 cm Kelton Serrano MD Work Phone: [facility] 03-18-2022 08:05-0500 Body temperature 97.7 [degF] Kelton Serrano MD Work Phone: [facility] 03-18-2022 08:05-0500 Body weight 93.4 kg Kelton Serrano MD Work Phone: [facility] 03-18-2022 08:05-0500 Diastolic blood pressure 86 mm[Hg] Kelton Serrano MD Work Phone: [facility] 03-18-2022 08:05-0500 Heart rate 83 /min Kelton Serrano MD Work Phone: [facility] 03-18-2022 08:05-0500 Respiratory rate 18 /min Kelton Serrano MD Work Phone: [facility] 03-18-2022 08:05-0500 SaO2% (BldA) [Mass fraction] 97 % Kelton Serrano MD Work Phone: [facility] 03-18-2022 08:05-0500 Systolic blood pressure 138 mm[Hg] Kelton Serrano MD Work Phone: [facility] 09-02-2021 21:45-0400 Diastolic blood pressure 84 mm[Hg] Dr. Kelton Serrano Work Phone: [facility] Work Phone: 09-02-2021 21:45-0400 Heart rate 100 /min Dr. Kelton Serrano Work Phone: [facility] Work Phone: 09-02-2021 21:45-0400 Respiratory rate 18 /min Dr. Kelton Serrano Work Phone: [facility] Work Phone: 09-02-2021 21:45-0400 SaO2% (BldA) [Mass fraction] 96 % Dr. Kelton Serrano Work Phone: [facility] Work Phone: 09-02-2021 21:45-0400 Systolic blood pressure 157 mm[Hg] Dr. Kelton Serrano Work Phone: [facility] Work Phone: 09-02-2021 19:09-0400 Body height 185.[address] Kelton Serrano Work Phone: [facility] Work Phone: 09-02-2021 19:09-0400 Body mass index (BMI) [Ratio] 26.4 kg/m2 Dr. Kelton Serrano Work Phone: [facility] Work Phone: 09-02-2021 19:09-0400 Body temperature 97.8 [degF] Dr. Kelton Serrano Work Phone: [facility] Work Phone: 09-02-2021 19:09-0400 Body weight 90.[address] Kelton Serrano Work Phone: [facility] Work Phone: 06-07-2021 08:59-0400 Body weight 92.[address] Kelton Serrano Work Phone: [facility] Work Phone: 06-07-2021 08:59-0400 Diastolic blood pressure 89 mm[Hg] Dr. Kelton Serrano Work Phone: [facility] Work Phone: 06-07-2021 08:59-0400 Heart rate 78 /min Dr. Kelton Serrano Work Phone: [facility] Work Phone: 06-07-2021 08:59-0400 Respiratory rate 16 /min Dr. Kelton Serrano Work Phone: [facility] Work Phone: 06-07-2021 08:59-0400 SaO2% (BldA) [Mass fraction] 98 % Dr. Kelton Serrano Work Phone: [facility] Work Phone: 06-07-2021 08:59-0400 Systolic blood pressure 161 mm[Hg] Dr. Kelton Serrano Work Phone: [facility] Work Phone: 06-07-2020 11:00-0400 Body mass index (BMI) [Ratio] 25.7 kg/m2 Dr. Kelton Serrano Work Phone: [facility] Work Phone: Encounters Encounter Date Encounter Type Care Provider Facility Start: 10-07-2024 End: 10-07-2024 Emergency department patient visit Dr. Kelton Serrano MD Work Phone: -Emergency Department Work Phone: Start: 09-14-2024 End: 09-14-2024 Telephone encounter Kelton Serrano MD Work Phone: [address] [place] [address] Comment on above: Appointment Start: 07-02-2024 End: 07-05-2024 Refill Kelton Serrano MD Work Phone: [facility] [place] Comment on above: Refill Request Start: 06-02-2024 End: 06-02-2024 ambulatory KELTON SERRANO Facility:[facility] Start: 06-02-2024 End: 06-02-2024 Patient encounter procedure Yaritza Tineo APRN.KST OPERATOR Work Phone: [facility] [place] Comment on above: Essential hypertensi on (Primary Dx) Start: 05-03-2024 End: 05-03-2024 ambulatory KELTON SERRANO Facility:[facility] Start: 05-03-2024 End: 05-03-2024 Patient encounter procedure Yaritza Tinoe MORNING NEWS PRODUCER.KST OPERATOR Work Phone: [facility] [place] Comment on above: Essential hypertensi on (Primary Dx) Start: 03-29-2024 End: 03-29-2024 ambulatory KELTON SERRANO Facility:[facility] Start: 03-29-2024 End: 03-29-2024 Patient encounter procedure Kelton Serrano MD Work Phone: [facility] [place] Comment on above: Medicare annual well ness [...] Start: 03-24-2024 End: 03-24-2024 ambulatory KELTON SERRANO Facility:[facility] Start: 03-24-2023 End: 03-24-2023 Office outpatient visit 25 minutes Kelton Serrano MD Work Phone: [facility] [place] Comment on above: Essential hypertensi on (Primary Dx); Mixed hyperlipidemia; Gastroesophageal reflux disease, unspecified whether esophagitis present; Encounter for immunization; Need for shingles vaccine; Personal history of COVID-19; Encounter for long-term current use of medication Start: 09-19-2022 ambulatory Kelton morris MD Work Phone: [facility] [place] Comment on above: Lansoprazole and Lis inoopril Refill Request Start: 09-04-2022 End: 09-04-2022 Subsequent hospital visit by physician Morales [facility] [place] [facility] Work Phone: Radiology Comment on above: Hallux rigidus of apple th feet [M20.21, M20.22] Start: 09-04-2022 End: 09-04-2022 Patient encounter procedure rBennen Johnson Work Phone: Podiatry Comment on above: Hallux rigidus of apple th feet (Primary Dx) Start: 09-03-2022 Orders Only Brennen Vargasra roberts Work Phone: Podiatry Comment on above: Pain in left foot (P rimary Dx) Start: 06-06-2022 ambulatory Kaye Dialy APRN.CNS Work Phone: [facility] [place] Comment on above: discontinuation of Q uinapril Start: 05-02-2022 End: 05-02-2022 Office outpatient visit 25 minutes Kaye Daily APRN.CNS Work Phone: [facility] [place] Comment on above: Essential hypertensi on (Primary Dx); Toe pain, bilateral Start: 04-04-2022 End: 04-04-2022 Office outpatient visit 25 minutes Kaye Daily APRN.CNS Work Phone: [facility] [place] Comment on above: Toe pain, bilateral (Primary Dx); Essential hypertension Start: 04-02-2022 Telephone encounter Jake hua APRN.KST OPERATOR Work Phone: [facility] Comment on above: Results Start: 04-01-2022 End: 04-01-2022 Patient encounter procedure Jake Jani MORNING NEWS PRODUCER.KST OPERATOR Work Phone: [facility] Comment on above: Toe pain, bilateral (Primary Dx) Start: 03-18-2022 End: 03-18-2022 Office outpatient visit 25 minutes Kelton Serrano MD Work Phone: [facility] [place] Comment on above: Essential hypertensi on (Primary Dx); Mixed hyperlipidemia; Elevated glucose; Elevated hemoglobin A1c; Gastroesophageal reflux disease, unspecified whether esophagitis present; Encounter for long-term current use of medication; Prostate cancer screening; Urinary frequency; Recurrent kidney stones Start: 03-10-2022 Refill Kaye Daily MORNING NEWS PRODUCER.ENGINE DESIGNER Work Phone: [facility] [place] Comment on above: Refill Request Start: 12-20-2021 Refill Kaye Daily APRN.ENGINE DESIGNER Work Phone: Internal [facility] Comment on above: Med Change Request Start: 12-13-2021 ambulatory Kelton morris MD Work Phone: Internal [facility] Comment on above: [employer] requ est Start: 09-02-2021 End: 09-02-2021 Emergency department patient visit Dr. Kelton Serrano Work Phone: [facility] Start: 06-07-2021 End: 06-07-[address] Kelton Serrano Work Phone: [facility] Procedures Date Procedure Procedure Detail Performing Clinician Start: 10-07-[address] Kelton Serrano MD Work Phone: Start: 10-07-2024 CT of abdomen and pe lvis without contrast Dr. Kelton Serrano MD Work Phone: Start: 10-07-2024 Urnls dip stick/tabl et reagent auto microscopy Dr. Kelton Serrano MD Work Phone: Start: 03-29-2024 Adult depression scr eening assessment [...] above: Performed By: #### T [id number] #### [facility] [address] [place] [address] Plan of Treatment Date Care Activity Detail Author Start: 03-21-2028 Lipid panel Lipid Screening [facility] Start: 03-24-2027 Diabetes Screening Diabetes Screenin [facility] Start: 03-18-2027 Lipid 1996 panel - Serum or Plasma Lipid Screening [facility] Start: 03-18-2027 LIPID SCREEN LIPID SCREEN [facility] Start: 02-05-2027 Urine microalbumin profile [facility] Start: 03-21-2026 Diabetes Screening Diabetes Screenin [facility] Start: 03-10-2026 LIPID SCREEN LIPID SCREEN [facility] Start: 07-04-2025 Colonoscopy COLONOSCOPY [facility] Start: 07-04-2025 COLORECTAL CANCER SCREENING COLORECTAL CANCER SCREENING [facility] Start: 07-04-2025 Screening for malign ant neoplasm of colon [facility] Start: 06-02-2025 Annual PCP Team [employer] Account Assistant rebekah Disease Visit Annual PCP Team Chronic Disease Visit [facility] Start: 05-03-2025 Annual PCP Team [employer] Account Assistant rebekah Disease Visit Annual PCP Team Chronic Disease Visit [facility] Start: 04-06-2025 End: 04-06-2025 Patient encounter procedure 04/06/2025 8:00 AM EST Office Visit [facility] [place] [address] [place], [place] [id number] Kelton Serrano MD [address] [facility] [place] [id number] Medicare Wellness [facility] [place] Comment on above: Medicare Wellness Start: 03-29-2025 Annual PCP Team [employer] Account Assistant rebekah Disease Visit Annual PCP Team Chronic Disease Visit [facility] Start: 03-29-2025 Anxiety Screening Anxiety Screening [facility] Start: 03-29-2025 Depression Screening Depression Scre ening [facility] Start: 03-18-2025 DIABETES SCREEN DIABETES SCREEN [facility] Start: 03-18-2025 Diabetes Screening Diabetes Screenin g [facility] Start: 02-26-2025 End: 05-28-2025 CBC panel - Blood by Automated count COMPLETE BLOOD COUNT Lab Routine Encounter for long-term current use of medication Expected: 02/26/2025 (Approximate), Expires: 05/28/2025 [facility] Comment on above: Expected: 02/26/2025 (Approximate), Expires: 05/28/2025 Start: 02-26-2025 End: 05-28-2025 Comprehensive metabolic 2000 panel - Serum or Plasma COMPREHENSIVE METABOLIC PANEL Lab Routine Encounter for long-term current use of medication Expected: 02/26/2025 (Approximate), Expires: 05/28/2025 [facility] Work Phone: Comment on above: Expected: 02/26/2025 (Approximate), Expires: 05/28/2025 Start: 02-26-2025 End: 05-28-2025 Lipid 1996 panel - Serum or Plasma LIPID PANEL BASIC Lab Routine Encounter for long-term current use of medication Elevated LDL cholesterol level Expected: 02/26/2025 (Approximate), Expires: 05/28/2025 [facility] Comment on above: Expected: 02/26/2025 (Approximate), Expires: 05/28/2025 Start: 02-26-2025 End: 05-28-2025 Magnesium [Mass/volume] in Serum or Plasma MAGNESIUM Lab Routine Encounter for long-term current use of medication Expected: 02/26/2025 (Approximate), Expires: 05/28/2025 [facility] Comment on above: Expected: 02/26/2025 (Approximate), Expires: 05/28/2025 Start: 12-03-2024 End: 12-03-2024 Patient encounter procedure 12/03/2024 7:20 AM EDT Office Visit [facility] [place] [address] [place] [address] Yaritza Tineo APRN.KST OPERATOR [address] [place], [place] [phone] 6 month follow up [facility] [place] Comment on above: 6 month follow up Start: 10-25-2024 Influenza vaccination Influenza Vacc ine (#1) [facility] Start: 10-07-2024 [facility] Start: 2024 Covid-19 Vaccine ( season) Covid-19 Vaccine () [facility] Start: 06-02-2024 End: 06-02-2024 Patient encounter procedure 06/02/2024 7:20 AM EDT Office Visit [facility] [place] [address] [place], [place] [id number] Yaritza Tineo APRN.KST OPERATOR [address] [place], [place] [id number] 4 week blood pressure check of new medication [facility] [place] Comment on above: 4 week blood pressur e check of new medication Start: 04-28-2024 End: 04-28-2024 Patient encounter procedure 04/28/2024 8:00 AM EST Office Visit [facility] [place] [address] [place], [place] [id number] Yaritza Tineo APRN.KST OPERATOR [address] [place], [place] [phone] 1 Month F/U-BP (validate at home cuff) [facility] [place] Comment on above: 1 Month F/U-BP (dorota date at home cuff) Start: 03-24-2024 Annual PCP Team [employer] Account Assistant rebekah Disease Visit Annual PCP Team Chronic Disease Visit [facility] Start: 03-24-2024 End: 06-23-2024 CBC panel - Blood by Automated count CBC Lab Routine Essential hypertension Encounter for long-term current use of medication Expected: 03/24/2024 (Approximate), Expires: 06/23/2024 [facility] Work Phone: Comment on above: Expected: 03/24/2024 (Approximate), Expires: 06/23/2024 Start: 03-24-2024 End: 06-23-2024 Comprehensive metabolic 2000 panel - Serum or Plasma COMP METABOLIC PANEL Lab Routine Essential hypertension Encounter for long-term current use of medication Expected: 03/24/2024 (Approximate), Expires: 06/23/2024 [facility] Work Phone: Comment on above: Expected: 03/24/2024 (Approximate), Expires: 06/23/2024 Start: 03-24-2024 End: 06-23-2024 Lipid 1996 panel - Serum or Plasma LIPID PANEL BASIC Lab Routine Essential hypertension Mixed hyperlipidemia Encounter for long-term current use of medication Expected: 03/24/2024 (Approximate), Expires: 06/23/2024 [facility] Work Phone: Comment on above: Expected: 03/24/2024 (Approximate), Expires: 06/23/2024 Start: 03-24-2024 End: 06-23-2024 Magnesium [Mass/volume] in Serum or Plasma MAGNESIUM BLD Lab Routine Encounter for long-term current use of medication Expected: 03/24/2024 (Approximate), Expires: 06/23/2024 [facility] Work Phone: Comment on above: Expected: 03/24/2024 (Approximate), Expires: 06/23/2024 Start: 03-10-2024 DIABETES SCREEN DIABETES SCREEN [facility] Start: 03-18-2023 ANNUAL PCP TEAM STAFF GENETIC COUNSELOR REBEKAH DISEASE VISIT ANNUAL PCP TEAM CHRONIC DISEASE VISIT [facility] Start: 03-18-2023 BP CONTROLLED (<130/80) BP CONTROLLE D (<130/80) [facility] Start: 03-18-2023 End: 05-18-2023 CBC panel - Blood by Automated count CBC Lab Routine Essential hypertension Encounter for long-term current use of medication Expected: 03/18/2023 (Approximate), Expires: 05/18/2023 [facility] Work Phone: Comment on above: Expected: 03/18/2023 (Approximate), Expires: 05/18/2023 Start: 03-18-2023 End: 05-18-2023 Comprehensive metabolic 2000 panel - Serum or Plasma COMP METABOLIC PANEL Lab Routine Essential hypertension Elevated glucose Elevated hemoglobin A1c Encounter for long-term current use of medication Expected: 03/18/2023 (Approximate), Expires: 05/18/2023 [facility] Work Phone: Comment on above: Expected: 03/18/2023 (Approximate), Expires: 05/18/2023 Start: 03-18-2023 End: 05-18-2023 Hemoglobin A1c in Blood HGB A1C Lab Routine Elevated glucose Elevated hemoglobin A1c Encounter for long-term current use of medication Expected: 03/18/2023 (Approximate), Expires: 05/18/2023 [facility] Work Phone: Comment on above: Expected: 03/18/2023 (Approximate), Expires: 05/18/2023 Start: 03-18-2023 End: 05-18-2023 Lipid 1996 panel - Serum or Plasma LIPID PANEL BASIC Lab Routine Mixed hyperlipidemia Encounter for long-term current use of medication Expected: 03/18/2023 (Approximate), Expires: 05/18/2023 [facility] Work Phone: Comment on above: Expected: 03/18/2023 (Approximate), Expires: 05/18/2023 Start: 03-18-2023 End: 05-18-2023 Magnesium [Mass/volume] in Serum or Plasma MAGNESIUM BLD Lab Routine Encounter for long-term current use of medication Expected: 03/18/2023 (Approximate), Expires: 05/18/2023 [facility] Work Phone: Comment on above: Expected: 03/18/2023 (Approximate), Expires: 05/18/2023 Start: 03-18-2023 End: 05-18-2023 PSA/PROSTSPECAG SCRN PSA/PROSTSPECAG SCRN Lab Routine Encounter for long-term current use of medication Prostate cancer screening Expected: 03/18/2023 (Approximate), Expires: 05/18/2023 [facility] Work Phone: Comment on above: Expected: 03/18/2023 (Approximate), Expires: 05/18/2023 Start: 03-18-2023 SHINGRIX VACCINE (1 of 2) SHINGRIX VACCINE (1 of 2) [facility] Comment on above: Postponed from 07/08 (Declined at this time) Start: 10-25-2022 Influenza vaccination INFLUENZA (#1) [facility] Start: 07-08-2022 RSV Vaccine (1 - 1-d ose 75+ series) RSV Vaccine (1 - 1-dose 75+ series) [facility] Start: 07-02-2022 End: 09-01-2022 Urate [Mass/volume] in Serum or Plasma URIC ACID BLOOD Lab Routine Toe pain, bilateral Expected: 07/02/2022 (Approximate), Expires: 09/01/2022 [facility] Work Phone: Comment on above: Expected: 07/02/2022 (Approximate), Expires: 09/01/2022 Start: 04-04-2022 End: 06-04-2022 C reactive protein [Mass/volume] in Serum or Plasma C-REACTIVE PROTEIN (CRP) Lab Routine Toe pain, bilateral Expected: 04/04/2022, Expires: 06/04/2022 [facility] Work Phone: Comment on above: Expected: 04/04/2022 , Expires: 06/04/2022 Start: 04-04-2022 End: 06-04-2022 Erythrocyte sedimentation rate SED RATE WESTERGREN Lab Routine Toe pain, bilateral Expected: 04/04/2022, Expires: 06/04/2022 [facility] Work Phone: Comment on above: Expected: 04/04/2022 , Expires: 06/04/2022 Start: 04-01-2022 End: 06-01-2022 Urate [Mass/volume] in Serum or Plasma [facility] Work Phone: Comment on above: Expected: 04/01/2022 , Expires: 06/01/2022 Start: 03-13-2022 ANNUAL PCP TEAM STAFF GENETIC COUNSELOR REBEKAH DISEASE VISIT ANNUAL PCP TEAM CHRONIC DISEASE VISIT [facility] Start: 03-04-2022 COVID-19 VACCINE (6 - Moderna series) COVID-19 VACCINE (6 - Moderna series) [facility] Start: 02-24-2022 ADVANCE DIRECTIVE DISCUSSION ADVANCE DIRECTIVE DISCUSSION [facility] Start: 02-24-2022 DEPRESSION ASSESSMENT DEPRESSION ASS ESSMENT [facility] Start: 10-25-2021 Influenza vaccination INFLUENZA (#1) [facility] Start: 02-24-2021 ADVANCE DIRECTIVE DISCUSSION ADVANCE DIRECTIVE DISCUSSION [facility] Start: 02-24-2021 [facility] Start: 02-15-2021 COVID-19 VACCINE (4 - Booster for Moderna series) COVID-19 VACCINE (4 - Booster for Moderna series) [facility] Start: 08-30-2015 FECAL OCCULT BLOOD FECAL OCCULT BLOO D [facility] Start: 08-30-2015 Screening for malign ant neoplasm of colon Fecal Occult Blood [facility] Start: 2007 RSV Vaccine (1 - 1-d ose 60+ series) RSV Vaccine (1 - 1-dose 60+ series) [facility] Start: 07-08-1997 SHINGRIX VACCINE (1 of 2) SHINGRIX VACCINE (1 of 2) [facility] Start: 07-08-1992 COLOGUARD (FIT-DNA) COLOGUARD (FIT-D NA) [facility] Start: 07-08-[address] [facility] Start: 07-08-1992 Screening for malign ant neoplasm of colon [facility] Start: 07-08-1992 SIGMOIDOSCOPY SIGMOIDOSCOPY [facility] Start: 07-08-1965 BP CONTROLLED (<130/80) BP CONTROLLE D (<130/80) [facility] Patient Education [facility] Work Phone: Patient referral [facility] Work Phone: End: 10-04-2023 XR FOOT GENERAL 3V AP/LAT/OBL BILATERAL XR FOOT GENERAL 3V AP/LAT/OBL BILATERAL Radiology Routine Hallux rigidus of both feet 1 Occurrences starting 09/04/2022 until 10/04/2023 [facility] Work Phone: Comment on above: 1 Occurrences starti ng 09/04/2022 until 10/04/2023 XR FOOT GENERAL 3V AP/LAT/OBL BILATERAL XR FOOT GENERAL 3V AP/LAT/OBL BILATERAL Radiology Routine Hallux rigidus of both feet 09/04/2022 3:07 PM EDT [facility] Work Phone: End: 10-03-2023 XR FOOT GENERAL 3V AP/LAT/OBL LEFT XR FOOT GENERAL 3V AP/LAT/OBL LEFT Radiology Routine Pain in left foot 1 Occurrences starting 09/03/2022 until 10/03/2023 [facility] Work Phone: Comment on above: 1 Occurrences starti ng 09/03/2022 until 10/03/[address] [facility] Immunizations Immunization Date Immunization Notes Care Provider Fa [facility] 01-10-2024 influenza, high dose seasonal, preservative-free Kelton Serrano MD Work Phone: [facility] 01-10-2024 influenza virus vacc ine, unspecified formulation Kelton Serrano MD Work Phone: [facility] 12-05-2022 COVID-19 vaccine, ag e 12+ yr, season (MODERNA) Kelton Serrano MD Work Phone: [facility] 12-05-2022 influenza (aIIV4) vaccine, age 65+ yr, quadrivalent, PF (FLUAD QUAD) Kelton Serrano MD Work Phone: [facility] 12-05-2022 influenza, injectabl e, quadrivalent, contains preservative Kelton Serrano MD Work Phone: [facility] 12-09-2021 influenza (aIIV4) vaccine, age 65+ yr, quadrivalent, PF (FLUAD QUADRIVALENT) Kelton Serrano MD Work Phone: [facility] 11-30-2020 influenza (aIIV4) vaccine, age 65+ yr, quadrivalent, PF (FLUAD QUADRIVALENT) Kelton Serrano MD Work Phone: [facility] 05-05-2020 Covid (Moderna) Dr. Kelton rosas Work Phone: [facility] 04-07-2020 Covid (Moderna) Dr. Kelton rosas Work Phone: [facility] 12-06-2019 influenza, seasonal, injectable Kelton Serrano MD Work Phone: [facility] 01-06-2019 influenza, high dose seasonal, preservative-free Kelton Serrano MD Work Phone: [facility] 02-13-2018 influenza, high dose seasonal, preservative-free Kelton Serrano MD Work Phone: [facility] 02-05-2017 tetanus and diphther ia toxoids, adsorbed, preservative free, for adult use (5 Lf of tetanus toxoid and 2 Lf of diphtheria toxoid) Kleton Serrano MD Work Phone: [facility] 11-21-2016 influenza, high dose seasonal, preservative-free Kelton Serrano MD Work Phone: [facility] Work Phone: 02-27-2015 pneumococcal conjuga te vaccine, 13 valent Kelton Serrano MD Work Phone: [facility] Work Phone: 01-30-2015 influenza, high dose seasonal, preservative-free Kelton Serrano MD Work Phone: [facility] 01-13-2014 influenza, seasonal, injectable Kelton Serrano MD Work Phone: [facility] 03-23-2013 influenza virus vacc ine, unspecified formulation Kelton Serrano MD Work Phone: [facility] 03-23-2013 pneumococcal polysaccharide vaccine, 23 valent Kelton Serrano MD Work Phone: [facility] 12-24-2006 tetanus toxoid, redu isaias diphtheria toxoid, and acellular pertussis vaccine, adsorbed Kelton Serrano MD Work Phone: [facility] Work Phone: Payers Date Payer Category Payer Self-pay [id number] 2021 Medicare AETNA MEDICARE A ETNA MEDICARE PPO [id number] 2021-Present [phone] [address] [place] [address] PPO [id number] 2021 Medicare (Managed Care) [id number]. [id number] 2021 Private Health Insurance [id number] Medicare SELF PAY INSURANCE [id number] Unknown [id number] Social History Date Type Detail Facility Start: 09-02-2021 Tobacco smoking status MSIS Unknown if ever smoked [facility] Work Phone: Start: 1945 Sex Assigned At Male [facility] Start: 02-05-2017 End: 10-07-2024 Tobacco smoking status NHIS Never smoked tobacco [facility] Start: 02-05-2017 End: 04-01-2022 Tobacco use and exposure Smokeless tobacco non-user [facility] Start: 03-13-2021 End: 06-02-2024 Alcohol intake Current drinker of alcohol (finding) [facility] Start: 03-13-2021 End: 09-04-2022 Alcohol intake [facility] Start: 03-18-2019 End: 03-13-2022 History SDOH Alcohol Frequency 4 [facility] Start: 03-18-2019 End: 03-13-2022 History SDOH Alcohol Std Drinks 1 [facility] Start: 02-10-2019 End: 03-13-2022 History SDOH Social Connections Phone 5 [facility] Start: 02-10-2019 End: 03-13-2022 History SDOH Social Connections Living 3 [facility] Start: 02-10-2019 History SDOH Physical Activity DPW 0 [facility] Start: 04-07-2019 End: 03-13-2022 History SDOH Transport Med 2 [facility] Start: 02-10-2019 Education 17 [facility] Start: 04-08-2017 Alcohol Comment 1 beer 4 times per week [facility] Start: 03-13-2022 History SDOH Physical Activity MPS 6 [facility] Start: 03-13-2022 End: 09-04-2022 Social connection and isolation panel [facility] Do you belong to any clubs or organizations such as [employer] ([employer]) groups, [employer], [employer] or [employer] groups, or school groups? No [facility] Are you now , , , , never or living with a partner? [facility] How often to you hav e a drink containing alcohol? 2-3 time sa week [facility] How many standard dr inks containing alcohol do you have on a typical day? 1 or 2 [facility] How often do you hav e 6 or more drinks on 1 occasion? Never [facility] How hard is it for y ou to pay for the very basics like food, housing, medical care, and heating Not hard at all [facility] Do you feel stress - tense, restless, nervous, or anxious, or unable to sleep at night because your mind is troubled all the time - these days [OSQ] Not at all [facility] (I/We) worried wheth er (my/our) food would run out before (I/we) got money to buy more. Never true [facility] Start: 02-11-2019 Gender identity Identifies as male gender (finding) [facility] Start: 02-11-2019 Sexual orientation Heterosexual (finding) [facility] Do you belong to any clubs or organizations such as [employer] ([employer] groups, [employer], [employer] or [employer] groups, or school groups? Yes [facility] Medical Equipment Procedure Code Equipment Code Equipment Origin al Text Equipment Identifier Dates Liner 36mm 0d E X3 5.9mm Acetabular Hip - [id number] Start: 04-07-2019 Shell Trident Ii 54mm E Tritanium Acetabular 5 Screw Hole Cluster Sterile - [id number] Start: 04-07-2019 Screw Trident Ii 6.5mm 25mm Bone Low Profile Hexagonal Sterile - [id number] Start: 04-07-2019 Head V40 36mm +5 mm Offset Taper Biolox Delta Femoral Hip - [id number] Start: 04-07-2019 Stem Accolade Ii 7 127d Femoral - [id number] Start: 04-07-2019 Functional Status Date Assessment Result Facility 04-09-2019 Are you deaf, or do you have serious difficulty hearing No 04/09/2019 11:26 AM Adolfo Turner RN No [facility] 04-09-2019 Are you blind, or do you have serious difficulty seeing, even when wearing glasses No 04/09/2019 11:26 AM Adolfo Turner RN No [facility] 04-09-2019 Do you have serious difficulty walking or climbing stairs No 04/09/2019 11:26 AM Adolfo Turner RN [facility] 04-09-2019 Do you have difficul ty dressing or bathing No 04/09/2019 11:26 AM Adolfo Turner RN [facility] 04-09-2019 Because of a physica l, mental, or emotional condition, do you have difficulty doing errands alone such as visiting a physician's office or shopping No 04/09/2019 11:26 AM Adolfo Turner RN No [facility] Mental Status Date Assessment Result Facility 04-09-2019 Because of a physica l, mental, or emotional condition, do you have serious difficulty concentrating, remembering, or making decisions No 04/09/2019 11:26 AM Adolfo Turner RN No [facility] Clinical Notes 12-24-2006 to 10-07-2024 Telephone Encounter - Anjana Boothe MA - 09/14/2024 1:46 PM EDTTelephone Encounter - Anjana Boothe MA - 09/14/2024 1:46 PM Yaritza Hebert APRN.CNP - 06/02/2024 7:15 AM EDT Note Date & Type Note Facility 10-07-2024 Discharge summary [facility] 10-07-2024 Radiology Diagnostic study note [facility] Imaging Services [address] [place], [place] [id number] Abdomen/Pelvis without Cont MR#: [id number] Acct: [id number] Name: GEOFF SMITH Rep #: [id number] : 1945 M 79 From: Emilee Shannon MD PCP: Dr. Kelton Serrano MD Status: RE G ER Study:Abdomen/Pelvis without Cont Date of Exa m: 10/07/24 Exam# [id number] Ordering Dr: Thomas Barraza MD PROCEDURE: ABDOMEN/PELVIS WITHOUT CONT 10/07/2024 REASON FOR EXAM: KIDNEY STONE TECHNIQUE: ABDOMEN/PELVIS WITHOUT CONT Noncontrast technique limits evaluation of the abdominal and pelvic viscera. Coronal and Sagittal reconstruction series were provided. One or more dose reduction techniques were used (e.g., Automated exposure control, adjustment of the mA and/or kV according to patient size, use of iterative reconstruction technique). RADIATION DOSE SUMMARY: CTDlvol: 11.9 mGy DLP: 654 mGycm COMPARISON: October 25, 2022, September 02, 2021 FINDINGS: Lung bases: Clear Liver: Normal Gallbladder: Cholecystectomy Spleen: Normal Pancreas: Normal Adrenals: Normal Kidneys: Renal cysts are shown bilaterally. An exophytic cyst at the superior pole right kidney is 13 mm. Other smaller cysts are hyperdense of the lateral midpole and posterior right lower pole. Similarly, on the left side there are benign cysts. At the posterior left upper pole there is a 14 mm cyst. A dominant exophytic cyst at the left midpole is 4.3 x 4.5 cm. Hyperdense cyst posterior left midpole is 13 mm. Punctate calculus right upper pole. 9 x 11 mm calculus left mid to upper pole. 6 x 2 mm calculus left ureteropelvic junction. A 2nd, smaller 3 mm calculus is seen at the mid ureter at the level of L4. Bladder: Normal Reproductive Organs: Prostate is normal. Bowel: Small sliding hiatus hernia. Small bowel is normal. Colonic diverticulosis is present without diverticulitis. Appendix: Normal Lymph nodes: None appear enlarged. Vasculature: Moderate atherosclerotic plaque. No aneurysm. Peritoneum / Retroperitoneum: No free air, free fluid or mass. Bones: Right hip prosthesis. Abdominal wall: Intact. Fat containing left inguinal hernia. CT/Abdomen/Pelvis without Cont IMPRESSION: 1. Bilateral simple renal cysts and hemorrhagic cysts. Bosniak 1. Bosniak 2. No follow-up required. 2. Bilateral renal calculi. There are 2 calculi in the ureter on the left. 1 of the ureteropelvic junction and another at the level of L4. 3. Diverticulosis without diverticulitis. Sliding hiatus hernia. 4. Fat containing left inguinal hernia. Reading Location: [id number] CC: Dr. Kelton Serrano MD; Dr. Meño Barraza MD ~ Reception Manager: Signed [facility] 09-29-2024 Note HNO ID: [id number] Author: ?, ?, ? Service: ? Author Type: ? Type: Progress Notes Filed: 09/29/2024 08:36 Note Text: POPULATION HEALTH NAVIGATION OUTREACH Action/FYI Pt due 6-mo f/u from 06/02/24 OV. No other care gaps due. LVM AND MC Reason for Outreach Care Gap/HCC or Scheduling Wellness Visits Care Gaps due: Follow-up Appointment Patient Contacted: Unable or unnecessary to reach patient: Left message [employer] message sent Navigation Signature: Jacquelin Cantor September 29, 2024 8:34 AM [facility] 09-29-2024 Note Patient Outreach (NE TNAV) -------- GEOFF SMITH ([id number]) 1945 M Date Time Provider Department 09/29/24 [...] or unnecessary to reach patient: Left message MyChart message sent Navigation Signature: Jacquelin Cantor September [...] Date Reviewed: 06/02/2024 Reviewed by: Yaritza Tineo APRN.KST OPERATOR - Fully Assessed Reason for Visit: Population Health Navigation Outreach [3910] Cmt: 0 HCC [employer] List Prescriptions as of 09/29/2024 - amLODIPine (NORVASC) 5 mg tablet Take 1 tablet by mouth once daily. - lansoprazole (PREVACID) 30 mg capsule Take 1 capsule by mouth once daily. - lisinopril (ZESTRIL) 30 mg tablet Take 1 tablet by mouth once daily. - bb-iwh-EN-vit R-wejrub-psfwsuw (PRESERVISION AREDS 2 PLUS MV) 200 mcg-15 mcg- 5 mg-1 mg cap Take 1 capsule by mouth once daily. - Fluorouracil 5 % cream Apply 1 application to affected area as directed. - Warwbrhlmigyf-Lebpwzki-Dbrvtp (CENTRUM SILVER) tab Take 1 tablet by [...] Encounter Status:Closed by JACQUELIN CANTOR on 09/29/24 [facility] 09-14-2024 Telephone encounter Note Patient is scheduled 04/06 with pcp Anjana Boothe MA [facility] 09-14-2024 Miscellaneous Notes Patient is scheduled 04/06 with pcp Anjana Boothe MA Spoke with patient in regards to R/S 12/03/24 appointment due to provider leaving, and patient declined any other provider but PCP. documented in this encounter [facility] 09-14-2024 Telephone encounter Note Spoke with patient in regards to R/S 12/03/24 appointment due to provider leaving, and patient declined any other provider but PCP. [facility] 07-02-2024 Telephone encounter Note Prescription Refill Information [...] Aguilera LPN July 02, 2024 3:58 PM [facility] 07-02-2024 Miscellaneous Notes Prescription Refill Information The [...] 2024 3:58 PM documented in this encounter [facility] 06-02-2024 History of Present illness Narrative SUBJECTIVE Geoff Smith is a [...] Take 1 tablet by mouth once daily. dh-cis-LX-vit J-fbnvup-ikslwgo (PRESERVISION AREDS 2 PLUS MV) 200 mcg-15 mcg- 5 mg-1 mg cap Take 1 capsule by mouth once daily. Fluorouracil 5 % cream Apply 1 application to affected area as directed. Jxbwfubsbriry-Dqigqmnt-Vjcxkj (CENTRUM SILVER) tab Take 1 tablet by [...] Yaritza Tineo APRN-TEODORO documented in this encounter [facility] 06-02-2024 Note HNO ID: [id number] Author: YARITZA TINEO APRN.CNP Service: ? Author Type: Nurse Practitioner Type: [...] Take 1 tablet by mouth once daily. hh-zva-XU-vit F-eqdhjr-sexssvj (PRESERVISION AREDS 2 PLUS MV) 200 mcg-15 mcg- 5 mg-1 mg cap Take 1 capsule by mouth once daily. Fluorouracil 5 % cream Apply 1 application to affected area as directed. Zsmjjjlafiazi-Mffhhgaw-Mtnlfm (CENTRUM SILVER) tab Take 1 tablet by [...] - Improving c (more content not included)... [facility] 05-03-2024 Note HNO ID: [id number] Author: YARITZA TINEO APRN.[facility] Service: ? Author Type: Nurse Practitioner Type: [...] Take 1 tablet by mouth once daily. mp-iew-JH-vit O-saahms-fsyrmja (PRESERVISION AREDS 2 PLUS MV) 200 mcg-15 mcg- 5 mg-1 mg cap Take 1 capsule by mouth once daily. Fluorouracil 5 % cream Apply 1 application to affected area as directed. Izvapgxpyufux-Kxwzayir-Mgqtmf (CENTRUM SILVER) tab Take 1 tablet by [...] results to nex (more content not included)... [facility] 05-03-2024 History of Present illness Narrative SUBJECTIVE Geoff Smith is a 78 year old male here today for a check up on his medical problems. Chief Complaint Patient presents with: Blood Pressure JUANJO Tellez is a 78 year old male who presents for follow-up for hypertension. They are here today for a recheck of blood pressure, seen with Kelton Serrano MD on 02/03 and had high readings. Blood pressure appears [...] Take 1 tablet by mouth once daily. ff-xvu-XI-vit X-xlyztb-dmubfdc (PRESERVISION AREDS 2 PLUS MV) 200 mcg-15 mcg- 5 mg-1 mg cap Take 1 capsule by mouth once daily. Fluorouracil 5 % cream Apply 1 application to affected area as directed. Pguvgnceyfnmg-Sgvylptt-Pxnuls (CENTRUM SILVER) tab Take 1 tablet by [...] medication.. KARINA Ramirez documented in this encounter [facility] 03-29-2024 History of Present illness Narrative Images from the original note were not included. This note was created using [employer]. 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 He identifies his spouse as his surrogate decision maker. He has not traveled outside of the country recently but is considering a trip to [place]. He has 3 half-sisters who are , [...] essential hypertension Current Outpatient Medications Medication Sig uc-aub-ER-vit H-bojrkt-ntaaxxq (PRESERVISION AREDS 2 PLUS MV) 200 mcg-15 mcg- 5 mg-1 mg cap Take 1 capsule by mouth once daily. Cfbyxcpxhuzdd-Jezvfxnr-Gisicr (CENTRUM SILVER) tab Take 1 tablet by [...] memory normal. Judgment: Judgment normal. Latest Ref Rn 03/18/2022 04/01/2022 03/21/2023 03/24/2024 Protein, Total 6.3 [...] medical record. Outside specialists seen: Dr. Armenta ([facility]), Dentist --Dr. Romero Medical/Family history review Reviewed [...] found. Assessment/Plan Medicare annual wellness visit, subsequent (Z.) - Counseled on healthy diet and regular exercise - Fall avoidance information provided - Personalized prevention plan provided # Medicare annual wellness visit, subsequent (Z00.) - Completed health risk assessment. - Patient [...] and Prevacid. - Refill prescriptions sent to [facility] for a 90-day supply. 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 - Considering hearing aids; discussed options and insurance coverage. Kelton Serrano MD documented in this encounter [facility] 03-29-2024 Instructions Kelton Serrano MD - 03/29/2024 [...] review all the medicines you take, even fiks-jtb-mvgpegh medicines. As you get older, the way [...] certain medical conditions. documented in this encounter [facility] 03-29-2024 Note HNO ID: [id number] Author: KELTON SERRANO MD Service: ? Author Type: Physician Type: Progress Notes Filed: 03/29/2024 23:57 Note Text: This note was created using [employer]. 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 He identifies his spouse as his surrogate decision maker. He has not traveled outside of the country recently but is considering a trip to [place]. He has 3 half-sisters who are , [...] essential hypertension Current Outpatient Medications Medication Sig jy-tkw-VD-vit Q-bansce-llhgkya (PRESERVISION AREDS 2 PLUS MV) 200 mcg-15 mcg- 5 mg-1 mg cap Take 1 capsule by mouth once daily. Xqbssmecppzcz-Irmxijsc-Dovgii (CENTRUM SILVER) tab Take 1 tablet by [...] average[ 04/04/2022 162/8 (more content not included)... [facility] 03-24-2023 History of Present illness Narrative This note was created using [employer]. Subjective Geoff Smith is a 77 year [...] essential hypertension Current Outpatient Medications Medication Sig cm-qwi-FE-vit R-agdbez-cebbnhh (PRESERVISION AREDS 2 PLUS MV) 200 mcg-15 [...] 2 times daily after for 2 days Ocqwalewtiuqq-Tjtpljhh-Mgmssi (CENTRUM SILVER) tab Take 1 tablet by [...] Kelton Serrano MD documented in this encounter [facility] 09-19-2022 Miscellaneous Notes [email or web address] message: Both of my medications have been sent to [facility] instead of [facility]. Neither of the [...] Martine Cantu LPN documented in this encounter [facility] 09-04-2022 History of Present illness Narrative Radiology Service Progress Note PATIENT [...] 2022 2:57 PM documented in this encounter [facility] 09-04-2022 History of Present illness Narrative Images from the original note [...] He states he recently returned from vacation ([facility] [place]) and he has noticed the pain in [...] Take 1 tablet by mouth once daily. Lrfuohahpltni-Knostmok-Xdaean (CENTRUM SILVER) tab Take 1 tablet by [...] JOINT REPLACEMENT HX LAPAROSCOPY SURG CHOLECYSTECTOMY 08/31/2014 [facility] Dr Quick PAST SURGICAL HISTORY OF Left [...] results. Brennen Johnson DPM Podiatry [address] [facility] [address] Dept: [phone] Dept AMB ROOMING INTAKE FLOWSHEET DATA Pain Pain Level: 8 Pain Location: Other: See Comment (bilateral feet) Description: Aching Duration Amount of Time: 3 Duration Units: Weeks Frequency: Intermittent Intervention/Comfort measure: Reposition, Relaxation Patient presents with: Left Foot - New, Pain, Swelling Right Foot - New, Swelling, Pain Megha Calix LPN documented in this encounter [facility] 05-02-2022 History of Present illness Narrative SUBJECTIVE: There are no preventive [...] Take 30 mg by mouth as needed.) Bfpdasfvxkwyd-Gpncbhev-Ifmjsu (CENTRUM SILVER) tab Take 1 tablet by [...] 4 - Moderate documented in this encounter [facility] 04-04-2022 Instructions Kaye Daily APRN.CNS - 04/04/2022 [...] in 3 months. documented in this encounter [facility] 04-04-2022 History of Present illness Narrative SUBJECTIVE: There are no preventive [...] Final Reports treating [place] with 5FU per thread dresser Dr Parks recently. Not took amoxicillin recently [...] Take 30 mg by mouth as needed.) Tjqpbrqroedua-Mpphcyzf-Acisey (CENTRUM SILVER) tab Take 1 tablet by [...] inflammatory markers in 3 months. Kaye Daily APRN.ENGINE DESIGNER Medical Decision Making: Problems: Moderate: New problem with uncertain prognosis and 1+ chronic illnesses with change Data: Unique test(s) ordered: 2 Risk: Moderate: Drug management Medical Decision Making Level: 4 - Moderate documented in this encounter [facility] 04-02-2022 Miscellaneous Notes Patient given results and verbalized understanding of instructions given. Hetal Quiroz Please notify uric acid level was normal. Continue with plan and follow up as discussed at visit. documented in this encounter [facility] 04-01-2022 History of Present illness Narrative Images from the original note [...] JOINT REPLACEMENT HX LAPAROSCOPY SURG CHOLECYSTECTOMY 08/31/[address] [facility] Dr Quick PAST SURGICAL HISTORY OF Left [...] Take 30 mg by mouth as needed.) Kvtxuitnpxind-Zdbfkkhd-Tvmkoz (CENTRUM SILVER) tab Take 1 tablet by [...] TABLET - URIC ACID BLOOD Jake Gunter APRN.KST OPERATOR documented in this encounter [facility] 03-18-2022 History of Present illness Narrative This note was created using [employer]. Subjective Geoff Smith is a 76 year old male. HISTORY Geoff Smith is a 76 year old gentleman here for yearly exam and follow up appointment. Noted having dental implants placed. Cataract surgery done 5 months ago. Doing great. Asking about prostate cancer screening. Noted friend with metastatic prostate cancer. Follows with thread dresser--to have face peel Recurrent kidney stones issues [...] Take 30 mg by mouth as needed.) Suqyzxuigoqrk-Zwqjrymi-Jadods (CENTRUM SILVER) tab Take 1 tablet by [...] Kelton Serrano MD documented in this encounter [facility] 03-11-2022 Miscellaneous Notes Last office visit: 03/13/21 Next appointment scheduled: 03/18/22 Last labs: 03/10/21 Patient phones requesting refills as follows: Requested Prescriptions Pending Prescriptions Disp Refills quinapril (ACCUPRIL) 20 mg tablet 90 tablet 3 Sig: Take 1 tablet by mouth once daily. Please review and advise. Andria Aguilera LPN documented in this encounter [facility] 12-14-2021 Miscellaneous Notes Last office visit: 03/13/21 [...] Andria Aguilera LPN documented in this encounter [facility] 12-24-2006 History of Past i llness Narrative Problem Noted Date Resolved Date Other and unspecified hyperlipidemia 12/24/2006 09/07/2015 documented as of this encounter (statuses as of 12/14/2021) [facility]10-[facility]-2007 History of Past illness Narrative* Problem Noted Date Resolved Date Other and unspecified hyperlipidemia 12/24/2006 09/07/2015 documented as of this encounter (statuses as of 12/21/2021) [facility] History of Past illness Narrative* Problem Noted Date Resolved Date Other and unspecified hyperlipidemia 12/24/2006 09/07/2015 documented as of this encounter (statuses as of 03/11/2022) [facility] History of Past illness Narrative* Problem Noted Date Resolved Date Other and unspecified hyperlipidemia 12/24/2006 09/07/2015 documented as of this encounter (statuses as of 03/19/2022) [facility]2007 History of Past illness Narrative* Problem Noted Date Resolved Date Other and unspecified hyperlipidemia 12/24/2006 09/07/2015 documented as of this encounter (statuses as of 04/02/2022) [facility] History of Past illness Narrative* Problem Noted Date Resolved Date Other and unspecified hyperlipidemia 12/24/2006 09/07/2015 documented as of this encounter (statuses as of 04/03/2022) [facility] History of Past illness Narrative* Problem Noted Date Resolved Date Other and unspecified hyperlipidemia 12/24/2006 09/07/2015 documented as of this encounter (statuses as of 04/04/2022) [address]31-2007 History of Past illness Narrative* Problem Noted Date Resolved Date Other and unspecified hyperlipidemia 12/24/2006 09/07/2015 documented as of this encounter (statuses as of 05/02/2022) [facility] History of Past illness Narrative* Problem Noted Date Resolved Date Other and unspecified hyperlipidemia 12/24/2006 09/07/2015 documented as of this encounter (statuses as of 06/07/2022) [address]31-2007 History of Past illness Narrative* Problem Noted Date Diagnosed Date Resolved Date Other and unspecified hyperlipidemia 12/24/2006 09/07/2015 documented as of this encounter (statuses as of 09/04/2022) [address]31-2007 History of Past illness Narrative* Problem Noted Date Diagnosed Date Resolved Date Other and unspecified hyperlipidemia 12/24/2006 09/07/2015 documented as of this encounter (statuses as of 09/05/2022) [facility] History of Past illness Narrative* Problem Noted Date Diagnosed Date Resolved Date Other and unspecified hyperlipidemia 12/24/2006 09/07/2015 documented as of this encounter (statuses as of 09/20/2022) [facility] History of Past illness Narrative* Problem Noted Date Diagnosed Date Resolved Date Other and unspecified hyperlipidemia 12/24/2006 09/07/2015 documented as of this encounter (statuses as of 09/20/2022) [address]31-2007 History of Past illness Narrative* Problem Noted Date Diagnosed Date Resolved Date Other and unspecified hyperlipidemia 12/24/2006 09/07/2015 documented as of this encounter (statuses as of 12/29/2022) [address]31-2007 History of Past illness Narrative* Problem Noted Date Diagnosed Date Resolved Date Other and unspecified hyperlipidemia 12/24/2006 09/07/2015 documented as of this encounter (statuses as of 03/28/2023) [facility] Note Date/Time October 07, 2024 9: 44[facility] Medical Records Department [address] [place] [address] Emergency Department Summary 10/07/24 MR#: [id number] Acct: [id number] Name: GEOFF SMITH Rep #:[id number] : 1945 79 From: Meño Barraza MD PCP: Dr. Kelton Serrano MD Status:RE G ER Location: ED HPI History of Present Illness Chief Complaint: Flank Pain Detail of Chief Complaint: Acute left flank pain that awoke patient at 0400 Informant: patient and spouse/S.O. Onset/Context/Timing Onset: Today (Onset 0400. Resolved and then reoccurred at 0600) Context: Sudden Onset Timing: Continuous Quality: Continuous since 0600 Current Severity: Severe Maximum Severity: Severe Worsened by: Nothing Relieved by: Nothing Associated Symptoms Associated Symptoms: Cold sweat and nausea Narrative Narrative: Patient is a 79-year-old male. He has history of recurrent renal and ureteral stone stones. Patient states he was awakened from sleep at 0400 with severe left-sided pain. The pain resolved. He thought he had passed the stone. At 0600 he had onset of pain in the lower left lower quadrant/inguinal area. It has been persistent since 0600. He does endorse cold sweat and nausea. He had no vomiting. He denies fever or chills. He denies any urologic symptoms. He denies scrotal pain or swelling. He has not noted a rash. He states he is on lisinopril and amlodipine for hypertension. He denies history of diabetes, peptic ulcer disease or kidney disease. Patient was seen July of this year by Dr. Christianson. At that time was felt that patient passed the stone. He was diagnosed with a UVJ stone in October [address] Reyes. Prior similar symptoms: Yes Recent Illness/Hospitalization: No PFSH [facility] Medical History Kidney stone Abnormal electrocardiogram Cholelithiasis Neuropathy Hypertrophy of prostate without urinary obstruction Osteoarthritis History of melanoma Nocturia Kidney stones GERD (gastroesophageal reflux disease) Essential (primary) hypertension Hyperlipidemia Home Medications ?Medication ?Instructions ?Recorded ?Last Taken ?Type multivitamin-iron 9 mg-folic acid 1 tablet PO DAILY Unknown History 400 mcg-calcium and minerals tablet lansoprazole 30 mg capsule,delayed 30 mg PO DAILY 05/25 06/14 Unknown History release lisinopril 30 mg tablet 30 mg PO DAILY 10/25/22 Unkn own History oxycodone-acetaminophen 5 mg-325 1 tab PO Q6H PRN PRN Pain 3 days 10/25/22 Unknown Rx mg tablet #12 TABLETS oxycodone 5 mg capsule 5 mg PO Q6H PRN pain 5 days #20 10/07/24 Unknown Rx caps Allergy/AdvReac Type Severity Reaction Status Date / Time acetaminophen (From Tylenol) Allergy Rash Verified 10/07/24 07:12 doxazosin mesylate (From AdvReac Other Verified 10/07/24 07:12 Cardura) pantoprazole sodium (From AdvReac Other Verified 10/07/24 07:12 Protonix) triamterene AdvReac Other Verified 10/07/24 07:12 Family History Mother Cancer Father Aneurysm Surgical History History of colonoscopy History of herniorrhaphy History of cholecystectomy History of total hip arthroplasty Social History Smoking Status: Never smoker alcohol intake: current alcohol intake frequency: a few times a week Alcohol type: beer details: 1 beer 4 times a week ROS ROS ED Constitutional Constitutional ED: Denies chills, fever(s), subjective or sweats Cardiovascular Cardiovascular: Denies chest pain or palpitations Respiratory/Chest Respiratory/Chest: Denies cough, dyspnea or dyspnea on exertion Gastrointestinal Gastrointestinal: Reports abdominal pain and nausea; Denies constipation, diarrhea, melena or vomiting Genitourinary Genitourinary ED: Reports other Details: Left groin pain. ; Denies dysuria, hematuria or urinary frequency Musculoskeletal Musculoskeletal: Denies arthralgias or myalgias Integumentary Denies rash Neurologic Neurologic: Denies headache(s) or paresthesias Endocrine Endocrinology: Denies cold intolerance or heat intolerance Hematologic/Lymphatic Hematologic/Lymphatic: Reports systems reviewed and no addt'l complaints, exceptas documented EXAM Physical Exam Const Vital Signs: 10/07/24 07:12 10/07/24 08:12 10/07/24 09:00 Temperature 97.8 F 98.1 F 98.1 F Temperature Source Oral Oral Oral Pulse Rate 77 73 60 Respiratory Rate 18 20 H 18 Blood Pressure 163/81 H 166/88 H 134/73 H Blood Pressure Mean 108 114 93 Pulse Ox 99 98 95 Oxygen Delivery Method Room Air Room Air Room Air Positive well nourished and well developed Constitutional Narrative: Patient is grimacing. He appears uncomfortable. General Appearance ED: well developed; Negative for NAD or pallor HEENT Reports moist mucous membranes HEENT Narrative: Head is atraumatic normocephalic. Ears normal. Eyes PERRL and EOMs intact bilaterally General Eye ED: Negative for scleral icterus Neck no lymphadenopathy and no JVD Resp normal respiratory effort and clear to auscultation bilaterally Cardio regular rate, regular rhythm, S1 normal heart sound, S2 normal heart sound and no murmurs GI non-distended and no masses; Negative for non-tender or hepatosplenomegaly Auscultation: hyperactive bowel sounds Palpation: soft and tender LLQ; Negative for splenomegaly, mass or rebound tenderness present Narrative: There is no inguinal lymphadenopathy or mass. Back/Spine General Back: CVA tenderness left Extremity normal to inspection General Extremety ED: Negative for edema General Extremity: Negative for edema Neuro oriented x3 and CN's II-XII intact bilaterally Sensorium / Orientation: alert Psych mental status grossly normal Skin no rashes or lesions noted, no wounds and skin turgor normal General Skin Exam: Negative for jaundice or pallor MDM MDM MDM Narrative Medical decision making narrative: Patient blood pressure is elevated most likely due to pain. He appears uncomfortable. History is consistent with obstructing ureteral stone. Will obtain UA to rule out infection. Prior records were reviewed. Will obtain CT of the abdomen pelvis without contrast to determine location and size of presumed ureteral stone, and UA to rule out infection since this would necessitate antibiotics and admission if there is an obstruction. Patient was medicated with Zofran for his nausea, ketorolac and morphine for hispain. History & Record Review Additional record(s) reviewed:: Prior ED visit (Documented in the HPI narrative.) and Prior labs Lab Data Attestation: I reviewed the patient's lab results. Lab results narrative: Basic metabolic panel Veals an elevated BUN/creatinine of 21 and 1.23. Creatinine is improved compared to 2021. Glucose is elevated 149. UA reveals hematuria. There is no pyuria or bacteriuria. Labs: Laboratory Results - last 24 hr 10/07/24 10/07/24 07:17 07:30 Sodium 138 Potassium 4.3 Chloride 103 Carbon Dioxide 19.5 L Anion Gap 15 BUN 21 H Creatinine 1.23 H Estim Creat Clear Calc 59.55 Est GFR (MDRD) Non-Af 60 BUN/Creatinine Ratio 17.4 Glucose 149 H Calcium 9.7 Urine Color Yellow Urine Clarity Sl. Cloudy Urine pH 6.5 Ur Specific [place] 1.015 Urine Protein 30 H Urine Glucose (UA) Normal Urine Ketones Negative Urine Occult Blood 250 H Urine Nitrite Negative Urine Bilirubin Negative Urine Urobilinogen Normal Ur Leukocyte Esterase Negative Urine RBC > 100 SEEN Urine WBC 0 SEEN Ur Squamous Epith Cells 0 SEEN Urine Bacteria 0 SEEN Urine Mucus 0 SEEN Radiography Diagnostic Testing: Clinical Impression(s) from Imaging Studies Abdomen/Pelvis CT 10/07/24 07:21 IMPRESSION: 1. Bilateral simple renal cysts and hemorrhagic cysts. Bosniak 1. Bosniak 2. No follow-up required. 2. Bilateral renal calculi. There are 2 calculi in the ureter on the left. 1 of the ureteropelvic junction and another at the level of L4. 3. Diverticulosis without diverticulitis. Sliding hiatus hernia. 4. Fat containing left inguinal hernia. Reading Location: [id number] CT of the abdomen pelvis reveals a stone in the left renal pelvis. There is also a proximal ureteral stone that is causing mild hydro-. Awaiting formal read by radiologist, 0824. The radiology report was reviewed. Patient made aware of results and discharge to home Discharge Plan Triage Chief Complaint: Flank Pain ED Provider: Meño Barraza Dx/Rx/DC Orders Clinical Impression: Hydronephrosis with urinary obstruction due to ureteral calculus, Bilateral renal stones, Renal insufficiency, Hematuria, Elevated blood pressure reading with diagnosis of hypertension, Diverticulosis Instructions: ED Renal Insufficiency, ED Kidney Stone with Pain Prescriptions: New oxycodone 5 mg capsule 5 mg PO Q6H PRN (Reason: pain) 5 Days Qty: 20 0RF No Action xueyywoj-xbbp-PM-calcium-mins 1 TABLET tablet 1 tablet PO DAILY lansoprazole 30 mg capsule,delayed release(DR/EC) 30 mg PO DAILY lisinopril 30 mg tablet 30 mg PO DAILY oxycodone-acetaminophen [oxycodone-acetaminophen] 5-325 mg tablet 1 tab PO Q6H PRN PRN (Reason: Pain) 3 Days Qty: 12 0RF Primary Care Provider: Kelton Serrano Referrals: Byron Vasquez MD [Med Staff - Active Staff] - 5-7 Days Kelton Serrano MD [Primary Care Provider] - Activity Restrictions/Additional Instructions: 1. Return if you have a temperature greater than 100, unable to eat or drink anything or pain is not under control with medication prescribed. 2. Contact Dr. Vasquez's office for follow-up. Print Language: Chadian Disposition Disposition: Home, Self Care What to do if you have Problems For any increased pain, shortness of breath, bleeding, nausea or vomiting, chestpain, or any unexpected problems, contact your Primary Care Provider. Call [facility] ([phone]) or report to the closest Emergency Room. Call 911 if necessary. 10/07/24 0944 <Electronically signed by Meño Barraza MD> Cosigner Signature (if applicable): CC: Dr. Kelton Serrano MD ~ Signed [facility] Work Phone: Evaluation note* Diagnosis Onset Date Resolution Status Abnormal electrocardiogram c hronic [facility] Work Phone: Evaluation note* Diagnosis Essential hypertension Unspecified essential hypertension [facility] Diagnosis Essential hypertension Unspecified essential hypertension [facility] Diagnosis Essential hypertension Unspecified essential hypertension [facility] Diagnosis Essential hypertension- Primary Unspecified essential hypertension Mixed hyperlipidemia Elevated glucose Other abnormal glucose Elevated hemoglobin A1c Other abnormal blood chemistry Gastroesophageal reflux disease, unspecified whether esophagitis present Encounter for long-term current use of medication Prostate cancer screening Special screening for malignant neoplasm of prostate Urinary frequency Recurrent kidney stones Calculus of kidney [facility] Diagnosis Toe pain, bilateral- Primary [facility] Diagnosis Toe pain, bilateral- Primary Essential hypertension Unspecified essential hypertension [facility] Diagnosis Essential hypertension- Primary Unspecified essential hypertension Toe pain, bilateral [facility] Diagnosis Pain in left foot- Primary Pain in limb [facility] Diagnosis Hallux rigidus of both feet- Primary [facility] Diagnosis Hallux rigidus of both feet [facility] Diagnosis Essential hypertension- Primary Unspecified essential hypertension Mixed hyperlipidemia Gastroesophageal reflux disease, unspecified whether esophagitis present Encounter for immunization Need for other specified prophylactic vaccination against single bacterial disease Need for shingles vaccine Need for prophylactic vaccination and inoculation against other viral diseases Personal history of COVID-19 Encounter for long-term current use of medication [facility] Diagnosis Pre-operative examination- Primary Preoperative examination, [...] both ears Presbyacusis [facility] Diagnosis Pre-operative examination- Primary Preoperative examination, [...] Unspecified essential hypertension [facility] Diagnosis Pre-operative examination- Primary Preoperative examination, [...] Unspecified essential hypertension [facility] Diagnosis Pre-operative examination- Primary Preoperative examination, [...] Unspecified essential hypertension [facility] noteNo assessment information availableWEast [facility] Work Phone: Hospital Discharge instructionsAdditional Instructions 1. Return if you have a temperature greater than 100, unable to eat or drink anything or pain is not under control with medication prescribed. 2. Contact Dr. Vasquez's office for follow-up.[facility] Work Phone: Reason for referral (narrative)* Diagnostic Procedure Only (Routine) - Pending Review Specialty Diagnoses / Procedures Referred By Poncho torrez Referred To Contact XR IMAGING Diagnoses Pain in left foot Procedures XR FOOT GENERAL 3V AP/LAT/OBL LEFT RADEX FOOT COMPLETE MINIMUM 3 VIEWS Brennen Johnsno [address] [place] [address] Xr Imaging Referral ID Status Reason Start Date Expiration Date Visits Requested Visits Authorized [id number] Pending Review Auto-Generat ed Referral 09/03/2022 10/03/2023 1 1 [facility] for referral (narrative)* Diagnostic Procedure Only (Routine) - Closed Specialty Diagnoses / Procedures Referred By Poncho torrez Referred To Contact XR IMAGING Diagnoses Hallux rigidus of both feet Procedures XR FOOT GENERAL 3V AP/LAT/OBL BILATERAL RADEX FOOT COMPLETE MINIMUM 3 VIEWS Brennen Johnson [address] [place] [address] Xr Imaging Referral ID Status Reason Start Date Expiration Date V isits Requested Visits Authorized [id number] Closed Auto-Generate d Referral 09/04/2022 10/04/2023 1 1 [facility] for referral (narrative)* Diagnostic Procedure Only (Routine) - Closed Specialty Diagnoses / Procedures Referred By Contac t Referred To Contact XR IMAGING Diagnoses Hallux rigidus of both feet Procedures XR FOOT GENERAL 3V AP/LAT/OBL BILATERAL RADEX FOOT COMPLETE MINIMUM 3 VIEWS Brennen Johnson [address] [place] [address] [place] [address] Referral ID Status Reason Start Date Expiration Date V isits Requested Visits Authorized [id number] Closed Auto-Generate d Referral 09/04/2022 10/04/2023 1 1 [facility] for referral (narrative)No reason for referral information availableWEast [facility] Work Phone: Reason for visit Narrative* Diagnostic Procedure Only (Routine) - Closed Specialty Diagnoses / Procedures Referred By Contac t Referred To Contact XR IMAGING Diagnoses Hallux rigidus of both feet Procedures XR FOOT GENERAL 3V AP/LAT/OBL BILATERAL RADEX FOOT COMPLETE MINIMUM 3 VIEWS Brennen Johnson [address] [place] [address] [place] [address] Referral ID Status Reason Start Date Expiration Date V isits Requested Visits Authorized [id number] Closed Auto-Generate d Referral 09/04/2022 10/04/2023 1 1 [facility] Summary Purpose Family History No Family History Records Found Relationship Condition Age at Onset Recorded Date/T faith mother Malignant neoplasm Unknown father Aneurysm Unknown Advance Directives No Advanced Directives Records Found Advance Directive Response Recorded Date/ Time Advance Directives No August 29 5 2:12pm Living Will No September 02, 2021 8:19pm Power of Diagnostics Sales Developer No September 02 8:19pm Latest Code Status [...] Comments 04/10/2019 7:31 PM 07/04/2020 6:10 AM Advance Directive Response Recorded Date/ Time Do you have a Healthcare Power of Diagnostics Sales Developer? No October 07, 2024 8:16am Advance Directives No August 29 2:12pm Chief Complaint and Reason for Visit Chief Complaint 1 Y FU (RS FROM 06/12 ) abdominal pain Reason for Visit Abnormal electrocard iogram Chief Complaint Admit Date flank October 07, 2024 7: 12am Additional Source Comments (unrecognized sect ion and content) No Status Records FoundNo Status Records FoundNo Status Records Found INFORMATION SOURCE (unrecogn ized section and content) DATE CREATED AUTHOR 04/21/2019 [facility] DATE CREATED AUTHOR AUTHOR'S ORGANIZ ATION 10/01/2024 [facility] DATE CREATED AUTHOR AUTHOR'S ORGANIZ ATION 10/08/2024 [facility] Goals (unrecognized section and content) Goals may be documented in a n alternate sectionGoals may be documented in an alternate section Source Comments (unrecognize d section and content) In the event this informatio n is protected by the Federal Confidentiality of Alcohol and Drug Abuse Patient Records regulations: The Federal rules restrict any use of the information to criminally investigate or prosecute any alcohol or drug abuse patient.[facility] the event this information is protected by the Federal Confidentiality of Alcohol and Drug Abuse Patient Records regulations: The Federal rules restrict any use of the information to criminally investigate or prosecute any alcohol or drug abuse patient.[facility] the event this information is protected by the Federal Confidentiality of Alcohol and Drug Abuse Patient Records regulations: The Federal rules restrict any use of the information to criminally investigate or prosecute any alcohol or drug abuse patient.[facility] the event this information is protected by the Federal Confidentiality of Alcohol and Drug Abuse Patient Records regulations: The Federal rules restrict any use of the information to criminally investigate or prosecute any alcohol or drug abuse patient.[facility] the event this information is protected by the Federal Confidentiality of Alcohol and Drug Abuse Patient Records regulations: The Federal rules restrict any use of the information to criminally investigate or prosecute any alcohol or drug abuse patient.[facility] the event this information is protected by the Federal Confidentiality of Alcohol and Drug Abuse Patient Records regulations: The Federal rules restrict any use of the information to criminally investigate or prosecute any alcohol or drug abuse patient.[facility] the event this information is protected by the Federal Confidentiality of Alcohol and Drug Abuse Patient Records regulations: The Federal rules restrict any use of the information to criminally investigate or prosecute any alcohol or drug abuse patient.[facility] the event this information is protected by the Federal Confidentiality of Alcohol and Drug Abuse Patient Records regulations: The Federal rules restrict any use of the information to criminally investigate or prosecute any alcohol or drug abuse patient.[facility] the event this information is protected by the Federal Confidentiality of Alcohol and Drug Abuse Patient Records regulations: The Federal rules restrict any use of the information to criminally investigate or prosecute any alcohol or drug abuse patient.[facility] the event this information is protected by the Federal Confidentiality of Alcohol and Drug Abuse Patient Records regulations: The Federal rules restrict any use of the information to criminally investigate or prosecute any alcohol or drug abuse patient.[facility] the event this information is protected by the Federal Confidentiality of Alcohol and Drug Abuse Patient Records regulations: The Federal rules restrict any use of the information to criminally investigate or prosecute any alcohol or drug abuse patient.[facility]ron[facility] the event this information is protected by the Federal Confidentiality of Alcohol and Drug Abuse Patient Records regulations: The Federal rules restrict any use of the information to criminally investigate or prosecute any alcohol or drug abuse patient.[facility] the event this information is protected by the Federal Confidentiality of Alcohol and Drug Abuse Patient Records regulations: The Federal rules restrict any use of the information to criminally investigate or prosecute any alcohol or drug abuse patient.[facility] the event this information is protected by the Federal Confidentiality of Alcohol and Drug Abuse Patient Records regulations: The Federal rules restrict any use of the information to criminally investigate or prosecute any alcohol or drug abuse patient.[facility]ronIn the event this information is protected by the Federal Confidentiality of Alcohol and Drug Abuse Patient Records regulations: The Federal rules restrict any use of the information to criminally investigate or prosecute any alcohol or drug abuse patient.[facility]ronIn the event this information is protected by the Federal Confidentiality of Alcohol and Drug Abuse Patient Records regulations: The Federal rules restrict any use of the information to criminally investigate or prosecute any alcohol or drug abuse patient.[facility]ronIn the event this information is protected by the Federal Confidentiality of Alcohol and Drug Abuse Patient Records regulations: The Federal rules restrict any use of the information to criminally investigate or prosecute any alcohol or drug abuse patient.[facility]ronIn the event this information is protected by the Federal Confidentiality of Alcohol and Drug Abuse Patient Records regulations: The Federal rules restrict any use of the information to criminally investigate or prosecute any alcohol or drug abuse patient.[facility]ronIn the event this information is protected by the Federal Confidentiality of Alcohol and Drug Abuse Patient Records regulations: The Federal rules restrict any use of the information to criminally investigate or prosecute any alcohol or drug abuse patient.[facility]ronIn the event this information is protected by the Federal Confidentiality of Alcohol and Drug Abuse Patient Records regulations: The Federal rules restrict any use of the information to criminally investigate or prosecute any alcohol or drug abuse patient.[facility] Care Teams (unrecognized sec tion and content) Manager Of Pharmacy Relationship Specialty Start Date End Date Kelton Serrano MD [address] [place] [address] PCP - General Internal Medicine 10/18/16 Nicholas Dela Cruz MD [address] [place], [place] [address] Referring Orthopedics 04/07/19 Nicholas Dela Cruz MD [address] [place], [place] [id number] Home Care Provider Orthopedics 04/07/19 Maame Fontana, PT [address] [facility] [place] [address] Agronomy Manager Acute Care 04/09/19 Manager Of Pharmacy Relationship Specialty Start Date End Date Kelton Serrano MD [address] [facility] [place] [place] [address] PCP - General Internal Medicine 10/18/16 Nicholas Dela Cruz MD [address] [place] [address] Referring Orthopedics 04/07/19 Nicholas Dela Cruz MD [address] [place] [address] Home Care Provider Orthopedics 04/07/19 Maame Fontana, PT [address] [facility] [place] [address] Agronomy Manager Acute Care 04/09/19 Manager Of Pharmacy Relationship Specialty Start Date End Date Kelton Serrano MD [address] [facility] [place] [place] [address] PCP - General Internal Medicine 10/18/16 Nicholas Dela Cruz MD [address] [place] [address] Referring Orthopedics 04/07/19 Nicholas Dela Cruz MD [address] [place] [address] Home Care Provider Orthopedics 04/07/19 Maame Fontana, PT [address] [facility] [place] [address] Agronomy Manager Acute Care 04/09/19 Manager Of Pharmacy Relationship Specialty Start Date End Date Kelton Serrano MD [address] [facility] [place] [place] [address] PCP - General Internal Medicine 10/18/16 Nicholas Dela Cruz MD [address] [place] [address] Referring Orthopedics 04/07/19 Nicholas Dela Cruz MD [address] [place] [address] Home Care Provider Orthopedics 04/07/19 Maame Fontana, PT [address] [facility] [place] [address] Agronomy Manager Acute Care 04/09/19 Manager Of Pharmacy Relationship Specialty Start Date End Date Kelton Serrano MD [address] [facility] [place] [place] [address] PCP - General Internal Medicine 10/18/16 Nicholas Dela Cruz MD [address] [place] [address] Referring Orthopedics 04/07/19 Nicholas Dela Cruz MD [address] [place] [address] Home Care Provider Orthopedics 04/07/19 Maame Fontana, PT [address] [facility] [place] [address] Agronomy Manager Acute Care 04/09/19 Manager Of Pharmacy Relationship Specialty Start Date End Date Kelton Serrano MD [address] [facility] [place] [place] [address] PCP - General Internal Medicine 10/18/16 Nicholas Dela Cruz MD [address] [place] [address] Referring Orthopedics 04/07/19 Nicholas Dela Cruz MD [address] [place] [address] Home Care Provider Orthopedics 04/07/19 Maame Fontana, PT [address] [facility] [place] [address] Agronomy Manager Acute Care 04/09/19 Manager Of Pharmacy Relationship Specialty Start Date End Date Kelton Serrano MD [address] [facility] [place] [place] [address] PCP - General Internal Medicine 10/18/16 Nicholas Dela Cruz MD [address] [facility] [place] [address] Referring Orthopedics 04/07/19 Nicholas Dela Cruz MD [address] [facility] [place] [address] Home Care Provider Orthopedics 04/07/19 Maame Fontana, PT [address] [facility] [place] [address] Agronomy Manager Acute Care 04/09/19 Manager Of Pharmacy Relationship Specialty Start Date End Date Kelton Serrano MD [address] [facility] [place] [place] [address] PCP - General Internal Medicine 10/18/16 Nicholas Dela Cruz MD [address] [place] [address] Referring Orthopedics 04/07/19 Nichoals Dela Cruz MD [address] [place] [facility] [place] [address] Home Care Provider Orthopedics 04/07/19 Maame Fontana, PT [address] [facility] [place] [address] Agronomy Manager Acute Care 04/09/19 Manager Of Pharmacy Relationship Specialty Start Date End Date Kelton Serrano MD [address] [place] [place] [address] PCP - General Internal Medicine 10/18/16 Nicholas Dela Cruz MD [address] [place] [address] Referring Orthopedics 04/07/19 Nicholas Dela Cruz MD [address] [place] [address] Home Care Provider Orthopedics 04/07/19 Maame Fontana, PT [address] [place] [address] Agronomy Manager Acute Care 04/09/19 Manager Of Pharmacy Relationship Specialty Start Date End Date Kelton Serrano MD [address] [place] [address] PCP - General Internal Medicine 10/18/16 Nicholas Dela Cruz MD [address] [place] [address] Referring Orthopedics 04/07/19 Nicholas Dela Cruz MD [address] [place] [address] Home Care Provider Orthopedics 04/07/19 Maame Fontana, PT [address] [place] [address] Agronomy Manager Acute Care 04/09/19 Manager Of Pharmacy Relationship Specialty Start Date End Date Kelton Serrano MD [address] [place] [place] [address] PCP - General Internal Medicine 10/18/16 Nicholas Dela Cruz MD [address] [place] [address] Referring Orthopedics 04/07/19 Nicholas Dela Curz MD [address] [place] [address] Home Care Provider Orthopedics 04/07/19 Maame Fontana, PT [address] [place] [address] Agronomy Manager Acute Care 04/09/19 Manager Of Pharmacy Relationship Specialty Start Date End Date Kelton Serrano MD [address] [place] [address] PCP - General Internal Medicine 10/18/16 Nicholas Dela Cruz MD [address] [place] [address] Referring Orthopedics 04/07/19 Nicholas Dela Cruz MD [address] [place] [address] Home Care Provider Orthopedics 04/07/19 Maame Fontana, PT [address] [place] [address] Agronomy Manager Acute Care 04/09/19 Manager Of Pharmacy Relationship Specialty Start Date End Date Kelton Serrano MD [address] [place] [address] PCP - General Internal Medicine 10/18/16 Nicholas Dela Cruz MD [address] [place] [address] Referring Orthopedics 04/07/19 Nicholas Dela Cruz MD [address] [place] [address] Home Care Provider Orthopedics 04/07/19 Maame Fontana, PT [address] [facility] [place] [address] Agronomy Manager Acute Care 04/09/19 10/31/22 Maame Fontana, PT [address] [facility] [place] [address] Agronomy Manager Acute Care 04/09/19 Manager Of Pharmacy Relationship Specialty Start Date End Date Kelton Serrano MD [address] [place] [address] PCP - General Internal Medicine 10/18/16 Nicholas Dela Cruz MD [address] [place] [address] Referring Orthopedics 04/07/19 Nicholas Dela Cruz MD [address] [place] [address] Home Care Provider Orthopedics 04/07/19 Manager Of Pharmacy Relationship Specialty Start Date End Date Kelton Serrano MD [address] [place] [address] PCP - General Internal Medicine 10/18/16 Nicholas Dela Cruz MD [address] [place] [address] Referring Orthopedics 04/07/19 Nicholas Dela Cruz MD [address] [place] [address] Home Care Provider Orthopedics 04/07/19 Kaye Daily APRN.ENGINE DESIGNER [address] [place] [address] Logging Truck Driver Internal Medicine 02/02/24 Yaritza Tineo APRN.KST OPERATOR [address] [place] [address] [facility] Internal Medicine 02/02/24 Manager Of Pharmacy Relationship Specialty Start Date End Date Kelton Serrano MD [address] [place] [address] PCP - General Internal Medicine 10/18/16 Nicholas Dela Cruz MD [address] [facility] [place] [address] Referring Orthopedics 04/07/19 Nicholas Dela Cruz MD [address] [place] [address] Home Care Provider Orthopedics 04/07/19 Kaye Daily APRN.ENGINE DESIGNER [address] [place] [address] [facility] Internal Medicine 02/02/24 Yaritza Tineo APRN.KST OPERATOR [address] [place] [address] [facility] Internal Medicine 02/02/24 Manager Of Pharmacy Relationship Specialty Start Date End Date Kelton Serrano MD [address] [place] [address] PCP - General Internal Medicine 10/18/16 Nicholas Dela Cruz MD [address] [place] [address] Referring Orthopedics 04/07/19 Nicholas Dela Cruz MD [address] [place] [address] Home Care Provider Orthopedics 04/07/19 Kaye Daily APRN.ENGINE DESIGNER [address] [place] [address] Logging Truck Driver Internal Medicine 02/02/24 Yaritza Tineo APRN.KST OPERATOR [address] [place] [address] Logging Truck Driver Internal Medicine 05/18/24 Manager Of Pharmacy Relationship Specialty Start Date End Date Kelton Serrano MD [address] [place] [address] PCP - General Internal Medicine 10/18/16 Nicholas Dela Cruz MD [address] [place] [address] Referring Orthopedics 04/07/19 Nicholas Dela Cruz MD [address] [place] [address] Home Care Provider Orthopedics 04/07/19 Kaye Daily APRN.ENGINE DESIGNER [address] [place] [address] Logging Truck Driver Internal Medicine 02/02/24 Yaritza Tineo APRN.KST OPERATOR [address] [place] [address] Logging Truck Driver Internal Medicine 05/18/24 Manager Of Pharmacy Relationship Specialty Start Date End Date Kelton Serrano MD [address] [place] [address] PCP - General Internal Medicine 10/18/16 Nicholas Dela Cruz MD [address] [place] [address] Referring Orthopedics 04/07/19 Nicholas Dela Cruz MD [address] [place] [address] Home Care Provider Orthopedics 04/07/19 Yaritza Tineo APRN.KST OPERATOR [address] [place] [id number] Logging Truck Driver Internal Medicine 05/18/24 Kaye Daily APRN.ENGINE DESIGNER [address] [place], [place] [address] Logging Truck Driver Internal Medicine 07/14/24 Team Status: Active Member Role/Relationship Status Dates Dr. Kelton Serrano MD Primary Care Provider Active Team Status: Inactive Member Role/Relationship Status Dates Dr. Kelton Serrano MD Primary Care Provider Active Start: October 07, 2024 End: October 07, 2024 Dr. Meño Barraza MD Emergency Provider Active Sta rt: October 07, 2024 End: October 07, 2024 Reason for Visit (unrecogniz ed section and [...] BE BASED ON THE PRIMARY CLINICAL RECORDS. [employer] [facility]. provides no warranty or guarantee of the accuracy or completeness of information in this document.
--- NOTE | 2024-10-09 04:10 | PCM.HP.STD ---
[facility] - General General Date of Admission: 10/09/24 Date of Service: 10/09/24 Chief Complaint: Severe Left Flank Pain. HPI Narrative DANN SMITH, is a 79 M with a past medical history of essential hypertension; on amlodipine and lisinopril, hyperlipidemia; currently not on treatment, overweight; with BMI of 27.1 this admission, history of neuropathy, history of cholelithiasis, history of melanoma, BPH, GERD; on lansoprazole, OA; s/p THR, history of UVJ stone (November 16) and recent evaluation in ER here when he was diagnosed Left renal calculi with Left flank pain with patient scheduled with an appointment to be seen this week by Dr. Vasquez of urology who re-presents to [facility] ER complaining of severe Left flank pain that was refractory to treatment with oral oxycodone so he decided to come back in for further evaluation and treatment. Mr. Smith reports his acute symptoms began just prior to arrival when he had an abrupt return of severe Left flank pain radiating into his groin ~1:00 AM. He admits to nausea and elevated blood pressure and recently not keeping up with his hydration in spite of working out in the heat. He denies associated hematuria, urinary retention, fever, chills, vomiting, diarrhea, constipation, chest pain, palpitations, heart racing, shortness of breath, cough, headache or rash. In the ER he was diagnosed with Left renal calculi causing intractable Left flank pain radiating into his groin complicated by clinical evidence of Uncontrolled Hypertension with blood pressure of 183/104 mmHg present on admission and mildly elevated serum creatinine of 1.41 mg/dL (up from his baseline 2 days ago of 1.23 mg/dL) and he was then admitted to the general medical floor under observation status for ongoing care for status expected to be less than 2 midnights. [facility] Medical History Kidney stone Abnormal electrocardiogram Cholelithiasis Neuropathy Hypertrophy of prostate without urinary obstruction Osteoarthritis History of melanoma Nocturia Kidney stones GERD (gastroesophageal reflux disease) Essential (primary) hypertension Hyperlipidemia Home Medications ?Medication ?Instructions ?Recorded ?Last Taken ?Type multivitamin-iron 9 mg-folic acid 1 tablet PO DAILY supplement 08/29/14 Unknown History 400 mcg-calcium and minerals tablet lansoprazole 30 mg capsule,delayed 30 mg PO DAILY gerd 06/07/20 Unknown History release lisinopril 30 mg tablet 30 mg PO DAILY bp 10/25/22 Unknown History oxycodone 5 mg capsule 5 mg PO Q6H PRN pain 5 days #20 10/07/24 Unknown Rx caps amlodipine 5 mg tablet 5 mg PO DAILY bp 10/09/24 Unknown History Allergy/AdvReac Type Severity Reaction Status Date / Time acetaminophen (From Tylenol) Allergy Rash Verified 10/07/24 07:12 doxazosin mesylate (From AdvReac Other Verified 10/07/24 07:12 Cardura) pantoprazole sodium (From AdvReac Other Verified 10/07/24 07:12 Protonix) triamterene AdvReac Other Verified 10/07/24 07:12 Family History Mother Cancer Father Aneurysm Surgical History History of colonoscopy History of herniorrhaphy History of cholecystectomy History of total hip arthroplasty Social History Smoking Status: Never smoker alcohol intake: current alcohol intake frequency: a few times a week Alcohol type: beer details: 1 beer 4 times a week ROS ROS Narrative Review of Systems: Constitutional: Patient denies fever or chills. Eyes: Patient denies changes in vision or discharge from eyes. ENT: Patient denies runny nose, sore throat or ear pain. Resp: Patient denies shortness of breath or cough. CV: Patient denies chest pain, palpitations, heart racing or lower extremity edema. GI: Patient admits to severe abdominal pain and nausea but he denies diarrhea or vomiting. : Patient admits to severe left flank pain refractory to treatment with oral oxycodone but he denies dysuria or hematuria. MSK: Patient denies arthralgias or myalgias. Skin: Patient denies rash, abscess, wounds or jaundice. Psych: Patient denies symptoms of uncontrolled depression or anxiety. Neuro: Patient denies headache, paresthesias or focal neurologic deficits. Allergy: Patient denies lip swelling, tongue swelling or urticaria. Hematology: Patient denies easy bleeding or easy bruisability. Endocrinology: Patient denies polyuria, polydipsia, polyphagia or heat/cold intolerance. 14 point ROS otherwise negative except for positives noted above in HPI. Vital Signs Vital Signs Vital Signs: 10/09/24 02:09 Temperature 97.6 F L Temperature Source Oral Pulse Rate 90 Respiratory Rate 20 H Blood Pressure 183/104 H Blood Pressure Mean 130 Pulse Ox 96 Oxygen Delivery Method Room Air Weight Weight: 205 lb 4.006 oz Body Mass Index (BMI) 27.1 Physical Exam Const alert, oriented x3, no apparent distress and average body habitus Constitutional Narrative: Patient appears comfortable after his treatment with IV hydromorphone. General Appearance: cooperative HEENT normocephalic, head/scalp atraumatic, hearing grossly normal bilaterally and moist oral mucous membranes Eyes PERRL, EOMs intact bilaterally and conjunctivae normal Neck no lymphadenopathy, supple and no JVD Resp normal respiratory effort, no retractions, no use of accessory muscles and clear to auscultation bilaterally Cardio regular rate and regular rhythm GI normal to inspection, nondistended, normoactive bowel sounds, soft to palpation, non-tender and non-distended Extremity normal to inspection, full ROM and no clubbing, cyanosis or edema Skin Skin Narrative: Patient has no evidence of rash, abscess, wounds or jaundice. Neuro oriented x3, CN's II-XII intact bilaterally, moves all extremities and no focal motor deficits Sensorium / Orientation: awake, alert, oriented to person, oriented to place and oriented to time Speech: speech normal Psych affect normal Results Medical Records Data Attestation: I reviewed the patient's medical records Lab / Micro Data Attestation: I reviewed the patient's lab results. 10/09/24 02:45 10/09/24 02:45 Labs: Laboratory Results - last 24 hr 10/09/24 02:45: WBC 7.3, RBC 4.47 L, Hgb 14.0, Hct 41.8, MCV 93.5, MCH 31.3, MCHC 33.5, RDW Std Deviation 45.8 H, RDW Coeff of Lidia 13.4, Plt Count 247, MPV 9.4, Immature Gran % (Auto) 0.500, Neut % (Auto) 68.7, Lymph % (Auto) 21.1, Kay % (Auto) 7.5, Eos % (Auto) 1.5, Baso % (Auto) 0.7, Absolute Neuts (auto) 5.0, Absolute Lymphs (auto) 1.55, Nucleated RBC % 0, Sodium 138, Potassium 3.8, Chloride 102, Carbon Dioxide 24.2, Anion Gap 12, BUN 24 H, Creatinine 1.41 H, Estim Creat Clear Calc 51.94, Est GFR (MDRD) Non-Af 51 L, BUN/Creatinine Ratio 16.7, Glucose 112 H, Calcium 9.2, Urine Color Straw, Urine Clarity Sl. Cloudy, Urine pH 6.5, Ur Specific Lind[place] 1.010, Urine Protein 30 H, Urine Glucose (UA) Normal, Urine Ketones Negative, Urine Occult Blood 250 H, Urine Nitrite Negative, Urine Bilirubin Negative, Urine Urobilinogen Normal, Ur Leukocyte Esterase Negative, Urine RBC 0-5 SEEN, Urine WBC 0 SEEN, Ur Squamous Epith Cells 0 SEEN, Urine Bacteria 0 SEEN, Urine Mucus 0 SEEN Imaging [facility] Imaging Services [address] [place] [id number] Abdomen/Pelvis without Cont MR#: [id number] Acct: [id number] Name: DANN SMITH Rep #: [id number] : 1945 M 79 From: Ochoa Shannon MD PCP: Dr. Damaris Almanzar MD Status: REG ER Study: Abdomen/Pelvis without Cont Date of Exam: 10/07/24 Exam# [id number] Ordering Dr: Meño Barraza MD PROCEDURE: ABDOMEN/PELVIS WITHOUT CONT 10/07/2024 REASON FOR EXAM: KIDNEY STONE TECHNIQUE: ABDOMEN/PELVIS WITHOUT CONT Noncontrast technique limits evaluation of the abdominal and pelvic viscera. Coronal and Sagittal reconstruction series were provided. One or more dose reduction techniques were used (e.g., Automated exposure control, adjustment of the mA and/or kV according to patient size, use of iterative reconstruction technique). RADIATION DOSE SUMMARY: CTDlvol: 11.9 mGy DLP: 654 mGycm COMPARISON: October 25, 2022, September 02, 2021 FINDINGS: Lung bases: Clear Liver: Normal Gallbladder: Cholecystectomy Spleen: Normal Pancreas: Normal Adrenals: Normal Kidneys: Renal cysts are shown bilaterally. An exophytic cyst at the superior pole right kidney is 13 mm. Other smaller cysts are hyperdense of the lateral midpole and posterior right lower pole. Similarly, on the left side there are benign cysts. At the posterior left upper pole there is a 14 mm cyst. A dominant exophytic cyst at the left midpole is 4.3 x 4.5 cm. Hyperdense cyst posterior left midpole is 13 mm. Punctate calculus right upper pole. 9 x 11 mm calculus left mid to upper pole. 6 x 2 mm calculus left ureteropelvic junction. A 2nd, smaller 3 mm calculus is seen at the mid ureter at the level of L4. Bladder: Normal Reproductive Organs: Prostate is normal. Bowel: Small sliding hiatus hernia. Small bowel is normal. Colonic diverticulosis is present without diverticulitis. Appendix: Normal Lymph nodes: None appear enlarged. Vasculature: Moderate atherosclerotic plaque. No aneurysm. Peritoneum / Retroperitoneum: No free air, free fluid or mass. Bones: Right hip prosthesis. Abdominal wall: Intact. Fat containing left inguinal hernia. CT/Abdomen/Pelvis without Cont IMPRESSION: 1. Bilateral simple renal cysts and hemorrhagic cysts. Bosniak 1. Bosniak 2. No follow-up required. 2. Bilateral renal calculi. There are 2 calculi in the ureter on the left. 1 of the ureteropelvic junction and another at the level of L4. 3. Diverticulosis without diverticulitis. Sliding hiatus hernia. 4. Fat containing left inguinal hernia. Reading Location: [id number] CC: Dr. Damaris Almanzar MD; Dr. Meño Barraza MD ~ Facility Attendant: Signed Assessment & Plan Assessment/Plan (1) Hydronephrosis with urinary obstruction due to ureteral calculus: (2) Intractable abdominal pain: (3) Ureteral colic: (4) Uncontrolled hypertension: (5) Overweight (BMI 25.0-29.9): PLAN: Plan 1. Left Renal Calculi with Intractable Left Flank Pain in the setting of previously known recurrent renal calculi - Admit to general medical floor under observation status. Start empiric IV ceftriaxone to prophylax against potential infection. Give ondansetron IV prn for nausea and vomiting. Give hydromorphone IV prn for severe (level 6-10/10) pain. Acetaminophen was avoided due to patient's listed allergy (rash). NSAIDs were avoided due to mildly elevated serum creatinine that does not reach the level of BRUNA. Patient was instructed to stay well-hydrated when working in the heat in an effort to prevent stone formation. Finally, urologist on-call was contacted by ER physician for patient to be seen on rounds in a.m. without appreciated in advance. 2. Uncontrolled Hypertension of 183/104 mmHg due to #1 - Hold lisinopril with mildly elevated creatinine noted in #1. Restart amlodipine after urologic intervention. Give hydralazine IV prn for systolic blood pressure > 160 mmHg. 3. Overweight; with BMI of 27.1 this admission adding to the burden of disease outlined in #1 & #2 - Weight loss will be recommended. Check TSH. 4. Hyperlipidemia; currently not on treatment - Check Lipid Profile. 5. History of neuropathy - Stable. 6. History of cholelithiasis - Noted. 7. History of melanoma - Noted. 8. BPH - Stable with no evidence of obstruction. 9. GERD; on lansoprazole - Resume PPI after urologic intervention. 10. OA; s/p THR - Stable. 11. DVT prophylaxis - SCD's only with likely impending cystoscopy with stent placement. Total time: Approximately (but not less than) 70 minutes. Charges/Coding Visit Charges OBSV E&M: 65376 Observ/hosp same date L2
--- OUTSIDE RECORDS SUMMARY | 2024-10-09 04:40 | XMS RPT_ITS | CCD ---
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 Kelton Serrano Primary [...] Kelton Serrano MD Primary Care Provider Daily SKIN LIFTER BACON.PRECINCT POLICE CAPTAIN, Kaye Unavailable Raz SKIN LIFTER BACON.QUARTER DOPER, Yaritza Unavailable Raz SKIN LIFTER BACON.QUARTER DOPER, Yaritza Unavailable Raz SKIN LIFTER BACON.QUARTER DOPER, Yaritza Unavailable Daily SKIN LIFTER BACON.PRECINCT POLICE CAPTAIN, Kaye Unavailable KELTON SERRANO Referring Unavailable KELTON SERRANO Primary Care Unavailable KELTON SERRANO Primary Care Unavailable KELTON SERRANO Attending Unavailable KELTON SERRANO Primary Care Unavailable YARITZA TINEO Attending Unavailable KELTON SERRANO Primary Care Unavailable YARITZA TINEO Attending Unavailable Jenelle VALDES, Dr. Kelton Perez Primary Care Provider 1( [phone] Dr. Meño Barraza MD Emergency Provider Meño Barraza Attending Unavailable Kelton Serrano Primary Care Unavailable Allergies Allergy Classification Reported Allergen(s) Allergy Type Date of Onset Reaction(s) Facility (20 sources) Acetaminophen; Translations: [ACETAMINOPHEN] Drug Allergy 020 Rash [facility] Work Phone: (20 sources) Doxazosin; Translations: [DOXAZOSIN MESYLATE] Drug Allergy 005 Intolerance [facility] (20 sources) pantoprazole; Translations: [PANTOPRAZOLE SODIUM] Drug Allergy 014 Other: See Comments [facility] (2 sources) Triamterene Drug Allergy 022 Other [facility] (20 sources) hydroCHLOROthiazide / Triamterene; Translations: [TRIAMTERENE-HYDROCHLO ROTHIAZID] Drug Allergy 005 Intolerance [facility] (6 sources) beta-Blocking agent; Translations: [BETA-BLOCKERS (BETA-ADRENERGIC BLOCKING AGTS)] Drug Intolerance Other: See Comments [facility] (1 source) Acetaminophen Drug Allergy [facility] Rep[facility] (1 source) Triamterene Drug Allergy 025 [facility] Medications Current Medications Medication Drug Class(es) [...] on above: Take 1 capsule by mo [facility] once daily. lisinopril 30 mg oral tablet (16 sources) Angiotensin Converting Enzyme Inhibitor Start: 06-06-2022 End: 03-29-2025 take 1 tablet by mouth once daily Lisinopril 30 mg tablet Active 30 mg PO DAILY October 25, 2022 12:00am Comment on above: [facility] Wvoabiso-Vwqh-Oo-Ca lcium-Mins (1 source) Start: 08-29-2014 take 1 tablet by mouth once daily Dcdlxoyy-Qbpq-Ix-C alcium-Mins Active 1 TABLET PO DAILY August 29, 2014 12:00am Agttwkpj-Ipop-Qo-Ca lcium-Mins 1 TABLET tablet (1 source) Start: 08-29-2014 take 1 tablet by mouth once daily Pbiyoipf-Dzvb-Pp-C alcium-Mins 1 TABLET tablet Active 1 {tbl} PO DAILY August 29, 2014 12:00am Multivitamins-Emery als-Lutein (CENTRUM SILVER) tab (20 sources) Start: 03-23-2013 take 1 tablet by mouth once daily Multivitamins-Mine rals-Lutein (CENTRUM SILVER) tab Take 1 tablet by mouth once daily. 0 03/23/2013 Active Comment on above: Take 1 tablet by edgard once daily. bk-qwt-ER-vit N-wyadyi-jzjrikp (PRESERVISION AREDS 2 PLUS MV) 200 mcg-15 mcg- 5 mg-1 mg cap (6 sources) Start: 03-24-2023 take 1 capsule by mouth once daily bf-uec-TG-vit R-yfimgz-isekulu (PRESERVISION AREDS 2 PLUS MV) 200 mcg-15 mcg- 5 mg-1 mg cap Take 1 capsule by mouth once daily. 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 Kelton Serrano MD Status: REG ER Study: Abdomen/Pelvis without Cont Date of Exam: 09/24 06/18 Exam# [id number] Ordering Dr: Meño Barraza MD PROCEDURE: ABDOMEN/PELVIS [...] Fat containing left inguinal hernia. Reading Location: [id number] CC: Dr. Kelton Serrano MD; Dr. Meño Barraza MD Sql Report Writer: Signed Normal [facility] Anion gap in Serum or Plasma Ordered By: Meño Barraza on 10-07-2024 Anion gap [Moles/Vol] 15 mmol/L - [facility] BUN/creatinine ratioOrdered By: Meño Barraza on 10-07-2024 Urea nitrogen/Creatinine [Mass ratio] 17.4 mg/mg - [facility] Basic Metabolic Profile (BMP )on 10-07-2024 BUN/CRE 17.4 RATIO Normal - [facility] Comment on above: Performed By: #### L 500.2500 #### [facility] [address] [place], [address] Calcium [Mass/Vol] 9.7 mg/dL Normal 7.6-11.0 [facility] Comment on above: Performed By: #### L 500.2500 #### [facility] [address] [place], [address] Chloride [Moles/Vol] 103 mmol/L Normal 98-108 [facility] Comment on above: Performed By: #### L 500.2500 #### [facility] [address] [place], [address] CO2 [Moles/Vol] 19.5 mmol/L Low 21.0-32.0 [facility] Comment on above: Performed By: #### L 500.2500 #### [facility] [address] [place], [address] Creatinine [Mass/Vol] 1.23 mg/dL High 0.70-1.20 [facility] Comment on above: Performed By: #### L 500.2500 #### [facility] [address] [place], [address] ECRCL 59.55 ml/min Normal 50-250 [facility] Comment on above: Performed By: #### L 500.2500 #### [facility] [address] [place], [address] GAP 15 Normal 5-15 [facility] Comment on above: Performed By: #### L 500.2500 #### [facility] [address] [place], [address] GFR/1.73 sq M.predicted among non-blacks MDRD (S/P/Bld) [Vol rate/Area] 60 mL/min/{1.73_m2} Normal >60 [facility] Comment on above: Result Comment: mL/m in/1.73m2 CKD-EPI Creatinine Equation (2020) Performed By: #### L 500.2500 #### [facility] [address] [place], [address] Glucose [Mass/Vol] 149 mg/dL High 70-99 [facility] Comment on above: Performed By: #### L 500.2500 #### [facility] [address] [place], [address] Potassium [Moles/Vol] 4.3 mmol/L Normal 3.3-5.1 [facility] Comment on above: Performed By: #### L 500.2500 #### [facility] [address] [place], [address] Sodium [Moles/Vol] 138 mmol/L Normal 133-145 [facility] Comment on above: Performed By: #### L 500.2500 #### [facility] [address] [place], [address] Urea nitrogen [Mass/Vol] 21 mg/dL High 4-19 [facility] Comment on above: Performed By: #### L 500.2500 #### [facility] [address] [place], [place], [address] Bilirubin Test strip Ql (U)O rdered By: Meño Barraza on 10-07-2024 Bilirubin Ql (U) Negative Negative [facility] Carbon dioxide, total [Moles /volume] in Central venous bloodOrdered By: Meño Barraza on 10-07-2024 CO2 [Moles/Vol] 19.5 mmol/L Low 21.0-32.0 [facility] Chloride assayOrdered By: Ug o Madi on 10-07-2024 Chloride [Moles/Vol] 103 mmol/L 98-108 [facility] Emergency Department Summary on 10-07-2024 Emergency Department Summary [facility] Medical Records Department [address] [place] [address] Emergency Department Summary 10/07/24 MR#: [id number] Acct: [id number] Name: GEOFF SMITH Rep #: [id number] : 1945 79 From: Meño Barraza MD [...] similar symptoms: Yes Recent Illness/Hospitalizatio n: No [facility] Medical History Kidney stone Abnormal electrocardiogram Cholelithiasis [...] is grimacin (more content not included)... Normal [facility] Glomerular filtration rate ( GFR) estimation/1.73 sq m using serum, plasma, or whole bOrdered By: Meño Barraza on 10-07-2024 GFR/1.73 sq M.predicted among non-blacks MDRD (S/P/Bld) [Vol rate/Area] 60 mL/min/{1.73_m2} >60 [facility] Comment on above: mL/min/1.73m2 CKD-EP I Creatinine Equation (2020) Ketones Test strip Ql (U)Ord ered By: Meño Barraza on 10-07-2024 Ketones Ql (U) Negative Negative [facility] Microscopic analysis of urin e for red blood cells (RBC)Ordered By: Meño Barraza on 10-07-2024 Microscopic analysis of urine for red blood cells (RBC) > 100 SEEN /hpf 0-5 [facility] Mucus LM Ql (Urine sed)Order ed By: Meño Barraza on 10-07-2024 Mucus Ql (Urine sed) 0 SEEN /hpf [facility] Nitrite Test strip Ql (U)Ord ered By: Meño Barraza on 10-07-2024 Nitrite Ql (U) Negative Negative [facility] Potassium measurement (mass/ volume)Ordered By: Meño Barraza on 10-07-2024 Potassium (Unsp spec) [Mass/Vol] 4.3 mmol/L 3.3-5.1 [facility] Protein Test strip Ql (U)Ord ered By: Meño Barraza on 10-07-2024 Protein Ql (U) 30 mg/dl High Negative [facility] Serum creatinine measurement (mass/volume)Ordered By: Meño Barraza on 10-07-2024 Creatinine [Mass/Vol] 1.23 mg/dL High 0.70-1.20 [facility] Serum glucose measurement (m ass/volume)Ordered By: Meño Barraza on 10-07-2024 Glucose [Mass/Vol] 149 mg/dL High 70-99 [facility] Serum or plasma calcium taylor urement (mass/volume)Ordered By: Meño Barraza on 10-07-2024 Calcium [Mass/Vol] 9.7 mg/dL 7.6-11.0 [facility] Serum or plasma urea nitroge n measurement (mass/volume)Ordered By: Meño Barraza on 10-07-2024 Urea nitrogen [Mass/Vol] 21 mg/dL High 4-19 [facility] Sodium levelOrdered By: Meño Barraza on 10-07-2024 Sodium [Moles/Vol] 138 mmol/L 133-145 [facility] Squamous epithelial cells de tection in urine sediment by light microscopyOrdered By: Meño Barraza on 10-07-2024 Epithelial cells.squamous LM Ql (Urine sed) 0 SEEN /hpf 0-5 [facility] Urinalysis, Completeon 10-07 RBC > 100 SEEN Normal 0-5 [facility] Comment on above: Order Comment: CLEAN CATCH Performed By: #### L 400.0001 #### [facility] [address] [place], [address] BACTERIA 0 SEEN Normal None Seen [facility] Comment on above: Order Comment: CLEAN CATCH Performed By: #### L 400.0001 #### [facility] [address] [place], [address] EPI,SQUAMOUS 0 SEEN Normal 0-5 [facility] Comment on above: Order Comment: CLEAN CATCH Performed By: #### L 400.0001 #### [facility] [address] [place], [address] Mucus Ql (Urine sed) 0 SEEN Normal [facility] Comment on above: Order Comment: CLEAN CATCH Performed By: #### L 400.0001 #### [facility] [address] [place], [address] WBC 0 SEEN Normal 0-5 [facility] Comment on above: Order Comment: CLEAN CATCH Performed By: #### L 400.0001 #### [facility] [address] [place], [address] Urine clarityOrdered By: Meño Barraza on 10-07-2024 Clarity (U) Sl. Cloudy Clear [facility] Urine color determinationOrd ered By: Meoñ Barraza on 10-07-2024 Color (U) Yellow Yellow [facility] Urine glucose detectionOrder ed By: Meño Barraza on 10-07-2024 Glucose Ql (U) Normal mg/dl Normal [facility] Urine leukocyte esterase det ection by dipstickOrdered By: Meño Barraza on 10-07-2024 Leukocyte esterase Test strip Ql (U) Negative Negative [facility] Urine pHOrdered By: Meño hatfield on 10-07-2024 pH (U) 6.5 [pH] 5.0 - 8.0 [facility] Urine sediment bacteria coun t by microscopy (number/high power field)Ordered By: Meño Barraza on 10-07-2024 Bacteria LM.HPF (Urine sed) [#/Area] 0 /[HPF] None Seen [facility] Urine specific gravity measu rementOrdered By: Meñoalysia Barraza on 10-07-2024 Specific gravity (U) [Rel density] 1.015 1.002-1.030 [facility] Urine urobilinogen measureme ntOrdered By: Meñoalysia Barraza on 10-07-2024 Urobilinogen Ql (U) Normal mg/dl Normal [facility] White blood cell countOrdere d By: Meño Barraza on 10-07-2024 White blood cell count 0 SEEN /hpf 0-5 [facility] CNPNon 09-14-2024 CNPN Telephone (4CQ) GEOFF SMITH ([id number]) 1945 M Date Time Provider Department 09/14/24 [...] Date Reviewed: 06/02/2024 Reviewed by: Yaritza Tineo APRN.QUARTER DOPER - Fully Assessed Reason for Visit: Appointment [186] Prescriptions as of 09/14/2024 - amLODIPine (NORVASC) 5 mg tablet Take 1 tablet by mouth once daily. - lansoprazole (PREVACID) 30 mg capsule Take 1 capsule by mouth once daily. - lisinopril (ZESTRIL) 30 mg tablet Take 1 tablet by mouth once daily. - cf-gdp-QW-vit T-sdhmcd-xrfdzfj (PRESERVISION AREDS 2 PLUS MV) 200 mcg-15 [...] hip arthroplasty [Z96.64*04/07/2019 Encounter Status:Closed by ANJANA OBOTHE on 09/14/24 [facility] CNOVon 06-02-2024 CNOV Office Visit (INTMWS ) GEOFF SMITH ([id number]) 1945 M Date Time Provider Department 06/02/24 7:20 AM YARITZA TINEO INTMWS During your visit today, we recorded the following information about you: Pulse Blood pressure Weight 73/minute 138/82 90.1 kg Yaritza Tineo APRN.QUARTER DOPER 06/02/2024 7:29 AM Signed SUBJECTIVE Geoff Smith [...] Take 1 tablet by mouth once daily. ds-reu-MU-vit J-riokrj-nnroqwb (PRESERVISION AREDS 2 PLUS MV) 200 mcg-15 [...] normal. B (more content not included)... Normal [facility] CNOVon 05-03-2024 CNOV Office Visit (INTMWS ) GEOFF SMITH ([id number]) 1945 M Date Time Provider Department 05/03/24 7:40 AM YARITZA TINEO INTMWS During your visit today, we recorded the following information about you: Pulse Blood pressure Weight 77/minute 174/96 92.3 kg Yaritza Tineo APRN.QUARTER DOPER 05/03/2024 8:11 AM Signed SUBJECTIVE Geoff Smith [...] Take 1 tablet by mouth once daily. yt-bxq-RT-vit U-siscxc-uvyczyf (PRESERVISION AREDS 2 PLUS MV) 200 mcg-15 [...] normal. J (more content not included)... Normal [facility] CNOVon 03-29-2024 CNOV Office Visit (INTMWS ) GEOFF SMITH ([id number]) 1945 M Date Time Provider Department 03/29/24 8:00 AM KELTON SERRANO INTMWS During your visit today, we recorded the following information about you: Temperature Pulse Respiration Blood pressure 98.2 degrees 72/minute 16/minute 160/88 Weight Height 93.3 kg 1.842 m Kelton Serrano MD 03/29/2024 11:57 PM Addendum This note was created using [employer]. Subjective HISTORY Geoff Smith is a 78 [...] does not have a healthcare power of transactional attorney. He identifies his spouse as his surrogate decision maker. He has not traveled outside of the country recently but is considering a trip to [place]. He has 3 half-sisters who are , [...] essential hypertension Current Outpatient Medications Medication Sig mj-hsx-QN-vit K-zvoaqc-uobuslw (PRESERVISION AREDS 2 PLUS MV) 200 mcg-15 [...] Estimated b (more content not included)... Normal [facility] CBC panel Auto (Bld)on 03-24 Erythrocyte distribution width (RBC) [Ratio] 13.3 % Normal 11.5-15.0 [facility] Comment on above: Order Comment: Speci men Type: BLOOD SPECIMEN [facility]ing Facility[facility] Address: [address] [place] [address] Performed By: #### 5 8410-2 #### [facility] CLIA [id number] [address] [place] [address] [place] Hematocrit (Bld) [Volume fraction] 46.0 % Normal 39.0-51.0 [facility] Comment on above: Order Comment: Speci men Type: BLOOD SPECIMEN Ordering Facility: [facility] Address: [address] [place] [address] Performed By: #### 5 8410-2 #### [facility] CLIA [id number] [address] [place] [address] [place] Hemoglobin (Bld) [Mass/Vol] 14.7 g/dL Normal 13.0-17.0 [facility] Comment on above: Order Comment: Speci men Type: BLOOD SPECIMEN [facility]ing Facility: [facility] Address: [address] [place] [address] Performed By: #### 5 8410-2 #### [facility] CLIA [id number] [address] [place] [address] [place] MCH (RBC) [Entitic mass] 30.7 pg Normal 26.0-34.0 [facility] Comment on above: Order Comment: Speci men Type: BLOOD SPECIMEN [facility] Facility: [facility] Address: [address] [place] [address] Performed By: #### 5 8410-2 #### [facility] CLIA [id number] [address] [place] [address] [place] MCHC (RBC) [Mass/Vol] 32.0 g/dL Normal 30.5-36.0 [facility] Comment on above: Order Comment: Speci men Type: BLOOD SPECIMEN [facility] Address: [address] [place] [address] Performed By: #### 5 8410-2 #### [facility] CLIA [id number] [address] [place] [address] [place] MCV (RBC) [Entitic vol] 96.0 fL Normal 80.0-100.0 [facility] Comment on above: Order Comment: Speci men Type: BLOOD SPECIMEN [facility] Address: [address] [place] [address] Performed By: #### 5 8410-2 #### [facility] CLIA [id number] [address] [place] [address] [place] Nucleated RBC (Bld) [#/Vol] 10*3/uL Normal <0.01 [facility] Comment on above: Order Comment: Speci men Type: BLOOD SPECIMEN [facility] Address: [address] [place] [address] Performed By: #### 5 8410-2 #### [facility] CLIA [id number] [address] [place], [place] [id number] [place] Platelet mean volume (Bld) [Entitic vol] 10.2 fL Normal 9.0-12.7 [facility] Comment on above: Order Comment: Speci men Type: BLOOD SPECIMEN [facility] Address: [address] [place] [address] Performed By: #### 5 8410-2 #### [facility] CLIA [id number] [address] [place] [address] [place] Platelets (Bld) [#/Vol] 280 10*3/uL Normal 150-400 [facility] Comment on above: Order Comment: Speci men Type: BLOOD SPECIMEN [facility] Address: [address] [place] [address] Performed By: #### 5 8410-2 #### [facility] CLIA [id number] [address] [place] [address] [place] RBC (Bld) [#/Vol] 4.79 10*6/uL Normal 4.20-6.00 [facility] Comment on above: Order Comment: Speci men Type: BLOOD SPECIMEN [facility] Address: [address] [place] [address] Performed By: #### 5 8410-2 #### [facility] CLIA [id number] [address] [place] [address] [place] WBC (Bld) [#/Vol] 5.60 10*3/uL Normal 3.70-11.00 [facility] Comment on above: Order Comment: Speci men Type: BLOOD SPECIMEN [facility] Address: [address] [place] [address] Performed By: #### 5 8410-2 #### [facility] CLIA [id number] [address] [place] [address] [place] Comprehensive metabolic 2000 panelon 01-29-2025 Albumin [Mass/Vol] 4.1 g/dL Normal 3.9-4.9 [facility] Comment on above: Order Comment: Speci men Type: BLOOD SPECIMEN [facility] Address: [address] [place] [address] Performed By: #### 1 9123-9, 97254-0, 18668-7 #### [facility] CLIA [id number] [address] [place] [address] [place] ALP [Catalytic activity/Vol] 61 U/L Normal 38-113 [facility] Comment on above: Order Comment: Speci men Type: BLOOD SPECIMEN [facility] Address: [address] [place] [address] Performed By: #### 1 9123-9, 43048-6, 78119-8 #### [facility] CLIA [id number] [address] [place] [address] [place] ALT [Catalytic activity/Vol] 20 U/L Normal 10-54 [facility] Comment on above: Order Comment: Speci men Type: BLOOD SPECIMEN [facility] Address: [address] [place] [address] Performed By: #### 1 9123-9, 04404-0, 26814-6 #### [facility] CLIA [id number] [address] [place] [address] [place] Anion gap [Moles/Vol] 12 mmol/L Normal 8-15 [facility] Comment on above: Order Comment: Speci men Type: BLOOD SPECIMEN [facility] Address: [address] [place] [address] Performed By: #### 1 9123-9, 12496-0, 95918-7 #### [facility] CLIA [id number] [address] [place] [address] [place] AST [Catalytic activity/Vol] 22 U/L Normal 14-40 [facility] Comment on above: Order Comment: Speci men Type: BLOOD SPECIMEN [facility] Address: [address] [place], [place] [address] Performed By: #### 1 9123-9, 12927-2, 77739-1 #### [facility] CLIA [id number] [address] [address] [place] Bilirubin [Mass/Vol] 0.7 mg/dL Normal 0.2-1.3 [facility] Comment on above: Order Comment: Speci men Type: BLOOD SPECIMEN [facility] Address: [address] [place] [address] Performed By: #### 1 9123-9, 68804-7, 36851-4 #### [facility] CLIA [id number] [address] [place] [address] [place] Calcium [Mass/Vol] 9.4 mg/dL Normal 8.5-10.2 [facility] Comment on above: Order Comment: Speci men Type: BLOOD SPECIMEN [facility] Address: [address] [place], [place] [address] Performed By: #### 1 9123-9, 00931-8, 12027-5 #### [facility] CLIA [id number] [address] [place] [address] [place] Chloride [Moles/Vol] 104 mmol/L Normal 98-107 [facility] Comment on above: Order Comment: Speci men Type: BLOOD SPECIMEN [facility] Address: [address] [place] [address] Performed By: #### 1 9123-9, 16155-4, 35500-5 #### [facility] CLIA [id number] [address] [place], [place] [address] [place] CO2 [Moles/Vol] 25 mmol/L Normal 22-30 [facility] Comment on above: Order Comment: Speci men Type: BLOOD SPECIMEN [facility] Address: [address] [place] [address] Performed By: #### 1 9123-9, 01537-5, 84755-9 #### [facility] [facility] CLIA [id number] [address] [place] [address] [place] Creatinine [Mass/Vol] 1.24 mg/dL High 0.73-1.22 [facility] Comment on above: Order Comment: Beck men Type: BLOOD SPECIMEN [facility] Address: [address] [place] [address] Performed By: #### 1 9123-9, 75620-2, 29564-4 #### [facility] CLIA [id number] [address] [place] [address] [place] Creatinine and Glomerular filtration rate.predicted panel (S/P/Bld) 60 mL/min/1.73m??? Normal >=60 [facility] Comment on above: Order Comment: Beck johnson Type: BLOOD SPECIMEN [facility] Address: [address] [place] [address] Result Comment: Solange mated Glomerular Filtration Rate [...] actual GFR. Performed By: #### 1 9123-9, 82019-5, 28269-7 #### [facility] CLIA [id number] [address] [place] [address] [place] Glucose [Mass/Vol] 95 mg/dL Normal 74-99 [facility] Comment on above: Order Comment: Beck johnson Type: BLOOD SPECIMEN [facility] Address: [address] [place] [address] Result Comment: The [place] Diabetes Association (ADA) provides guidance for cutoff [...] Standards of Medical Care in Diabetes 2016, [place] Diabetes Association. Diabetes Care. 2016.39(Suppl 1). Performed By: #### 1 9123-9, 96040-7, 89455-1 #### [facility] CLIA [id number] [address] [place] [address] [place] Potassium [Moles/Vol] 4.6 mmol/L Normal 3.7-5.1 [facility] Comment on above: Order Comment: Speci men Type: BLOOD SPECIMEN [facility] Address: [address] [place] [address] Performed By: #### 1 9123-9, 40767-9, 60356-8 #### [facility] CLIA [id number] [address] [place] [address] [place] Protein [Mass/Vol] 6.7 g/dL Normal 6.3-8.0 [facility] Comment on above: Order Comment: Speci men Type: BLOOD SPECIMEN [facility] Address: [address] [place] [address] Performed By: #### 1 9123-9, 22707-9, 96272-9 #### [facility] CLIA [id number] [address] [place] [address] [place] Sodium [Moles/Vol] 141 mmol/L Normal 136-144 [facility] Comment on above: Order Comment: Speci men Type: BLOOD SPECIMEN [facility] Address: [address] [place] [address] Performed By: #### 1 9123-9, 61130-7, 63563-6 #### [facility] CLIA [id number] [address] [place] [address] [place] Urea nitrogen [Mass/Vol] 17 mg/dL Normal 9-24 [facility] Comment on above: Order Comment: Speci men Type: BLOOD SPECIMEN [facility] Address: [address] [place] [address] Performed By: #### 1 9123-9, 19428-5, 49461-4 #### [facility] CLIA [id number] [address] [place] [address] [place] Lipid 1996 panelon 5 Cholesterol [Mass/Vol] 175 mg/dL Normal <200 [facility] Comment on above: Order Comment: Speci men Type: BLOOD SPECIMEN [facility] Address: [address] [place] [address] Result Comment: <200 mg/dL, Desirable 200-239 mg/dL, Borderline high >239 mg/dL, High Performed By: #### 1 9123-9, 03551-9, 10545-2 #### [facility] CLIA [id number] [address] [place] [address] [place] Cholesterol in HDL [Mass/Vol] 41 mg/dL Normal >39 [facility] Comment on above: Order Comment: Speci men Type: BLOOD SPECIMEN [facility] Address: [address] [place] [address] Result Comment: 40-5 9 mg/dL, Acceptable >59 mg/dL, High: Negative risk factor for coronary heart disease <40 mg/dL, Low: Positive risk factor for coronary heart disease Performed By: #### 1 9123-9, 61752-9, 99041-7 #### [facility] CLIA [id number] [address] [place] [address] [place] Cholesterol in LDL [Mass/Vol] 118 mg/dL High <100 [facility] Comment on above: Order Comment: Beck johnson Type: BLOOD SPECIMEN [facility] Address: [address] [place] [address] Result Comment: <100 mg/dL, Optimal 100-129 mg/dL, Near optimal/above optimal 130-159 mg/dL, Borderline high 160-189 mg/dL, High >189 mg/dL, Very high Secondary prevention optimal LDL Cholesterol levels are recommended to be < 70 mg/dL Performed By: #### 1 9123-9, 60830-3, 70368-5 #### [facility] CLIA [id number] [address] [place] [address] [place] Cholesterol in LDL/Cholesterol in HDL [Mass ratio] 2.88 {ratio} High <2.54 [facility] Comment on above: Order Comment: Beck johnson Type: BLOOD SPECIMEN [facility] Address: [address] [place] [address] Result Comment: Monty edgar: 1. National Cholesterol Education Program ATP III Guideline At-A-Glance Quick Desk Reference: National Heart, Lung, and Blood Wright. National Institutes of Health. 2001: NIH Publication No. 01-3305. 2. An International Atherosclerosis Society position paper: global recommendations for the management of dyslipidemia: executive summary, Atherosclerosis. 2014: 232(2):410-413. Performed By: #### 1 9123-9, 57328-7, 15818-0 #### [facility] CLIA [id number] [address] [place], [place] [address] [address] [place] Cholesterol in VLDL [Mass/Vol] 16 mg/dL Normal <30 [facility] Comment on above: Order Comment: Beck johnson Type: BLOOD SPECIMEN [facility] Address: [address] [place] [address] Performed By: #### 1 9123-9, 93510-6, 83738-3 #### [facility] CLIA [id number] [address] [place] [address] [place] Cholesterol non HDL [Mass/Vol] 134 mg/dL High <130 [facility] Comment on above: Order Comment: Speci men Type: BLOOD SPECIMEN [facility] Address: [address] [place] [address] Result Comment: <130 mg/dL, Optimal 130-159 mg/dL, Near optimal/above optimal 160-189 mg/dL, Borderline high 190-219 mg/dL, High >219 mg/dL, Very high Secondary prevention optimal non HDL Cholesterol levels are recommended to be <100 mg/dL Performed By: #### 1 9123-9, 38113-5, 35896-1 #### [facility] CLIA [id number] [address] [place] [address] [place] Cholesterol.total/Choles terol in HDL [Mass ratio] 4.27 {ratio} Normal <5.10 [facility] Comment on above: Order Comment: Adáni men Type: BLOOD SPECIMEN [facility] Address: [address] [place] [address] Performed By: #### 1 9123-9, 60427-0, 38011-3 #### [facility] CLIA [id number] [address] [place] [address] [place] FASTING TIME 12 hrs Normal [facility] Comment on above: Order Comment: Speci men Type: BLOOD SPECIMEN [facility] Address: [address] [place] [address] Performed By: #### 1 9123-9, 61179-4, 40427-2 #### [facility] CLIA [id number] [address] [place] [address] [place] Triglyceride [Mass/Vol] 81 mg/dL Normal <150 [facility] Comment on above: Order Comment: Speci men Type: BLOOD SPECIMEN [facility] Address: [address] [place] [address] Result Comment: <150 mg/dL, Normal 150-199 mg/dL, Borderline high 200-499 mg/dL, High >499 mg/dL, Very high Performed By: #### 1 9123-9, 51272-5, 20747-9 #### [facility] CLIA [id number] [address] [place] [address] [place] Magnesium SerPl-mCncon 03-24 Magnesium [Mass/Vol] 2.0 mg/dL Normal 1.7-2.3 [facility] Comment on above: Order Comment: Speci men Type: BLOOD SPECIMEN [facility] Address: [address] [place] [address] Performed By: #### 1 9123-9, 19651-3, 59109-4 #### [facility] CLIA [id number] [address] [place] [address] [place] XR FOOT GENERAL 3V AP/LAT/OB L BILATERALon 09-04-2022 [facility] CBC panel Auto (Bld)on 03-18 Erythrocyte distribution width (RBC) [Ratio] 13.1 % 11.5 - 15.0 % [facility] Hematocrit (Bld) [Volume fraction] 44.6 % 39.0 - 51.0 % [facility] Hemoglobin (Bld) [Mass/Vol] 14.7 g/dL 13.0 - 17.0 g/dL [facility] MCH (RBC) [Entitic mass] 31.1 pg 26. 0 - 34.0 pg [facility] MCHC (RBC) [Mass/Vol] 33.0 g/dL 30.5 - 36.0 g/dL [facility] MCV (RBC) [Entitic vol] 94.5 fL 80.0 - 100.0 fL [facility] Nucleated RBC (Bld) [#/Vol] <0.01 k/uL [facility] Platelet mean volume (Bld) [Entitic vol] 10.0 fL 9.0 - 12.7 fL [facility] Platelets (Bld) [#/Vol] 271 10*3/uL 150 - 400 k/uL [facility] RBC (Bld) [#/Vol] 4.72 10*6/uL 4.20 - 6.0 0 m/uL [facility] WBC (Bld) [#/Vol] 6.92 10*3/uL 3.70 - 11. 00 k/uL [facility] Comprehensive metabolic 2000 panelon 03-18-2022 Albumin [Mass/Vol] 4.1 g/dL 3.9 - 4.9 g/dL [facility] ALP [Catalytic activity/Vol] 62 U/L 38 - 113 U/L [facility] ALT [Catalytic activity/Vol] 23 U/L 10 - 54 U/L [facility] Anion gap [Moles/Vol] 10 mmol/L 9 - 18 mmol/L [facility] AST [Catalytic activity/Vol] 21 U/L 14 - 40 U/L [facility] Bilirubin [Mass/Vol] 0.5 mg/dL 0.2 - 1 .3 mg/dL [facility] Calcium [Mass/Vol] 9.6 mg/dL 8.5 - 10. 2 mg/dL [facility] Chloride [Moles/Vol] 105 mmol/L 97 - 10 5 mmol/L [facility] CO2 [Moles/Vol] 26 mmol/L 22 - 30 mmol/L [facility] Creatinine [Mass/Vol] 1.27 mg/dL High 0.73 - 1.22 mg/dL [facility] Estimated Glomerular Filtration Rate 59 mL/min/1.73m Low >=60 mL/min/1.73m [facility] Glucose [Mass/Vol] 89 mg/dL 74 - 99 mg/dL [facility] Potassium [Moles/Vol] 5.0 mmol/L 3.7 - 5.1 mmol/L [facility] Protein [Mass/Vol] 7.3 g/dL 6.3 - 8.0 g/dL [facility] Sodium [Moles/Vol] 141 mmol/L 136 - 144 mmol/L [facility] Urea nitrogen [Mass/Vol] 19 mg/dL 9 - 24 mg/d L [facility] HbA1c (Bld)on 03-18-2022 Average glucose Estimated from glycated hemoglobin (Bld) [Mass/Vol] 126 mg/dL [facility] HbA1c (Bld) [Mass fraction] 6.0 % High 4.3 - 5.6 % [facility] Lipid 1996 panelon Cholesterol [Mass/Vol] 173 mg/dL <200 mg/dL [facility] Cholesterol in HDL [Mass/Vol] 41 mg/dL >39 mg/dL [facility] Cholesterol in LDL [Mass/Vol] 121 mg/dL High <100 mg/dL [facility] Cholesterol in LDL/Cholesterol in HDL [Mass ratio] 2.95 {ratio} High <2.54 [facility] Cholesterol in VLDL [Mass/Vol] 11 mg/dL <30 mg/dL [facility] Cholesterol non HDL [Mass/Vol] 132 mg/dL High <130 mg/dL [facility] Cholesterol.total/Choles terol in HDL [Mass ratio] 4.22 {ratio} <5.10 [facility] Fasting Time 11 hrs [facility] Triglyceride [Mass/Vol] 57 mg/dL <150 mg/dL [facility] MAGNESIUM BLDon 03-18-2022 Magnesium [Mass/Vol] 2.2 mg/dL 1.7 - 2 .3 mg/dL [facility] PSA/PROSTSPECAG SCRNon 03-18 Prostate specific Ag [Mass/Vol] 1.51 ng/mL <2.60 ng/mL [facility] Absolute lymphocyte counton 09-02-2021 Lymphocytes Auto (Unsp spec) [#/Vol] 1.69 10*3/uL 0.83-4.51 [facility] Work Phone: Basophil percentageon 2021 Basophil percentage 0 SEEN /hpf 0-5 [facility] Work Phone: Basophils/100 WBC (Bld) 0.7 % 0-1 [facility] Work Phone: Chloride [Moles/Vol] 106 mmol/L 98-107 [facility] Work Phone: Eosinophils/100 WBC (Bld) 1.2 % 0-5 [facility] Work Phone: Glucose [Mass/Vol] 129 mg/dL 74-106 [facility] Work Phone: Comment on above: Fasting Glucose resu lt greater than or equal to 126 mg/dL suggests DIABETES MELLITUS per A.D.A. criteria. Neutrophils (Bld) [#/Vol] 7.1 10*3/uL 2.0-7.7 [facility] Work Phone: Neutrophils/100 WBC (Bld) 71.5 % 47-70 [facility] Work Phone: Potassium [Moles/Vol] 3.6 mmol/L 3.5-5.1 [facility] Work Phone: Sodium [Moles/Vol] 140 mmol/L 136-145 [facility] Work Phone: WBC (Bld) [#/Vol] 9.9 10*3/uL 4.4-11.0 [facility] Work Phone: Bilirubin Test strip Ql (U)o n 09-02-2021 Bilirubin Ql (U) Negative Negative [facility] Work Phone: Blood erythrocytes count (nu mber/volume)on 09-02-2021 RBC (Bld) [#/Vol] 4.57 10*6/uL 4.6-6.2 [facility] Work Phone: Blood hemoglobin measurement (mass/volume)on 09-02-2021 Hemoglobin (Bld) [Mass/Vol] 14.3 g/dL 13.0-16.5 [facility] Work Phone: Blood lymphocytes/100 leukoc yteson 09-02-2021 Lymphocytes/100 WBC (Bld) 17.1 % 19-41 [facility] Work Phone: Blood monocytes/100 leukocyt eson 09-02-2021 Monocytes/100 WBC (Bld) 8.9 % 0-10 [facility] Work Phone: Blood platelet mean volumeon 09-02-2021 Platelet mean volume (Bld) [Entitic vol] 10.1 fL 6.2-12.0 [facility] Work Phone: Determination of erythrocyte mean corpuscular volume (MCV)on 09-02-2021 MCV (RBC) [Entitic vol] 93.2 fL 80-94 [facility] Work Phone: Hematocrit Auto (Bld) [Volum e fraction]on 09-02-2021 Hematocrit (Bld) [Volume fraction] 42.6 % 40-54 [facility] Work Phone: Ketones Test strip Ql (U)on 09-02-2021 Ketones Ql (U) 15 mg/dl Negative [facility] Work Phone: [phone] Laboratory - Chemistry and C hemistry - challengeon 09-02-2021 CO2 [Moles/Vol] 27.0 mmol/L 21.0-32.0 [facility] Work Phone: [phone] Urea nitrogen/Creatinine [Mass ratio] 19.9 mg/mg 10-20 [facility] Work Phone: [phone] Laboratory - Hematology and Cell countson 09-02-2021 Erythrocyte distribution width (RBC) [Entitic vol] 45.5 fL 35.1-43.9 [facility] Work Phone: [phone] Erythrocyte distribution width (RBC) [Ratio] 13.3 % 11.6-14.6 [facility] Work Phone: [phone] Immature granulocytes/100 WBC (Bld) 0.600 % 0.0-0.9 [facility] Work Phone: [phone] Comment on above: IG% - Immature Granu locytes (promyelocytes, myelocytes and metamyelocytes) > 1% indicates that a LEFT SHIFT is Present. MCH (RBC) [Entitic mass] 31.3 pg 27.0-32.0 [facility] Work Phone: Nucleated RBC/100 WBC (Bld) [Ratio] 0 % 0-5 [facility] Work Phone: [phone] MCHC Auto (RBC) [Mass/Vol]on 09-02-2021 MCHC (RBC) [Mass/Vol] 33.6 g/dL 32-36 [facility] Work Phone: Mucus LM Ql (Urine sed)on Mucus Ql (Urine sed) 0 SEEN /hpf [facility] Work Phone: [phone] Nitrite Test strip Ql (U)on 09-02-2021 Nitrite Ql (U) Negative Negative [facility] Work Phone: [phone] Panel Informationon 09-02 Estimated Creatinine Clearance Calc 38.35 ml/min [facility] Work Phone: Estimated GFR (MDRD) Amer 45 mL/min >60 [facility] Work Phone: Comment on above: GFR Calc Estimated GFR (MDRD) Non-Af Amer 37 mL/min >60 [facility] Work Phone: Comment on above: Non- GFR Calc Platelets bldon 09-02-2021 Platelets (Bld) [#/Vol] 316 10*3/uL 150-450 [facility] Work Phone: Protein Test strip Ql (U)on 09-02-2021 Protein Ql (U) 15 mg/dl Negative [facility] Work Phone: Serum or plasma calcium taylor urement (mass/volume)on 09-02-2021 Calcium [Mass/Vol] 9.8 mg/dL 8.5-10.1 [facility] Work Phone: Serum or plasma creatinine m easurement (mass/volume)on 09-02-2021 Creatinine [Mass/Vol] 1.91 mg/dL 0.70-1.30 [facility] Work Phone: Comment on above: The validity of the calculated GFR & GFRAA in patients over 70 years has not been determined. Clinical correlation is essential. Serum or plasma urea nitroge n measurement (mass/volume)on 09-02-2021 Urea nitrogen [Mass/Vol] 38 mg/dL 7-18 [facility] Work Phone: Squamous epithelial cells de tection in urine sediment by light microscopyon 09-02-2021 Epithelial cells.squamous LM Ql (Urine sed) 0-5 SEEN /hpf 0-5 [facility] Work Phone: Thin prep Papanicolaou smear with manual screeningon 09-02-2021 Thin prep Papanicolaou smear with manual screening 7 5-15 [facility] Work Phone: [phone] Urine blood detectionon 08-24 0 RBC Ql (U) 250 /ul Negative [facility] Work Phone: RBC Ql (U) 25-50 SEEN /hpf 0-5 [facility] Work Phone: Urine clarityon 09-02-2021 Clarity (U) Sl. Cloudy Clear [facility] Work Phone: Urine color determinationon 09-02-2021 Color (U) Yellow Yellow [facility] Work Phone: Urine glucose detectionon Glucose Ql (U) Normal mg/dl Normal [facility] Work Phone: Urine leukocyte esterase det ection by dipstickon 09-02-2021 Leukocyte esterase Test strip Ql (U) Negative Negative [facility] Work Phone: Urine pHon 09-02-2021 pH (U) 6.0 [pH] 5.0 - 8.0 [facility] Work Phone: Urine sediment bacteria coun t by microscopy (number/high power field)on 09-02-2021 Bacteria LM.HPF (Urine sed) [#/Area] 0 /[HPF] None Seen [facility] Work Phone: Urine specific gravity measu rementon 09-02-2021 Specific gravity (U) [Rel density] 1.015 1.002-1.030 [facility] Work Phone: Urobilinogen Auto test strip Ql (U)on 09-02-2021 Urobilinogen Ql (U) Normal mg/dl Normal [facility] Work Phone: CASE MANAGEMon 04-09-2019 CASE MANAGEM HNO ID: [id number] Author: Natalia (Rn) JAVIER Wang Service: Case Management Author Type: Registered Nurse Type: Care Mgt Progress Note Filed: 04/09/2019 11:42 AM Note Text: CARE MANAGEMENT DISCHARGE NOTE SERVICE DATE: 04/09/2019 SERVICE TIME: 11:40 AM LOS: 0 days Admission Date: 04/07/2019 DISCHARGE ARRANGEMENT (list agency and phone number) Discharge Arrangement: Home Ch[facility] Care: PT Provider Name: [facility] CAREGIVER ASSESSMENT: HANDOFF COMMUNICATION: Handoff to: Primary Care Physician;Other Caregiver Primary Care Physician Name/Phone: Dr. Kelton Serrano- [phone] Other Caregiver Name/Phone: [facility]- [phone] TRANSPORTATION ARRANGEMENTS: Transportation Arrangements: Car ADDITIONAL CONTACT RESOURCES: NA Discharge Information Row Name Admission (Current) from 04/07/[address] [facility] Start of Care ? within 24-48 hours Needs Prior to Discharge: Ready for Discharge Discharge order written for today. Met with the patient and confirmed with him that [facility] will be seeing him for home P.T with a start of care date within 24-48 hours. [facility]'s name and number is listed on the patients discharge instructions. Notified [facility] of the patients discharge home today. SIGNATURE: Natalia Wang PATIENT NAME: Geoff Smith DATE: April 09, 2019 TIME: 11:40 AM PAGER/CONTACT #: [phone] Normal [facility] CNCOon 04-09-2019 CNCO Letter Text Normal [facility] Hemoglobinon 04-09-2019 Hemoglobin (Bld) [Mass/Vol] 11.5 g/dL Low 13.0-17.0 [facility] Comment on above: Performed By: #### H GB ####[facility] [address] [place] [id number] PLAN OF CAREon 04-09-2019 PLAN OF CARE HNO ID: [id number] Author: Yasmin Tavares (Triage Register Nurse) Service: Pharmacy Author Type: ? Type: Plan of Care Filed: 04/09/2019 12:43 PM Note Text: WEB APPLICATIONS ARCHITECT BEDSIDE DELIVERY SURVEY 1. Patient to use [facility] Bedside Delivery - YES Insurance Information as follows: 2. Insurance card on file - YES 3. Credit card for payment - YES PHARMACY BEDSIDE DELIVERY SERVICE Patient Name: Geoff Smith The marked outpatient medications were Filled at: [place] and delivered to the patient's bedside to [...] or your Primary Care Provider. Yasmin Tavares (Triage Register Nurse) PAGER: [phone] April 09, 2019 12:43 PM Normal [facility] PROGRESSon 04-09-2019 PROGRESS HNO ID: [id number] Author: Antonio Mack Service: General Internal Medicine [...] Possible discharge today SIGNATURE: Antonio Mack MD [facility] THERAPY NTon 04-09-2019 THERAPY NT HNO ID: [id number] Author: Evy AlbrightPtRamon Berger Service: Physical Therapy Author Type: Physical Therapist Type: Therapy (PT/OT/Speech/Resp) Filed: 04/09/2019 10:35 AM Note Text: Physical Therapy Treatment SERVICE DATE: 04/09/2019 SERVICE TIME: 0840 to 958 ROOM: [place] [address]-1 Recommended Discharge Disposition: Home PT Recommended Discharge [...] to/from sit with: Stand By Assistance(with leg label remover if needed) Transfer sit to/from stand with: [...] (ADL);Muscle Weakness (generalized) Interventions Provided: Therapeutic Exercise (52956);Therapeutic Activity (32268);Gait Training (68042) Therapeutic Exercise (47429) Treatment Minutes: 18 1 unit Skilled Intervention(s): [...] and parameters of performance provided Therapeutic Activity (95481) Treatment Minutes: 23 2 units Skilled Intervention(s): [...] negotiation and how to obtain (hospital issue, PSYCHIATRIC, obtain on own), importance of limiting sitting [...] due to tachycardia last session Gait Training (20694) Treatment Minutes: 32 2 units Skilled Intervention(s): [...] April 09, 2019 TIME: 10:10 AM Normal [facility] Basic Metabolic Panlon 04-08 Anion gap [Moles/Vol] 10 mmol/L Normal 9-18 [facility] Comment on above: Performed By: #### H AUGUSTINE BMP ####[facility] Ldrvchnvml5649 [address]721-5160 Calcium [Mass/Vol] 8.8 mg/dL Normal 8.5-10.2 [facility] Comment on above: Performed By: #### H AUGUSTINE BMP ####[facility] [address] [place] [phone] Chloride [Moles/Vol] 103 mmol/L Normal 97-105 [facility] Comment on above: Performed By: #### H AUGUSTINE BMP ####[facility] Clq[address]mtcgnp7522 [address]721-5160 CO2 [Moles/Vol] 26 mmol/L Normal 22-30 [facility] Comment on above: Performed By: #### H AUGUSTINE, BMP ####[facility] [address]h8042 [address] Creatinine [Mass/Vol] 1.11 mg/dL Normal 0.73-1.22 [facility] Comment on above: Performed By: #### H AUGUSTINE, BMP ####[facility] [address] [place] [phone] eGFR- Amer. >60 Normal [facility] Comment on above: Performed By: #### H AUGUSTINE, BMP ####[facility] X[address]ysfeew1082 [address] GFR/1.73 sq M predicted among non-blacks MDRD (S/P/Bld) [Vol rate/Area] mL/min/{1.73_m2} Normal [facility] Comment on above: Result Comment: eGFR [...] GFR. Performed By: #### H AUGUSTINE, BMP ####[facility] [address] [place] [phone] Glucose [Mass/Vol] 118 mg/dL High 74-99 [facility] Comment on above: Result Comment: The [place] [employer] Association (ADA) provides guidance for cutoff [...] Standards of Medical Care in Diabetes 2016, [place] [employer]. Diabetes Care. 2016.39(Suppl 1). Performed By: #### H GB, BMP ####[facility] [address] [place] [id number] Potassium [Moles/Vol] 4.1 mmol/L Normal 3.7-5.1 [facility] Comment on above: Performed By: #### H GB, BMP ####[facility] [address] [place] [address] Sodium [Moles/Vol] 139 mmol/L Normal 136-144 [facility] Comment on above: Performed By: #### H GB, BMP ####[facility] [address] [place] [id number] Urea nitrogen [Mass/Vol] 20 mg/dL Normal 9-24 [facility] Comment on above: Performed By: #### H GB, BMP ####[facility] [address] [place], [place] [id number] Hemoglobinon 04-08-2019 Hemoglobin (Bld) [Mass/Vol] 12.0 g/dL Low 13.0-17.0 [facility] Comment on above: Performed By: #### H GB, BMP ####[facility] [address] [place] [address] PROGRESSon 04-08-2019 PROGRESS HNO ID: [id number] Author: Antonio Mack Service: General Internal Medicine [...] today Med reviewed. SIGNATURE: Antonio Mack MD [facility] PROGRESS HNO ID: [id number] Author: Denis Metzger) Grater Service: Orthopaedic Surgery [...] 1200 VTE RISK CATEGORY: ORTHOPEDIC HIGH RISK ([place], [place]) Active VTE Medication Orders: Anticoagulant AND Antiplatelet Medications (From admission, onward) Start Dose Route Frequency Ordered Stop 04/07/19 1200 aspirin, enteric coated 81 mg tab(s) (Surgical Risk Categories ) 81 mg ORAL 2 TIMES DAILY 04/07/19 1157 -- Active VTE Prophylaxis Orders: 04/07/19 1200 PNEUMATIC COMPRESSION STOCKINGS ([place], [place]) 04/07/19 1200 ACTIVITY - MOBILIZE PATIENT ([place]) 04/07/19 1200 ACTIVITY - MOBILIZE [place]IENT ([place]) 04/07/19 1200 ACTIVITY - MOBILIZE PATIENT ([place]) PHYSICAL EXAMINATION: Right Lower Extremity: Dorsalis [...] 08, 2019 TIME: 8:32 AM PAGER/CONTACT #: [phone] The patient has undergone major orthopedic surgery [...] Patient demonstrated understanding of risks of benefits. [facility] THERAPY NTon 04-08-2019 THERAPY NT HNO ID: [id number] Author: Evy (Pt) Ab Service: Physical Therapy Author Type: Physical Therapist Type: Therapy (PT/OT/Speech/Resp) Filed: 04/08/2019 5:35 PM Note Text: Physical Therapy Treatment SERVICE DATE: 04/08/2019 SERVICE TIME: 1621 to 1700 ROOM: [place] [address] Recommended Discharge Disposition: Subacute/SNF Recommended Discharge Disposition [...] to/from sit with: Stand By Assistance(with leg label remover if needed) Transfer sit to/from stand with: [...] (ADL);Muscle Weakness (generalized) Interventions Provided: Therapeutic Activity (25169);Gait Training (22467) Therapeutic Activity (15596) Treatment Minutes: 13 1 unit Skilled Intervention(s): [...] and progression of functional mobility Gait Training (45057) Treatment Minutes: 25 2 units Skilled Intervention(s): [...] and reach ipsilaterally, unable to weight shift [facility]: 7: Walk 25 feet or more Please see discipline specific clinical documentation flowsheet for complete details for this therapy evaluation/treatment. SIGNATURE: Evy Berger PT PATIENT NAME: Geoff Smith DATE: April 08, 2019 TIME: 5:21 PM [facility] THERAPY NT HNO ID: [id number] Author: Juan (Ot) Naye Service: Occupational Therapy Author Type: Occupational Therapist Type: Therapy (PT/OT/Speech/Resp) Filed: 04/11/2019 4:49 PM Note Text: Occupational Therapy Evaluation SERVICE DATE: 04/08/2019 SERVICE TIME: 1130 to 1220 ROOM: [place] [address] Recommended Discharge Disposition: Subacute/SNF(if discharged today) Recommended Discharge Disposition Comments: Patient would benefit from continued therapy to increase ease independence and safety with ADLS and functional mobility tasks. Feel patient will progress to being able to return home with [facility] over the next 24 hours. [...] of daily living (ADL) Interventions Provided: Evaluation;Self Chcf Management (65785) $ Evaluation-Low (08227) Billed Units: 1 unit Self Chcf Management (14784) Treatment Minutes: 35 2 units Skilled Intervention(s): [...] during dressing including getting dressed seated, using government minister and sock aide to help with lower [...] DATE: April 08, 2019 TIME: 3:12 PM [facility] THERAPY NT HNO ID: [id number] Author: Shivani Salgado Service: Physical Therapy Author Type: Head Char Filter Tank Tender Type: Therapy (PT/OT/Speech/Resp) Filed: 04/08/2019 1:28 PM Note Text: Attestation signed by Evy AlbrightPtRamon Berger at 04/08/2019 5:10 PM I reviewed and agree with the documentation corresponding to this therapy visit. SIGNATURE: Evy Berger, PT DATE: April 08, 2019 TIME: 5:09 PM Physical Therapy Treatment SERVICE DATE: 04/08/2019 SERVICE TIME: 1225 to 1255 ROOM: [id number] Recommended Discharge Disposition: Home PT Recommended Discharge [...] to/from sit with: Stand By Assistance(with leg label remover if needed) Transfer sit to/from stand with: [...] (ADL);Muscle Weakness (generalized) Interventions Provided: Evaluation;Therapeutic Exercise (09022);Gait Training (46248);Self Chcf Management (24046) Therapeutic Exercise (97946) Treatment Minutes: 23 2 units Skilled Intervention(s): Patient was educated in proper exercise technique and purpose for exercises.Correct performance of therapeutic exercises was facilitated with verbal, visual and tactile cuing. Gait Training (83067) Treatment Minutes: 3 0 units Skilled Intervention(s): [...] DATE: April 08, 2019 TIME: 1:15 PM [facility] HEALTHon 04-07-2019 ALLIED HEALTH HNO ID: [id number] Author: Fátima Nascimento (Rt) Service: Radiology Author Type: Desizing Machine Back Tender Type: Allied Health Filed: 04/07/2019 10:52 AM [...] RT Pily April 07, 2019 10:52 AM [facility] ANES Noemi 04-07-2019 ANES POST HNO ID: [id number] Author: Lupe Pope Service: Anesthesiology Author Type: [...] 07, 2019 TIME: 1:37 PM PAGER/CONTACT #: [phone] [facility] ANES PREOPon 04-07-2019 ANES PREOP HNO ID: [id number] Author: Jameson Appiah Service: Anesthesiology Author Type: [...] W/BRUSH/WASH 02/15/2013 EGD - LAPAROSCOPIC CHOLEYCYSTECTOMY 08/31/[address] [facility] [address] Quick - PAST SURGICAL HISTORY [...] April 07, 2019 TIME: 7:12 AM CSN: [id number] [facility] CASE MANAGEMon 04-07-2019 CASE MANAGEM HNO ID: [id number] Author: Natalia AlbrightRn) JAVIER Wang Service: Case Management Author Type: Registered Nurse Type: Care Mgt Progress Note Filed: 04/07/2019 4:17 PM Note Text: CARE MANAGEMENT PROGRESS NOTE SERVICE DATE: April 07, 2019 SERVICE TIME: 4:16 PM LOS: 0 days Needs Prior to Discharge: OT/PT Evaluation [facility] able to accept. department will continue to follow for DC needs. SIGNATURE: Natalia Wang PATIENT NAME: Geoff Smith DATE: April 07, 2019 TIME: 4:16 PM PAGER/CONTACT #: [phone] [facility] CASE MGT INIT ASSESon 2019 CASE MGT INIT CARLOS HNO ID: [id number] Author: Natalia Kelsey) JAVIER Wang Service: Case Management Author Type: Registered Nurse Type: Care Mgt Initial Assessment Filed: 04/07/2019 4:15 PM Note Text: CARE MANAGEMENT: ASSESSMENT AND DISCHARGE PLAN SERVICE DATE: April 07, 2019 SERVICE TIME: 4:13 PM PRIMARY CARE PHYSICIAN: Kelton Serrano MD - Confirmed with the patient ADMISSION STATUS: Extended Recovery Needs Prior to Discharge: OT/PT Evaluation 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 Last discharge within 30 days: No Advance Directive: Current Advance Directive: None Operational Intelligence Analyst Attempted to Assist with AD Completion: Yes [...] Information Primary Emergency Contact: Yin Smith Address: [address] [place] [address] Mobile Relation: Spouse Supportive Patient Contact:: Yes [...] Completely I feel financially burdened by my irx-xj-djcyak expenses for my prescription medication:: 0 - Diagree Completely Risk Score: 0 Patient is categorized as: Low risk < 2 Are you interested in bedside delivery of your medications? Yes Is Patient Psychosocially Complex?: No ASSESSMENT AND PLAN: Medical Needs: Medical Needs: Fall risk or frequent falls Psychosocial Needs: Psychosocial Needs: None FREEDOM OF CHOICE EXPLAINED: [place] of Choice Given: Yes Level of Care Discussed: Home Care POTENTIAL TRANSITION PLANS Home OT/PT Review of the chart and met with the patient. The patient lives with his in a 2 story home with his bedroom and bathroom on the 2nd floor. Discussed discharge planning, the patient is agreeable to home P.T if recommended. Discussed freedom of choice, referral to [facility]. department will continue to follow for DC needs. SIGNATURE: Natalia Wang PATIENT NAME: Geoff Smith DATE: April 07, 2019 TIME: 4:13 PM PAGER/CONTACT #: [phone] Normal [facility] CONSULTon 04-07-2019 CONSULT HNO ID: [id number] Author: Antonio Mack Service: General Internal Medicine Author Type: Physician Type: Consults Filed: 04/20/2019 9:34 PM Note Text: [facility]- Consultation GEOFF SMITH : 1945 AGE: 73 SEX: M ACCTNUM: [id number] HOS[facility] [place] [facility] LOCATION: [address] ATTENDING PHYSICIAN: Nicholas Dela Cruz M.D. DATE [...] the hospital. Antonio Mack M.D. Internal Medicine SKJ:[id number] /[id number] [facility] NURSING PROGon 04-07-2019 NURSING PROG HNO ID: [id number] Author: Heather (Rn) JAVIER Miner Service: ? Author Type: Registered Nurse Type: Nursing Progress Note Filed: 04/07/2019 4:07 PM Note Text: Nursing Progress Note Patient Name: Geoff Smith Patient Location: [facility] [id number] [place] __ Daily Note: 1115 Admitted to [...] note was completed by: Heather Miner RN [facility] NURSING PROG HNO ID: [id number] Author: Angelica Kelsey) JAVIER Macdonald Service: Nursing Author Type: Registered Nurse Type: Nursing Progress Note Filed: 04/07/2019 10:48 AM Note Text: Nursing Progress Note Patient Name: Geoff Smith Patient Location: [place] Surgery/[facility] Surgery __ 1015 Pt received in PACU on bed from OR. CR monitor applied and strip obtained. Ice applied to right hip. SCDs applied BLE. 1045 Xray right hip completed. This note was completed by: Angelica Macdonald RN [facility] OPERATIVE NOon 04-07-2019 OPERATIVE NO HNO ID: [id number] Author: Nicholas Dela Cruz Service: Orthopaedic Surgery Author Type: Physician Type: Operative Report Filed: 04/07/2019 10:13 AM Note Text: OPERATIVE/PROCEDURE REPORT LOG ID: [id number] SURGERY/PROCEDURE DATE: 04/07/2019 INCISION/PROCEDURE START TIME: 8:13 AM INCISION CLOSE/PROCEDURE END TIME: SURGEON(S)/PROCEDURALI ST(S) AND LPN RN HOSPICE(S): Surgeon(s) and Role: * Nicholas Dela Cruz - Primary Physician Community Health Worker: Brynn Dolan (Pa) (technical services assistant) Registered Nurse: Yin (Rn) JAVIER Patricio [...] with the Bovie and I used the AwarenessHub cutter to enter the superior-lateral portion of [...] assistance. No qualified resident/fellow was available. ? technical services assistant was necessary for appropriate patient positioning on the beanbag and axillary roll. Sterile prepping and draping. Soft tissue retraction and leg holding, manipulation and positioning during the procedure. The assistance was necessary for visualization during the procedure, final skin closure with immediate supervision if necessary. Final bandages and safe return to the [facility] and to the post recovery unit. SIGNATURE: Nicholas Dela Cruz MD PATIENT NAME: Geoff Smith DATE: April 07, 2019 TIME: 10:03 AM PAGER/CONTACT #: [facility] PT EDon 04-07-2019 PT ED HNO ID: [id number] Author: Wade (Rn) JAVIER Govea Service: ? [...] Signed By: Wade Govea RN In Department: [facility] SURGERY [facility] SURGICAL PATHOLOGYon 020 SURGICAL PATHOLOGY Specimen originated from [facility] Specimen #: [id number] Submitting Physician: NICHOLAS DELA CRUZ MD FINAL [...] x 4.0 x 0.3 cm in aggregate. Investment Fund Manager sections are submitted as follows: A1 soft tissue, A2 bone (pending decalcification). KSZ/slb 04/07/2019 [place] [address] Date of Report: 04/12/2019 Date of Procedure: 04/07/2019 Date of Receipt: 04/07/2019 Submitted by: NICHOLAS DELA CRUZ MD Location: 2E Diagnostic interpretation performed at [place] [address]. IA Number: [id number] [facility] THERAPY NTon 04-07-2019 THERAPY NT HNO ID: [id number] Author: Noelle Grace Service: Physical Therapy Author Type: Physical Therapist Type: Therapy (PT/OT/Speech/Resp) Filed: 04/07/2019 4:24 PM Note Text: Physical Therapy Evaluation SERVICE DATE: 04/07/2019 SERVICE TIME: 1518 to 1556 ROOM: [place] [address] Recommended Discharge Disposition: Home PT Recommended Discharge [...] well. Pt needed to use a leg label remover for bed mobility and requires mod assist [...] to/from sit with: Stand By Assistance(with leg label remover if needed) Transfer sit to/from stand with: [...] (ADL);Muscle Weakness (generalized) Interventions Provided: Evaluation;Therapeutic Exercise (55493);Gait Training (18843);Self Chcf Management (37558) $ Evaluation-Low (35809) Billed Units: 1 unit Therapeutic Exercise (04124) Treatment Minutes: 10 1 unit Skilled Intervention(s): Instruction in therapeutic exercise antiembolics x 10 Verbal and tactile cuing provided for performance and tolerance Gait Training (11667) Treatment Minutes: 5 0 units Skilled Intervention(s): [...] performed secondary to drop in BP. Self Chcf Management (77563) Treatment Minutes: 14 1 unit Skilled Intervention(s): Education in height of chair at home for adherence to precaustions, education about using a leg label remover for OOB mobility with pt demonstrate of [...] DATE: April 07, 2019 TIME: 4:09 PM [facility] XR HIP 1V RTon 04-07-2019 XR HIP [...] IMPRESSION: Right total hip arthroplasty in progress. Sql Report Writer: PSCB Transcribe Date/Time: Apr 07 2019 10:01A Dictated by : ANJANA JONES MD This examination was interpreted and the report reviewed and electronically signed by: ANJANA JONES MD on Apr 07 2019 10:02AM EST [id number] [facility] XR PELVIS 1V APon 04-07-2019 XR PELVIS [...] IMPRESSION: Status post right total hip arthroplasty. Sql Report Writer: PSCB Transcribe Date/Time: Apr 07 2019 11:01A Dictated by : ANJANA JONES MD This examination was interpreted and the report reviewed and electronically signed by: ANJANA JONES MD on Apr 07 2019 11:02AM EST [id number] Normal [facility] Confirm Blood Typeon 020 ABO/RH(D) Positive [facility] Comment on above: Performed By: #### C ONABO #### [facility] [address] [id number] NURSING PROGon 03-24-2019 NURSING PROG HNO ID: [id number] Author: Chapo Mccord (Rn) JAVIER Thompson Service: [...] Thompson RN April 06, 2019 7:09 AM [facility] Type and SCR (30D)on 020 ABO/RH(D) Positive Normal [facility] Comment on above: Performed By: #### T SCR30 #### [facility] [address] [facility] [phone] HOSPon 03-23-2019 HOSP Patient:Baldemar Smith MRN: Height:6' [...] 46.3 % 03/24/2019 51.0 39.0 Progress Notes ([facility]): Nena Castañeda RN 04/06/2019 2:53 PM Signed Patient's calls in regards to nVoqhart message. Gave messages from both [employer] and [employer]. verbalized understanding and states denies any cardiac symptoms such as SOB, chest pain, heart palpitations, etc. Progress Notes ([address]): LINDA Shahid 03/31/2019 10:22 AM Signed TOTAL JOINT COMPLETE CARE PROGRAM PRE-OPERATIVE TEACHING Service Date: 03/31/2019 Service Time: 10:18 AM Date of : 1945 Gender: male Date of Surgery: 04/07/2019 Procedure: Right Total Hip Replacement Complete Care Program was discussed with the patient: Supervisor Functional Testing Identification: Patient identified a manager critical care unit to help when discharged to home: multimedia specialist Home Environment: Home Layout: 2 story, Entry Steps: 2, no rail, Bedroom Location: 2nd floor, Bathroom Location: 2nd floor and walk in shower. Pt has walker, cane, raised toilet seat. Discussed with patient importance of attending joint education class and provided date and times of class: YES 03/16/2019 Patient received Joint Education Binder: Yes Plans discharge home with C with [facility]. Neighbor is TECHNICAL PROGRAM MANAGER with [facility]. SIGNATURE: LINDA Shahid PATIENT NAME: Geoff Smith DATE: March 31, 2019 TIME: 10:18 AM PAGER/CONTACT #: [phone] [facility] CNCNPATEDon 03-17-2019 CNCNPATED Education ([place]2[facility]) GEOFF SMITH ([id number]) 1945 M Date Time Provider Department 03/17/19 [...] removed 7 days post op Incision care: [place] vs dissolvable sutures with glue Signs AND symptoms of infection Signs AND symptoms of DVT Home physical therapy Home pain medications: Refill protocol and side effects Pain management: Ice, elevation of extremity and pain meds Care Management Discharge plan Discuss with family/friends about assistance after discharge from the hospital SNF ([facility]) Rehab nurse will contact prior to admission to discuss post-op needs and home therapy vs SNF nc manager/foster care social worker in hospital final arrangements for discharge Physical and occupational therapy while in the hospital Getting your home ready What to bring to the hospital Preparing yourself for surgery: Dentist, stop smoking Diet Exercises: Circulation exercises Adaptive equipment Hip and knee precautions SIGNATURE: LINDA Shahid PATIENT NAME: Geoff Smith DATE: March 17, 2019 TIME: 8:31 AM PAGER/CONTACT #: [phone] During your visit today, we recorded the [...] Encounter Status:Closed by LINDA GREGG on 03/17/19 [facility] PROGRESSon 03-17-2019 PROGRESS HNO ID: [id number] Author: Linda Gregg (Psa) Service: ? Author Type: Patient Condenser Tube Tender Type: Progress Notes Filed: 03/17/2019 8:31 AM Note Text: TOTAL JOINT COMPLETE CARE PROGRAM ORTHOPAEDIC TOTAL JOINT CLASS Service Date: 03/17/2019 Service Time: 8:31 AM Geoff Smith is scheduled for hip replacement on TBD. He did attend the pre-op joint replacement class. Issues Reviewed: [facility] Education Topic/Teaching Points: Day of surgery arrival instructions (including phone number to call for arrival time) Pre-op skin wipes Hospital course: -TCI area, operating room, recovery room -Anesthesia: Spinal vs general -Pain control: Nerve block, epidural, oral medications, AND IV medications -DVT prophylaxis ASA, Lovenox, Coumadin Post-op dressings Showering instructions Aquacell dressing to be removed 7 days post op Incision care: [place] vs dissolvable sutures with glue Signs AND symptoms of infection Signs AND symptoms of DVT Home physical therapy Home pain medications: Refill protocol and side effects Pain management: Ice, elevation of extremity and pain meds Care Management Discharge plan Discuss with family/friends about assistance after discharge from the hospital SNF ([facility]) Rehab nurse will contact prior to admission to discuss post-op needs and home therapy vs SNF nc manager/foster care social worker in hospital final arrangements for discharge Physical and occupational therapy while in the hospital Getting your home ready What to bring to the hospital Preparing yourself for surgery: Dentist, stop smoking Diet Exercises: Circulation exercises Adaptive equipment Hip and knee precautions SIGNATURE: LINDA Shahid PATIENT NAME: Geoff Smith DATE: March 17, 2019 TIME: 8:31 AM PAGER/CONTACT #: [phone] [facility] Vital Signs Date Time Vital Sign Value Performing Clinician Facility 10-07-2024 09:53-0400 Body temperature 98.1 [degF] Dr. Kelton Serrano MD Work Phone: 3(095)918-010257 [place] [address] 10-07-2024 09:53-0400 Diastolic blood pressure 73 mm[Hg] Dr. Kelton Serrano MD Work Phone: 5(160)648-115657 [place] [address] 10-07-2024 09:53-0400 Heart rate 65 /min Dr. Kelton Serrano MD Work Phone: 7(624)372-455057 [place] [address] 10-07-2024 09:53-0400 Respiratory rate 18 /min Dr. Kelton Serrano MD Work Phone: 6(042)282-903557 [place] [address] 10-07-2024 09:53-0400 SaO2% (BldA) [Mass fraction] 93 % Dr. Kelton Serrano MD Work Phone: 2(678)913-140057 [place] [address] 10-07-2024 09:53-0400 Systolic blood pressure 134 mm[Hg] Dr. Kelton Serrano MD Work Phone: 7(373)829-314357 [place] [address] 10-07-2024 07:12-0400 Body height 185.[address] Kelton Serrano MD Work Phone: 9(287)992-588357 [place] [address] 10-07-2024 07:12-0400 Body mass index (BMI) [Ratio] 25 kg/m2 Dr. Kelton Serrano MD Work Phone: 0(932)166-411957 [place] [address] 10-07-2024 07:12-0400 Body weight 86.[address] Kelton Serrano MD Work Phone: [facility] 06-02-2024 07:15-0400 Diastolic blood pressure 82 mm[Hg] Yaritza Raz SKIN LIFTER BACON.QUARTER DOPER Work Phone: [facility] 06-02-2024 07:15-0400 Systolic blood pressure 138 mm[Hg] Yaritza Raz SKIN LIFTER BACON[employer]QUARTER DOPER Work Phone: [facility] 06-02-2024 07:12-0400 Body mass index (BMI) [Ratio] 26.57 kg/m2 Yaritza Raz SKIN LIFTER BACON[employer]QUARTER DOPER Work Phone: [facility] 06-02-2024 07:12-0400 Body weight 90.1 kg Yaritza Raz SKIN LIFTER BACON[employer]QUARTER DOPER Work Phone: [facility] 06-02-2024 07:12-0400 Heart rate 73 /min Yaritza Raz SKIN LIFTER BACON[employer]QUARTER DOPER Work Phone: [facility] 06-02-2024 07:12-0400 SaO2% (BldA) [Mass fraction] 96 % Yaritza Raz SKIN LIFTER BACON[employer]QUARTER DOPER Work Phone: [facility] 05-03-2024 07:40-0400 Diastolic blood pressure 96 mm[Hg] Yaritza Raz SKIN LIFTER [employer]ACON[employer]QUARTER DOPER Work Phone: [facility] Comment on above: Home monitor reading 05-03-2024 07:40-0400 Heart rate 77 /min Yaritza Raz SKIN LIFTER BACON[employer]QUARTER DOPER Work Phone: [facility] 05-03-2024 07:40-0400 Systolic blood pressure 174 mm[Hg] Yaritza Raz SKIN LIFTER BACON[employer]QUARTER DOPER Work Phone: [facility] Comment on above: Home monitor reading 05-03-2024 07:38-0400 Body mass index (BMI) [Ratio] 27.22 kg/m2 Yaritza Raz SKIN LIFTER BACON.QUARTER DOPER Work Phone: [facility] 05-03-2024 07:38-0400 Body weight 92.3 kg Yaritza Raz SKIN LIFTER BACON[employer]QUARTER DOPER Work Phone: [facility] 05-03-2024 07:38-0400 SaO2% (BldA) [Mass fraction] 94 % Yaritza Tineo APRN.CNP Work Phone: [facility] 03-29-2024 08:52-0500 Diastolic blood pressure 88 mm[Hg] Kelton Serrano MD Work Phone: [facility] 03-29-2024 08:52-0500 Systolic blood pressure 160 mm[Hg] Kelton Serrano MD Work Phone: [facility] 03-29-2024 08:07-0500 Body height 184.2 cm Kelton Serrano MD Work Phone: [facility] 03-29-2024 08:07-0500 Body mass index (BMI) [Ratio] 27.51 kg/m2 Kelton Serrano MD Work Phone: [facility] 03-29-2024 08:07-0500 Body temperature 98.2 [degF] Kelton Serrano MD Work Phone: [facility] 03-29-2024 08:07-0500 Body weight 93.3 kg Kelton Serrano MD Work Phone: [facility] 03-29-2024 08:07-0500 Heart rate 72 /min Kelton Serrano MD Work Phone: [facility] 03-29-2024 08:07-0500 Respiratory rate 16 /min Kelton Serrano MD Work Phone: [facility] 03-29-2024 08:07-0500 SaO2% (BldA) [Mass fraction] 98 % Kelton Serrano MD Work Phone: [facility] 03-24-2023 08:32-0500 Body height 185.4 cm Kelton Serrano MD Work Phone: [facility] 03-24-2023 08:32-0500 Body weight 91.63 kg Kelton Serrano MD Work Phone: [facility] 03-24-2023 08:32-0500 Diastolic blood pressure 84 mm[Hg] Kelton Serrano MD Work Phone: [facility] 03-24-2023 08:32-0500 Heart rate 80 /min Kelton Serrano MD Work Phone: [facility] 03-24-2023 08:32-0500 Respiratory rate 16 /min Kelton Serrano MD Work Phone: [facility] 03-24-2023 08:32-0500 Systolic blood pressure 130 mm[Hg] Kelton Serrano MD Work Phone: [facility] 05-02-2022 09:24-0500 Diastolic blood pressure 89 mm[Hg] Kaye Daily SKIN [employer]IFTER [employer]PRECINCT POLICE CAPTAIN Work Phone: [facility] 05-02-2022 09:24-0500 Heart rate 77 /min Kaye Daily [employer]PRECINCT POLICE CAPTAIN Work Phone: [facility] 05-02-2022 09:24-0500 Systolic blood pressure 166 mm[Hg] Kaye Daily SKIN LIFTER [employer].PRECINCT POLICE CAPTAIN Work Phone: [facility] 05-02-2022 09:20-0500 Body weight 93.44 kg Kaye Daily [employer]IFTER [employer].PRECINCT POLICE CAPTAIN Work Phone: [facility] 04-04-2022 09:02-0500 Diastolic blood pressure 89 mm[Hg] Kaye Daily SKIN LIFTER [employer].PRECINCT POLICE CAPTAIN Work Phone: [facility] 04-04-2022 09:02-0500 Heart rate 71 /min Kaye Daily SK[employer]IFTER [employer].PRECINCT POLICE CAPTAIN Work Phone: [facility] 04-04-2022 09:02-0500 Systolic blood pressure 162 mm[Hg] Kaye Daily SKIN [employer]IFTER [employer].PRECINCT POLICE CAPTAIN Work Phone: [facility] 04-04-2022 09:01-0500 Body weight 93.44 kg Kaye Daily [employer]TER [employer].PRECINCT POLICE CAPTAIN Work Phone: [facility] 04-04-2022 09:01-0500 Respiratory rate 16 /min Kaye Daily [employer]PRECINCT POLICE CAPTAIN Work Phone: [facility] 04-01-2022 14:50-0500 Body temperature 97.5 [degF] Jake Jani SKIN LIFTER BACON.QUARTER DOPER Work Phone: [facility] 04-01-2022 14:50-0500 Body weight 97.07 kg Jake Gunter SK[employer] LIFTER [employer].QUARTER DOPER Work Phone: [facility] 04-01-2022 14:50-0500 Diastolic blood pressure 102 mm[Hg] Jake Jani SKIN LIFTER [employer]ON.QUARTER DOPER Work Phone: [facility] 04-01-2022 14:50-0500 Heart rate 104 /min Jake King SKIN LIFTER [employer].QUARTER DOPER Work Phone: [facility] 04-01-2022 14:50-0500 Respiratory rate 16 /min Jake Jani SKIN LIFTER [employer]ON.QUARTER DOPER Work Phone: [facility] 04-01-2022 14:50-0500 SaO2% (BldA) [Mass fraction] 96 % Jake King SK[employer]IFTER [employer].QUARTER DOPER Work Phone: [facility] 04-01-2022 14:50-0500 Systolic blood pressure 178 mm[Hg] Jake King SKIN LIFTER [employer]ON.QUARTER DOPER Work Phone: [facility] 03-18-2022 08:05-0500 Body height 183.5 cm Kelton Serrano MD Work Phone: [facility] 03-18-2022 08:05-0500 Body temperature 97.7 [degF] Kelton Serrano MD Work Phone: [facility] 03-18-2022 08:05-0500 Body weight 93.4 kg Kelton Serrano MD Work Phone: [facility] 03-18-2022 08:05-0500 Diastolic blood pressure 86 mm[Hg] Kelton Serrano MD Work Phone: [facility] 03-18-2022 08:05-0500 Heart rate 83 /min Kelton Serrano MD Work Phone: [facility] 03-18-2022 08:05-0500 Respiratory rate 18 /min Kelton Serrano MD Work Phone: [facility] 03-18-2022 08:05-0500 SaO2% (BldA) [Mass fraction] 97 % Kelton Serrano MD Work Phone: [facility] 03-18-2022 08:05-0500 Systolic blood pressure 138 mm[Hg] Kelton Serrano MD Work Phone: [facility] 09-02-2021 21:45-0400 Diastolic blood pressure 84 mm[Hg] Dr. Kelton Serrano Work Phone: [facility] Work Phone: 09-02-2021 21:45-0400 Heart rate 100 /min Dr. Kelton Serrano Work Phone: [facility] Work Phone: 09-02-2021 21:45-0400 Respiratory rate 18 /min Dr. Kelton Serrano Work Phone: [facility] Work Phone: 09-02-2021 21:45-0400 SaO2% (BldA) [Mass fraction] 96 % Dr. Kelton Serrano Work Phone: [facility] Work Phone: 09-02-2021 21:45-0400 Systolic blood pressure 157 mm[Hg] Dr. Kelton Serrano Work Phone: [facility] Work Phone: 09-02-2021 19:09-0400 Body height 185.[address] Kelton Serrano Work Phone: [facility] Work Phone: 09-02-2021 19:09-0400 Body mass index (BMI) [Ratio] 26.4 kg/m2 Dr. Kelton Serrano Work Phone: [facility] Work Phone: 09-02-2021 19:09-0400 Body temperature 97.8 [degF] Dr. Kelton Serrano Work Phone: [facility] Work Phone: 09-02-2021 19:09-0400 Body weight 90.[address] Kelton Serrano Work Phone: [facility] Work Phone: 06-07-2021 08:59-0400 Body weight 92.[address] Kelton Serrano Work Phone: [facility] Work Phone: 06-07-2021 08:59-0400 Diastolic blood pressure 89 mm[Hg] Dr. Kelton Serrano Work Phone: [facility] Work Phone: 06-07-2021 08:59-0400 Heart rate 78 /min Dr. Kelton Serrano Work Phone: [facility] Work Phone: 06-07-2021 08:59-0400 Respiratory rate 16 /min Dr. Kelton Serrano Work Phone: [facility] Work Phone: 06-07-2021 08:59-0400 SaO2% (BldA) [Mass fraction] 98 % Dr. Kelton Serrano Work Phone: [facility] Work Phone: 06-07-2021 08:59-0400 Systolic blood pressure 161 mm[Hg] Dr. Kelton Serrano Work Phone: [facility] Work Phone: 06-07-2020 11:00-0400 Body mass index (BMI) [Ratio] 25.7 kg/m2 Dr. Kelton Serrano Work Phone: [facility] Work Phone: Encounters Encounter Date Encounter Type Care Provider Facility Start: 10-07-2024 End: 10-07-2024 Emergency department patient visit Dr. Kelton Serrano MD Work Phone: -Emergency Department Work Phone: Start: 09-14-2024 End: 09-14-2024 Telephone encounter Kelton Serrano MD Work Phone: [address] [place] [address] Comment on above: Appointment Start: 07-02-2024 End: 07-05-2024 Refill Kelton Serrano MD Work Phone: [facility] Comment on above: Refill Request Start: 06-02-2024 End: 06-02-2024 ambulatory KELTON SERRANO Facility:[facility] Start: 06-02-2024 End: 06-02-2024 Patient encounter procedure Yaritza Tineo APRN.QUARTER DOPER Work Phone: [facility] Comment on above: Essential hypertensi on (Primary Dx) Start: 05-03-2024 End: 05-03-2024 ambulatory KELTON SERRANO Facility:[facility] Start: 05-03-2024 End: 05-03-2024 Patient encounter procedure Yaritza Tineo SKIN LIFTER [employer]ON.QUARTER DOPER Work Phone: [facility] Comment on above: Essential hypertensi on (Primary Dx) Start: 03-29-2024 End: 03-29-2024 ambulatory KELTON SERRANO Facility:[facility] Start: 03-29-2024 End: 03-29-2024 Patient encounter procedure Kelton Serarno MD Work Phone: [facility] Comment on above: Medicare annual well ness [...] Start: 03-24-2024 End: 03-24-2024 ambulatory KELTON SERRANO Facility:[facility] Start: 03-24-2023 End: 03-24-2023 Office outpatient visit 25 minutes Kelton Serrano MD Work Phone: [facility] Comment on above: Essential hypertensi on (Primary Dx); Mixed hyperlipidemia; Gastroesophageal reflux disease, unspecified whether esophagitis present; Encounter for immunization; Need for shingles vaccine; Personal history of COVID-19; Encounter for long-term current use of medication Start: 09-19-2022 ambulatory Kelton morris MD Work Phone: [facility] Comment on above: Lansoprazole and Lis inoopril Refill Request Start: 09-04-2022 End: 09-04-2022 Subsequent hospital visit by physician Morales [facility] Work Phone: Radiology Comment on above: Hallux rigidus of apple th feet [M20.21, 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] Start: 09-04-2022 End: 09-04-2022 Patient encounter procedure Brennen Johnson Work Phone: Podiatry Comment on above: Hallux rigidus of apple th feet (Primary Dx) Start: 09-03-2022 Orders Only Brennen Vargasra roberts Work Phone: Podiatry Comment on above: Pain in left foot (P rimary Dx) Start: 06-06-2022 ambulatory Kaye Daliy APRN.CNS Work Phone: [facility] Comment on above: discontinuation of Q uinapril Start: 05-02-2022 End: 05-02-2022 Office outpatient visit 25 minutes Kaye Daily APRN.CNS Work Phone: [facility] Comment on above: Essential hypertensi on (Primary Dx); Toe pain, bilateral Start: 04-04-2022 End: 04-04-2022 Office outpatient visit 25 minutes Kaye Daily APRN.CNS Work Phone: [facility] Comment on above: Toe pain, bilateral (Primary Dx); Essential hypertension Start: 04-02-2022 Telephone encounter Jake hua APRN.QUARTER DOPER Work Phone: [facility] Comment on above: Results Start: 04-01-2022 End: 04-01-2022 Patient encounter procedure Jake Jani SKIN LIFTER BACON.QUARTER DOPER Work Phone: [facility] Comment on above: Toe pain, bilateral (Primary Dx) Start: 03-18-2022 End: 03-18-2022 Office outpatient visit 25 minutes Kelton Serrano MD Work Phone: [facility] Comment on above: Essential hypertensi on (Primary Dx); Mixed hyperlipidemia; Elevated glucose; Elevated hemoglobin A1c; Gastroesophageal reflux disease, unspecified whether esophagitis present; Encounter for long-term current use of medication; Prostate cancer screening; Urinary frequency; Recurrent kidney stones Start: 03-10-2022 Refill Kaye Daily [employer] CAPTAIN Work Phone: [facility] Comment on above: Refill Request Start: 12-20-2021 Refill Kaye Daily APRN.PRECINCT POLICE CAPTAIN Work Phone: Internal [facility] Comment on above: Med Change Request Start: 12-13-2021 ambulatory Kelton morris MD Work Phone: Internal [facility] Comment on above: [employer] requ est Start: 09-02-2021 End: 09-02-2021 Emergency department patient visit Dr. Kelton Serrano Work Phone: [facility]-Emergency Department Start: 06-07-2021 End: 06-07-[address] Kelton Serrano Work Phone: [facility] Procedures Date Procedure Procedure Detail [...] above: Performed By: #### T [id number] #### [facility] [address] [place] [address] Plan of Treatment Date Care Activity Detail Author Start: 03-21-2028 Lipid panel Lipid Screening [facility] Start: 03-24-2027 Diabetes Screening Diabetes Screenin [facility] Start: 03-18-2027 Lipid 1996 panel - Serum or Plasma Lipid Screening [facility] Start: 03-18-2027 LIPID SCREEN LIPID SCREEN [facility] Start: 02-05-2027 Urine microalbumin profile [facility] Start: 03-21-2026 Diabetes Screening Diabetes Screenin [facility] Start: 03-10-2026 LIPID SCREEN LIPID SCREEN [facility] Start: 07-04-2025 Colonoscopy COLONOSCOPY [facility] Start: 07-04-2025 COLORECTAL CANCER SCREENING COLORECTAL CANCER SCREENING [facility] Start: 07-04-2025 Screening for malign ant neoplasm of colon [facility] Start: 06-02-2025 Annual PCP Team Curriculum Development Specialist rebekah Disease Visit Annual PCP Team Chronic Disease Visit [facility] Start: 05-03-2025 Annual PCP Team Curriculum Development Specialist rebekah Disease Visit Annual PCP Team Chronic Disease Visit [facility] Start: 04-06-2025 End: 04-06-2025 Patient encounter procedure 04/06/2025 8:00 AM EST Office Visit [facility] [address] [place], [place] [phone] Kelton Serrano MD [address] [facility] [place] [id number] Medicare Wellness [facility] Comment on above: Medicare Wellness Start: 03-29-2025 Annual PCP Team Curriculum Development Specialist rebekah Disease Visit Annual PCP Team Chronic Disease Visit [facility] Start: 03-29-2025 Anxiety Screening Anxiety Screening [facility] Start: 03-29-2025 Depression Screening Depression Scre ening [facility] Start: 03-18-2025 DIABETES SCREEN DIABETES SCREEN [facility] Start: 03-18-2025 Diabetes Screening Diabetes Screenin g [facility] Start: 02-26-2025 End: 05-28-2025 CBC panel - Blood by Automated count COMPLETE BLOOD COUNT Lab Routine Encounter for long-term current use of medication Expected: 02/26/2025 (Approximate), Expires: 05/28/2025 [facility] Comment on above: Expected: 02/26/2025 (Approximate), Expires: 05/28/2025 Start: 02-26-2025 End: 05-28-2025 Comprehensive metabolic 2000 panel - Serum or Plasma COMPREHENSIVE METABOLIC PANEL Lab Routine Encounter for long-term current use of medication Expected: 02/26/2025 (Approximate), Expires: 05/28/2025 [facility] Work Phone: Comment on above: Expected: 02/26/2025 (Approximate), Expires: 05/28/2025 Start: 02-26-2025 End: 05-28-2025 Lipid 1996 panel - Serum or Plasma LIPID PANEL BASIC Lab Routine Encounter for long-term current use of medication Elevated LDL cholesterol level Expected: 02/26/2025 (Approximate), Expires: 05/28/2025 [facility] Comment on above: Expected: 02/26/2025 (Approximate), Expires: 05/28/2025 Start: 02-26-2025 End: 05-28-2025 Magnesium [Mass/volume] in Serum or Plasma MAGNESIUM Lab Routine Encounter for long-term current use of medication Expected: 02/26/2025 (Approximate), Expires: 05/28/2025 [facility] Comment on above: Expected: 02/26/2025 (Approximate), Expires: 05/28/2025 Start: 12-03-2024 End: 12-03-2024 Patient encounter procedure 12/03/2024 7:20 AM EDT Office Visit [facility] [address] [place] [address] Yaritza Tineo APRN.QUARTER DOPER [address] [place], [place] [phone] 6 month follow up [facility] Comment on above: 6 month follow up Start: 10-25-2024 Influenza vaccination Influenza Vacc ine (#1) [facility] Start: 10-07-2024 [facility] Start: 2024 Covid-19 Vaccine ( season) Covid-19 Vaccine () [facility] Start: 06-02-2024 End: 06-02-2024 Patient encounter procedure 06/02/2024 7:20 AM EDT Office Visit [facility] [address] [place], [place] [id number] Yaritza Tineo APRN.QUARTER DOPER [address] [place], [place] [phone] 4 week blood pressure check of new medication [facility] Comment on above: 4 week blood pressur e check of new medication Start: 04-28-2024 End: 04-28-2024 Patient encounter procedure 04/28/2024 8:00 AM EST Office Visit [facility] [address] [place], [place] [address] Yaritza Tineo APRN.QUARTER DOPER [address] [place], [place] [phone] 1 Month F/U-BP (validate at home cuff) [facility] Comment on above: 1 Month F/U-BP (dorota date at home cuff) Start: 03-24-2024 Annual PCP Team Curriculum Development Specialist rebekah Disease Visit Annual PCP Team Chronic Disease Visit [facility] Start: 03-24-2024 End: 06-23-2024 CBC panel - Blood by Automated count CBC Lab Routine Essential hypertension Encounter for long-term current use of medication Expected: 03/24/2024 (Approximate), Expires: 06/23/2024 [facility] Work Phone: Comment on above: Expected: 03/24/2024 (Approximate), Expires: 06/23/2024 Start: 03-24-2024 End: 06-23-2024 Comprehensive metabolic 2000 panel - Serum or Plasma COMP METABOLIC PANEL Lab Routine Essential hypertension Encounter for long-term current use of medication Expected: 03/24/2024 (Approximate), Expires: 06/23/2024 [facility] Work Phone: Comment on above: Expected: 03/24/2024 (Approximate), Expires: 06/23/2024 Start: 03-24-2024 End: 06-23-2024 Lipid 1996 panel - Serum or Plasma LIPID PANEL BASIC Lab Routine Essential hypertension Mixed hyperlipidemia Encounter for long-term current use of medication Expected: 03/24/2024 (Approximate), Expires: 06/23/2024 [facility] Work Phone: Comment on above: Expected: 03/24/2024 (Approximate), Expires: 06/23/2024 Start: 03-24-2024 End: 06-23-2024 Magnesium [Mass/volume] in Serum or Plasma MAGNESIUM BLD Lab Routine Encounter for long-term current use of medication Expected: 03/24/2024 (Approximate), Expires: 06/23/2024 [facility] Work Phone: Comment on above: Expected: 03/24/2024 (Approximate), Expires: 06/23/2024 Start: 03-10-2024 DIABETES SCREEN DIABETES SCREEN [facility] Start: 03-18-2023 ANNUAL PCP TEAM EXPORT FREIGHT CLERK REBEKAH DISEASE VISIT ANNUAL PCP TEAM CHRONIC DISEASE VISIT [facility] Start: 03-18-2023 BP CONTROLLED (<130/80) BP CONTROLLE D (<130/80) [facility] Start: 03-18-2023 End: 05-18-2023 CBC panel - Blood by Automated count CBC Lab Routine Essential hypertension Encounter for long-term current use of medication Expected: 03/18/2023 (Approximate), Expires: 05/18/2023 [facility] Work Phone: Comment on above: Expected: 03/18/2023 (Approximate), Expires: 05/18/2023 Start: 03-18-2023 End: 05-18-2023 Comprehensive metabolic 2000 panel - Serum or Plasma COMP METABOLIC PANEL Lab Routine Essential hypertension Elevated glucose Elevated hemoglobin A1c Encounter for long-term current use of medication Expected: 03/18/2023 (Approximate), Expires: 05/18/2023 [facility] Work Phone: Comment on above: Expected: 03/18/2023 (Approximate), Expires: 05/18/2023 Start: 03-18-2023 End: 05-18-2023 Hemoglobin A1c in Blood HGB A1C Lab Routine Elevated glucose Elevated hemoglobin A1c Encounter for long-term current use of medication Expected: 03/18/2023 (Approximate), Expires: 05/18/2023 [facility] Work Phone: Comment on above: Expected: 03/18/2023 (Approximate), Expires: 05/18/2023 Start: 03-18-2023 End: 05-18-2023 Lipid 1996 panel - Serum or Plasma LIPID PANEL BASIC Lab Routine Mixed hyperlipidemia Encounter for long-term current use of medication Expected: 03/18/2023 (Approximate), Expires: 05/18/2023 [facility] Work Phone: Comment on above: Expected: 03/18/2023 (Approximate), Expires: 05/18/2023 Start: 03-18-2023 End: 05-18-2023 Magnesium [Mass/volume] in Serum or Plasma MAGNESIUM BLD Lab Routine Encounter for long-term current use of medication Expected: 03/18/2023 (Approximate), Expires: 05/18/2023 [facility] Work Phone: Comment on above: Expected: 03/18/2023 (Approximate), Expires: 05/18/2023 Start: 03-18-2023 End: 05-18-2023 PSA/PROSTSPECAG SCRN PSA/PROSTSPECAG SCRN Lab Routine Encounter for long-term current use of medication Prostate cancer screening Expected: 03/18/2023 (Approximate), Expires: 05/18/2023 [facility] Work Phone: Comment on above: Expected: 03/18/2023 (Approximate), Expires: 05/18/2023 Start: 03-18-2023 SHINGRIX VACCINE (1 of 2) SHINGRIX VACCINE (1 of 2) [facility] Comment on above: Postponed from 07/08 (Declined at this time) Start: 10-25-2022 Influenza vaccination INFLUENZA (#1) [facility] Start: 07-08-2022 RSV Vaccine (1 - 1-d ose 75+ series) RSV Vaccine (1 - 1-dose 75+ series) [facility] Start: 07-02-2022 End: 09-01-2022 Urate [Mass/volume] in Serum or Plasma URIC ACID BLOOD Lab Routine Toe pain, bilateral Expected: 07/02/2022 (Approximate), Expires: 09/01/2022 [facility] Work Phone: Comment on above: Expected: 07/02/2022 (Approximate), Expires: 09/01/2022 Start: 04-04-2022 End: 06-04-2022 C reactive protein [Mass/volume] in Serum or Plasma C-REACTIVE PROTEIN (CRP) Lab Routine Toe pain, bilateral Expected: 04/04/2022, Expires: 06/04/2022 [facility] Work Phone: Comment on above: Expected: 04/04/2022 , Expires: 06/04/2022 Start: 04-04-2022 End: 06-04-2022 Erythrocyte sedimentation rate SED RATE WESTERGREN Lab Routine Toe pain, bilateral Expected: 04/04/2022, Expires: 06/04/2022 [facility] Work Phone: Comment on above: Expected: 04/04/2022 , Expires: 06/04/2022 Start: 04-01-2022 End: 06-01-2022 Urate [Mass/volume] in Serum or Plasma [facility] Work Phone: Comment on above: Expected: 04/01/2022 , Expires: 06/01/2022 Start: 03-13-2022 ANNUAL PCP TEAM EXPORT FREIGHT CLERK REBEKAH DISEASE VISIT ANNUAL PCP TEAM CHRONIC DISEASE VISIT [facility] Start: 03-04-2022 COVID-19 VACCINE (6 - Moderna series) COVID-19 VACCINE (6 - Moderna series) [facility] Start: 02-24-2022 ADVANCE DIRECTIVE DISCUSSION ADVANCE DIRECTIVE DISCUSSION [facility] Start: 02-24-2022 DEPRESSION ASSESSMENT DEPRESSION ASS ESSMENT [facility] Start: 10-25-2021 Influenza vaccination INFLUENZA (#1) [facility] Start: 02-24-2021 ADVANCE DIRECTIVE DISCUSSION ADVANCE DIRECTIVE DISCUSSION [facility] Start: 02-24-2021 [facility]PRESSION [facility]ESSMENT [facility] Start: 02-15-2021 COVID-19 VACCINE (4 - Booster for Moderna series) COVID-19 VACCINE (4 - Booster for Moderna series) [facility] Start: 08-30-2015 FECAL OCCULT BLOOD FECAL OCCULT BLOO D [facility] Start: 08-30-2015 Screening for malign ant neoplasm of colon Fecal Occult Blood [facility] Start: 2007 RSV Vaccine (1 - 1-d ose 60+ series) RSV Vaccine (1 - 1-dose 60+ series) [facility] Start: 07-08-1997 SHINGRIX VACCINE (1 of 2) SHINGRIX VACCINE (1 of 2) [facility] Start: 07-08-1992 COLOGUARD (FIT-DNA) COLOGUARD (FIT-D NA) [facility] Start: 07-08-[address] COLONOGRAPHY [facility] Start: 07-08-1992 Screening for malign ant neoplasm of colon [facility] Start: 07-08-1992 SIGMOIDOSCOPY SIGMOIDOSCOPY [facility] Start: 07-08-1965 BP CONTROLLED (<130/80) BP CONTROLLE D (<130/80) [facility] Patient Education [facility] Work Phone: Patient referral [facility] Work Phone: End: 10-04-2023 XR FOOT GENERAL 3V AP/LAT/OBL BILATERAL XR FOOT GENERAL 3V AP/LAT/OBL BILATERAL Radiology Routine Hallux rigidus of both feet 1 Occurrences starting 09/04/2022 until 10/04/2023 [facility] Work Phone: Comment on above: 1 Occurrences starti ng 09/04/2022 until 10/04/2023 XR FOOT GENERAL 3V AP/LAT/OBL BILATERAL XR FOOT GENERAL 3V AP/LAT/OBL BILATERAL Radiology Routine Hallux rigidus of both feet 09/04/2022 3:07 PM EDT [facility] Work Phone: End: 10-03-2023 XR FOOT GENERAL 3V AP/LAT/OBL LEFT XR FOOT GENERAL 3V AP/LAT/OBL LEFT Radiology Routine Pain in left foot 1 Occurrences starting 09/03/2022 until 10/03/2023 [facility] Work Phone: Comment on above: 1 Occurrences starti ng 09/03/2022 until 10/03/2023 [facility] Immunizations Immunization Date Immunization Notes Care Provider Fa [facility] 01-10-2024 influenza, high dose seasonal, preservative-free Kelton Serrano MD Work Phone: [facility] 01-10-2024 influenza virus vacc ine, unspecified formulation Kelton Serrano MD Work Phone: [facility] 12-05-2022 COVID-19 vaccine, ag e 12+ yr, season (MODERNA) Kelton Serrano MD Work Phone: [facility] 12-05-2022 influenza (aIIV4) vaccine, age 65+ yr, quadrivalent, PF (FLUAD QUAD) Kelton Serrano MD Work Phone: [facility] 12-05-2022 influenza, injectabl e, quadrivalent, contains preservative Kelton Serrano MD Work Phone: [facility] 12-09-2021 influenza (aIIV4) vaccine, age 65+ yr, quadrivalent, PF (FLUAD QUADRIVALENT) Kelton Serrano MD Work Phone: [facility] 11-30-2020 influenza (aIIV4) vaccine, age 65+ yr, quadrivalent, PF (FLUAD QUADRIVALENT) Kelton Serrano MD Work Phone: [facility] 05-05-2020 Covid (Moderna) Dr. Kelton rosas Work Phone: [facility] 04-07-2020 Covid (Moderna) Dr. Kelton rosas Work Phone: [facility] 12-06-2019 influenza, seasonal, injectable Kelton Serrano MD Work Phone: [facility] 01-06-2019 influenza, high dose seasonal, preservative-free Kelton Serrano MD Work Phone: [facility] 02-13-2018 influenza, high dose seasonal, preservative-free Kelton Serrano MD Work Phone: [facility] 02-05-2017 tetanus and diphther ia toxoids, adsorbed, preservative free, for adult use (5 Lf of tetanus toxoid and 2 Lf of diphtheria toxoid) Kelton Serrano MD Work Phone: [facility] 11-21-2016 influenza, high dose seasonal, preservative-free Kelton Serrano MD Work Phone: [facility] Work Phone: 02-27-2015 pneumococcal conjuga te vaccine, 13 valent Kelton Serrano MD Work Phone: [facility] Work Phone: 01-30-2015 influenza, high dose seasonal, preservative-free Kelton Serrano MD Work Phone: [facility] 01-13-2014 influenza, seasonal, injectable Kelton Serrano MD Work Phone: [facility] 03-23-2013 influenza virus vacc ine, unspecified formulation Kelton Serrano MD Work Phone: [facility] 03-23-2013 pneumococcal polysaccharide vaccine, 23 valent Kelton Serrano MD Work Phone: [facility] 12-24-2006 tetanus toxoid, redu isaias diphtheria toxoid, and acellular pertussis vaccine, adsorbed Kelton Serrano MD Work Phone: [facility] Work Phone: Payers Date Payer Category Payer Self-pay [id number] 2021 Medicare AETNA MEDICARE A ETNA MEDICARE PPO [id number] 2021-Present [phone] [address] [place] [address] PPO [id number] 2021 Medicare (Managed Care) [id number] 2021 Private Health Insurance [id number] Medicare SELF PAY INSURANCE [id number] Unknown [id number] Social History Date Type Detail Facility Start: 09-02-2021 Tobacco smoking status TXIS Unknown if ever smoked [facility] Work Phone: Start: 1945 Sex Assigned At Male [facility] Start: 02-05-2017 End: 10-07-2024 Tobacco smoking status NHIS Never smoked tobacco [facility] Start: 02-05-2017 End: 04-01-2022 Tobacco use and exposure Smokeless tobacco non-user [facility] Start: 03-13-2021 End: 06-02-2024 Alcohol intake Current drinker of alcohol (finding) [facility] Start: 03-13-2021 End: 09-04-2022 Alcohol intake [facility] Start: 03-18-2019 End: 03-13-2022 History SDOH Alcohol Frequency 4 [facility] Start: 03-18-2019 End: 03-13-2022 History SDOH Alcohol Std Drinks 1 [facility] Start: 02-10-2019 End: 03-13-2022 History SDOH Social Connections Phone 5 [facility] Start: 02-10-2019 End: 03-13-2022 History SDOH Social Connections Living 3 [facility] Start: 02-10-2019 History SDOH Physical Activity DPW 0 [facility] Start: 04-07-2019 End: 03-13-2022 History SDOH Transport Med 2 [facility] Start: 02-10-2019 Education 17 [facility] Start: 04-08-2017 Alcohol Comment 1 beer 4 times per week [facility] Start: 03-13-2022 History SDOH Physical Activity MPS 6 [facility] Start: 03-13-2022 End: 09-04-2022 Social connection and isolation panel [facility] Do you belong to any clubs or organizations such as [employer] groups, [employer], [employer] or [employer] groups, or school groups? No [facility] Are you now , , , , never or living with a partner? [facility] How often to you hav e a drink containing alcohol? 2-3 time sa week [facility] How many standard dr inks containing alcohol do you have on a typical day? 1 or 2 [facility] How often do you hav e 6 or more drinks on 1 occasion? Never [facility] How hard is it for y ou to pay for the very basics like food, housing, medical care, and heating Not hard at all [facility] Do you feel stress - tense, restless, nervous, or anxious, or unable to sleep at night because your mind is troubled all the time - these days [OSQ] Not at all [facility] (I/We) worried wheth er (my/our) food would run out before (I/we) got money to buy more. Never true [facility] Start: 02-11-2019 Gender identity Identifies as male gender (finding) [facility] Start: 02-11-2019 Sexual orientation Heterosexual (finding) [facility] Do you belong to any clubs or organizations such as [employer] groups, [employer], [employer] or [employer] groups, or school groups? Yes [facility] Medical Equipment Procedure Code Equipment Code Equipment Origin al Text Equipment Identifier Dates Liner 36mm 0d E X3 5.9mm Acetabular Hip - [id number] Start: 04-07-2019 Shell Trident Ii 54mm E Tritanium Acetabular 5 Screw Hole Cluster Sterile - [id number] Start: 04-07-2019 Screw Trident Ii 6.5mm 25mm Bone Low Profile Hexagonal Sterile - [id number] Start: 04-07-2019 Head V40 36mm +5 mm Offset Taper Biolox Delta Femoral Hip - [id number] Start: 04-07-2019 Stem Accolade Ii 7 127d Femoral - [id number] Start: 04-07-2019 Functional Status Date Assessment Result Facility 04-09-2019 Are you deaf, or do you have serious difficulty hearing No 04/09/2019 11:26 AM Adolfo Turner RN No [facility] 04-09-2019 Are you blind, or do you have serious difficulty seeing, even when wearing glasses No 04/09/2019 11:26 AM Adolfo Turner RN No [facility] 04-09-2019 Do you have serious difficulty walking or climbing stairs No 04/09/2019 11:26 AM Adolfo Turner RN [facility] 04-09-2019 Do you have difficul ty dressing or bathing No 04/09/2019 11:26 AM Adolfo Turner RN [facility] 04-09-2019 Because of a physica l, mental, or emotional condition, do you have difficulty doing errands alone such as visiting a physician's office or shopping No 04/09/2019 11:26 AM Adolfo Turner RN No [facility] Mental Status Date Assessment Result Facility 04-09-2019 Because of a physica l, mental, or emotional condition, do you have serious difficulty concentrating, remembering, or making decisions No 04/09/2019 11:26 AM Adolfo Turner RN No [facility] Clinical Notes 12-24-2006 to 10-07-2024 Telephone Encounter - Anjana Boothe MA - 09/14/2024 1:46 PM EDTTelephone Encounter - Anjana Boothe MA - 09/14/2024 1:46 PM Yaritza Hebert APRN.CNP - 06/02/2024 7:15 AM EDT Note Date & Type Note Facility 10-07-2024 Discharge summary [facility] 10-07-2024 Radiology Diagnostic study note [facility] [address] [place], [place] [id number] Abdomen/Pelvis without Cont MR#: [id number] Acct: [id number] Name: GEOFF SMITH Rep #: [id number] : 1945 M 79 From: Emilee Shannno MD PCP: Dr. Kelton Serrano MD Status: RE G ER Study:Abdomen/Pelvis without Cont Date of Exa m: 10/07/24 Exam# [id number] Ordering Dr: Thomas Barraza MD PROCEDURE: ABDOMEN/PELVIS [...] Fat containing left inguinal hernia. Reading Location: [id number] CC: Dr. Kelton Serrano MD; Dr. Meño Barraza MD ~ Sql Report Writer: Signed [facility] 09-29-2024 Note HNO ID: [id number] Author: ?, ?, ? Service: ? Author Type: ? Type: Progress Notes Filed: 09/29/2024 08:36 Note Text: POPULATION HEALTH NAVIGATION OUTREACH Action/FYI Pt due 6-mo f/u from 06/02/24 OV. No other care gaps due. LVM AND MC Reason for Outreach Care Gap/HCC or Scheduling Wellness Visits Care Gaps due: Follow-up Appointment Patient Contacted: Unable or unnecessary to reach patient: Left message Paltalk message sent Navigation Signature: Jacquelin Cantor September 29, 2024 8:34 AM [facility] 09-29-2024 Note Patient Outreach (NE TNAV) -------- GEOFF SMITH ([id number]) 1945 M Date Time Provider Department 09/29/24 [...] Date Reviewed: 06/02/2024 Reviewed by: Yaritza Tineo APRN.QUARTER DOPER - Fully Assessed Reason for Visit: Population Health Navigation Outreach [3910] Cmt: 0 HCC [employer] List Prescriptions as of 09/29/2024 - amLODIPine (NORVASC) 5 mg tablet Take 1 tablet by mouth once daily. - lansoprazole (PREVACID) 30 mg capsule Take 1 capsule by mouth once daily. - lisinopril (ZESTRIL) 30 mg tablet Take 1 tablet by mouth once daily. - vh-rmc-IW-vit X-fnxdpa-lpjtquj (PRESERVISION AREDS 2 PLUS MV) 200 mcg-15 mcg- 5 mg-1 mg cap Take 1 capsule by mouth once daily. - Fluorouracil 5 % cream Apply 1 application to affected area as directed. - Eqbfnmbaqfpvj-Xdacxnta-Azmnsa (CENTRUM SILVER) tab Take 1 tablet by [...] Encounter Status:Closed by JACQUELIN CANTOR on 09/29/24 [facility] 09-14-2024 Telephone encounter Note Patient is scheduled 04/06 with pcp Anjana Boothe MA [facility] 09-14-2024 Miscellaneous Notes Patient is scheduled 04/06 with pcp Anjana Boothe MA Spoke with patient in regards to R/S 12/03/24 appointment due to provider leaving, and patient declined any other provider but PCP. documented in this encounter [facility] 09-14-2024 Telephone encounter Note Spoke with patient in regards to R/S 12/03/24 appointment due to provider leaving, and patient declined any other provider but PCP. [facility] 07-02-2024 Telephone encounter Note Prescription Refill Information [...] Aguilera LPN July 02, 2024 3:58 PM [facility] 07-02-2024 Miscellaneous Notes Prescription Refill Information The [...] 2024 3:58 PM documented in this encounter [facility] 06-02-2024 History of Present illness Narrative SUBJECTIVE [...] Take 1 tablet by mouth once daily. kc-yyq-UV-vit V-ziarlk-shgbilz (PRESERVISION AREDS 2 PLUS MV) 200 mcg-15 mcg- 5 mg-1 mg cap Take 1 capsule by mouth once daily. Fluorouracil 5 % cream Apply 1 application to affected area as directed. Jmdzkhsbwiwtm-Ucbjmbvy-Ypkhwf (CENTRUM SILVER) tab Take 1 tablet by [...] Yaritza Tineo APRN-TEODORO documented in this encounter [facility] 06-02-2024 Note HNO ID: [id number] Author: YARITZA TINEO APRN.CNP Service: ? Author [...] Take 1 tablet by mouth once daily. nu-gue-KK-vit I-waeuoj-miasfkg (PRESERVISION AREDS 2 PLUS MV) 200 mcg-15 mcg- 5 mg-1 mg cap Take 1 capsule by mouth once daily. Fluorouracil 5 % cream Apply 1 application to affected area as directed. Srfztdnbrqwsa-Atzbudwl-Jhhxsg (CENTRUM SILVER) tab Take 1 tablet by [...] - Improving c (more content not included)... [facility] 05-03-2024 Note HNO ID: [id number] Author: YARITZA TINEO APRN.[facility] Service: ? Author Type: Nurse Practitioner [...] Take 1 tablet by mouth once daily. em-jvy-JJ-vit Q-medvce-kowdgmz (PRESERVISION AREDS 2 PLUS MV) 200 mcg-15 mcg- 5 mg-1 mg cap Take 1 capsule by mouth once daily. Fluorouracil 5 % cream Apply 1 application to affected area as directed. Ksyxydwkhlyly-Dfytujhq-Zxjzbi (CENTRUM SILVER) tab Take 1 tablet by [...] results to nex (more content not included)... [facility] 05-03-2024 History of Present illness Narrative SUBJECTIVE [...] Take 1 tablet by mouth once daily. qx-ssv-WX-vit Y-orphag-lopzpwl (PRESERVISION AREDS 2 PLUS MV) 200 mcg-15 mcg- 5 mg-1 mg cap Take 1 capsule by mouth once daily. Fluorouracil 5 % cream Apply 1 application to affected area as directed. Waeemqboptowo-Tfgalzbz-Isjnip (CENTRUM SILVER) tab Take 1 tablet by [...] medication.. KARINA Ramirez documented in this encounter [facility] 03-29-2024 History of Present illness Narrative Images from the original note were not included. This note was created using FindThatCourse. Subjective Geoff Smith is a 78 year [...] does not have a healthcare power of transactional attorney. He identifies his spouse as his surrogate decision maker. He has not traveled outside of the country recently but is considering a trip to [place]. He has 3 half-sisters who are , [...] essential hypertension Current Outpatient Medications Medication Sig vl-alf-MO-vit E-bkmtjv-zrbmshc (PRESERVISION AREDS 2 PLUS MV) 200 mcg-15 mcg- 5 mg-1 mg cap Take 1 capsule by mouth once daily. Ghfddkiodxkfw-Jqqmdlbs-Ibxpca (CENTRUM SILVER) tab Take 1 tablet by [...] medical record. Outside specialists seen: Dr. Armenta ([facility]), Dentist --Dr. Romero Medical/Family history review Reviewed [...] and Prevacid. - Refill prescriptions sent to [facility] for a 90-day supply. 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 - Considering hearing aids; discussed options and insurance coverage. Kelton Serrano MD documented in this encounter [facility] 03-29-2024 Instructions Kelton Serrano MD - 03/29/2024 [...] review all the medicines you take, even fifv-ixv-ujbkzmu medicines. As you get older, the way [...] certain medical conditions. documented in this encounter [facility] 03-29-2024 Note HNO ID: [id number] Author: KELTON SERRANO MD Service: ? Author Type: Physician Type: Progress Notes Filed: 03/29/2024 23:57 Note Text: This note was created using RetSKUter. Subjective HISTORY Geoff Smith is a 78 [...] does not have a healthcare power of transactional attorney. He identifies his spouse as his surrogate decision maker. He has not traveled outside of the country recently but is considering a trip to [place]. He has 3 half-sisters who are , [...] essential hypertension Current Outpatient Medications Medication Sig aq-nlz-TC-vit Q-otymxu-mketlzu (PRESERVISION AREDS 2 PLUS MV) 200 mcg-15 mcg- 5 mg-1 mg cap Take 1 capsule by mouth once daily. Rwbfttohjvlzo-Cnfgtwdt-Egxyfx (CENTRUM SILVER) tab Take 1 tablet by [...] average[ 04/04/2022 162/8 (more content not included)... [facility] 03-24-2023 History of Present illness Narrative This [...] essential hypertension Current Outpatient Medications Medication Sig cw-ofj-BR-vit O-iohgby-beivnbo (PRESERVISION AREDS 2 PLUS MV) 200 mcg-15 [...] 2 times daily after for 2 days Malzkwxlenxaj-Sppoytrv-Hykbsi (CENTRUM SILVER) tab Take 1 tablet by [...] Kelton Serrano MD documented in this encounter [facility] 09-19-2022 Miscellaneous Notes Aktivito message: Both of my medications have been sent to [facility] instead of [facility]. Neither of the [...] Martine Cantu LPN documented in this encounter [facility] 09-04-2022 History of Present illness Narrative Radiology [...] 2022 2:57 PM documented in this encounter [facility] 09-04-2022 History of Present illness Narrative Images [...] He states he recently returned from vacation ([facility] [place]) and he has noticed the [...] Take 1 tablet by mouth once daily. Qqzexkpjqfkhx-Gwfixzoy-Ipxwaa (CENTRUM SILVER) tab Take 1 tablet by [...] JOINT REPLACEMENT HX LAPAROSCOPY SURG CHOLECYSTECTOMY 08/31/[address] [facility] [address] Quick PAST SURGICAL HISTORY OF [...] results. Brennen Johnson DPM Podiatry [address] [facility] [address] Dept: [phone] Dept AMB ROOMING INTAKE FLOWSHEET DATA Pain Pain Level: 8 Pain Location: Other: See Comment (bilateral feet) Description: Aching Duration Amount of Time: 3 Duration Units: Weeks Frequency: Intermittent Intervention/Comfort measure: Reposition, Relaxation Patient presents with: Left Foot - New, Pain, Swelling Right Foot - New, Swelling, Pain Megha Calix LPN documented in this encounter [facility] 05-02-2022 History of Present illness Narrative SUBJECTIVE: [...] Take 30 mg by mouth as needed.) Gmgtqvosrhbfg-Ougvppmw-Vqpzfx (CENTRUM SILVER) tab Take 1 tablet by [...] 4 - Moderate documented in this encounter [facility] 04-04-2022 Instructions Kaye Daily APRN.CNS - 04/04/2022 [...] in 3 months. documented in this encounter [facility] 04-04-2022 History of Present illness Narrative SUBJECTIVE: [...] Final Reports treating [place] with 5FU per box person Dr Parks recently. Not took amoxicillin recently [...] Take 30 mg by mouth as needed.) Zxqqbyxeomjkg-Zgpxdcif-Bgmtjm (CENTRUM SILVER) tab Take 1 tablet by [...] inflammatory markers in 3 months. Kaye Daily APRN.[employer] Medical Decision Making: Problems: Moderate: New problem with uncertain prognosis and 1+ chronic illnesses with change Data: Unique test(s) ordered: 2 Risk: Moderate: Drug management Medical Decision Making Level: 4 - Moderate documented in this encounter [facility] 04-02-2022 Miscellaneous Notes Patient given results and verbalized understanding of instructions given. Hetal Quiroz Please notify uric acid level was normal. Continue with plan and follow up as discussed at visit. documented in this encounter [facility] 04-01-2022 History of Present illness Narrative Images [...] JOINT REPLACEMENT HX LAPAROSCOPY SURG CHOLECYSTECTOMY 08/31/[address] [facility] [address] Quick PAST SURGICAL HISTORY OF [...] Take 30 mg by mouth as needed.) Scpdosxxorhho-Ztnchkzd-Phcume (CENTRUM SILVER) tab Take 1 tablet by [...] TABLET - URIC ACID BLOOD Jake Gunter APRN.QUARTER DOPER documented in this encounter [facility] 03-18-2022 History of Present illness Narrative This note was created using ETF.comriter. Subjective Geoff Smith is a 76 year old male. HISTORY Geoff Smith is a 76 year old gentleman here for yearly exam and follow up appointment. Noted having dental implants placed. Cataract surgery done 5 months ago. Doing great. Asking about prostate cancer screening. Noted friend with metastatic prostate cancer. Follows with box person--to have face peel Recurrent kidney stones issues [...] Take 30 mg by mouth as needed.) Qqdqfxhmgqtxl-Lfaswpip-Fnoelg (CENTRUM SILVER) tab Take 1 tablet by [...] Kelton Serrano MD documented in this encounter [facility] 03-11-2022 Miscellaneous Notes Last office visit: 03/13/21 Next appointment scheduled: 03/18/22 Last labs: 03/10/21 Patient phones requesting refills as follows: Requested Prescriptions Pending Prescriptions Disp Refills quinapril (ACCUPRIL) 20 mg tablet 90 tablet 3 Sig: Take 1 tablet by mouth once daily. Please review and advise. Andria Aguilera LPN documented in this encounter [facility] 12-14-2021 Miscellaneous Notes Last office visit: 03/13/21 [...] Andria Aguilera LPN documented in this encounter [facility] 12-24-2006 History of Past i llness Narrative Problem Noted Date Resolved Date Other and unspecified hyperlipidemia 12/24/2006 09/07/2015 documented as of this encounter (statuses as of 12/14/2021) [facility] History of Past illness Narrative* Problem Noted Date Resolved Date Other and unspecified hyperlipidemia 12/24/2006 09/07/2015 documented as of this encounter (statuses as of 12/21/2021) [facility] History of Past illness Narrative* Problem Noted Date Resolved Date Other and unspecified hyperlipidemia 12/24/2006 09/07/2015 documented as of this encounter (statuses as of 03/11/2022) [facility] History of Past illness Narrative* Problem Noted Date Resolved Date Other and unspecified hyperlipidemia 12/24/2006 09/07/2015 documented as of this encounter (statuses as of 03/19/2022) [facility] History of Past illness Narrative* Problem Noted Date Resolved Date Other and unspecified hyperlipidemia 12/24/2006 09/07/2015 documented as of this encounter (statuses as of 04/02/2022) [facility] of Past illness Narrative* Problem Noted Date Resolved Date Other and unspecified hyperlipidemia 12/24/2006 09/07/2015 documented as of this encounter (statuses as of 04/03/2022) [facility] of Past illness Narrative* Problem Noted Date Resolved Date Other and unspecified hyperlipidemia 12/24/2006 09/07/2015 documented as of this encounter (statuses as of 04/04/2022) [address] History of Past illness Narrative* Problem Noted Date Resolved Date Other and unspecified hyperlipidemia 12/24/2006 09/07/2015 documented as of this encounter (statuses as of 05/02/2022) [facility] of Past illness Narrative* Problem Noted Date Resolved Date Other and unspecified hyperlipidemia 12/24/2006 09/07/2015 documented as of this encounter (statuses as of 06/07/2022) [address] History of Past illness Narrative* Problem Noted Date Diagnosed Date Resolved Date Other and unspecified hyperlipidemia 12/24/2006 09/07/2015 documented as of this encounter (statuses as of 09/04/2022) [address] History of Past illness Narrative* Problem Noted Date Diagnosed Date Resolved Date Other and unspecified hyperlipidemia 12/24/2006 09/07/2015 documented as of this encounter (statuses as of 09/05/2022) [facility] of Past illness Narrative* Problem Noted Date Diagnosed Date Resolved Date Other and unspecified hyperlipidemia 12/24/2006 09/07/2015 documented as of this encounter (statuses as of 09/20/2022) [facility] History of Past illness Narrative* Problem Noted Date Diagnosed Date Resolved Date Other and unspecified hyperlipidemia 12/24/2006 09/07/2015 documented as of this encounter (statuses as of 09/20/2022) [address] History of Past illness Narrative* Problem Noted Date Diagnosed Date Resolved Date Other and unspecified hyperlipidemia 12/24/2006 09/07/2015 documented as of this encounter (statuses as of 12/29/2022) [address] History of Past illness Narrative* Problem Noted Date Diagnosed Date Resolved Date Other and unspecified hyperlipidemia 12/24/2006 09/07/2015 documented as of this encounter (statuses as of 03/28/2023) [facility] Meño Barraza [facility] Note Date/Time October 07, 2024 9: 44[facility] Medical Records Department [address] [place] [address] Emergency Department Summary 10/07/24 MR#: [id number] Acct: [id number] Name: GEOFF SMITH Rep #:[id number] : 1945 79 From: Meño Barraza MD [...] similar symptoms: Yes Recent Illness/Hospitalization: No PFSH [facility] Medical History Kidney stone Abnormal electrocardiogram Cholelithiasis [...] Sl. Cloudy Urine pH 6.5 Ur Specific [place] 1.015 Urine Protein 30 H Urine Glucose [...] Fat containing left inguinal hernia. Reading Location: [id number] CT of the abdomen pelvis reveals a [...] 5 Days Qty: 20 0RF No Action qoleotpn-maat-FY-calcium-mins 1 TABLET tablet 1 tablet PO DAILY [...] Dr. Vasquez's office for follow-up. Print Language: Estonian Disposition Disposition: Home, Self Care What to do if you have Problems For any increased pain, shortness of breath, bleeding, nausea or vomiting, chestpain, or any unexpected problems, contact your Primary Care Provider. Call [facility] ([phone]) or report to the closest Emergency Room. Call 911 if necessary. 10/07/24 0944 <Electronically signed by Meño Barraza MD> Cosigner Signature (if applicable): CC: Dr. Kelton Serrano MD ~ Signed [facility] Work Phone: Evaluation note* Diagnosis Onset Date Resolution Status Abnormal electrocardiogram c hronic [facility] Work Phone: Evaluation note* Diagnosis Essential hypertension Unspecified essential hypertension [facility] Diagnosis Essential hypertension Unspecified essential hypertension [facility] Diagnosis Essential hypertension Unspecified essential hypertension [facility] this [facility] CenterEvaluation note* Diagnosis Essential hypertension- Primary Unspecified essential hypertension Mixed hyperlipidemia Elevated glucose Other abnormal glucose Elevated hemoglobin A1c Other abnormal blood chemistry Gastroesophageal reflux disease, unspecified whether esophagitis present Encounter for long-term current use of medication Prostate cancer screening Special screening for malignant neoplasm of prostate Urinary frequency Recurrent kidney stones Calculus of kidney [facility] Diagnosis Toe pain, bilateral- Primary [facility] Diagnosis Toe pain, bilateral- Primary Essential hypertension Unspecified essential hypertension documented [facility] Diagnosis Essential hypertension- Primary Unspecified essential hypertension Toe pain, bilateral documented in this [facility] Diagnosis Pain in left foot- Primary Pain in limb [facility] Diagnosis Hallux rigidus of both feet- Primary [facility] Diagnosis Hallux rigidus of both feet documented in this [facility] Diagnosis Essential hypertension- Primary Unspecified essential hypertension Mixed hyperlipidemia Gastroesophageal reflux disease, unspecified whether esophagitis present Encounter for immunization Need for other specified prophylactic vaccination against single bacterial disease Need for shingles vaccine Need for prophylactic vaccination and inoculation against other viral diseases Personal history of COVID-19 Encounter for long-term current use of medication documented [facility] this [facility] Diagnosis Pre-operative examination- Primary [...] both ears Presbyacusis documented in this encounter [facility] Diagnosis Pre-operative examination- Primary [...] Unspecified essential hypertension documented in this [facility] Diagnosis Pre-operative examination- Primary [...] Unspecified essential hypertension [facility] Diagnosis Pre-operative examination- [...] Unspecified essential hypertension documented in this encounter [facility] noteNo assessment information availableWProMedica [facility] Work Phone: Hospital Discharge instructionsAdditional Instructions 1. Return if you have a temperature greater than 100, unable to eat or drink anything or pain is not under control with medication prescribed. 2. Contact Dr. Vasquez's office for follow-up.[facility] Work Phone: Reason for referral (narrative)* Diagnostic Procedure Only (Routine) - Pending Review Specialty Diagnoses / Procedures Referred By Poncho torrez Referred To Contact XR IMAGING Diagnoses Pain in left foot Procedures XR FOOT GENERAL 3V AP/LAT/OBL LEFT RADEX FOOT COMPLETE MINIMUM 3 VIEWS Brennen Johnson [address] [place] [address] Xr Imaging Referral ID Status Reason Start Date Expiration Date Visits Requested Visits Authorized [id number] Pending Review Auto-Generat ed Referral 09/03/2022 10/03/2023 1 1 [facility] for referral (narrative)* Diagnostic Procedure Only (Routine) - Closed Specialty Diagnoses / Procedures Referred By Poncho torrez Referred To Contact XR IMAGING Diagnoses Hallux rigidus of both feet Procedures XR FOOT GENERAL 3V AP/LAT/OBL BILATERAL RADEX FOOT COMPLETE MINIMUM 3 VIEWS Brennen Johnson [address] [place] [address] Xr Imaging Referral ID Status Reason Start Date Expiration Date V isits Requested Visits Authorized [id number] Closed Auto-Generate d Referral 09/04/2022 10/04/2023 1 1 [facility] for referral (narrative)* Diagnostic Procedure Only (Routine) - Closed Specialty Diagnoses / Procedures Referred By Contac t Referred To Contact XR IMAGING Diagnoses Hallux rigidus of both feet Procedures XR FOOT GENERAL 3V AP/LAT/OBL BILATERAL RADEX FOOT COMPLETE MINIMUM 3 VIEWS Brennen Johnson [address] [place] [address] [place] [address] Referral ID Status Reason Start Date Expiration Date V isits Requested Visits Authorized [id number] Closed Auto-Generate d Referral 09/04/2022 10/04/2023 1 1 [facility] for referral (narrative)No reason for referral information availableWProMedica [facility] Work Phone: Reason for visit Narrative* Diagnostic Procedure Only (Routine) - Closed Specialty Diagnoses / Procedures Referred By Contac t Referred To Contact XR IMAGING Diagnoses Hallux rigidus of both feet Procedures XR FOOT GENERAL 3V AP/LAT/OBL BILATERAL RADEX FOOT COMPLETE MINIMUM 3 VIEWS Brennen Johnson [address] [place] [address] [place] [address] Referral ID Status Reason Start Date Expiration Date V isits Requested Visits Authorized [id number] Closed Auto-Generate d Referral 09/04/2022 10/04/2023 1 1 [facility] Summary Purpose Family History No Family History Records Found Relationship Condition Age at Onset Recorded Date/T faith mother Malignant neoplasm Unknown father Aneurysm Unknown Advance Directives No Advanced Directives Records Found Advance Directive Response Recorded Date/ Time Advance Directives No August 29 5 2:12pm Living Will No September 02, 2021 8:19pm Power of Safety Security Officer No September 02 8:19pm Latest Code Status [...] Do you have a Healthcare Power of Safety Security Officer? No October 07, 2024 8:16am Advance Directives [...] section and content) DATE CREATED AUTHOR 04/21/2019 [facility] DATE CREATED AUTHOR AUTHOR'S ORGANIZ ATION 10/01/2024 [facility] DATE CREATED AUTHOR AUTHOR'S ORGANIZ ATION 10/08/2024 [facility] Goals (unrecognized section and content) Goals may [...] or prosecute any alcohol or drug abuse patient.[facility] Center[facility] the event this information is protected by the Federal Confidentiality of Alcohol and Drug Abuse Patient Records regulations: The Federal rules restrict any use of the information to criminally investigate or prosecute any alcohol or drug abuse patient.[facility] Center[facility] the event this information is protected by the Federal Confidentiality of Alcohol and Drug Abuse Patient Records regulations: The Federal rules restrict any use of the information to criminally investigate or prosecute any alcohol or drug abuse patient.[facility] CenterIn the event this information is protected by the Federal Confidentiality of Alcohol and Drug Abuse Patient Records regulations: The Federal rules restrict any use of the information to criminally investigate or prosecute any alcohol or drug abuse patient.[facility] CenterIn the event this information is protected by the Federal Confidentiality of Alcohol and Drug Abuse Patient Records regulations: The Federal rules restrict any use of the information to criminally investigate or prosecute any alcohol or drug abuse patient.[facility] CenterIn the event this information is protected by the Federal Confidentiality of Alcohol and Drug Abuse Patient Records regulations: The Federal rules restrict any use of the information to criminally investigate or prosecute any alcohol or drug abuse patient.[facility] CenterIn the event this information is protected by the Federal Confidentiality of Alcohol and Drug Abuse Patient Records regulations: The Federal rules restrict any use of the information to criminally investigate or prosecute any alcohol or drug abuse patient.[facility] CenterIn the event this information is protected by the Federal Confidentiality of Alcohol and Drug Abuse Patient Records regulations: The Federal rules restrict any use of the information to criminally investigate or prosecute any alcohol or drug abuse patient.[facility] CenterIn the event this information is protected by the Federal Confidentiality of Alcohol and Drug Abuse Patient Records regulations: The Federal rules restrict any use of the information to criminally investigate or prosecute any alcohol or drug abuse patient.[facility] CenterIn the event this information is protected by the Federal Confidentiality of Alcohol and Drug Abuse Patient Records regulations: The Federal rules restrict any use of the information to criminally investigate or prosecute any alcohol or drug abuse patient.[facility] CenterIn the event this information is protected by the Federal Confidentiality of Alcohol and Drug Abuse Patient Records regulations: The Federal rules restrict any use of the information to criminally investigate or prosecute any alcohol or drug abuse patient.[facility] CenterIn the event this information is protected by the Federal Confidentiality of Alcohol and Drug Abuse Patient Records regulations: The Federal rules restrict any use of the information to criminally investigate or prosecute any alcohol or drug abuse patient.[facility] CenterIn the event this information is protected by the Federal Confidentiality of Alcohol and Drug Abuse Patient Records regulations: The Federal rules restrict any use of the information to criminally investigate or prosecute any alcohol or drug abuse patient.[facility] CenterIn the event this information is protected by the Federal Confidentiality of Alcohol and Drug Abuse Patient Records regulations: The Federal rules restrict any use of the information to criminally investigate or prosecute any alcohol or drug abuse patient.[facility] CenterIn the event this information is protected by the Federal Confidentiality of Alcohol and Drug Abuse Patient Records regulations: The Federal rules restrict any use of the information to criminally investigate or prosecute any alcohol or drug abuse patient.[facility] CenterIn the event this information is protected by the Federal Confidentiality of Alcohol and Drug Abuse Patient Records regulations: The Federal rules restrict any use of the information to criminally investigate or prosecute any alcohol or drug abuse patient.[facility] CenterIn the event this information is protected by the Federal Confidentiality of Alcohol and Drug Abuse Patient Records regulations: The Federal rules restrict any use of the information to criminally investigate or prosecute any alcohol or drug abuse patient.[facility] CenterIn the event this information is protected by the Federal Confidentiality of Alcohol and Drug Abuse Patient Records regulations: The Federal rules restrict any use of the information to criminally investigate or prosecute any alcohol or drug abuse patient.[facility] CenterIn the event this information is protected by the Federal Confidentiality of Alcohol and Drug Abuse Patient Records regulations: The Federal rules restrict any use of the information to criminally investigate or prosecute any alcohol or drug abuse patient.[facility] CenterIn the event this information is protected by the Federal Confidentiality of Alcohol and Drug Abuse Patient Records regulations: The Federal rules restrict any use of the information to criminally investigate or prosecute any alcohol or drug abuse patient.[facility] Care Teams (unrecognized sec tion and content) Black Mill Operator Relationship Specialty Start Date End Date Kelton Serrano MD [address] [place] [address] PCP - General Internal Medicine 10/18/16 Nicholas Dela Cruz MD [address] [place], [place] [address] Referring Orthopedics 04/07/19 Nicholas Dela Cruz MD [address] [place], [place] [id number] Home Care Provider Orthopedics 04/07/19 Maame Fontana, PT [address] [facility] [place] [address] Ict Support Technicians Acute Care 04/09/19 Black Mill Operator Relationship Specialty Start Date End Date Kelton Serrano MD [address] [facility] [address] PCP - General Internal Medicine 10/18/16 Nicholas Dela Cruz MD [address] [place] [address] Referring Orthopedics 04/07/19 Nicholas Dela Cruz MD [address] [facility] [place] [place] [address] Home Care Provider Orthopedics 04/07/19 Maame Fontana, PT [address] [facility] [address] Ict Support Technicians Acute Care 04/09/19 Black Mill Operator Relationship Specialty Start Date End Date Kelton Serrano MD [address] [facility] [address] PCP - General Internal Medicine 10/18/16 Nicholas Dela Cruz MD [address] [facility] [place] [address] Referring Orthopedics 04/07/19 Nicholas Dela Cruz MD [address] [facility] [place] [address] Home Care Provider Orthopedics 04/07/19 Maame Fontana, PT [address] [facility] [address] Ict Support Technicians Acute Care 04/09/19 Black Mill Operator Relationship Specialty Start Date End Date Kelton Serrano MD [address] [facility] [place] [address] PCP - General Internal Medicine 10/18/16 Nicholas Dela Cruz MD [address] [place] [address] Referring Orthopedics 04/07/19 Nicholas Dela Cruz MD [address] [place] [address] Home Care Provider Orthopedics 04/07/19 Maame Fontana, PT [address] [facility] [address] Ict Support Technicians Acute Care 04/09/19 Black Mill Operator Relationship Specialty Start Date End Date Kelton Serrano MD [address] [facility] [place] [address] PCP - General Internal Medicine 10/18/16 Nicholas Dela Cruz MD [address] [place] [address] Referring Orthopedics 04/07/19 Nicholas Dela Cruz MD [address] [place] [place] [address] Home Care Provider Orthopedics 04/07/19 Maame Fontana, PT [address] [facility] [address] Ict Support Technicians Acute Care 04/09/19 Black Mill Operator Relationship Specialty Start Date End Date Kelton Serrano MD [address] [facility] [place] [address] PCP - General Internal Medicine 10/18/16 Nicholas Dela Cruz MD [address] [place] [address] Referring Orthopedics 04/07/19 Nicholas Dela Cruz MD [address] [place] [address] Home Care Provider Orthopedics 04/07/19 Maame Fontana, PT [address] [facility] [address] Ict Support Technicians Acute Care 04/09/19 Black Mill Operator Relationship Specialty Start Date End Date Kelton Serrano MD [address] [facility] [place] [address] PCP - General Internal Medicine 10/18/16 Nicholas Dela Cruz MD [address] [facility] [place] [address] Referring Orthopedics 04/07/19 Nicholas Dela Cruz MD [address] [facility] [place] [place] [address] Home Care Provider Orthopedics 04/07/19 Maame Fontana, PT [address] [facility] [address] Ict Support Technicians Acute Care 04/09/19 Black Mill Operator Relationship Specialty Start Date End Date Kelton Serrano MD [address] [facility] [place] [address] PCP - General Internal Medicine 10/18/16 Nicholas Dela Cruz MD [address] [place] [place] [address] Referring Orthopedics 04/07/19 Nicholas Dela Cruz MD [address] [facility] [place] [place] [address] Home Care Provider Orthopedics 04/07/19 Maame Fontana, PT [address] [facility] [place] [address] Ict Support Technicians Acute Care 04/09/19 Black Mill Operator Relationship Specialty Start Date End Date Kelton Serrano MD [address] [place] [address] PCP - General Internal Medicine 10/18/16 Nicholas Dela Cruz MD [address] [place] [address] Referring Orthopedics 04/07/19 Nicholas Dela Cruz MD [address] [place] [address] Home Care Provider Orthopedics 04/07/19 Maame Fontana, PT [address] [place] [address] Ict Support Technicians Acute Care 04/09/19 Black Mill Operator Relationship Specialty Start Date End Date Kelton Serrano MD [address] [place] [address] PCP - General Internal Medicine 10/18/16 Nicholas Dela Cruz MD [address] [place] [address] Referring Orthopedics 04/07/19 Nicholas Dela Cruz MD [address] [place] [address] Home Care Provider Orthopedics 04/07/19 Maame Fontana, PT [address] [address] Ict Support Technicians Acute Care 04/09/19 Black Mill Operator Relationship Specialty Start Date End Date Kelton Serrano MD [address] [place] [address] PCP - General Internal Medicine 10/18/16 Nicholas Dela Cruz MD [address] [place] [address] Referring Orthopedics 04/07/19 Nicholas Dela Cruz MD [address] [place] [address] Home Care Provider Orthopedics 04/07/19 Maame Fontana, PT [address] [place] [address] [employer] Support Technicians Acute Care 04/09/19 Black Mill Operator Relationship Specialty Start Date End Date Kelton Serrano MD [address] [place] [address] PCP - General Internal Medicine 10/18/16 Nicholas Dela Cruz MD [address] [place] [address] Referring Orthopedics 04/07/19 Nicholas Dela Cruz MD [address] [place] [address] Home Care Provider Orthopedics 04/07/19 Maame Fontana, PT [address] [place] [address] [employer] Support Technicians Acute Care 04/09/19 Black Mill Operator Relationship Specialty Start Date End Date Kelton Serrano MD [address] [place] [address] PCP - General Internal Medicine 10/18/16 Nicholas Dela Cruz MD [address] [place] [address] Referring Orthopedics 04/07/19 Nicholas Dela Cruz MD [address] [place] [address] Home Care Provider Orthopedics 04/07/19 Maame Fontana, PT [address] [facility] [place] [address] Ict Support Technicians Acute Care 04/09/19 10/31/22 Maame Fontana, PT [address] [facility] [place] [address] Ict Support Technicians Acute Care 04/09/19 Black Mill Operator Relationship Specialty Start Date End Date Kelton Serrano MD [address] [place] [address] PCP - General Internal Medicine 10/18/16 Nicholas Dela Cruz MD [address] [place] [address] Referring Orthopedics 04/07/19 Nicholas Dela Cruz MD [address] [place] [address] Home Care Provider Orthopedics 04/07/19 Black Mill Operator Relationship Specialty Start Date End Date Kelton Serrano MD [address] [place] [address] PCP - General Internal Medicine 10/18/16 Nicholas Dela Cruz MD [address] [place] [address] Referring Orthopedics 04/07/19 Nicholas Dela Cruz MD [address] [place] [address] Home Care Provider Orthopedics 04/07/19 Kaye Daily APRN.PRECINCT POLICE CAPTAIN [address] [place] [address] Supervisor Functional Testing Internal Medicine 02/02/24 Yaritza Tineo APRN.QUARTER DOPER [address] [place] [address] [facility] Internal Medicine 02/02/24 Black Mill Operator Relationship Specialty Start Date End Date Kelton Serrano MD [address] [place] [address] PCP - General Internal Medicine 10/18/16 Nicholas Dela Cruz MD [address] [place] [address] Referring Orthopedics 04/07/19 Nicholas Dela Cruz MD [address] [place] [address] Home Care Provider Orthopedics 04/07/19 Kaye Daily APRN.PRECINCT POLICE CAPTAIN [address] [place] [address] [facility] Internal Medicine 02/02/24 Yaritza Tineo APRN.QUARTER DOPER [address] [place] [address] [facility] Internal Medicine 02/02/24 Black Mill Operator Relationship Specialty Start Date End Date Kelton Serrano MD [address] [place] [address] PCP - General Internal Medicine 10/18/16 Nicholas Dela Cruz MD [address] [place] [address] Referring Orthopedics 04/07/19 Nicholas Dela Cruz MD [address] [place] [address] Home Care Provider Orthopedics 04/07/19 Kaye Daily APRN.PRECINCT POLICE CAPTAIN [address] [place] [address] Supervisor Functional Testing Internal Medicine 02/02/24 Yaritza Tineo APRN.QUARTER DOPER [address] [place] [address] Supervisor Functional Testing Internal Medicine 05/18/24 Black Mill Operator Relationship Specialty Start Date End Date Kelton Serrano MD [address] [place] [address] PCP - General Internal Medicine 10/18/16 Nicholas Dela Cruz MD [address] [place] [address] Referring Orthopedics 04/07/19 Nicholas Dela Cruz MD [address] [place] [address] Home Care Provider Orthopedics 04/07/19 Kaye Daily APRN.PRECINCT POLICE CAPTAIN [address] [place] [address] Supervisor Functional Testing Internal Medicine 02/02/24 Yaritza Tineo APRN.QUARTER DOPER [address] [place] [address] Supervisor Functional Testing Internal Medicine 05/18/24 Black Mill Operator Relationship Specialty Start Date End Date Kelton Serrano MD [address] [place] [address] PCP - General Internal Medicine 10/18/16 Nicholas Dela Cruz MD [address] [place] [address] Referring Orthopedics 04/07/19 Nicholas Dela Cruz MD [address] [place] [address] Home Care Provider Orthopedics 04/07/19 Yaritza Tineo APRN.QUARTER DOPER [address] [place] [id number] Supervisor Functional Testing Internal Medicine 05/18/24 Kaye Daily APRN.PRECINCT POLICE CAPTAIN [address] [place], [place] [address] Supervisor Functional Testing Internal Medicine 07/14/24 Team Status: Active Member [...] BE BASED ON THE PRIMARY CLINICAL RECORDS. [employer] [facility]. provides no warranty or guarantee of the accuracy or completeness of information in this document.
[2024-10-09 05:08] LABS: Magnesium 2.0 mg/dL (1.5-2.2)
[2024-10-09] MEDS: 0.9% Normal Saline (1000mL) 1,000 ML 70 ML IV (05:40)
--- NOTE | 2024-10-09 07:57 | RAD_ITS ---
PROCEDURE: ABDOMEN SINGLE VIEW 10/09/2024 REASON FOR EXAM: STONE TECHNIQUE: ABDOMEN SINGLE VIEW COMPARISON: CT Abdomen and Pelvis w/o contrast, 10/07/2024 FINDINGS: LUNG BASES: Lung bases clear where seen. BOWEL: The bowel gas pattern is unremarkable. No bowel obstruction. PERITONEUM/SOFT TISSUES: No appreciable free air. Faintly seen left upper kidney calculus measuring approximately 1.0 cm, at the inferior L1 vertebral body level. Rounded calcified right pelvic phlebolith. BONES: No acute osseous abnormality. Right hip prosthesis. Moderate arthritic changes of the left hip. RAD/Abdomen Single View IMPRESSION: Left-sided nephrolithiasis. Reading Location: [id number]
--- NOTE | 2024-10-09 08:01 | CON.PCM_ITS ---
Assessment & Plan Assessment/Plan (1) Bilateral nephrolithiasis: PLAN: Add onto the schedule today for cystoscopy and left stent placement if he is doing well he probably can go home after that. He has appointment with me later on this week he can keep the appointment for a follow-up and we will plan to then treat the stone with lithotripsy when the shockwave machine is available or later on for now or just do a stent to temporize the pain (2) Ureteral colic: HPI Consult Data Date of Consult: 10/09/24 HPI Narrative Reason for Consultation: Left kidney stones HPI Narrative: DANN MCMAHON, is a 79 M who presents to the hospital with intractable pain on the left side CT scan was done that demonstrated 6 mm stone in the proximal left ureter he also has a larger stone like around 9 mm in the upper pole the left kidney and may have a smaller 3 mm stone in the ureter as well distal to that, has a tiny stone in the right side but always means a left-sided headache intractable pain was admitted for pain control. No fevers or chills. Will check a KUB today to see the location of the stones and we will add on for the schedule for cystoscopy and left stent placement [facility] Medical History Kidney stone Abnormal electrocardiogram Cholelithiasis Neuropathy Hypertrophy of prostate without urinary obstruction Osteoarthritis History of melanoma Nocturia Kidney stones GERD (gastroesophageal reflux disease) Essential (primary) hypertension Hyperlipidemia Home Medications ?Medication ?Instructions ?Recorded ?Last Taken ?Type multivitamin-iron 9 mg-folic acid 1 tablet PO DAILY landa pplement 08/29/14 Unknown History 400 mcg-calcium and minerals tablet lansoprazole 30 mg capsule,delayed 30 mg PO DAILY gerd 06/07/20 Unknown History release lisinopril 30 mg tablet 30 mg PO DAILY bp 10/25/22 U nknown History oxycodone 5 mg capsule 5 mg PO Q6H PRN pain 5 days #20 10/07/24 Unknown Rx caps amlodipine 5 mg tablet 5 mg PO DAILY bp 10/09/24 Un known History Allergy/AdvReac Type Severity Reaction Status Date / Time acetaminophen (From Tylenol) Allergy Rash Verified 10/07/24 07:12 doxazosin mesylate (From AdvReac Other Verified 10/07/24 07:12 Cardura) pantoprazole sodium (From AdvReac Other Verified 10/07/24 07:12 Protonix) triamterene AdvReac Other Verified 10/07/24 07:12 Family History Mother Cancer Father Aneurysm Surgical History History of colonoscopy History of herniorrhaphy History of cholecystectomy History of total hip arthroplasty Social History Smoking Status: Never smoker alcohol intake: current alcohol intake frequency: a few times a week Alcohol type: beer details: 1 beer 4 times a week ROS Constitutional Constitutional: Denies chills, fever(s) or malaise Eyes Eyes: Denies blurry vision or change in vision ENT HEENT: Reports none Cardiovascular Cardiovascular: Denies chest pain or palpitations Respiratory/Chest Respiratory/Chest: Denies cough or shortness of breath with exertion Gastrointestinal Gastrointestinal: Denies abdominal pain, constipation or diarrhea Musculoskeletal Musculoskeletal: Denies back pain, joint stiffness or joint swelling Integumentary Integumentary: Denies dry skin, jaundice, lesions or rash Neurologic Neurologic: Denies confusion, syncope or weakness Psychiatric Psychiatric: Reports none; Denies anxiety or depression Endocrine Endocrinology: Denies excessive sweating, fatigue or flushing Hematologic/Lymphatic Hematologic/Lymphatic: Denies anemia, easy bleeding or easy bruising Physical Exam Const alert and oriented x3 General Appearance: cooperative HEENT normocephalic and head/scalp atraumatic Eyes PERRL and EOMs intact bilaterally Neck supple, no JVD and no carotid bruits Resp normal respiratory effort, normal air movement and clear to auscultation bilaterally Cardio regular rate and no murmurs GI normal to inspection, nondistended, normoactive bowel sounds and soft to palpation Extremity normal capillary refill General Extremity: no tenderness to palpation of joints or extremities; Negative for edema Skin no rashes or lesions noted and no wounds General Skin Exam: no breakdown Neuro CN's II-XII intact bilaterally Psych affect normal Appearance: appropriate Lab / Micro Data 10/09/24 02:45 10/09/24 02:45 Labs: Laboratory Results - last 24 hr 10/09/24 02:45: WBC 7.3, RBC 4.47 L, Hgb 14.0, Hct 41.8, MCV 93.5, MCH 31.3, MCHC 33.5, RDW Std Deviation 45.8 H, RDW Coeff of Lidia 13.4, Plt Count 247, MPV 9.4, Immature Gran % (Auto) 0.500, Neut % (Auto) 68.7, Lymph % (Auto) 21.1, Mckinley % (Auto) 7.5, Eos % (Auto) 1.5, Baso % (Auto) 0.7, Absolute Neuts (auto) 5.0, Absolute Lymphs (auto) 1.55, Nucleated RBC % 0, Sodium 138, Potassium 3.8, Chloride 102, Carbon Dioxide 24.2, Anion Gap 12, BUN 24 H, Creatinine 1.41 H, Estim Creat Clear Calc 51.94, Est GFR (MDRD) Non-Af 51 L, BUN/Creatinine Ratio 16.7, Glucose 112 H, Calcium 9.2, Magnesium 2.0, TSH 3.600, Urine Color Straw, Urine Clarity Sl. Cloudy, Urine pH 6.5, Ur Specific Charlotte 1.010, Urine Protein 30 H, Urine Glucose (UA) Normal, Urine Ketones Negative, Urine Occult Blood 250 H, Urine Nitrite Negative, Urine Bilirubin Negative, Urine Urobilinogen Normal, Ur Leukocyte Esterase Negative, Urine RBC 0-5 SEEN, Urine WBC 0 SEEN, Ur Squamous Epith Cells 0 SEEN, Urine Bacteria 0 SEEN, Urine Mucus 0 SEEN 10/09/24 06:44: Phosphorus 3.1
--- NOTE | 2024-10-09 11:18 | PRE.ANES_ITS ---
ASA Classification* ASA Classification ASA Classification: 2 and E Assessment & Plan Anesthesia* Anesthesia Assessment Anesthesia Assessment: Discussed sedation and/or anesthesia options, risks, benefits, and alternatives with patient/parents/legal guardian/POA. Questions invited. The patient/parents/legal guardian/POA seems to understand and agrees to proceed with anesthesia plan. Reviewed the physical assessment, medical history, allergy history and patient home medications list prior to surgery/procedure/anesthetic and documented any changes. Performed airway and anesthesia risk assessments. Anesthesia Type Anesthesia Type: General History Source History Obtained from:: Patient, Chart and Significant Other Anesthesia Focused Assessment* Temperature: 98.1 F Pulse Rate: 80 Blood Pressure: 120/67 Respiratory Rate: 18 Pulse Ox: 93 Oxygen Delivery Method: Room Air Airway Assessment Mouth opens: >3 cm Mallampati Score: II Teeth Condition: Caps/Crowns Neck Range of motion (ROM): Limited ROM Labs Anesthesia Preop lab: CBC WBC 7.3 K/mm3 (4.4-11.0) 10/09/24 02:45 10/09/24 RBC 4.47 M/mm3 (4.6-6.2) L 10/09/24 02:45 10/09/24 Hgb 14.0 g/dL (13.0-16.5) 10/09/24 02:45 10/09/24 Hct 41.8 % (40-54) 10/09/24 02:45 10/09/24 Plt Count 247 K/mm3 (150-450) 10/09/24 02:45 10/09/24 CHEMISTRY Potassium 3.8 mmol/L (3.3-5.1) 10/09/24 02:45 10/09/24 Sodium 138 mmol/L (133-145) 10/09/24 02:45 10/09/24 Magnesium 2.0 mg/dL (1.5-2.2) 10/09/24 02:45 10/09/24 Phosphorus 3.1 mg/dL (2.7-4.5) 10/09/24 06:44 10/09/24 BUN 24 mg/dL (4-19) H 10/09/24 02:45 10/09/24 Creatinine 1.41 mg/dL (0.70-1.20) H 10/09/24 02:45 Glucose 112 mg/dL (70-99) H 10/09/24 02:45 10/09/24 TSH 3.600 uIU/mL (0.300-4.200) 10/09/24 02:45 09/24 08/18 COAG Pre-Assessment Diagnosis/Proposed Procedure Planned Operative Procedure(s): Cystoscopy and stent placement Anesthesia History Anesthesia History - selling specialist: Anesthesia History - selling specialist Hx Hospitalization Yes 07/03/18 19:30 Any Problems With Anesthesia Yes: Woke up at the 10/09/24 06:58 beginning of surgery, then was given more anesthesia. Cholinesterase deficiency No 10/09/24 06:58 You/Your Family Experience No 10/09/24 06:58 fever (hyperthermia) with Relationship Recent Exposure to Contagious No 10/09/24 06:58 Disease Does patient have nerve No 10/09/24 06:58 stimulator Patient instructed to have device shut off --Does patient have Pacemaker No 10/09/24 09:48 or ICD? When Was Last Pacemaker Check QUESTION #4 FULL TEXT: You/Your Family Experience fever (hyperthermia) with Anesthesia Last Oral Intake Last Oral intake: Last Oral Intake NPO since 00:00 10/09/24 09:48 Meds taken in AM with sips of water? Meds patient instructed to take am of surgery PONV PONV - selling specialist: PONV - selling specialist Female HX of Motion Sickness HX of N/V After Surgery Non-Smoker Duration of Surgery greater than 60 minutes Number of Risk Factors PONV Score Height & Weight Height & Weight: Anesthesia: Height & Weight Height 6 ft 1 in 10/09/24 05:28 Weight: 89.5 kg 10/09/24 05:28 Body Mass Index (BMI) 26.0 10/09/24 09:48 Respiratory Assessment Respiratory Assessment - selling specialist: Respiratory Tract Infection Hx - selling specialist Hx Respiratory Tract Infection No 10/09/24 06:58 STOP Sleep Apnea STOP Sleep Apnea - selling specialist: STOP Sleep Apnea - selling specialist Hx Hypertension Yes 10/09/24 05:28 Hx Sleep Apnea Yes 10/09/24 05:28 CPAP No 10/09/24 05:28 BIPAP No 10/09/24 05:28 Do you snore loudly (louder than talking or can be heard Do you often feel tired/ fatigued/ sleepy during daytime? Has anyone observed you stop breathing during sleep? STOP Results Positive 10/09/24 05:28 QUESTION #5 FULL TEXT : Do you snore loudly (louder than talking or can be heard through closed doors)? 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 Specify any problems Hx of Preganancy in last 3 N/A 10/09/24 05:28 Months Nurse Filling Out Transfusion DREDICK 10/09/24 05:28 & Questions: Date: 10/09/24 10/09/24 05:28 Time: 05:29 10/09/24 05:28 Patient unable to answer at this time (ie. confused, unrespo /Reproduction History /Reproductive History - selling specialist: /Reproductive Hx- selling specialist Hx Now No 10/09/24 06:58 Gestational Age (in weeks): EDC: Hx Hx Para Hx Section SAB No 10/09/24 06:58 Active Medications Active Medications: Current Medications Generic Name Dose Route Start Last Admin Trade Name Freq PRN Reason Stop Dose Admin Amlodipine Besylate 5 mg 10/09/24 10:00 10/09/24 08:51 Amlodipine 5 Mg Tablet PO 5 mg DAILY LENO Administration Protocol Hydralazine HCl 10 mg 10/09/24 05:22 10/09/24 05:40 Hydralazine 20 Mg/Ml Vial IV 10 mg TID PRN PRN Administration SBP GREATER THAN 160 Protocol Hydromorphone HCl 0.5 mg 10/09/24 05:22 10/09/24 05:40 Hydromorphone 0.5 Mg/0.5 Ml Syringe IV 0.5 mg Q4H PRN PRN Administration Pain Score 6-10 Sodium Chloride 1,000 mls @ 70 mls/hr 10/09/24 04:35 10/09/24 05:40 IV 10/09/24 18:52 70 mls/hr .[id number] LENO Administration Ceftriaxone Sodium 1 gm in 50 mls @ 100 mls/hr 10/09/24 05:22 10/09/24 06:28 Rocephin IV Infused 2200 LENO Infusion Sodium Chloride 250 mls @ 15 mls/hr 10/09/24 05:23 IV .[id number] PRN Saline Flush Sodium Chloride 250 mls @ 15 mls/hr 10/09/24 05:23 IV .[id number] PRN Additional IVPB Infusion Lansoprazole 30 mg 10/09/24 10:00 10/09/24 08:51 Lansoprazole 15 Mg Capsule.Dr PO 30 mg DAILY LENO Administration Multivitamins/Minerals 1 tablet 10/09/24 08:00 10/09/24 08:51 Multivitamins,Ther W-Minerals Tablet PO 1 tablet DAILYCM LENO Administration Sodium Chloride 10 - 40 ml 10/09/24 05:23 0.9% Saline Lock 10 Ml Syringe IV UD PRN SALINE FLUSH PFSH Medical History Kidney stone Abnormal electrocardiogram Cholelithiasis Neuropathy Hypertrophy of prostate without urinary obstruction Osteoarthritis History of melanoma Nocturia Kidney stones GERD (gastroesophageal reflux disease) Essential (primary) hypertension Hyperlipidemia Home Medications ?Medication ?Instructions ?Recorded ?Last Taken ?Type multivitamin-iron 9 mg-folic acid 1 tablet PO DAILY landa pplement 08/29/14 Unknown History 400 mcg-calcium and minerals tablet lansoprazole 30 mg capsule,delayed 30 mg PO DAILY gerd 06/07/20 Unknown History release lisinopril 30 mg tablet 30 mg PO DAILY bp 10/25/22 U nknown History oxycodone 5 mg capsule 5 mg PO Q6H PRN pain 5 days #20 10/07/24 Unknown Rx caps amlodipine 5 mg tablet 5 mg PO DAILY bp 10/09/24 Un known History Allergy/AdvReac Type Severity Reaction Status Date / Time acetaminophen (From Tylenol) Allergy Rash Verified 10/07/24 07:12 doxazosin mesylate (From AdvReac Other Verified 10/07/24 07:12 Cardura) pantoprazole sodium (From AdvReac Other Verified 10/07/24 07:12 Protonix) triamterene AdvReac Other Verified 10/07/24 07:12 Family History Mother Cancer Father Aneurysm Surgical History History of colonoscopy History of herniorrhaphy History of cholecystectomy History of total hip arthroplasty Social History Smoking Status: Never smoker alcohol intake: current alcohol intake frequency: a few times a week Alcohol type: beer details: 1 beer 4 times a week Review of Systems (Anesthesia) ROS Narrative System reviewed and no additional complaints, except as documented.
[2024-10-09] MEDS: 0.9% Normal Saline (1000mL) 800 ML IV (11:30)
[2024-10-09] MEDS: Lidocaine 1% (5 ml sdv) 5 ML Vial IV (11:35)
[2024-10-09] MEDS: fentaNYL 100 MCG/2 ML Ampul IV (11:35)
--- NOTE | 2024-10-09 11:46 | PCM.OPRPT ---
Operative Report (Standard) Operative Information Date of Procedure: 10/09/24 Pre-Operative Diagnosis: Left kidney stones Post-Operative Diagnosis: The same Surgery/Procedure Performed: Cystoscopy, left retrograde pyelogram, left stent placement post acute care nurse practitioner: No Type of Anesthesia: General RN Documented Start/Stop Times: Operation Date: 10/09/24 11:25 Case Time Into Pre-Op 10/09/24 10:05 Anesthesia Start 10/09/24 11:27 Into Room 10/09/24 11:27 Procedure Start 10/09/24 11:40 Procedure End 10/09/24 11:44 Procedure Start Time: 11:40 Procedure Stop Time: :44 Select all DRAINS/GRAFTS/IMPLANTS that apply: Drains Drain details: 6 Japanese by 26 Demeter stent Estimated Blood Loss: None Specimen collected: No Description of surgery: Patient was taken back to the operating room he has an obstructing stone in the proximal left ureter causing severe renal colic he was not able to go home had severe pain was admitted to the hospital for pain control today where to take him to surgery for stent placement CAT scan demonstrated large stone in the left kidney stone in the proximal ureter with 6 mm in size KUB cannot see the stones the stones are radiolucent very likely uric acid stones that able to place a stent in order to alleviate the obstruction and then we will set him up for ureteroscopy and laser at a separate setting once he is stable. Patient was taken back to the operating room after induction of anesthesia he was placed in dorsolithotomy position penis and testicles prepped and draped in usual fashion went in the bladder with a 21 Japanese rigid cystourethroscope prostate was slightly enlarged no median lobe trigone was normal left and right ureter first normal cannulated the left ureter orifice with a Glidewire and a 5 Japanese open-ended Pollick catheter performed retrograde Polygram he can see contrast going up to the kidney can see the stone in the upper pole of the kidney stones are radiolucent on retrograde pyelogram. I then backloaded the wire through the catheter and then advanced the stent on the left side the stent coiled in the kidney and bladder in good position pulled the wire drain the patient's bladder. Patient go back to regular diet should be able to be discharged once he is pain-free and follow-up in my office for further care of his kidney stones. Surgical Findings: Stones were radiolucent Complications Complications: No Admit VTE Documentation VTE Present on Admission: No VTE Mechan Device Prophylaxis: SCD's VTE Pharm Prophylaxis ordered?: No
--- NOTE | 2024-10-09 12:00 | PCM.POST.ANE ---
Anesthesia: Postop Eval I Current Vital Signs Temperature: 98.4 F Pulse Rate: 92 Blood Pressure: 152/76 Respiratory Rate: 16 Pulse Ox: 97 Oxygen Delivery Method: Room Air Assessment Airway patent: Yes Spontaneous unlabored respirations: Yes Mental status: Awake and Calm nausea: No Vomiting: No Anesthesia Complication: No Fluid Hydration Crystalloid volume administer (ml): 800 Total IV fluid infused: 800 Progress Note Anesthesia document: Postop Eval 1 completed: No
--- NOTE | 2024-10-09 12:05 | PCM.POSTANE2 ---
Anesthesia Postop Eval I Sum Postop Eval Completion status Anesthesia document: Postop Eval 1 completed: No Anesthesia Postop Eval I Summary Anesthesia Postop Eval I Summary: Anesthesia Postop Eval I: Assessment Summary Airway patent Yes 10/09/24 12:01 Spontaneous unlabored Yes 10/09/24 12:01 respirations Mental status Awake,Calm 10/09/24 12:01 nausea No 10/09/24 12:01 Vomiting No 10/09/24 12:01 Anesthesia Postop Eval I: Fluid Summary Crystalloid volume administer 800 10/09/24 12:01 (ml) Colloids volume administered ( ml) Blood Product volume administered (ml) Total IV fluid infused 800 10/09/24 12:01 Anesthesia Postop Eval I: Summary Notes Anesthesia Complication No 10/09/24 12:01 Anesthesia Complication Comment: Post-operative progress note Anesthesia: Postop Eval II Evaluation Mental status: Awake and Calm Pain Level: 1 nausea: No Vomiting: No Complications Anesthesia Complication: No
[2024-10-09 12:39] LABS: Cholesterol 193 mg/dL (<=200); Low Density Lipoprotein Calc. 129 mg/dL; Triglycerides 75 mg/dL; Very Low Density Lipoprotein 15 mg/dL (5-40); cholesterol:hdl ratio screen 3.95
--- NOTE | 2024-10-09 14:19 | DCINST_ITS ---
Discharge Instructions DC O2, CPAP, BIPAP needs Home O2 Discharge instructions: No Dressing / Incision Discharge Activity: Return to Normal Activity Weight Bearing Status: Full weight bearing Follow Up Care Test Results: Test results from this visit will be discussed in further detail at your follow- up appointment, if applicable. Discharge Plan Admission Admit Date/Time: 10/09/24 04:27 Primary Reason for Your Visit: ureter stones left Attending Provider: Antonio Swan Primary Care Provider: Damaris Almanzar Consulting Providers: Byron Vasquez; Ervin Campos Discharge Orders/Prescriptions Prescriptions: New ciprofloxacin HCl 250 mg tablet 250 mg PO BID Qty: 14 0RF oxycodone 5 mg tablet 5 mg PO Q4H PRN (Reason: pain) 7 Days Qty: 20 0RF Rx Instructions: one or two every four hours as needed for pain Continued [id number]-[id number] 1 TABLET tablet 1 tablet PO DAILY lansoprazole 30 mg capsule,delayed release(DR/EC) 30 mg PO DAILY lisinopril 30 mg tablet 30 mg PO DAILY oxycodone 5 mg capsule 5 mg PO Q6H PRN (Reason: pain) 5 Days Qty: 20 0RF amlodipine 5 mg tablet 5 mg PO DAILY Referrals / Follow Up: Byron Vasquez MD [Med Staff - Active Staff] - See Referral Note (as scheduled) Damaris Almanzar MD [Primary Care Provider] - Disposition Disposition (needs filled in before D/C Order can be placed): Home, Self Care
--- NOTE | 2024-10-09 14:28 | DS.PCM_ITS ---
Providers Date of Admission: 10/09/24 Date of Discharge: 10/09/24 Primary Care Physician: Dr. Damaris Almanzar MD Consultations 10/09/24 05:22 Consult: Urology Routine Consulting Provider: Byron Vasquez Reason for Consult: Left renal calculi with intractable flank pain. EMERGENT Consult: No MD Notified: Yes Date Notified: 10/09/24 Time Notified: 07:00 Method of Notification: ED Physician Initiated Reason For Visit: LEFT RENAL CALCULI WITH INTRACTABLE LEFT FLANK Diagnosis Discharge Diagnosis (1) Bilateral nephrolithiasis: Status: Acute Code(s): N20.0 - Calculus of kidney (2) Ureteral colic: Status: Acute Code(s): N23 - Unspecified renal colic Plan 1. Left ureteral stones #2 bilateral renal calculi #3 ureteral colic #4 chronic kidney disease stage IIIa Medications at Discharge Home Medications multivitamin-iron 9 mg-folic acid 400 mcg-calcium and minerals tablet 1 tablet PO DAILY supplement 08/29/14 lansoprazole 30 mg capsule,delayed release 30 mg PO DAILY gerd 06/07/20 lisinopril 30 mg tablet 30 mg PO DAILY bp 10/25/22 oxycodone 5 mg capsule 5 mg PO Q6H PRN pain 5 days #20 caps 10/07/24 amlodipine 5 mg tablet 5 mg PO DAILY bp 10/09/24 ciprofloxacin HCl 250 mg tablet 250 mg PO BID #14 tabs 10/09/24 oxycodone 5 mg tablet 5 mg PO Q4H PRN pain 7 days #20 tabs 10/09/24 Hospital Course Operations - (Cystoscopy and left ureteral stent placement) Summary of Care Provided Minutes Spent on Discharge: 45 Hospital Course: This 79-year-old white male was seen in the emergency room at [facility] with a chief complaint of left flank pain. He had been diagnosed 48 hours previously with left-sided kidney stones, he had been prescribed narcotics as an outpatient but was still having pain despite taking the narcotics. CT scan of the abdomen pelvis that had been obtained on 10/07/2024 showed bilateral renal calculi and 2 calculi in the left ureter. Patient was admitted to [place] [address], he underwent cystoscopy with stent placement in the left ureter by urology. Patient tolerated procedure well and there were no complications. On 10/09/2024, patient was seen and examined: On examination he appeared in good health and spirits. Vital signs as documented. Skin warm and dry and without overt rashes. Neck without JVD, neck was supple, trachea midline, thyroid was normal. Lungs clear bilaterally, normal air movement was noted. Heart exam notable for regular rhythm, normal sounds and absence of murmurs, rubs or gallops. Abdomen unremarkable and without evidence of organomegaly, masses, or abdominal aortic enlargement. Bowel sounds are present, abdomen is not distended. Extremities nonedematous, no cyanosis was noted, no clubbing was noted. Neuro: Cranial nerves II through XII are grossly intact, no focal motor deficits were noted, sensation to light touch and pinprick intact, motor exam 5/5 throughout. Psych: Patient is alert and oriented x3, he does not appear anxious or depressed, he does not appear agitated. Patient was discharged home in stable condition on 10/09/2024 Weight / BMI Weight Weight: 89.5 kg Body Mass Index (BMI) 26.0 ABG / Lab / Microbiology Data 10/09/24 02:45 10/09/24 02:45 Laboratory: Laboratory Results - last 24 hr 10/09/24 02:45: WBC 7.3, RBC 4.47 L, Hgb 14.0, Hct 41.8, MCV 93.5, MCH 31.3, MCHC 33.5, RDW Std Deviation 45.8 H, RDW Coeff of Lidia 13.4, Plt Count 247, MPV 9.4, Immature Gran % (Auto) 0.500, Neut % (Auto) 68.7, Lymph % (Auto) 21.1, [place] % (Auto) 7.5, Eos % (Auto) 1.5, Baso % (Auto) 0.7, Absolute Neuts (auto) 5.0, Absolute Lymphs (auto) 1.55, Nucleated RBC % 0, Sodium 138, Potassium 3.8, Chloride 102, Carbon Dioxide 24.2, Anion Gap 12, BUN 24 H, Creatinine 1.41 H, Estim Creat Clear Calc 51.94, Est GFR (MDRD) Non-Af 51 L, BUN/Creatinine Ratio 16.7, Glucose 112 H, Calcium 9.2, Magnesium 2.0, TSH 3.600, Urine Color Straw, Urine Clarity Sl. Cloudy, Urine pH 6.5, Ur Specific [place] 1.010, Urine Protein 30 H, Urine Glucose (UA) Normal, Urine Ketones Negative, Urine Occult Blood 250 H, Urine Nitrite Negative, Urine Bilirubin Negative, Urine Urobilinogen Normal, Ur Leukocyte Esterase Negative, Urine RBC 0-5 SEEN, Urine WBC 0 SEEN, Ur Squamous Epith Cells 0 SEEN, Urine Bacteria 0 SEEN, Urine Mucus 0 SEEN 10/09/24 06:44: Phosphorus 3.1, Triglycerides 75, Cholesterol 193, LDL Cholesterol, Calc 129, VLDL Cholesterol 15, HDL Cholesterol 49, Cholesterol/HDL Ratio 3.95 Radiography Diagnostic Testing: Radiology Impression KUB X-Ray 10/09/24 07:57 IMPRESSION: Left-sided nephrolithiasis. Reading Location: [facility] D/C Instructions Weight Bearing Status: Full weight bearing DC O2, CPAP, BIPAP Needs Home O2 Discharge instructions: No Meaningful Use Info Meaningful Use Meaningful Use Diagnoses (Choose all that apply): None applicable Discharge Plan Admission Admit Date/Time: 10/09/24 04:27 Primary Reason for Your Visit: ureter stones left Attending Provider: Antonio Swan Primary Care Provider: Damaris Almanzar Consulting Providers: Byron Vasquez; Ervin Campos Discharge Orders/Prescriptions Prescriptions: New ciprofloxacin HCl 250 mg tablet 250 mg PO BID Qty: 14 0RF oxycodone 5 mg tablet 5 mg PO Q4H PRN (Reason: pain) 7 Days Qty: 20 0RF Rx Instructions: one or two every four hours as needed for pain Continued [id number]-[id number]-calcium-mins 1 TABLET tablet 1 tablet PO DAILY lansoprazole 30 mg capsule,delayed release(DR/EC) 30 mg PO DAILY lisinopril 30 mg tablet 30 mg PO DAILY oxycodone 5 mg capsule 5 mg PO Q6H PRN (Reason: pain) 5 Days Qty: 20 0RF amlodipine 5 mg tablet 5 mg PO DAILY Referrals / Follow Up: Byron Vasquez MD [Med Staff - Active Staff] - See Referral Note (as scheduled) Damaris Almanzar MD [Primary Care Provider] - Disposition Disposition (needs filled in before D/C Order can be placed): Home, Self Care Charges/Coding Visit Charges OBSV E&M: 10899 Observ/hosp same date L1
--- NOTE | 2024-10-09 15:30 | NURSING ---
Pt and given discharge instructions including medications, follow up appointments and all other discharge instructions. pt and deny any further needs to this time. telemetry removed and placed at nurses station. Iv removed with catheter intact, clean dry dressing applied, pt tolerated well. pt and walking out to wifes vehicle. Pt and deny any further needs at this time.
== END 2024-10-09 15:00 | disposition home or self-care (01) ==
LOC: ED 04:05 → MS3 04:37
PROVIDERS: Urology; Admitting Provider Internal Medicine; Emergency Provider Emergency Medicine; PCP Internal Medicine; Visit Provider Internal Medicine
DX: N13.2 Hydronephrosis with renal and ureteral calculous obstruction (principal); N18.31 Chronic kidney disease, stage 3a; I12.9 Hypertensive chronic kidney disease with stage 1 through stage 4 chronic kidney disease, or unspecified chronic kidney disease; E66.3 Overweight; K21.9 Gastro-esophageal reflux disease without esophagitis; N23 Unspecified renal colic; E78.5 Hyperlipidemia, unspecified; Z68.27 Body mass index [BMI] 27.0-27.9, adult; Z79.891 Long term (current) use of opiate analgesic; Z90.49 Acquired absence of other specified parts of digestive tract; N40.0 Benign prostatic hyperplasia without lower urinary tract symptoms; Z85.820 Personal history of malignant melanoma of skin; Z87.442 Personal history of urinary calculi
CPT/HCPCS: 52351; 52332; 00910; 36415; 74018; 76000; 80048; 80061; 81001; 83735; 84100; 84443; 85025; 96365; 96375; 96376; 99221; 99285; A4216; C1769; C2617; G0378; J2405